=== PATIENT | male | born 1950 | race African-American/Black ===

== ENCOUNTER 2017-04-04 01:56 | Inpatient (IN) ==
--- NOTE | 2017-04-04 02:27 | Emergency Department Note ---
Idalmis Gavin Hilary, am scribing for, and in the presence of, Parker Spivey MD 02:24. Patric Gavin Robert M, MD, personally performed the services described in this documentation, ascribed by Alessandra Raygoza in my presence, and it is both accurate and complete . Arrival - Arrival Chief Complaint: GI Bleed/Rectal ED Nursing Triage Note: C/O Vomited blood x 2 episodes. Pt denies any complaints at time of triage. Mode of Arrival: Stretcher Limitations: No Limitations Source: Family (daughter), RN Notes Reviewed Time Seen by Provider: 04/04/17 02:12 - History of Present Illness HPI Narrative: Pt is a 67 y/o black male brought into the ED via EMS for c/o spitting up blood which onset earlier today. Pts daughter is in the room and states that pt has a home health nurse who noticed blood when he was coughing and spitting, pt states it feels like something is in his throat. His daughter reports that he has a PMHx of dialysis, DM and CHF and that he was diagnosed with pneumonia one week ago. She confirms that he takes a baby aspirin everyday and that Dr. Baltazar just recently changed all of his meds. No other complaints or problems stated in the ED. Onset (ago): hour(s) Consistency: intermittent Severity: mild Severity scale (1-10): 1 Allergies/Adverse Reactions: Allergies Allergy/AdvReac Type Severity Reaction Status Date / Time sulfamethoxazole Allergy Swelling Verified 03/23/17 01:02 [From Bactrim] of Lip/Tongue/Throat trimethoprim [From Bactrim] Allergy Swelling Verified 03/23/17 01:02 of Lip/Tongue/Throat Home Medications: Home Medications Medication Instructions Recorded Confirmed Type Aspirin [Ecotrin] 81 mg PO DAILY 11/12/15 04/04/17 History Cetirizine Tab [ZyrTEC Tab] 10 mg PO DAILY 11/12/15 04/04/17 History Cholecalciferol (Vitamin D3) 5,000 unit PO DAILY 11/12/15 04/04/17 History [Vitamin D3] Gemfibrozil 600 mg PO BID 11/12/15 04/04/17 History NIFEdipine [Nifedipine ER] 120 mg PO DAILY 11/12/15 04/04/17 History Pantoprazole Tab [Protonix Tab] 40 mg PO DAILY 11/12/15 04/04/17 History Pentoxifylline 400 mg PO TID W/MEALS 11/12/15 04/04/17 History Bimatoprost 0.01% Oph Soln 1 drop BOTH EYES BEDTIME 11/13/15 04/04/17 History [Lumigan] Brimonidine 0.1% Oph Soln 1 drop BOTH EYES TID 11/13/15 04/04/17 History [Alphagan P 0.1% Oph Soln] Dorzolamide/Timolol Oph Soln 1 drop BOTH EYES BID #1 ophthalmic 11/18/15 Rx [Cosopt] solution Albuterol/Ipratropium Neb [Duoneb] 3 ml RESP TX QID 12/29/15 04/04/17 History Budesonide/Formoterol Fumarate 2 puff INH BID 12/29/15 04/04/17 History [Symbicort 160-4.5 Mcg Inhaler] Montelukast Tab [Singulair Tab] 10 mg PO DAILY 12/29/15 04/04/17 History Multivitamin (Ocuvite) [Ocuvite] 1 tablet PO DAILY 12/29/15 04/04/17 History Theophylline ER Cap (24 Hr) 300 mg PO DAILY 12/29/15 04/04/17 History [Hood-24] Dorzolamide/Timolol Oph Soln 1 drop BOTH EYES BID 06/19/16 04/04/17 History [Cosopt] Insulin NPH Hum/Reg Insulin Hm See Protocol SUBCUT AC BREAKFAST 06/19/16 History [NovoLIN 70/30] Insulin NPH Hum/Reg Insulin Hm See Protocol SUBCUT AC SUPPER 06/19/16 04/04/17 History [NovoLIN 70/30] Furosemide Tab [Lasix Tab] 40 mg PO DAILY #30 tablet 03/23/17 04/04/17 Rx Atorvastatin [Lipitor] 40 mg PO BEDTIME 04/04/17 04/04/17 History Carvedilol [Coreg] 6.25 mg PO BID 04/04/17 04/04/17 History Cyproheptadine Tab [Periactin Tab] 4 mg PO TID 04/04/17 04/04/17 History Hydralazine HCl 50 mg PO TID 04/04/17 04/04/17 History cloNIDine TAB [Catapres Tab] 0.2 mg PO DAILY 04/04/17 04/04/17 History Review of System - Review of System 12 point system: reviewed and no additional remarkable complaints except as stated - Review of System Constitutional: Absent: fever Gastrointestinal: Present: other (spitting up blood) Musculoskeletal: Present: leg pain (feet swelling) Medical,Surgical,& Family Hx - Medical History Cardio: History of: CHF, Hypertension Neurology: History of: Cerebral Hemorrhage, Peripheral Neuropathy, Neurological Problems (? Bilateral lower extremity weakness due to neuropathy) No history of: Seizures HEENT: History of: Eye Problem, Glaucoma Endocrine: History of: Diabetes Mellitus (IDDM) No history of: Diabetes Mellitus (NIDDM) Rheumatology: History of;: Rheumatoid Arthritis (BED RIDDEN) Respiratory: History of: Asthma, Respiratory Problems (asbestosis) Renal: History of: Dialysis, Renal Failure Genitourinary: History of: Prostate Problems (past HX cancer) Other: History of: Miscellaneous Medical Problems (BED RIDDEN; LYMPH NODES REMOVE L GROIN) - Surgical History Neurologic Surgeries: Surgical HX of: Cerebral Hemorrhage Abdominal Surgeries: Surgical HX of: Colonoscopy, EGD Reproductive Surgeries: Surgical HX of;: Prostate Surgery Orthopedic Surgeries: Surgical HX of;: Orthopedic Surgery (AMPUTEE 1 AND 1/2 TOE R FOOT), Total Hip Replacement (LEFT) - Family History Family History: Reports;: Family Diabetes (MOM SUBLINGS), Family Hypertension ( SISTERS) - Social History Smoking Status: Never smoker Frequency of Alcohol Use: None Type of Drug Use: None Exam Vital Signs: Vital Signs Temperature 97.7 F 04/04/17 01:56 Pulse Rate 79 04/04/17 01:56 Respiratory Rate 18 04/04/17 01:56 Blood Pressure 142/73 04/04/17 01:56 O2 Sat by Pulse Oximetry 99 04/04/17 01:56 - General General appearance: alert, in no apparent distress - Head Head exam: Present: atraumatic, normocephalic - Eye Eye exam: Present: normal appearance, PERRL, EOMI - ENT ENT exam: Present: mucous membranes moist, TM's normal bilaterally. Absent: mucous membranes dry - Neck Neck exam: Present: full ROM, trachea midline. Absent: tenderness - Chest Chest inspection: Present: symmetric chest wall rise. Absent: tenderness - Respiratory Respiratory exam: Present: normal lung sounds bilaterally. Absent: respiratory distress - Cardiovascular Cardiovascular exam: Present: regular rate, normal rhythm, normal heart sounds. Absent: murmur, rubs, gallop - Abdominal Exam Abdominal exam: Present: soft, normal bowel sounds. Absent: distention, tenderness - Extremities Exam Extremities exam: Present: full ROM, pedal edema (bilateral equal edema). Absent: tenderness - Back Exam Back exam: Present: full ROM. Absent: tenderness - Neurological Exam Neurological exam: Present: alert, oriented X3, CN II-XII intact. Absent: motor sensory deficit - Psychiatric Psychiatric exam: Present: normal affect, normal mood - Skin Skin exam: Present: warm, dry, intact, normal color. Absent: rash Course - Consultations Consultation #1: Dr. Tariq will admit the patient. Time: 03:14 Consultation #2: No Amena on hospitalist. I am going to admit the patient and have the nursing staff notify him of her arrival to floor. Time: 03:29 Results - Labs CBC & BMP: 04/04/17 02:04 04/04/17 02:04 Lab Results: I have reviewed the patients labs Labs: Lab Results WBC 2.7 T/CUMM (4-12) L 04/04/17 02:04 RBC 3.34 MC/CUMM (3.8-5.5) L 04/04/17 02:04 Hgb 9.3 GM/DL (14.0-18.0) L 04/04/17 02:04 Hct 27.4 VOL% (42.0-52.0) L 04/04/17 02:04 MCV 82.0 FL (87-102) L 04/04/17 02:04 MCH 28 PG (27-34) 04/04/17 02:04 MCHC 33.9 GM/DL (32-36) 04/04/17 02:04 RDW 15.5 % (9.3-17.3) 04/04/17 02:04 Plt Count 112 T/CUMM (130-400) L 04/04/17 02:04 MPV 11.8 FL (9.6-12.0) 04/04/17 02:04 Neut % (Auto) 68.3 % (38.7-73.9) 04/04/17 02:04 Lymph % (Auto) 15.8 % (21.2-54.2) L 04/04/17 02:04 Jay % (Auto) 12.1 % (1.7-12.7) 04/04/17 02:04 Eos % (Auto) 1.9 % (0.00-10.9) 04/04/17 02:04 Baso % (Auto) 0.0 % (0.0-0.8) 04/04/17 02:04 Neut # (Auto) 1.8 10*3/uL (1.4-7.4) 04/04/17 02:04 Lymph # (Auto) 0.4 10*3/uL (1.4-4.0) L 04/04/17 02:04 Jay # (Auto) 0.3 10*3/uL (0.11-0.8) 04/04/17 02:04 Eos # (Auto) 0.1 10*3/uL (0.0-0.87) 04/04/17 02:04 Baso # (Auto) 0.0 10*3/uL (0.0-0.2) 04/04/17 02:04 Immature Gran % 1.9 % 04/04/17 02:04 Nucleated RBC % 0.0 /100WBC 04/04/17 02:04 Immature Gran # 0.05 # 04/04/17 02:04 Nucleated RBCs # 0.00 10*3/uL 04/04/17 02:04 Sodium 134 MMOL/L (136-145) L 04/04/17 02:04 Potassium 4.4 MMOL/L (3.5-5.1) 04/04/17 02:04 Chloride 103 MMOL/L (98-107) 04/04/17 02:04 Carbon Dioxide 24 MMOL/L (21-32) 04/04/17 02:04 Anion Gap 11.4 MMOL/L (5.0-15.0) 04/04/17 02:04 BUN 47 MG/DL (7-18) H 04/04/17 02:04 Creatinine 2.90 MG/DL (0.70-1.30) H 04/04/17 02:04 GFR Calculation 30 ML/MIN 04/04/17 02:04 BUN/Creatinine Ratio 16.00 RATIO (6.00-20.00) 04/04/17 02:04 Glucose 113 MG/DL (74-106) H 04/04/17 02:04 Calculated Osmolality 280.2 MOS/KG (273-304) 04/04/17 02:04 Calcium 8.5 MG/DL (8.5-10.1) 04/04/17 02:04 Magnesium 1.8 MG/DL (1.8-2.4) 04/04/17 02:04 Urine Color Yellow (Yellow) 04/04/17 02:35 Urine Appearance Clear (Clear) 04/04/17 02:35 Urine pH 5.0 (4.5-8.0) 04/04/17 02:35 Ur Specific [place] 1.012 (1.001-1.035) 04/04/17 02:35 Urine Protein 100 MG/DL 04/04/17 02:35 Urine Glucose (UA) Negative mg/dL (Negative) 04/04/17 02:35 Urine Ketones Negative mg/dL (Negative) 04/04/17 02:35 Urine Blood Negative mg/dL (Negative) 04/04/17 02:35 Urine Nitrate Negative (Negative) 04/04/17 02:35 Urine Bilirubin Negative mg/dL (Negative) 04/04/17 02:35 Urine Urobilinogen < 2.0 EU/DL (0.2-1.0) H 04/04/17 02:35 Urine Leukocytes Negative Daniella/ul (Negative) 04/04/17 02:35 Urine RBC 1 /HPF (0-4) 04/04/17 02:35 Urine WBC 2 /HPF (0-6) 04/04/17 02:35 Hyaline Casts 2 /LPF (0-3) 04/04/17 02:35 Urine Mucus Occasional /LPF (Occasional) 04/04/17 02:35 Ur Culture Indicated? Not indicated 04/04/17 02:35 - Diagnostic Findings Procedure: Chest x-ray: image reviewed by me (Worsening bibasilar effusion/ atelectasis/airspace opacities) Disposition Clinical Impression: Hemoptysis, Worsening pleural effusions, Oropharyngeal dysphagia, Congestive heart failure, Chronic renal failure Case discussed with: patient, patient's family Disposition: Still a Patient Condition: Stable Time of Disposition: 03:14
[2017-04-04 02:35] LABS: Calcium 8.5 MG/DL (8.5-10.1); Magnesium 1.8 MG/DL (1.8-2.4); Osmolality,Calculated 280.2 MOS/KG (273-304); Potassium 4.4 MMOL/L (3.5-5.1)
[2017-04-04 02:48] LABS: Eosinophils # 0.1 10*3/uL (0.0-0.87); Eosinophils % 1.9 % (0.00-10.9); Hematocrit 27.4 VOL% (42.0-52.0); Hemoglobin 9.3 GM/DL (14.0-18.0); Immature Granulocytes % 1.9 %; Immature Granulocytes Absolute 0.05 #; Lymphocytes # 0.4 10*3/uL (1.4-4.0); Lymphocytes % 15.8 % (21.2-54.2); Mean Corpuscular HGB Conc 33.9 GM/DL (32-36); Mean Corpuscular Hemoglobin 28 PG (27-34); Mean Platelet Volume 11.8 FL (9.6-12.0); Monocytes # 0.3 10*3/uL (0.11-0.8); Monocytes % 12.1 % (1.7-12.7); Neutrophils # 1.8 10*3/uL (1.4-7.4); Neutrophils % 68.3 % (38.7-73.9); Platelet Count 112 T/CUMM (130-400); Red Blood Count 3.34 MC/CUMM (3.8-5.5); Red Cell Distribution Width 15.5 % (9.3-17.3); White Blood Count 2.7 T/CUMM (4-12)
[2017-04-04 03:00] LABS: Apearance,Urine CLEAR (Clear); Bilirubin,Urine Negative (Negative); Blood, Urine Negative (Negative); Glucose,Urine (UA) Negative (Negative); Hyaline Casts,Urine 2 /LPF (0-3); Ketones,Urine Negative (Negative); Mucus,Urine Occasional /LPF (Occasional); Nitrite,Urine Negative (Negative); Protein,Urine 100 MG/DL; RBC,Urine 1 /HPF (0-4); Urine Color Yellow (Yellow); Urine Specific Gravity 1.012 (1.001-1.035); Urine Urobilinogen < 2.0 EU/DL (0.2-1.0); WBC,Urine 2 /HPF (0-6)
[2017-04-04] MEDS ORDERED: GLUCAGON 1 MG VIAL IM PRN (04:22)
--- NOTE | 2017-04-04 04:27 | Hospitalist History & Physical ---
Assessment and Plan (1) Acute on chronic systolic (congestive) heart failure Status: Acute Assessment and plan: Patient will be admitted to the telemetry floor. Obtain an echocardiogram to verify status of the left ventricle says chambers and pericardial space. Also documented left ventricular function. Patient will need to be seen by thermal engineer. He is on multiple medications at home several weeks the value of his questions. Essential medications will be continued. Check troponin and CPK -MB obtain an EKG. Current Visit: Yes (2) Stasis dermatitis Status: Acute Assessment and plan: Maintain skin hygiene on the hospital. Will use Aquaphor 12 provide moisturization of the skin desquamate him as much as possible. May have to consult Dr. Linares if he does not improve. Current Visit: Yes (3) Pleural effusion Status: Acute Assessment and plan: Check CT of the chest without. Encourage diuresis while in the hospital. Current Visit: Yes (4) Hemoptysis Status: Acute Assessment and plan: This could be bronchitis however will check a CT of the chest x-ray that there is no lesions in the lungs or could cause this. Congestive heart failure with a backup edema can also produce bloody sputum. Current Visit: Yes (5) Pneumonia Status: Acute Assessment and plan: Since he has been in the hospital recently patient will be treated as a hospital -acquired pneumonia. Put him on linezolid 600 mg IV every 12 hours and Zosyn 2.25 g IV every 12. He is on dialysis these doses are tailored to his GFR. Current Visit: No (6) Anemia Status: Chronic Assessment and plan: Patient has low MCV anemia but he does have leukopenia and thrombocytopenia associated with this. This anemia could be secondary to his renal failure but I am concerned about possibility of chronic iron loss. Hemoccult his stools to make sure there is no GI bleed. Current Visit: No Qualifiers: Anemia type: iron deficiency History of Present Illness Chief complaint: Coughing of blood History of present illness: Most of the history was obtained from the daughters at the bedside who have very poor recorrection: Mr. Em is a 67 year old male brought into the ED via EMS for c/o spitting up blood which onset earlier today. Pts daughter is in the room and states that pt has a home health nurse who noticed blood when he was coughing and spitting, pt states it feels like something is in his throat. His daughter reports that he has a PMHx of dialysis, DM and CHF and that he was diagnosed with pneumonia one week ago. She confirms that he takes a baby aspirin everyday and that a Dr. Baltazar just recently changed all of his meds. Patient is complaining of feeling of fullness in the throat and with little movement he gets very short of breath. I have not seen in the blood coughed up on his note cough during my assessment but the emergency room physician so what looked like coffee ground. Is a chest x-ray done that shows possibility of left lobar pneumonia but also presence of pleural effusions in that side. There is congestion of blood vessels into the upper lung echevarria. The heart silhouette looks rather globular Home Medications Medication Instructions Recorded Confirmed Type Aspirin [Ecotrin] 81 mg PO DAILY 11/12/15 04/04/17 History Cetirizine Tab [ZyrTEC Tab] 10 mg PO DAILY 11/12/15 04/04/17 History Cholecalciferol (Vitamin D3) 5,000 unit PO DAILY 11/12/15 04/04/17 History [Vitamin D3] Gemfibrozil 600 mg PO BID 11/12/15 04/04/17 History NIFEdipine [Nifedipine ER] 120 mg PO DAILY 11/12/15 04/04/17 History Pantoprazole Tab [Protonix Tab] 40 mg PO DAILY 11/12/15 04/04/17 History Pentoxifylline 400 mg PO TID W/MEALS 11/12/15 04/04/17 History Bimatoprost 0.01% Oph Soln 1 drop BOTH EYES BEDTIME 11/13/15 04/04/17 History [Lumigan] Brimonidine 0.1% Oph Soln 1 drop BOTH EYES TID 11/13/15 04/04/17 History [Alphagan P 0.1% Oph Soln] Dorzolamide/Timolol Oph Soln 1 drop BOTH EYES BID #1 ophthalmic 11/18/15 Rx [Cosopt] solution Albuterol/Ipratropium Neb [Duoneb] 3 ml RESP TX QID 12/29/15 04/04/17 History Budesonide/Formoterol Fumarate 2 puff INH BID 12/29/15 04/04/17 History [Symbicort 160-4.5 Mcg Inhaler] Montelukast Tab [Singulair Tab] 10 mg PO DAILY 12/29/15 04/04/17 History Multivitamin (Ocuvite) [Ocuvite] 1 tablet PO DAILY 12/29/15 04/04/17 History Theophylline ER Cap (24 Hr) 300 mg PO DAILY 12/29/15 04/04/17 History [Hood-24] Dorzolamide/Timolol Oph Soln 1 drop BOTH EYES BID 06/19/16 04/04/17 History [Cosopt] Insulin NPH Hum/Reg Insulin Hm See Protocol SUBCUT AC BREAKFAST 06/19/16 History [NovoLIN 70/30] Insulin NPH Hum/Reg Insulin Hm See Protocol SUBCUT AC SUPPER 06/19/16 04/04/17 History [NovoLIN 70/30] Furosemide Tab [Lasix Tab] 40 mg PO DAILY #30 tablet 03/23/17 04/04/17 Rx Atorvastatin [Lipitor] 40 mg PO BEDTIME 04/04/17 04/04/17 History Carvedilol [Coreg] 6.25 mg PO BID 04/04/17 04/04/17 History Cyproheptadine Tab [Periactin Tab] 4 mg PO TID 04/04/17 04/04/17 History Hydralazine HCl 50 mg PO TID 04/04/17 04/04/17 History cloNIDine TAB [Catapres Tab] 0.2 mg PO DAILY 04/04/17 04/04/17 History Allergies Allergy/AdvReac Type Severity Reaction Status Date / Time sulfamethoxazole Allergy Swelling Verified 03/23/17 01:02 [From Bactrim] of Lip/Tongue/Throat trimethoprim [From Bactrim] Allergy Swelling Verified 03/23/17 01:02 of Lip/Tongue/Throat Medical,Surgical,& Family Hx - Medical History Cardio: History of: CHF, Hypertension Neurology: History of: Cerebral Hemorrhage, Peripheral Neuropathy, Neurological Problems (? Bilateral lower extremity weakness due to neuropathy) No history of: Seizures HEENT: History of: Eye Problem, Glaucoma Endocrine: History of: Diabetes Mellitus (IDDM) No history of: Diabetes Mellitus (NIDDM) Rheumatology: History of;: Rheumatoid Arthritis (BED RIDDEN) Respiratory: History of: Asthma, Respiratory Problems (asbestosis) Renal: History of: Dialysis, Renal Failure Genitourinary: History of: Prostate Problems (past HX cancer) Other: History of: Miscellaneous Medical Problems (BED RIDDEN; LYMPH NODES REMOVE L GROIN) - Surgical History Neurologic Surgeries: Surgical HX of: Cerebral Hemorrhage Abdominal Surgeries: Surgical HX of: Colonoscopy, EGD Reproductive Surgeries: Surgical HX of;: Prostate Surgery Orthopedic Surgeries: Surgical HX of;: Orthopedic Surgery (AMPUTEE 1 AND 1/2 TOE R FOOT), Total Hip Replacement (LEFT) - Family History Family History: Reports;: Family Diabetes (MOM SUBLINGS), Family Hypertension ( SISTERS) - Social History Smoking Status: Never smoker Frequency of Alcohol Use: None Type of Drug Use: None Review of systems: 12 point system assessment was attempted with difficult. Review of systems significant for the chief complaint of coughing of blood shortness of breath profound exercise intolerance abnormal chest x-ray December was compared to March and the past medical history. This history is documented in prior notes as systolic congestive heart failure however I have not been able to locate an echocardiogram. Exam - Constitutional Vitals: Period Temp Pulse Resp BP Sys/Stewart Pulse Ox Last 24 Hr 97.7 F-97.7 F 79-79 18-18 142-142/73-73 99 General appearance: normal weight, other (Asthenia malaise dysphonia) - Head Head exam: Present: normocephalic, atraumatic - Eye Eye exam: Present: EOMI, other (Anicteric sclera no conjunctival petechiae) Pupils: Present: SLY - ENT ENT exam: Present: normal oropharynx, other (Noted posterior pharyngeal secretions) - Neck Neck exam: Present: other (Neck is supple midline trachea mild JVD no stridor) - Respiratory Respiratory exam: Present: other (Doubt to auscultation in both bases more so on the right side no wheezing) - Cardiovascular Cardiovascular exam: Present: other (Regular rhythm with ectopic beats I do not have an EKG will monitor to look at the time of my assessment) - GI/Abdominal GI/Abdominal exam: Present: normal bowel sounds, soft - Extremities Exam Extremities exam: Present: other (Generalized weakness severe edema the lower extremities with stasis dermatitis hygiene upkeep seem to be arranged) - Neurological Exam Neurological exam: Present: alert, oriented X3, CN II-XII intact, other (Very weak slow in responses but appropriate significant dysphonia) - Psychiatric Psychiatric exam: Present: other (Subdued affect) - Skin Skin exam: Present: other (Weeping leg edema with discoloration is also dependent edema in the sacral area) Results - Labs CBC & BMP: 04/04/17 02:04 04/04/17 02:04 Lab Results: I have reviewed the past 24 hour labs (Noted low MCV anemia with a associated leukopenia and thrombocytopenia RDW is on the 15.5 however. Also noted mild hyponatremia; Urine is not inflamed) - Diagnostic Findings Procedure: Chest x-ray: image reviewed by me (With sent basilar density is to be associated with pneumonia on the left side and possible pleural effusion I will order CT of the chest without contrast)
[2017-04-04 04:41] LABS: CKMB % 7.4 %; Troponin I Only 0.038 NG/ML (0.00-0.045)
[2017-04-04] MEDS: LINEZOLID INJ 600 MG in PREMIX 1 EACH IV SCH ×2 (06:00→20:53)
--- NOTE | 2017-04-04 06:40 | CT Report ---
Referring physician: Parker Spivey EXAM: CT chest without contrast DATE: 04/04/2017 COMPARISON: 06/30/2016 REASON: Progressive consolidation with larger pleural effusion and hemoptysis TECHNIQUE: Axial images of the chest were obtained without the use of IV contrast. Coronal and sagittal reformatted images were also provided. Total DLP is 552.30 mGy*cm. This exam was interpreted by [facility]. FINDINGS: The heart is enlarged with coronary artery calcifications. Enlargement of the right lobe of the thyroid gland with larger 33 mm nodule. Several nodules are felt to be present. No significant change in the size of the nodes in the chest. Prior cholecystectomy with cortical loss in the kidneys and increased fecal material in the colon. Degenerative changes are noted. Progressive pleural effusions which measure 64 mm on the right and 61 mm on the left the level of the phoebe. Progressive dense consolidation/atelectasis of the lower lobes which appear to contain calcified granulomata and/or secretions. Tracheal secretions are noted. Reduced parenchymal findings in the remainder of the lungs when compared to the previous exam. Patchy groundglass opacities persist especially in the left upper lobe/lingula. IMPRESSION: Cardiomegaly with coronary artery calcifications. Moderately large bilateral pleural effusions with associated dense atelectasis/consolidation in the lower lobes. Reduced parenchymal findings in the remainder of the lungs. Residual groundglass opacities which can be seen with infiltration or other parenchymal pathology. It is somewhat difficult to exclude underlying masses with these findings and follow-up is recommended. Larger indeterminate right thyroid nodule. Thyroid ultrasound is recommended. Prior cholecystectomy. The CT exam was performed using one or more of the following dose reduction techniques: Automated exposure control and adjustment of the mA and/or kV according to patient size. PROCEDURE INTERPRETED AT [facility] DEPARTMENT OF RADIOLOGY Final Report Signed by: Dr. Jacque Sarah
--- NOTE | 2017-04-04 06:57 | XRay Report ---
Portable chest Date: 04/04/2017 Clinical history: Chest pain, shortness of breath Comparison: 03/23/2017 Technique: Portable AP sitting chest Findings: The heart is enlarged with uncoiling of the aorta and arterial calcifications. Larger bilateral pleural effusions with progressive parenchymal findings in the lower lobes. Increased hilar density with degenerative changes. Impression: Moderately large bilateral pleural effusions with progressive atelectasis/infiltration in the lower lobes. Follow-up chest x-ray recommended. PROCEDURE INTERPRETED AT [facility] DEPARTMENT OF RADIOLOGY Final Report Signed by: Dr. Jacque Sarah
[2017-04-04] MEDS: FUROSEMIDE 40 MG TABLET PO SCH (08:33)
[2017-04-04] MEDS: THEOPHYLLINE ER (24 HR) 300 MG CAPSULE PO SCH (08:33)
[2017-04-04] MEDS: PANTOPRAZOLE 40 MG TABLET PO SCH (08:33)
[2017-04-04] MEDS: MONTELUKAST 10 MG TABLET PO SCH (08:33)
[2017-04-04] MEDS: MULTIVITAMIN (OCUVITE) TABLET PO SCH (08:33)
[2017-04-04] MEDS: CARVEDILOL 6.25 MG TABLET PO SCH ×2 (08:33→21:04)
[2017-04-04] MEDS: CHOLECALCIFEROL 1,000 UNIT TABLET PO SCH (08:33)
[2017-04-04] MEDS: ASPIRIN EC 81 MG TABLET PO SCH (08:33)
[2017-04-04] MEDS: PIPERACILLIN/TAZOBACTAM 3,375 MG in SODIUM CHLORIDE 0.9% 100 ML IV SCH ×3 (08:34→23:14)
[2017-04-04] MEDS: INSULIN NPH/REGULAR 70/30 100 UNIT/ML SUBCUT SCH ×2 (08:34→16:31)
--- NOTE | 2017-04-04 08:53 | Cardiology Consult Note ---
<Margaret De La Rosa E - Last Filed: 04/04/17 11:36> Assessment and Plan - Time spent with patient Time spent with patient: Greater than 30 minutes (1) Pancytopenia Status: Acute Assessment and plan: SEE PLAN OF CARE LISTED BELOW Current Visit: Yes (2) Community acquired pneumonia Status: Acute Assessment and plan: SEE PLAN OF CARE LISTED BELOW Current Visit: No (3) Chronic renal failure Status: Chronic Assessment and plan: SEE PLAN OF CARE LISTED BELOW Current Visit: Yes Qualifiers: Chronic kidney disease stage: stage 4 (severe) Qualified Code(s): N18.4 - Chronic kidney disease, stage 4 (severe) (4) Diabetes mellitus Status: Chronic Assessment and plan: SEE PLAN OF CARE LISTED BELOW Current Visit: No Qualifiers: Diabetes mellitus type: type 2 Diabetes mellitus complication detail: with chronic kidney disease Chronic kidney disease stage: stage 5, not on chronic dialysis (5) chronic lower extremity wounds Status: Chronic Assessment and plan: SEE PLAN OF CARE LISTED BELOW Current Visit: No (6) Hemoptysis Status: Acute Assessment and plan: SEE PLAN OF CARE LISTED BELOW Current Visit: Yes (7) Pleural effusion Status: Acute Assessment and plan: SEE PLAN OF CARE LISTED BELOW Current Visit: Yes (8) CHF (congestive heart failure), NYHA class III Status: Acute Assessment and plan: SEE PLAN OF CARE LISTED BELOW Current Visit: Yes Qualifiers: Congestive heart failure type: diastolic Congestive heart failure chronicity: acute on chronic Qualified Code(s): I50.33 - Acute on chronic diastolic (congestive) heart failure (9) Dyslipidemia Status: Chronic Assessment and plan: SEE PLAN OF CARE LISTED BELOW Current Visit: Yes (10) Edema Status: Chronic Assessment and plan: SEE PLAN OF CARE LISTED BELOW Current Visit: Yes (11) Risk for falls Status: Chronic Assessment and plan: SEE PLAN OF CARE LISTED BELOW Current Visit: Yes History of Present Illness - Data of Consult Patient: known to practice within the last 3 years Consult date: 04/04/17 Requesting Physician: London Abdi Jr. 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 AG Mr. Em, 67BM, routinely followed by Dr. Ag. He was last seen in cardiology clinic March 26, 2017. Risk factors include: Hypertension, diabetes, peripheral vascular disease, sedentary lifestyle. History of CHF, pneumonia, chronic kidney disease (reportedly got off dialysis after only 1 month), anemia , diabetic heel ulcer. Patient presented to the emergency department April 04, 2017 after experiencing hemoptysis, shortness of breath. Patient takes aspirin 81 mg daily. Complains of "something in my throat" and points specifically left lower neck. This is tender to touch and is enlarged. One week ago, he was diagnosed with pneumonia. Chest x-ray revealed the possibility of left lobular pneumonia but also presence of pleural effusions. CT chest reveals: Moderately large bilateral pleural effusions with associated dense atelectasis/consolidation in lower lobes. Difficult to exclude underlying masses with the findings noted, follow-up is recommended. Larger indeterminate right thyroid nodule. He has been edematous in his lower extremities. He has a chronic right heel poor healing wound followed by Dr. Linares. Over the past several days, patient has developed a pea-size stage II to III wound. He denies chest pain, heaviness or tightness. Over the weekend, patient felt extremely fatigued. On-call filer metal patterns, Dr. Mustafa, was called and he asked them to stop Imdur. Still no improvement in fatigue. Blood pressures are elevated this morning and will adjust medications accordingly. Patient has pancytopenia on labs this morning. Of note, WBCs, anemia has has worsened since last admission. Platelet count, previously normal , now reveals a count of 112. Creatinine has worsened to 2.9 since prior admission when noted to be 2.3. Patient's weight this morning is 58.9 kg. Upon review from prior weight from March 23, 2017 weight recorded at 81.6 kg. Prior weights revealed 90's kg. Patient's daughter acknowledges she feels as if he has lost weight but not that significant in amount. Will ask nurse to reweigh this morning. [facility]chocardiogram at [facility] March 26, 2017 reveals the following: LVEF 55% (improved from 40%), concentric left ventricular hypertrophy is mild. Grade 1 diastolic dysfunction. No significant valvular abnormality. PAP 58 mmHg (improved from 70mmHg). Small pericardial effusion. Today, ordering thyroid ultrasound to evaluate bilobular enlargement, pain. Venous ultrasound bilateral lower extremities. Daughter had asked about having ABIs performed during this admission as Dr. Ag had scheduled them outpatient. Per Dr. Ag, Dr. Linares is seeing patient and if he prefers this , we can order ABIs during this hospitalization. Due to the significant weight differences, will ask that he be reweighed this morning and every day. After reviewing his multiple cardiac medications, many of them have adverse reactions such as thrombocytopenia or leukopenia including: Atorvastatin, Coreg, Furosemide. Hydralazine associated with neutropenia but not thrombocytopenia. Nifedipine, Clonidine NOT associated with thrombocytopenia or leukopenia. I will further discuss with Dr. Ag and await additional recommendations. Also, patient did have a small pericardial effusion on echo from March 26, 2017. I will discuss with Dr. Ag reordering echocardiogram, focused study if indicated ASSESSMENT/plan: 1. RECURRENT CAP - currently being treated with antibiotics, respiratory treatments. 2. ACUTE ON CHRONIC CHF - secondary to diastolic dysfunction, NYHA CLASS III - IV. 3. PANCYTOPENIA - blood cultures 2, UA. Reviewing cardiac medications and will later make adjustments as able to see if this will improve the pancytopenia. May warrant a hematology consult but I will defer additional workup to attending. Does have an abnormal CT chest. Thyroid ultrasounds been ordered. Significant weight loss but will have patient reweighed for accuracy today and daily. 4. HYPERTENSION - adjust meds accordingly during the hospital stay for better blood pressure control 5. DYSLIPIDEMIA - taking Atorvastatin. Will review other medicines we could use rather than atorvastatin and will incorporate when able. 6. PVD WITH POOR HEALING WOUND - Dr. Linares is following 7. DEBILITATED PATIENT - continue current plan of care. Fall protocol in place 8. ABNORMAL CT CHEST - see report. Dedicated thyroid US ordered. 9. CKD, STAGE - stage IV. Avoiding PERLITA for fear of worsening renal insufficiency 10. EDEMA - venous ultrasound bilateral lower extremities 11. THYROID ABNORMALITY - thyroid ultrasound today 12. HEMOPTYSIS - continue current work-up CC: London Abdi Jr., MD - Home Medications and Allergies Home Medications: Home Medications Medication Instructions Recorded Confirmed Type Aspirin [Ecotrin] 81 mg PO DAILY 11/12/15 04/04/17 History Cetirizine Tab [ZyrTEC Tab] 10 mg PO DAILY 11/12/15 04/04/17 History Cholecalciferol (Vitamin D3) 5,000 unit PO DAILY 11/12/15 04/04/17 History [Vitamin D3] NIFEdipine [Nifedipine ER] 120 mg PO DAILY 11/12/15 04/04/17 History Pantoprazole Tab [Protonix Tab] 40 mg PO DAILY 11/12/15 04/04/17 History Pentoxifylline 400 mg PO TID W/MEALS 11/12/15 04/04/17 History Bimatoprost 0.01% Oph Soln 1 drop BOTH EYES BEDTIME 11/13/15 04/04/17 History [Lumigan] Brimonidine 0.1% Oph Soln 1 drop BOTH EYES TID 11/13/15 04/04/17 History [Alphagan P 0.1% Oph Soln] Dorzolamide/Timolol Oph Soln 1 drop BOTH EYES BID #1 ophthalmic 11/18/15 Rx [Cosopt] solution Albuterol/Ipratropium Neb [Duoneb] 3 ml RESP TX QID 12/29/15 04/04/17 History Budesonide/Formoterol Fumarate 2 puff INH BID 12/29/15 04/04/17 History [Symbicort 160-4.5 Mcg Inhaler] Montelukast Tab [Singulair Tab] 10 mg PO DAILY 12/29/15 04/04/17 History Multivitamin (Ocuvite) [Ocuvite] 1 tablet PO DAILY 12/29/15 04/04/17 History Theophylline ER Cap (24 Hr) 300 mg PO DAILY 12/29/15 04/04/17 History [Hood-24] Dorzolamide/Timolol Oph Soln 1 drop BOTH EYES BID 06/19/16 04/04/17 History [Cosopt] Insulin NPH Hum/Reg Insulin Hm See Protocol SUBCUT AC BREAKFAST 06/19/16 History [NovoLIN 70/30] Insulin NPH Hum/Reg Insulin Hm See Protocol SUBCUT AC SUPPER 06/19/16 04/04/17 History [NovoLIN 70/30] Furosemide Tab [Lasix Tab] 40 mg PO DAILY #30 tablet 03/23/17 04/04/17 Rx Atorvastatin [Lipitor] 40 mg PO BEDTIME 04/04/17 04/04/17 History Carvedilol [Coreg] 6.25 mg PO BID 04/04/17 04/04/17 History Cyproheptadine Tab [Periactin Tab] 4 mg PO TID 04/04/17 04/04/17 History Hydralazine HCl 50 mg PO TID 04/04/17 04/04/17 History cloNIDine TAB [Catapres Tab] 0.2 mg PO DAILY 04/04/17 04/04/17 History Allergies/Adverse Reactions: Allergies Allergy/AdvReac Type Severity Reaction Status Date / Time sulfamethoxazole Allergy Swelling Verified 03/23/17 01:02 [From Bactrim] of Lip/Tongue/Throat trimethoprim [From Bactrim] Allergy Swelling Verified 03/23/17 01:02 of Lip/Tongue/Throat Review of systems: REVIEW OF SYSTEMS: - Constitutional Constitutional: Present: Fatigue. Absent: syncope, anorexia, night sweats - EENT Eyes: Absent: blurry vision, loss of vision, diplopia Ears: Absent: decreased hearing, ear pain, ear discharge Neck: Complains of pain to the left lower neck, tenderness, "feels like something is pressing on the neck and into my throat". - Cardiovascular Cardiovascular: Denies chest pain with exertion. Shortness of breath. Denies palpitations. Edema has worsened and lower extremities of the past several weeks. Absent: chest pain with deep breath, - Respiratory Respiratory: Present: Shortness of breath, cough, chills. Hemoptysis and wheezing. - Gastrointestinal Gastrointestinal: Denies: constipation, abdominal pain, hematemesis, hematochezia, melena, change in bowel habits, nausea - Genitourinary Genitourinary: Absent: difficulty urinating, dysuria, urinary hesitancy, flank pain - Musculoskeletal Musculoskeletal: Present: back pain, joint pain chronic. Absent: muscle cramps - Neurological Neurological: Present: Bedridden and nonambulatory. Absent: dizziness, hemiparesis - Psychiatric Psychiatric: Absent: anxiety, depression, difficulty concentrating - Endocrine Endocrine: Absent: cold intolerance, heat intolerance, polyuria, polyphagia, polydipsia - Hematologic/Lymphatic Hematologic/Lymphatic: Present: easy bruising. Absent: easy bleeding -Integumentary Integumentary: Right heel with poor wound healing which is worsened over the past 1 week. No other unusual lesions or rashes. Medical,Surgical,& Family Hx - Medical History Cardio: History of: CHF, Hypertension Neurology: History of: Cerebral Hemorrhage, Peripheral Neuropathy, Neurological Problems (? Bilateral lower extremity weakness due to neuropathy) No history of: Seizures HEENT: History of: Eye Problem, Glaucoma Endocrine: History of: Diabetes Mellitus (IDDM) No history of: Diabetes Mellitus (NIDDM) Rheumatology: History of;: Rheumatoid Arthritis (BED RIDDEN) Respiratory: History of: Asthma, Respiratory Problems (asbestosis) Renal: History of: Dialysis, Renal Failure Genitourinary: History of: Prostate Problems (past HX cancer) Other: History of: Miscellaneous Medical Problems (BED RIDDEN; LYMPH NODES REMOVE L GROIN) - Surgical History Neurologic Surgeries: Surgical HX of: Cerebral Hemorrhage Abdominal Surgeries: Surgical HX of: Colonoscopy, EGD Reproductive Surgeries: Surgical HX of;: Prostate Surgery Orthopedic Surgeries: Surgical HX of;: Orthopedic Surgery (AMPUTEE 1 AND 1/2 TOE R FOOT), Total Hip Replacement (LEFT) - Family History Family History: Reports;: Family Diabetes (MOM SUBLINGS), Family Hypertension ( SISTERS) - Social History Smoking Status: Never smoker Have you smoked in the last 12 months: No Frequency of Alcohol Use: None Type of Drug Use: None Marital Status: Lives With:: Children Functional capacity: bed bound Physical Examination Vital Signs Temp Pulse Resp BP Pulse Ox 97.7 F 79 18 142/73 99 04/04/17 01:56 04/04/17 01:56 04/04/17 01:56 04/04/17 01:56 04/04/17 01:56 General: [Appears chronically ill, thin. [Pleasant and cooperative. ] [ HEENT: [Bilateral arcus noted, normocephalic, atraumatic. Mucous membranes moist. No jaundice noted. Conjunctiva moist and clear, sclerae anicteric] Neck: No jugular vein distention noted. Bilobar enlargement of the thyroid noted with tenderness in the left lobe. No carotid bruit appreciated Cardiac: [Regular rate and rhythm.] [No murmur, rub or gallop.] Lungs: [Decreased sounds noted posteriorly in the bases. Scant crackles noted in the right lobe which improved but persists with cough. No wheezing at present. Requiring oxygen via nasal cannula continuously at this point. Symmetrical chest wall movements noted. Abdomen: Soft, bowel sounds normoactive. Nontender and nondistended. No abdominal bruit or thrill noted. No masses noted. Musculoskeletal: No fluid collection. Decreased range of motion is noted. Extremities: No clubbing, cyanosis noted. [2+ pitting edema bilateral lower extremities ] Upper extremity pulses 2+. Lower extremity pulses difficult to palpate. Skin: Right heel reveals pea-size stage II to stage III ulcer. Patient wearing waffle boots bilaterally. Neuro: Awake, alert and oriented 3. No essential tremor is appreciated. Result/EKG - Labs CBC & BMP: 04/04/17 02:04 04/04/17 02:04 Lab Results: I have reviewed the past 24 hour labs Labs: Laboratory Results - last 24 hr 04/04/17 04/04/17 04/04/17 02:04 02:04 02:04 WBC 2.7 L RBC 3.34 L Hgb 9.3 L Hct 27.4 L MCV 82.0 L MCH 28 MCHC 33.9 RDW 15.5 Plt Count 112 L MPV 11.8 Neut % (Auto) 68.3 Lymph % (Auto) 15.8 L [place] % (Auto) 12.1 Eos % (Auto) 1.9 Baso % (Auto) 0.0 Neut # (Auto) 1.8 Lymph # (Auto) 0.4 L [place] # (Auto) 0.3 Eos # (Auto) 0.1 Baso # (Auto) 0.0 Immature Gran % 1.9 Nucleated RBC % 0.0 Immature Gran # 0.05 Nucleated RBCs # 0.00 Sodium 134 L Potassium 4.4 Chloride 103 Carbon Dioxide 24 Anion Gap 11.4 BUN 47 H Creatinine 2.90 H GFR Calculation 30 BUN/Creatinine Ratio 16.00 Glucose 113 H POC Glucose Calculated Osmolality 280.2 Calcium 8.5 Magnesium 1.8 Total Creatine Kinase CK-MB (CK-2) CK and CKMB Interp Troponin I Urine Color Urine Appearance Urine pH Ur Specific [place] Urine Protein Urine Glucose (UA) Urine Ketones Urine Blood Urine Nitrate Urine Bilirubin Urine Urobilinogen Urine Leukocytes Urine RBC Urine WBC Hyaline Casts Urine Mucus Ur Culture Indicated? Blood Type A NEGATIVE 04/04/17 04/04/17 04/04/17 02:35 07:38 Unknown WBC RBC Hgb Hct MCV MCH MCHC RDW Plt Count MPV Neut % (Auto) Lymph % (Auto) [place] % (Auto) Eos % (Auto) Baso % (Auto) Neut # (Auto) Lymph # (Auto) [place] # (Auto) Eos # (Auto) Baso # (Auto) Immature Gran % Nucleated RBC % Immature Gran # Nucleated RBCs # Sodium Potassium Chloride Carbon Dioxide Anion Gap BUN Creatinine GFR Calculation BUN/Creatinine Ratio Glucose POC Glucose 141 H Calculated Osmolality Calcium Magnesium Total Creatine Kinase 174 CK-MB (CK-2) 12.9 H CK and CKMB Interp 7.4 Troponin I 0.038 Urine Color Yellow Urine Appearance Clear Urine pH 5.0 Ur Specific [place] 1.012 Urine Protein 100 Urine Glucose (UA) Negative Urine Ketones Negative Urine Blood Negative Urine Nitrate Negative Urine Bilirubin Negative Urine Urobilinogen < 2.0 H Urine Leukocytes Negative Urine RBC 1 Urine WBC 2 Hyaline Casts 2 Urine Mucus Occasional Ur Culture Indicated? Not indicated Blood Type - Diagnostic Findings Procedure: Chest x-ray: report reviewed by me, CT - chest: report reviewed by me - EKG EKG results: interpreted by sd EKG shows: sinus rhythm <Asher Ag - Last Filed: 04/04/17 16:11> History of Present Illness - Consult Narrative History of present illness: Mr. Em is a 67 year old male CC: London Abdi Jr., MD Physical Examination Vital Signs Temp Pulse Resp BP Pulse Ox 97.7 F 79 18 142/73 99 04/04/17 01:56 04/04/17 01:56 04/04/17 01:56 04/04/17 01:56 04/04/17 01:56 Result/EKG - Labs CBC & BMP: 04/04/17 02:04 04/04/17 02:04 Labs: Laboratory Results - last 24 hr 04/04/17 04/04/17 04/04/17 02:04 02:04 02:04 WBC 2.7 L RBC 3.34 L Hgb 9.3 L Hct 27.4 L MCV 82.0 L MCH 28 MCHC 33.9 RDW 15.5 Plt Count 112 L MPV 11.8 Neut % (Auto) 68.3 Lymph % (Auto) 15.8 L [place] % (Auto) 12.1 Eos % (Auto) 1.9 Baso % (Auto) 0.0 Neut # (Auto) 1.8 Lymph # (Auto) 0.4 L [place] # (Auto) 0.3 Eos # (Auto) 0.1 Baso # (Auto) 0.0 Immature Gran % 1.9 Nucleated RBC % 0.0 Immature Gran # 0.05 Nucleated RBCs # 0.00 Sodium 134 L Potassium 4.4 Chloride 103 Carbon Dioxide 24 Anion Gap 11.4 BUN 47 H Creatinine 2.90 H GFR Calculation 30 BUN/Creatinine Ratio 16.00 Glucose 113 H POC Glucose Calculated Osmolality 280.2 Calcium 8.5 Magnesium 1.8 Total Creatine Kinase CK-MB (CK-2) CK and CKMB Interp Troponin I Urine Color Urine Appearance Urine pH Ur Specific [place] Urine Protein Urine Glucose (UA) Urine Ketones Urine Blood Urine Nitrate Urine Bilirubin Urine Urobilinogen Urine Leukocytes Urine RBC Urine WBC Hyaline Casts Urine Mucus Ur Culture Indicated? Blood Type A NEGATIVE 04/04/17 04/04/17 04/04/17 02:35 07:38 12:14 WBC RBC Hgb Hct MCV MCH MCHC RDW Plt Count MPV Neut % (Auto) Lymph % (Auto) [place] % (Auto) Eos % (Auto) Baso % (Auto) Neut # (Auto) Lymph # (Auto) [place] # (Auto) Eos # (Auto) Baso # (Auto) Immature Gran % Nucleated RBC % Immature Gran # Nucleated RBCs # Sodium Potassium Chloride Carbon Dioxide Anion Gap BUN Creatinine GFR Calculation BUN/Creatinine Ratio Glucose POC Glucose 141 H 68 L Calculated Osmolality Calcium Magnesium Total Creatine Kinase CK-MB (CK-2) CK and CKMB Interp Troponin I Urine Color Yellow Urine Appearance Clear Urine pH 5.0 Ur Specific [place] 1.012 Urine Protein 100 Urine Glucose (UA) Negative Urine Ketones Negative Urine Blood Negative Urine Nitrate Negative Urine Bilirubin Negative Urine Urobilinogen < 2.0 H Urine Leukocytes Negative Urine RBC 1 Urine WBC 2 Hyaline Casts 2 Urine Mucus Occasional Ur Culture Indicated? Not indicated Blood Type 04/04/17 04/04/17 04/04/17 13:58 15:18 Unknown WBC RBC Hgb Hct MCV MCH MCHC RDW Plt Count MPV Neut % (Auto) Lymph % (Auto) [place] % (Auto) Eos % (Auto) Baso % (Auto) Neut # (Auto) Lymph # (Auto) [place] # (Auto) Eos # (Auto) Baso # (Auto) Immature Gran % Nucleated RBC % Immature Gran # Nucleated RBCs # Sodium Potassium Chloride Carbon Dioxide Anion Gap BUN Creatinine GFR Calculation BUN/Creatinine Ratio Glucose POC Glucose 88 93 Calculated Osmolality Calcium Magnesium Total Creatine Kinase 174 CK-MB (CK-2) 12.9 H CK and CKMB Interp 7.4 Troponin I 0.038 Urine Color Urine Appearance Urine pH Ur Specific [place] Urine Protein Urine Glucose (UA) Urine Ketones Urine Blood Urine Nitrate Urine Bilirubin Urine Urobilinogen Urine Leukocytes Urine RBC Urine WBC Hyaline Casts Urine Mucus Ur Culture Indicated? Blood Type
[2017-04-04] MEDS ORDERED: ALBUTEROL/IPRATROPIUM 3 ML NEB RESP TX SCH (09:00)
[2017-04-04] MEDS ORDERED: SKIN HEALING OINT (AQUAPHOR) 50 GM TUBE TOP PRN (09:07)
[2017-04-04] MEDS: ALBUTEROL/IPRATROPIUM 3 ML NEB RESP TX SCH ×4 (09:18→20:06)
[2017-04-04] MEDS: BUDESONIDE/FORMOTEROL 160-4.5 INHALER 6 GM INH SCH ×2 (09:30→21:10)
[2017-04-04] MEDS: GEMFIBROZIL 600 MG TABLET PO SCH ×2 (09:59→21:05)
[2017-04-04] MEDS: DORZOLAMIDE/TIMOLOL OPH SOLN 10 ML BOTTLE BOTH EYES SCH ×2 (09:59→21:10)
--- NOTE | 2017-04-04 12:09 | Ultrasound Report ---
Exam: Bilateral lower extremity venous Doppler ultrasound Comparison: 07/02/2016 Clinical history: Leg edema, pain Technique: Duplex scan of the lower extremity veins using B-mode/grayscale scaled imaging and Doppler spectral analysis and color flow. Findings: Major venous structures of the lower extremities demonstrate a normal course and caliber. Normal color-flow study and spectral analysis. There is normal compression and augmentation of bilateral common femoral, superficial femoral and popliteal veins. The proximal bilateral greater saphenous veins appear to be patent. Impression: No evidence to suggest deep venous thrombosis within either lower extremity. Ultrasound images were captured and stored. PROCEDURE INTERPRETED AT [facility] DEPARTMENT OF RADIOLOGY Final Report Signed by: Dr. Jacque Sarah
--- NOTE | 2017-04-04 14:24 | Ultrasound Report ---
Exam: US thyroid Date: 04/04/2017 9:54 AM Comparison: None Indication: Thyroid enlargement Technique:[Multiple real-time scans were obtained of the thyroid gland. Color-flow scans obtained. Ultrasound images were captured and stored.] Findings: The right lobe measures 58 x 39 x 35 mm and appears replaced by a complex solid/cystic findings. Left lobe measures 45 x 21 x 12 mm with 5 mm complex cystic nodule in the upper pole. Impression: Enlargement of the thyroid gland, especially the right lobe which is replaced by an indeterminate complex abnormality. Additional indeterminate 5 mm complex nodule in the upper pole of the left lobe. Correlation with nuclear medicine MCDONALD uptake thyroid scan, ultrasound guided biopsy, or short-term follow-up thyroid ultrasound may be helpful for further evaluation. The Ultrasound images were captured and stored. PROCEDURE INTERPRETED AT [facility] DEPARTMENT OF RADIOLOGY Final Report Signed by: Dr. Jacque Sarah
--- NOTE | 2017-04-04 14:52 | ECHO Report ---
Tobias Em Exam Date: 04/04/2017 09:53 Referring Physician: Technologist: Coni Babb Age: 67 Ht (in): 72 Wt (lb): 200 Gender: M Exam Location: [facility] Echo Indications: anemia, pneumonia, CHF, pleural effusion, hemoptysis BP: 164 / 72 HR: 79 Rhythm: Sinus Technical Quality: Technically difficult study IMPRESSIONS Technically adequate study 2+ left atrial enlargement 2-3+ concentric LVH Borderline LV systolic function with ejection fraction estimated 50% without segmental wall motion abnormality Aortic sclerosis without stenosis Approximately 1+ mitral and tricuspid regurgitation with RVSP 43 mmHg plus RAP MEASUREMENTS (Male / Female) Normal Values 2D ECHO LV Diastolic Diameter PLAX 4.6 cm 4.2 - 5.9 / 3.9 - 5.3 cm LV Systolic Diameter PLAX 4.1 cm LV Fractional Shortening PLAX 10.6 % IVS Diastolic Thickness 1.5 cm 0.6 - 1.0 / 0.6 - 0.9 cm LVPW Diastolic Thickness 1.3 cm 0.6 - 1.0 / 0.6 - 0.9 cm Aortic Root Diameter 2.8 cm LA Systolic Diameter LX 4.1 cm 3.0 - 4.0 / 2.7 - 3.8 cm DOPPLER TR Peak Velocity 328.0 cm/s TR Peak Gradient 43.0 mmHg FINDINGS Left Ventricle Moderately increased septal wall thickness. Mild concentric left ventricular hypertrophy with diastolic dysfunction. Left ventricular ejection fraction is estimated Right Ventricle Normal right ventricular size and systolic function. Right Atrium The right atrium is mildly enlarged. Left Atrium Mildly increased left atrial diameter. Mitral Valve Mild mitral valve sclerosis. Mild-moderate mitral valve regurgitation. Aortic Valve Mild aortic valve sclerosis. Mild aortic valve regurgitation. Tricuspid Valve Morphologically normal tricuspid valve. Moderate tricuspid valve regurgitation. Tricuspid regurgitation velocities suggest a PAP of 53 mmHg. Pulmonic Valve Morphologically normal pulmonic valve. Trace pulmonary valve regurgitation. Pericardium pleural effusion. Aorta Normal size aortic root and proximal ascending aorta. Asher Stock (Electronically Signed) Final Date: 04 April 2017 14:51
[2017-04-04] MEDS: MENTHOL/ZINC OXIDE OINT 71 GM JAR TOP SCH ×2 (18:58→21:02)
[2017-04-04] MEDS: PENTOXIFYLLINE 400 MG TABLET PO SCH (18:59)
[2017-04-04] MEDS ORDERED: DORZOLAMIDE/TIMOLOL OPH SOLN 10 ML BOTTLE BOTH EYES SCH (21:00)
[2017-04-04] MEDS: ATORVASTATIN 40 MG TABLET PO SCH (21:04)
[2017-04-04] MEDS: CYPROHEPTADINE 4 MG TABLET PO SCH (21:08)
[2017-04-04] MEDS: BRIMONIDINE 0.1% OPH SOLN 5 ML BOTTLE BOTH EYES SCH (21:16)
[2017-04-04] MEDS: BIMATOPROST 0.01% OPH SOLN 2.5 ML BOTTLE BOTH EYES SCH (21:29)
[2017-04-05] MEDS: LINEZOLID INJ 600 MG in PREMIX 1 EACH IV SCH ×2 (04:36→17:53)
[2017-04-05 04:39] LABS: CKMB % 7.4 %; Calcium 7.8 MG/DL (8.5-10.1); Free T4 (Free Thyroxine) 1.2 NG/DL (0.76-1.46); Magnesium 1.7 MG/DL (1.8-2.4); Osmolality,Calculated 283.8 MOS/KG (273-304); Potassium 4.6 MMOL/L (3.5-5.1); Thyroid Stimulating Hormone 2.01 uIU/ml (0.358-3.74); Troponin I Only 0.033 NG/ML (0.00-0.045)
[2017-04-05] MEDS: PIPERACILLIN/TAZOBACTAM 3,375 MG in SODIUM CHLORIDE 0.9% 100 ML IV SCH ×3 (06:22→23:16)
[2017-04-05] MEDS: ALBUTEROL/IPRATROPIUM 3 ML NEB RESP TX SCH ×4 (07:34→20:54)
--- NOTE | 2017-04-05 08:14 | EKG Report ---
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
--- NOTE | 2017-04-05 09:01 | Cardiology Progress Note ---
<Margaret De La Rosa E - Last Filed: 04/05/17 08:47> Assessment and Plan - Time spent with patient Time spent with patient: Greater than 30 minutes (1) Pancytopenia Status: Acute Assessment and plan: SEE PLAN OF CARE LISTED BELOW Current Visit: Yes (2) Community acquired pneumonia Status: Acute Assessment and plan: SEE PLAN OF CARE LISTED BELOW Current Visit: No (3) Chronic renal failure Status: Chronic Assessment and plan: SEE PLAN OF CARE LISTED BELOW Current Visit: Yes Qualifiers: Chronic kidney disease stage: stage 4 (severe) Qualified Code(s): N18.4 - Chronic kidney disease, stage 4 (severe) (4) Diabetes mellitus Status: Chronic Assessment and plan: SEE PLAN OF CARE LISTED BELOW Current Visit: No Qualifiers: Diabetes mellitus type: type 2 Diabetes mellitus complication detail: with chronic kidney disease Chronic kidney disease stage: stage 5, not on chronic dialysis (5) chronic lower extremity wounds Status: Chronic Assessment and plan: SEE PLAN OF CARE LISTED BELOW Current Visit: No (6) Hemoptysis Status: Acute Assessment and plan: SEE PLAN OF CARE LISTED BELOW Current Visit: Yes (7) Pleural effusion Status: Acute Assessment and plan: SEE PLAN OF CARE LISTED BELOW Current Visit: Yes (8) CHF (congestive heart failure), NYHA class III Status: Acute Assessment and plan: SEE PLAN OF CARE LISTED BELOW Current Visit: Yes Qualifiers: Congestive heart failure type: diastolic Congestive heart failure chronicity: acute on chronic Qualified Code(s): I50.33 - Acute on chronic diastolic (congestive) heart failure (9) Dyslipidemia Status: Chronic Assessment and plan: SEE PLAN OF CARE LISTED BELOW Current Visit: Yes (10) Edema Status: Chronic Assessment and plan: SEE PLAN OF CARE LISTED BELOW Current Visit: Yes (11) Risk for falls Status: Chronic Assessment and plan: SEE PLAN OF CARE LISTED BELOW Current Visit: Yes Cardiology - PN: Subj Interval history: 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 AG SUMMARY: Mr. Em, 67BM, routinely followed by Dr. Ag. He was last seen in cardiology clinic March 26, 2017. Risk factors include: Hypertension, diabetes, peripheral vascular disease, sedentary lifestyle. History of CHF, pneumonia, chronic kidney disease (reportedly got off dialysis after only 1 month), anemia, diabetic heel ulcer. Admitted April 04, 2017 after experiencing hemoptysis, shortness of breath. Diagnosed with recurrent pneumonia, diastolic heart failure. CT Chest abnormal. Pulmonary medicine has been consulted. Thyroid ultrasound also abnormal and may need additional workup. According to family, patient has lost a significant amount of weight recently and has been taking Periactin to stimulate his appetite. Dr. Linares has been following his right lower extremity poor wound healing. He is also now pancytopenic. APRIL 05, 2017: Patient is feeling better this morning. He is now coughing a significant amount of thick, yellow sputum. Thyroid ultrasound is abnormal and we will defer additional workup to attending. Echocardiogram report was obtained from [facility]. In the past, he has had a mild cardiomyopathy (EF 40%) now improved (EF 55%). CBC not yet returned this morning. Yesterday, he had a newly discovered pancytopenia. Creatinine this morning remains a sickly unchanged at 2.8. Blood pressure elevated and I will increase his Coreg to 12.5 mg orally twice daily. From a cardiology standpoint, okay to transfer to a [facility] floor if needed. Will further discuss with Dr. Saxena and await additional recommendations. Echocardiogram at [facility] March 26, 2017 reveals the following: LVEF 55% (improved from 40%), concentric left ventricular hypertrophy is mild. Grade 1 diastolic dysfunction. No significant valvular abnormality. PAP 58 mmHg (improved from 70mmHg). Small pericardial effusion. ASSESSMENT/plan: 1. RECURRENT CAP - currently being treated with antibiotics, respiratory treatments. 2. ACUTE ON CHRONIC CHF - secondary to diastolic dysfunction, NYHA CLASS III - IV. 3. PANCYTOPENIA - blood cultures 2, UA. Reviewing cardiac medications and will later make adjustments as able to see if this will improve the pancytopenia. May warrant a hematology consult but I will defer additional workup to attending. Does have an abnormal CT chest. Thyroid ultrasound also abnormal. Significant weight loss over the past several months. 4. HYPERTENSION -suboptimally controlled. Increasing beta-blockade today. Avoiding PERLITA inhibitor for fear of worsening his renal insufficiency. 5. DYSLIPIDEMIA - taking Atorvastatin. 6. PVD WITH POOR HEALING WOUND - Dr. Linares is following 7. DEBILITATED PATIENT - continue current plan of care. Fall protocol in place 8. ABNORMAL CT CHEST - see report. Pulmonology has been consulted 9. CKD, STAGE - stage IV. Avoiding PERLITA for fear of worsening renal insufficiency 10. EDEMA -improved, no DVT per venous ultrasound 11. THYROID ABNORMALITY -may need additional workup. Will defer to attending. 12. HEMOPTYSIS - continue current work-up Exam (Progress Note) - Constitutional Vitals: Period Temp Pulse Resp BP Sys/Stewart Pulse Ox Last 24 Hr 96.4 F-98.4 F 66-89 18-32 133-184/62-103 94-99 Exam: General: [Chronically ill -[place] male. In no apparent distress. Pleasant and cooperative appears well with no apparent distress.] [Pleasant and cooperative. ] [Appears comfortable.] HEENT: [Bilateral arcus noted, normocephalic, atraumatic. Mucous membranes moist. No jaundice noted. Conjunctiva moist and clear, sclerae anicteric] Neck: No JVD/HJR, bilobular enlargement of the thyroid. Cardiac: [Regular rate and rhythm.] [No obvious murmur rub or gallop.] Lungs: [Decreased sounds throughout but no wheezing this morning. ] Oxygen in use via nasal cannula Abdomen: Soft, bowel sounds normoactive. Nontender and nondistended. No abdominal bruit or thrill noted. No masses noted. Musculoskeletal: No fluid collection. Decreased range of motion is noted. Extremities: No clubbing, cyanosis noted. [ No edema noted.] Upper extremity pulses 2+. Lower extremity pulses 2+. Capillary refill less than 3 seconds. Skin: Right heel with pea size decubitus noted. No other unusual rashes noted Neuro: Awake, alert and oriented 3. No essential tremor is appreciated. Result/EKG - Labs CBC & BMP: 04/04/17 02:04 04/05/17 03:16 Lab Results: I have reviewed the past 24 hour labs Labs: Laboratory Results - last 24 hr 04/04/17 04/04/17 04/04/17 12:14 13:58 15:18 Sodium Potassium Chloride Carbon Dioxide Anion Gap BUN Creatinine GFR Calculation BUN/Creatinine Ratio Glucose POC Glucose 68 L 88 93 Calculated Osmolality Calcium Magnesium Total Creatine Kinase CK-MB (CK-2) CK and CKMB Interp Troponin I Free T4 TSH 3rd Generation Theophylline 04/04/17 04/05/17 04/05/17 20:08 03:15 03:16 Sodium 137 Potassium 4.6 Chloride 105 Carbon Dioxide 24 Anion Gap 12.6 BUN 47 H Creatinine 2.80 H GFR Calculation 33 BUN/Creatinine Ratio 16.00 Glucose 80 POC Glucose 80 Calculated Osmolality 283.8 Calcium 7.8 L Magnesium 1.7 L Total Creatine Kinase 143 CK-MB (CK-2) 10.6 H CK and CKMB Interp 7.4 Troponin I 0.033 Free T4 1.20 TSH 3rd Generation 2.010 Theophylline 3.6 L 04/05/17 07:27 Sodium Potassium Chloride Carbon Dioxide Anion Gap BUN Creatinine GFR Calculation BUN/Creatinine Ratio Glucose POC Glucose 92 Calculated Osmolality Calcium Magnesium Total Creatine Kinase CK-MB (CK-2) CK and CKMB Interp Troponin I Free T4 TSH 3rd Generation Theophylline - Diagnostic Findings Procedure: Chest x-ray: report reviewed by me, CT - chest: report reviewed by me , Ultrasound: report reviewed by me (Thyroid) - EKG EKG results: interpreted by me EKG shows: sinus rhythm <Asher Ag - Last Filed: 04/05/17 16:32> Exam (Progress Note) - Constitutional Vitals: Period Temp Pulse Resp BP Sys/Stewart Pulse Ox Last 24 Hr 96.5 F-97.8 F 73-90 17-32 113-184/61-91 95-99 Result/EKG - Labs CBC & BMP: 04/04/17 02:04 04/05/17 03:16 Labs: Laboratory Results - last 24 hr 04/04/17 04/05/17 04/05/17 20:08 03:15 03:16 Sodium 137 Potassium 4.6 Chloride 105 Carbon Dioxide 24 Anion Gap 12.6 BUN 47 H Creatinine 2.80 H GFR Calculation 33 BUN/Creatinine Ratio 16.00 Glucose 80 POC Glucose 80 Calculated Osmolality 283.8 Calcium 7.8 L Magnesium 1.7 L Total Creatine Kinase 143 CK-MB (CK-2) 10.6 H CK and CKMB Interp 7.4 Troponin I 0.033 Free T4 1.20 TSH 3rd Generation 2.010 Fluid Total Protein Fluid Albumin Fluid LDH Pleural Glucose Theophylline 3.6 L 04/05/17 04/05/17 04/05/17 07:27 11:20 Unknown Sodium Potassium Chloride Carbon Dioxide Anion Gap BUN Creatinine GFR Calculation BUN/Creatinine Ratio Glucose POC Glucose 92 83 Calculated Osmolality Calcium Magnesium Total Creatine Kinase CK-MB (CK-2) CK and CKMB Interp Troponin I Free T4 TSH 3rd Generation Fluid Total Protein Fluid Albumin 1.4 Fluid LDH Pleural Glucose Theophylline 06/16/17 06/16/17 Unknown Unknown Sodium Potassium Chloride Carbon Dioxide Anion Gap BUN Creatinine GFR Calculation BUN/Creatinine Ratio Glucose POC Glucose Calculated Osmolality Calcium Magnesium Total Creatine Kinase CK-MB (CK-2) CK and CKMB Interp Troponin I Free T4 TSH 3rd Generation Fluid Total Protein 2.3 Fluid Albumin Fluid LDH 55 Pleural Glucose 80 Theophylline
[2017-04-05] MEDS: BRIMONIDINE 0.1% OPH SOLN 5 ML BOTTLE BOTH EYES SCH ×3 (09:57→21:17)
[2017-04-05] MEDS: BUDESONIDE/FORMOTEROL 160-4.5 INHALER 6 GM INH SCH ×2 (09:57→21:17)
[2017-04-05] MEDS: DORZOLAMIDE/TIMOLOL OPH SOLN 10 ML BOTTLE BOTH EYES SCH ×2 (09:57→21:17)
[2017-04-05] MEDS: CARVEDILOL 6.25 MG TABLET PO SCH ×2 (09:58→21:16)
[2017-04-05] MEDS: CYPROHEPTADINE 4 MG TABLET PO SCH ×3 (09:58→21:16)
[2017-04-05] MEDS: ASPIRIN EC 81 MG TABLET PO SCH (09:58)
[2017-04-05] MEDS: CHOLECALCIFEROL 1,000 UNIT TABLET PO SCH (09:58)
[2017-04-05] MEDS: MULTIVITAMIN (OCUVITE) TABLET PO SCH (09:58)
[2017-04-05] MEDS: THEOPHYLLINE ER (24 HR) 300 MG CAPSULE PO SCH (09:58)
[2017-04-05] MEDS: CETIRIZINE 10 MG TABLET PO SCH (09:58)
[2017-04-05] MEDS: PENTOXIFYLLINE 400 MG TABLET PO SCH ×3 (09:59→17:53)
[2017-04-05] MEDS: PANTOPRAZOLE 40 MG TABLET PO SCH (09:59)
[2017-04-05] MEDS: MENTHOL/ZINC OXIDE OINT 71 GM JAR TOP SCH ×2 (09:59→21:26)
[2017-04-05] MEDS: MONTELUKAST 10 MG TABLET PO SCH (09:59)
[2017-04-05] MEDS: FUROSEMIDE 40 MG TABLET PO SCH (09:59)
[2017-04-05] MEDS: INSULIN NPH/REGULAR 70/30 100 UNIT/ML SUBCUT SCH ×2 (11:16→17:18)
[2017-04-05] MEDS: GEMFIBROZIL 600 MG TABLET PO SCH ×2 (11:17→21:26)
--- NOTE | 2017-04-05 13:05 | General Surgery Consult Note ---
Assessment and Plan - Time spent with patient Time spent with patient: Less than 30 minutes (1) Diabetic ulcer of ankle Status: Acute Assessment and plan: Impression: Diabetic ulcerations of the right heel Plan: These ulcers appear to be healed but will continue moisturizing him special protective padding to prevent any further changes or breakdown. We will also continue with some compressive therapy on the legs to continue to prevent any problems. Current Visit: No (2) Decubitus ulcer Status: Acute Assessment and plan: Impression: Stage II sacral decubitus ulcer Plan: We will continue with the Aquaphor and the calmoseptine Current Visit: Yes Qualifiers: Pressure ulcer location: sacral region Pressure ulcer stage: stage 2 Qualified Code(s): L89.152 - Pressure ulcer of sacral region, stage 2 History of Present Illness Chief complaint: Sacral ulcer and heel ulcers History of present illness: Mr. Em is a 67 year old male patient is in the hospital because of some congestive heart failure we are asked to follow-up on his heel ulcers and the fact that he has a new sacral breakdown at this time. Patient has had multiple surgeries on his right foot and heel with skin grafts. There is concern about a new area on the posterior aspect of the heel. On close examination of this looks like this is just part of the old graft site does not look like an open granulating wound. I do not see any thing to do other than just protective treatment at this time to ensure that we keep it padded well. He has Sacral ulcer now that looks like a stage II and just a couple areas there. I agree with the plan of the Aquaphor and the calmoseptine at this time to keep this process under control. The mattress of the bed seems good soft and should be adequate for protection. Home Medications Medication Instructions Recorded Confirmed Type Aspirin [Ecotrin] 81 mg PO DAILY 11/12/15 04/04/17 History Cetirizine Tab [ZyrTEC Tab] 10 mg PO DAILY 11/12/15 04/04/17 History Cholecalciferol (Vitamin D3) 5,000 unit PO DAILY 11/12/15 04/04/17 History [Vitamin D3] NIFEdipine [Nifedipine ER] 120 mg PO DAILY 11/12/15 04/04/17 History Pantoprazole Tab [Protonix Tab] 40 mg PO DAILY 11/12/15 04/04/17 History Pentoxifylline 400 mg PO TID W/MEALS 11/12/15 04/04/17 History Bimatoprost 0.01% Oph Soln 1 drop BOTH EYES BEDTIME 11/13/15 04/04/17 History [Lumigan] Brimonidine 0.1% Oph Soln 1 drop BOTH EYES TID 11/13/15 04/04/17 History [Alphagan P 0.1% Oph Soln] Dorzolamide/Timolol Oph Soln 1 drop BOTH EYES BID #1 ophthalmic 11/18/15 Rx [Cosopt] solution Albuterol/Ipratropium Neb [Duoneb] 3 ml RESP TX QID 12/29/15 04/04/17 History Budesonide/Formoterol Fumarate 2 puff INH BID 12/29/15 04/04/17 History [Symbicort 160-4.5 Mcg Inhaler] Montelukast Tab [Singulair Tab] 10 mg PO DAILY 12/29/15 04/04/17 History Multivitamin (Ocuvite) [Ocuvite] 1 tablet PO DAILY 12/29/15 04/04/17 History Theophylline ER Cap (24 Hr) 300 mg PO DAILY 12/29/15 04/04/17 History [Hood-24] Dorzolamide/Timolol Oph Soln 1 drop BOTH EYES BID 06/19/16 04/04/17 History [Cosopt] Insulin NPH Hum/Reg Insulin Hm See Protocol SUBCUT AC BREAKFAST 06/19/16 History [NovoLIN 70/30] Insulin NPH Hum/Reg Insulin Hm See Protocol SUBCUT AC SUPPER 06/19/16 04/04/17 History [NovoLIN 70/30] Furosemide Tab [Lasix Tab] 40 mg PO DAILY #30 tablet 03/23/17 04/04/17 Rx Atorvastatin [Lipitor] 40 mg PO BEDTIME 04/04/17 04/04/17 History Carvedilol [Coreg] 6.25 mg PO BID 04/04/17 04/04/17 History Cyproheptadine Tab [Periactin Tab] 4 mg PO TID 04/04/17 04/04/17 History Hydralazine HCl 50 mg PO TID 04/04/17 04/04/17 History cloNIDine TAB [Catapres Tab] 0.2 mg PO DAILY 04/04/17 04/04/17 History Allergies Allergy/AdvReac Type Severity Reaction Status Date / Time sulfamethoxazole Allergy Swelling Verified 03/23/17 01:02 [From Bactrim] of Lip/Tongue/Throat trimethoprim [From Bactrim] Allergy Swelling Verified 03/23/17 01:02 of Lip/Tongue/Throat Medical,Surgical,& Family Hx - Medical History Cardio: History of: CHF, Hypertension Neurology: History of: Cerebral Hemorrhage, Peripheral Neuropathy, Neurological Problems (? Bilateral lower extremity weakness due to neuropathy) No history of: Seizures HEENT: History of: Eye Problem, Glaucoma Endocrine: History of: Diabetes Mellitus (IDDM) No history of: Diabetes Mellitus (NIDDM) Rheumatology: History of;: Rheumatoid Arthritis (BED RIDDEN) Respiratory: History of: Asthma, Respiratory Problems (asbestosis) Renal: History of: Dialysis, Renal Failure Genitourinary: History of: Prostate Problems (past HX cancer) Other: History of: Miscellaneous Medical Problems (BED RIDDEN; LYMPH NODES REMOVE L GROIN) - Surgical History Neurologic Surgeries: Surgical HX of: Cerebral Hemorrhage Abdominal Surgeries: Surgical HX of: Colonoscopy, EGD Reproductive Surgeries: Surgical HX of;: Prostate Surgery Orthopedic Surgeries: Surgical HX of;: Orthopedic Surgery (AMPUTEE 1 AND 1/2 TOE R FOOT), Total Hip Replacement (LEFT) - Family History Family History: Reports;: Family Diabetes (MOM SUBLINGS), Family Hypertension ( SISTERS) - Social History Smoking Status: Never smoker Frequency of Alcohol Use: None Type of Drug Use: None 12 point system: reviewed and no additional remarkable complaints except as stated Exam - Constitutional Vitals: Period Temp Pulse Resp BP Sys/Stewart Pulse Ox Last 24 Hr 96.4 F-97.8 F 66-90 17-32 133-184/62-91 94-99 General appearance: no acute distress - Head Head exam: Present: normal inspection - ENT ENT exam: Present: normal exam - Neck Neck exam: Present: normal inspection - Respiratory Respiratory exam: Present: rales, rhonchi - Cardiovascular Cardiovascular exam: Present: RRR - GI/Abdominal GI/Abdominal exam: Present: hypoactive bowel sounds, soft - Extremities Exam Extremities exam: Present: other (Left lower extremity has no significant edema at this time the heel areas look well-healed with no evidence of any breakdown and we have good moisturizing on the legs. Right lower extremity has deformity at the heel site over there and has multiple old skin grafts in place. They are concerned the posterior part of the heel to me looks like it has healed with skin over it without any evidence of breakdown.) - Back Exam Back exam: Present: other (Sacral area has a couple little superficial abraded areas but no deep necrotic looking tissue in this area.) - Neurological Exam Neurological exam: Present: alert, oriented X3, CN II-XII intact - Skin Skin exam: Present: normal color, warm, dry Results - Labs CBC & BMP: 04/04/17 02:04 04/05/17 03:16 Lab Results: I have reviewed the past 24 hour labs
--- NOTE | 2017-04-05 13:37 | Pulmonology Consult Note ---
Assessment and Plan (1) Chronic renal failure Status: Chronic Assessment and plan: The patient's creatinine is 2.8 at present. Current Visit: Yes Qualifiers: Chronic kidney disease stage: stage 4 (severe) Qualified Code(s): N18.4 - Chronic kidney disease, stage 4 (severe) (2) Hypertension Status: Chronic Assessment and plan: The patient will continue with blood pressure medicines and he is stable at present Current Visit: No Qualifiers: Hypertension type: essential hypertension Qualified Code(s): I10 - Essential (primary) hypertension (3) Diabetes mellitus Status: Chronic Assessment and plan: His glucoses have been under good control so far. Current Visit: No Qualifiers: Diabetes mellitus type: type 2 Diabetes mellitus complication detail: with chronic kidney disease Chronic kidney disease stage: stage 5, not on chronic dialysis (4) chronic lower extremity wounds Status: Chronic Assessment and plan: Patient is being seen by surgery for wounds. Current Visit: No (5) Anemia in chronic kidney disease Status: Chronic Assessment and plan: The patient's hematocrit is around 27. Current Visit: No (6) Hemoptysis Status: Acute Assessment and plan: Patient has had some blood-tinged sputum and he mainly looks like he is in heart failure. Current Visit: Yes (7) Pleural effusion Status: Acute Assessment and plan: Patient has bilateral pleural effusions and will try right thoracentesis today. Current Visit: Yes (8) CHF (congestive heart failure), NYHA class III Status: Acute Assessment and plan: Patient looks like he is in heart failure although he is relatively comfortable at present. Current Visit: Yes Qualifiers: Congestive heart failure type: diastolic Congestive heart failure chronicity: acute on chronic Qualified Code(s): I50.33 - Acute on chronic diastolic (congestive) heart failure (9) Decubitus ulcer Status: Acute Assessment and plan: The patient's ulcers are being evaluated by surgery. Current Visit: Yes Qualifiers: Pressure ulcer location: sacral region Pressure ulcer stage: stage 2 Qualified Code(s): L89.152 - Pressure ulcer of sacral region, stage 2 History of Present Illness Chief complaint: Shortness of breath History of present illness: Mr. Em is a 67 year old black male that has a history of having diabetes and hypertension along with peripheral vascular disease. He came in with shortness of breath and coughing some blood-tinged sputum. He reportedly has had some pneumonia recently. He apparently has chronic renal insufficiency and has been on dialysis in the past. He has peripheral vascular disease and has some foot wounds. He said he used to smoke cigarettes. He feels like he is breathing okay at present. His x-ray shows large bilateral effusions. He apparently has a fairly good ejection fraction on echo. He says he is comfortable at present Home Medications Medication Instructions Recorded Confirmed Type Aspirin [Ecotrin] 81 mg PO DAILY 11/12/15 04/04/17 History Cetirizine Tab [ZyrTEC Tab] 10 mg PO DAILY 11/12/15 04/04/17 History Cholecalciferol (Vitamin D3) 5,000 unit PO DAILY 11/12/15 04/04/17 History [Vitamin D3] NIFEdipine [Nifedipine ER] 120 mg PO DAILY 11/12/15 04/04/17 History Pantoprazole Tab [Protonix Tab] 40 mg PO DAILY 11/12/15 04/04/17 History Pentoxifylline 400 mg PO TID W/MEALS 11/12/15 04/04/17 History Bimatoprost 0.01% Oph Soln 1 drop BOTH EYES BEDTIME 11/13/15 04/04/17 History [Lumigan] Brimonidine 0.1% Oph Soln 1 drop BOTH EYES TID 11/13/15 04/04/17 History [Alphagan P 0.1% Oph Soln] Dorzolamide/Timolol Oph Soln 1 drop BOTH EYES BID #1 ophthalmic 11/18/15 Rx [Cosopt] solution Albuterol/Ipratropium Neb [Duoneb] 3 ml RESP TX QID 12/29/15 04/04/17 History Budesonide/Formoterol Fumarate 2 puff INH BID 12/29/15 04/04/17 History [Symbicort 160-4.5 Mcg Inhaler] Montelukast Tab [Singulair Tab] 10 mg PO DAILY 12/29/15 04/04/17 History Multivitamin (Ocuvite) [Ocuvite] 1 tablet PO DAILY 12/29/15 04/04/17 History Theophylline ER Cap (24 Hr) 300 mg PO DAILY 12/29/15 04/04/17 History [Hood-24] Dorzolamide/Timolol Oph Soln 1 drop BOTH EYES BID 06/19/16 04/04/17 History [Cosopt] Insulin NPH Hum/Reg Insulin Hm See Protocol SUBCUT AC BREAKFAST 06/19/16 History [NovoLIN 70/30] Insulin NPH Hum/Reg Insulin Hm See Protocol SUBCUT AC SUPPER 06/19/16 04/04/17 History [NovoLIN 70/30] Furosemide Tab [Lasix Tab] 40 mg PO DAILY #30 tablet 03/23/17 04/04/17 Rx Atorvastatin [Lipitor] 40 mg PO BEDTIME 04/04/17 04/04/17 History Carvedilol [Coreg] 6.25 mg PO BID 04/04/17 04/04/17 History Cyproheptadine Tab [Periactin Tab] 4 mg PO TID 04/04/17 04/04/17 History Hydralazine HCl 50 mg PO TID 04/04/17 04/04/17 History cloNIDine TAB [Catapres Tab] 0.2 mg PO DAILY 04/04/17 04/04/17 History Allergies Allergy/AdvReac Type Severity Reaction Status Date / Time sulfamethoxazole Allergy Swelling Verified 03/23/17 01:02 [From Bactrim] of Lip/Tongue/Throat trimethoprim [From Bactrim] Allergy Swelling Verified 03/23/17 01:02 of Lip/Tongue/Throat - Constitutional Constitutional: Present: fatigue, weakness. Absent: chills, fever(s) - EENT Eyes: Absent: loss of vision Ears: Absent: decreased hearing Nose, mouth and throat: Absent: dysphagia, headache(s), sinus pressure - Cardiovascular Cardiovascular: Present: dyspnea, edema, orthopnea. Absent: chest pain at rest - Respiratory Respiratory: Present: cough, dyspnea, hemoptysis. Absent: pain on inspiration - Gastrointestinal Gastrointestinal: Absent: abdominal pain, change in bowel habits, dysphagia, nausea, vomiting - Genitourinary Genitourinary: Absent: difficulty urinating, dysuria, hematuria - Musculoskeletal Musculoskeletal: Present: arthralgias, back pain. Absent: myalgias - Neurological Neurological: Present: other (Bedridden). Absent: abnormal speech, focal weakness - Psychiatric Psychiatric: Absent: anxiety, depression Exam (Pulmonay) H&P - Constitutional Vitals: Period Temp Pulse Resp BP Sys/Stewart Pulse Ox Last 24 Hr 96.4 F-97.8 F 66-90 17-32 133-184/62-91 94-99 General appearance: normal weight, no acute distress (He looks chronically ill but is comfortable lying in bed) - Head Head exam: Present: normal inspection, normocephalic - Eye Eye exam: Present: EOMI, other (Bilateral arcus). Absent: nystagmus Pupils: Present: SLY - ENT ENT exam: Present: normal exam - Neck Neck exam: Present: thyromegaly. Absent: lymphadenopathy - Respiratory Respiratory exam: Present: decreased breath sounds (He does have decreased breath sounds both bases.). Absent: wheezes - Cardiovascular Cardiovascular exam: Present: regular rate and rhythm, systolic murmur (He has a soft systolic murmur). Absent: gallop, JVD - GI/Abdominal GI/Abdominal exam: Present: normal bowel sounds, soft. Absent: organomegaly, tenderness - Extremities Exam Extremities exam: Present: edema (He does have some brawny edema of the leg). Absent: calf tenderness - Neurological Exam Neurological exam: Present: alert, oriented X3 - Psychiatric Psychiatric exam: Present: normal affect - Skin Skin exam: Present: other (He does have some wounds on his feet and sacrum) Medical,Surgical,& Family Hx - Medical History Cardio: History of: CHF, Hypertension Neurology: History of: Cerebral Hemorrhage, Peripheral Neuropathy, Neurological Problems (? Bilateral lower extremity weakness due to neuropathy) No history of: Seizures HEENT: History of: Eye Problem, Glaucoma Endocrine: History of: Diabetes Mellitus (IDDM) No history of: Diabetes Mellitus (NIDDM) Rheumatology: History of;: Rheumatoid Arthritis (BED RIDDEN) Respiratory: History of: Asthma, Respiratory Problems (asbestosis) Renal: History of: Dialysis, Renal Failure Genitourinary: History of: Prostate Problems (past HX cancer) Other: History of: Miscellaneous Medical Problems (BED RIDDEN; LYMPH NODES REMOVE L GROIN) - Surgical History Neurologic Surgeries: Surgical HX of: Cerebral Hemorrhage Abdominal Surgeries: Surgical HX of: Colonoscopy, EGD Reproductive Surgeries: Surgical HX of;: Prostate Surgery Orthopedic Surgeries: Surgical HX of;: Orthopedic Surgery (AMPUTEE 1 AND 1/2 TOE R FOOT), Total Hip Replacement (LEFT) - Family History Family History: Reports;: Family Diabetes (MOM SUBLINGS), Family Hypertension ( SISTERS) - Social History Smoking Status: Former smoker Frequency of Alcohol Use: None Type of Drug Use: None Results - Labs CBC & BMP: 04/04/17 02:04 04/05/17 03:16 - Diagnostic Findings Procedure: Chest x-ray: image reviewed by me, report reviewed by me (Chest x- ray looks like congestive heart failure.), CT - chest: image reviewed by me, report reviewed by me (CT shows large bilateral effusions.)
--- NOTE | 2017-04-05 14:25 | Operative Note ---
Date of procedure: 04/05/17 Pre-op diagnosis: Bilateral effusions Post-op diagnosis: other (Transudative effusion) Procedure: The patient is a 67-year-old with chronic renal insufficiency and has bilateral effusions. Thoracentesis will be done for diagnosis and therapy. The patient has shortness of breath with bilateral effusions. Thoracentesis will be done for diagnosis. Procedure: The right chest was prepped in the usual manner. 1% lidocaine was used for anesthesia. A needle was inserted into the right posterior chest and fluid was removed. Then a catheter was inserted into the right posterior chest. Then 1 L of serosanguineous fluid was removed. The fluid was sent for studies. Patient tolerated procedure well. Impression: Transudative effusion probably due to heart failure. Anesthesia: local Surgeon / Physician: Jeremy Whipple Estimated blood loss: none Specimens: other (Pleural fluid was sent for studies.) Condition: stable Disposition: floor Results - Labs CBC & BMP: 04/04/17 02:04 04/05/17 03:16 Discharge Plan - Discharge Medications No Action Cholecalciferol (Vitamin D3) [Vitamin D3] 5,000 unit PO DAILY NIFEdipine [Nifedipine ER] 120 mg PO DAILY Cetirizine Tab [ZyrTEC Tab] 10 mg PO DAILY Aspirin [Ecotrin] 81 mg PO DAILY Pantoprazole Tab [Protonix Tab] 40 mg PO DAILY Pentoxifylline 400 mg PO TID W/MEALS Bimatoprost 0.01% Oph Soln [Lumigan] 1 drop BOTH EYES BEDTIME Brimonidine 0.1% Oph Soln [Alphagan P 0.1% Oph Soln] 1 drop BOTH EYES TID Dorzolamide/Timolol Oph Soln [Cosopt] 1 drop BOTH EYES BID #1 ophthalmic solution Theophylline ER Cap (24 Hr) [Hood-24] 300 mg PO DAILY Multivitamin (Ocuvite) [Ocuvite] 1 tablet PO DAILY Montelukast Tab [Singulair Tab] 10 mg PO DAILY Albuterol/Ipratropium Neb [Duoneb] 3 ml RESP TX QID Budesonide/Formoterol Fumarate [Symbicort 160-4.5 Mcg Inhaler] 2 puff INH BID Dorzolamide/Timolol Oph Soln [Cosopt] 1 drop BOTH EYES BID Insulin NPH Hum/Reg Insulin Hm [NovoLIN 70/30] See Protocol SUBCUT AC SUPPER Insulin NPH Hum/Reg Insulin Hm [NovoLIN ] See Protocol SUBCUT AC BREAKFAST Furosemide Tab [Lasix Tab] 40 mg PO DAILY #30 tablet Carvedilol [Coreg] 6.25 mg PO BID Hydralazine HCl 50 mg PO TID Cyproheptadine Tab [Periactin Tab] 4 mg PO TID Atorvastatin [Lipitor] 40 mg PO BEDTIME cloNIDine TAB [Catapres Tab] 0.2 mg PO DAILY - Follow Up or Referral - Forms/Instructions
--- NOTE | 2017-04-05 14:41 | Hospitalist Progress Note ---
Assessment and Plan (1) Community acquired pneumonia Status: Acute Assessment and plan: Continue antibiotics. Current Visit: No (2) Chronic renal failure Status: Chronic Current Visit: Yes Qualifiers: Chronic kidney disease stage: stage 4 (severe) Qualified Code(s): N18.4 - Chronic kidney disease, stage 4 (severe) (3) Anemia Status: Chronic Current Visit: No Qualifiers: Other causes of anemia: chronic disease, kidney (4) Hypertension Status: Chronic Current Visit: No Qualifiers: Hypertension type: essential hypertension Qualified Code(s): I10 - Essential (primary) hypertension (5) Diabetes mellitus Status: Chronic Current Visit: No Qualifiers: Diabetes mellitus type: type 2 Diabetes mellitus complication detail: with chronic kidney disease Chronic kidney disease stage: stage 4 (severe) (6) CHF (congestive heart failure), NYHA class III Status: Acute Current Visit: Yes Qualifiers: Congestive heart failure type: diastolic Congestive heart failure chronicity: acute on chronic Qualified Code(s): I50.33 - Acute on chronic diastolic (congestive) heart failure Hospitalist: Subjective Interval history: The patient is resting comfortably. Chest x-ray showed evidence of pleural effusion. This was also shown on the CT scan as well. He is now undergoing a diagnostic thoracentesis. At the bedside pleural fluid looks clear. The patient also had lower extremity Dopplers that were completed on yesterday were negative for DVT. Patient's kidney function is stable with creatinine of 2.8. Exam - Constitutional Vitals: Period Temp Pulse Resp BP Sys/Stewart Pulse Ox Last 24 Hr 96.4 F-97.8 F 66-90 17-32 133-184/62-91 94-99 General appearance: normal weight - Head Head exam: Present: normal inspection - Neck Neck exam: Present: normal inspection - Respiratory Respiratory exam: Present: decreased breath sounds - Cardiovascular Cardiovascular exam: Present: regular rate and rhythm - Neurological Exam Neurological exam: Present: alert, oriented X3 - Psychiatric Psychiatric exam: Present: normal affect Results - Labs CBC & BMP: 04/04/17 02:04 04/05/17 03:16
--- NOTE | 2017-04-05 14:50 | XRay Report ---
Exam: XR chest 1V Date: 04/05/2017 2:22 PM Comparison: 04/04/2017 Indication: Pneumothorax Technique:[Portable sitting chest] Findings: The heart remains enlarged with uncoiling of the aorta. Reduced parenchymal findings in the lungs with smaller pleural effusions. No pneumothorax. Decreased hilar density with degenerative changes. Impression: Improved atelectasis/edema/infiltration with smaller pleural effusions. Findings are more improved on the right. No evidence of pneumothorax. PROCEDURE INTERPRETED AT [facility] Final Report Signed by: Dr. Jacque Sarah
[2017-04-05 16:07] LABS: Glucose,Pleural Fluid 80 MG/DL
[2017-04-05 16:13] LABS: Total Protein,Body Fluid 2.3 G/DL
[2017-04-05 17:23] LABS: RBC,Pleural Fluid 3788 T/CUMM
[2017-04-05 17:32] LABS: Eosinophils,Pleural Fluid 1 %; Lymphocytes,Pleural Fluid 34 %; Monocytes,Pleural Fluid 63 %; Neutrophils,Pleural Fluid 1 %
[2017-04-05] MEDS: ATORVASTATIN 40 MG TABLET PO SCH (21:16)
[2017-04-05] MEDS: BIMATOPROST 0.01% OPH SOLN 2.5 ML BOTTLE BOTH EYES SCH (21:17)
[2017-04-06 05:02] LABS: Basophils % 0.4 % (0.0-0.8); Eosinophils # 0.2 10*3/uL (0.0-0.87); Eosinophils % 8.9 % (0.00-10.9); Hematocrit 27.1 VOL% (42.0-52.0); Immature Granulocytes % 0.4 %; Immature Granulocytes Absolute 0.01 #; Lymphocytes # 0.3 10*3/uL (1.4-4.0); Lymphocytes % 11.5 % (21.2-54.2); Mean Corpuscular HGB Conc 33.2 GM/DL (32-36); Mean Corpuscular Hemoglobin 27 PG (27-34); Mean Corpuscular Volume 82.1 FL (87-102); Mean Platelet Volume 11.2 FL (9.6-12.0); Monocytes # 0.6 10*3/uL (0.11-0.8); Monocytes % 20.4 % (1.7-12.7); Neutrophils # 1.6 10*3/uL (1.4-7.4); Neutrophils % 58.4 % (38.7-73.9); Red Cell Distribution Width 15.4 % (9.3-17.3); White Blood Count 2.7 T/CUMM (4-12)
[2017-04-06] MEDS: LINEZOLID INJ 600 MG in PREMIX 1 EACH IV SCH ×2 (05:02→19:48)
[2017-04-06 05:07] LABS: Platelet Count 92 T/CUMM (130-400)
[2017-04-06 05:35] LABS: Calcium 7.7 MG/DL (8.5-10.1); Magnesium 1.7 MG/DL (1.8-2.4); Potassium 4.7 MMOL/L (3.5-5.1)
[2017-04-06 06:03] LABS: Eosinophils 8 % (0-10); Hypochromasia 1+; Lymphocytes 15 % (20-55); Segmented Neutrophils 61 % (50-85); Total Cells Counted 100
[2017-04-06 06:04] LABS: Microcytosis Slight; Ovalocytes Slight; Platelet Estimate Decreased
[2017-04-06] MEDS: PIPERACILLIN/TAZOBACTAM 3,375 MG in SODIUM CHLORIDE 0.9% 100 ML IV SCH ×3 (06:09→21:16)
[2017-04-06] MEDS: ALBUTEROL/IPRATROPIUM 3 ML NEB RESP TX SCH ×4 (07:23→19:34)
[2017-04-06] MEDS: INSULIN NPH/REGULAR 70/30 100 UNIT/ML SUBCUT SCH ×2 (08:44→17:04)
[2017-04-06] MEDS: PENTOXIFYLLINE 400 MG TABLET PO SCH ×3 (09:56→17:43)
[2017-04-06] MEDS: BRIMONIDINE 0.1% OPH SOLN 5 ML BOTTLE BOTH EYES SCH ×3 (09:56→21:17)
[2017-04-06] MEDS: CARVEDILOL 6.25 MG TABLET PO SCH ×2 (09:56→21:17)
[2017-04-06] MEDS: THEOPHYLLINE ER (24 HR) 300 MG CAPSULE PO SCH (09:56)
[2017-04-06] MEDS: CYPROHEPTADINE 4 MG TABLET PO SCH ×3 (09:56→21:17)
[2017-04-06] MEDS: GEMFIBROZIL 600 MG TABLET PO SCH ×2 (09:57→21:18)
[2017-04-06] MEDS: DORZOLAMIDE/TIMOLOL OPH SOLN 10 ML BOTTLE BOTH EYES SCH ×2 (09:57→21:17)
[2017-04-06] MEDS: BUDESONIDE/FORMOTEROL 160-4.5 INHALER 6 GM INH SCH ×2 (09:57→21:17)
[2017-04-06] MEDS ORDERED: LACTULOSE 20 GM/30 ML UDCUP PO PRN (11:02)
--- NOTE | 2017-04-06 12:06 | Hospitalist Progress Note ---
Assessment and Plan (1) Congestive heart failure Status: Acute Assessment and plan: Continue on lasix. EF 50%. Cardiology following. Current Visit: Yes (2) Decubitus ulcer Status: Acute Assessment and plan: Wound care. Current Visit: Yes Qualifiers: Pressure ulcer location: sacral region Pressure ulcer stage: stage 2 Qualified Code(s): L89.152 - Pressure ulcer of sacral region, stage 2 (3) Chronic renal failure Status: Chronic Assessment and plan: Pt's bun/creatinine 43/2.8. Will continue to monitor patient. Current Visit: Yes Qualifiers: Chronic kidney disease stage: stage 4 (severe) Qualified Code(s): N18.4 - Chronic kidney disease, stage 4 (severe) (4) Pneumonia Status: Acute Assessment and plan: Continue antibiotics. Current Visit: No (5) Diabetes mellitus Status: Chronic Assessment and plan: SSI initiated. Pt. also on NPH. Current Visit: No Qualifiers: Diabetes mellitus type: type 2 Diabetes mellitus complication detail: with chronic kidney disease Chronic kidney disease stage: stage 4 (severe) Hospitalist: Subjective Interval history: Pt. seen and examined with RN and family at bedside. No apparent distress noted. Pt.'s heels are in protective boots. Pt. was alert and receiving am meds. Pt is s/p thoracentesis on 04/05 (1 L of fluid was removed). Pt. denies shortness of breath and pain or any issues at this time. Will continue to monitor patient. Exam - Constitutional Vitals: Period Temp Pulse Resp BP Sys/Stewart Pulse Ox Last 24 Hr 97.7 F-99.2 F 75-91 15-22 95-161/60-83 92-100 General appearance: normal weight, no acute distress - Head Head exam: Present: normal inspection, normocephalic - Eye Eye exam: Present: EOMI. Absent: scleral icterus Pupils: Present: SLY - Respiratory Respiratory exam: Present: other (coarse) - Cardiovascular Cardiovascular exam: Present: regular rate and rhythm - GI/Abdominal GI/Abdominal exam: Present: normal bowel sounds, soft. Absent: tenderness - Extremities Exam Extremities exam: Present: normal capillary refill. Absent: full ROM, edema - Neurological Exam Neurological exam: Present: alert - Psychiatric Psychiatric exam: Present: normal affect, normal mood - Skin Skin exam: Present: normal color, warm, dry Results - Labs CBC & BMP: 04/06/17 03:52 04/06/17 03:52 Lab Results: I have reviewed the past 24 hour labs
--- NOTE | 2017-04-06 12:40 | Cardiology Progress Note ---
Assessment and Plan (1) Edema Status: Chronic Assessment and plan: Initial assessment: 1. 67-year-old BM who is bedbound and has history of hypertension, dyslipidemia , diabetes, significant CKD, recurrent foot ulcers, now with 2 weeks of cough dyspnea and now hemoptysis and increased lower extremity swelling for the last 1 -2 days, with bilateral pleural effusions and suggestion of pneumonia on CT chest 2. History of mild cardiomyopathy, ejection fraction 50-55% now without significant valvular abnormality. Coronary calcifications were noted on CT but this does not appear to be acute coronary syndrome. We will check cardiac panel. 3. Consult Dr. Linares, is reportedly his right foot ulcer has recurred (he treated in the past) and worsened over the last 1-2 weeks. I suspect he has significant PAD given his history. 4. I see pulmonary consult is planned, which may be helpful given his abnormal CT chest and pleural effusions. 5. Anemia of chronic disease, and thrombocytopenia noted. April 06 update: 1. Mr. Em is much improved with regard to dyspnea and lower extremity swelling (resolved!), After thoracentesis 2. Being treated for pneumonia 3. Decrease mental status/confusion since yesterday evening; possible owning. CT brain is not possible with contrast given poor renal function ( stable); possible owning. 4. We will review medicines and hold nonessential medicines such as [place] and theophylline for the time being. 5. Consult neurology Current Visit: Yes (2) Pneumonia Status: Acute Current Visit: No (3) Hypertension Status: Chronic Current Visit: No Qualifiers: Hypertension type: essential hypertension Qualified Code(s): I10 - Essential (primary) hypertension Cardiology - PN: Subj Interval history: Mr. Em is much better from a breathing standpoint and swelling is resolved. However he has been confused since yesterday seems to favor looking to the left. He has no complaints and a reasonable amount of his breakfast this morning per Exam (Progress Note) - Constitutional Vitals: Period Temp Pulse Resp BP Sys/Stewart Pulse Ox Last 24 Hr 97.7 F-99.2 F 75-91 15-22 95-161/60-83 92-100 General appearance: normal weight, no acute distress, other (Seems confused "it is 1917"; he initially thought he was [place], but agreed he was in [place] after I told him.) - Respiratory Respiratory exam: Absent: stridor, wheezes - Cardiovascular Cardiovascular exam: Present: regular rate and rhythm. Absent: diastolic murmur , rubs - GI/Abdominal GI/Abdominal exam: Present: soft. Absent: tenderness - Extremities Exam Extremities exam: Absent: edema Result/EKG - Labs CBC & BMP: 04/06/17 03:52 04/06/17 03:52 Labs: Laboratory Results - last 24 hr 04/05/17 04/05/17 04/05/17 17:00 21:17 Unknown WBC RBC Hgb Hct MCV MCH MCHC RDW Plt Count MPV Neut % (Auto) Lymph % (Auto) [place] % (Auto) Eos % (Auto) Baso % (Auto) Neut # (Auto) Lymph # (Auto) [place] # (Auto) Eos # (Auto) Baso # (Auto) Total Counted Immature Gran % Nucleated RBC % Immature Gran # Segmented Neutrophils Lymphocytes Monocytes Eosinophils Nucleated RBCs # Platelet Estimate Hypochromasia Microcytosis Ovalocytes Sodium Potassium Chloride Carbon Dioxide Anion Gap BUN Creatinine GFR Calculation BUN/Creatinine Ratio Glucose POC Glucose 94 136 H Calculated Osmolality Calcium Magnesium Fluid Total Protein Fluid Albumin 1.4 Fluid LDH Pleural WBC Pleural RBC Pleural Tot Cell Ct Pleural Neutrophils Pleural Band Neuts Pleural Lymphocytes Pleural Monocytes Pleural Eosinophils Pleural Glucose 04/05/17 04/05/17 04/06/17 Unknown Unknown 03:52 WBC 2.7 L RBC 3.30 L Hgb 9.0 L Hct 27.1 L MCV 82.1 L MCH 27 MCHC 33.2 RDW 15.4 Plt Count 92 L MPV 11.2 Neut % (Auto) 58.4 Lymph % (Auto) 11.5 L [place] % (Auto) 20.4 H Eos % (Auto) 8.9 Baso % (Auto) 0.4 Neut # (Auto) 1.6 Lymph # (Auto) 0.3 L [place] # (Auto) 0.6 Eos # (Auto) 0.2 Baso # (Auto) 0.0 Total Counted 100 Immature Gran % 0.4 Nucleated RBC % 0.0 Immature Gran # 0.01 Segmented Neutrophils 61 Lymphocytes 15 L Monocytes 16 H Eosinophils 8 Nucleated RBCs # 0.00 Platelet Estimate Decreased Hypochromasia 1+ Microcytosis Slight Ovalocytes Slight Sodium Potassium Chloride Carbon Dioxide Anion Gap BUN Creatinine GFR Calculation BUN/Creatinine Ratio Glucose POC Glucose Calculated Osmolality Calcium Magnesium Fluid Total Protein 2.3 Fluid Albumin Fluid LDH 55 Pleural WBC 68 Pleural RBC [address] 100 Pleural Neutrophils 1 Pleural Band Neuts 1 Pleural Lymphocytes 34 Pleural Monocytes 63 Pleural Eosinophils 1 Pleural Glucose 80 04/06/17 04/06/17 04/06/17 03:52 07:48 11:13 WBC RBC Hgb Hct MCV MCH MCHC RDW Plt Count MPV Neut % (Auto) Lymph % (Auto) [place] % (Auto) Eos % (Auto) Baso % (Auto) Neut # (Auto) Lymph # (Auto) [place] # (Auto) Eos # (Auto) Baso # (Auto) Total Counted Immature Gran % Nucleated RBC % Immature Gran # Segmented Neutrophils Lymphocytes Monocytes Eosinophils Nucleated RBCs # Platelet Estimate Hypochromasia Microcytosis Ovalocytes Sodium 136 Potassium 4.7 Chloride 103 Carbon Dioxide 25 Anion Gap 12.7 BUN 43 H Creatinine 2.80 H GFR Calculation 33 BUN/Creatinine Ratio 15.00 Glucose 74 POC Glucose 94 137 H Calculated Osmolality 281.0 Calcium 7.7 L Magnesium 1.7 L Fluid Total Protein Fluid Albumin Fluid LDH Pleural WBC Pleural RBC Pleural Tot Cell Ct Pleural Neutrophils Pleural Band Neuts Pleural Lymphocytes Pleural Monocytes Pleural Eosinophils Pleural Glucose
[2017-04-06] MEDS: DOCUSATE SODIUM 100 MG CAPSULE PO PRN (12:44)
[2017-04-06] MEDS: MULTIVITAMIN (OCUVITE) TABLET PO SCH (12:44)
[2017-04-06] MEDS: MONTELUKAST 10 MG TABLET PO SCH (12:44)
--- NOTE | 2017-04-06 14:27 | CT Report ---
CT head/brain wo con Indication: Mental status changes. CT BRAIN WITH AND WITHOUT CONTRAST DLP: 1081 mGy*cm. One or more of the following dose reduction techniques was used: Automated exposure control, adjustment of the mA and/or kV according the patient size, or use of iterative reconstruction techniques. Comparison: 07/03/2016. Date of admission: 04/04/2017. Technique: Axial CT images of the brain were obtained before and after the IV administration of Omnipaque 350, 80 cc. Findings: No acute hemorrhage, mass or mass effect. Generalized atrophy and patchy periventricular white matter hypodensity is again shown. Benign calcifications of the basal ganglia are stable. Cortical brunner-white junction and basal ganglia structures remain well-defined. Calcified atheromatous disease of the [place] noted. Chronic mild mucosal thickening of the right sphenoid air cells are present. There is significant opacification of the right mastoid air cells, new. Remainder of paranasal sinuses and left mastoid air cells are clear. Impression: 1. Effusion right mastoid air cells. Chronic right sphenoid sinus disease. 2. Generalized atrophy, chronic small vessel ischemic change, all stable since previous exam. 3. No acute intracranial pathology. PROCEDURE INTERPRETED AT [facility] DEPARTMENT OF RADIOLOGY Final Report Signed by: Emile Davis M.D.
[2017-04-06] MEDS: ASPIRIN EC 81 MG TABLET PO SCH (15:21)
[2017-04-06] MEDS: PANTOPRAZOLE 40 MG TABLET PO SCH (15:21)
[2017-04-06] MEDS: FUROSEMIDE 40 MG TABLET PO SCH (15:21)
[2017-04-06] MEDS: CETIRIZINE 10 MG TABLET PO SCH (15:21)
[2017-04-06] MEDS: MENTHOL/ZINC OXIDE OINT 71 GM JAR TOP SCH ×2 (15:21→21:18)
[2017-04-06] MEDS: CHOLECALCIFEROL 1,000 UNIT TABLET PO SCH (17:42)
--- NOTE | 2017-04-06 18:19 | Pulmonology Progress Note ---
Pulmonary - PN: Subj Interval history: 67-year-old male with a history of hypertension and diabetes admitted for shortness of breath thought to be due to volume overload in addition to possible pneumonia. Patient underwent thoracentesis yesterday with drainage of 1 L of serosanguineous fluid. Patient's breathing status is significantly improved this morning. His main complaints today revolve around his vision and left gaze deviation. He has no pulmonary complaints at this time. Exam (Progress Note) - Constitutional Vitals: Period Temp Pulse Resp BP Sys/Stewart Pulse Ox Last 24 Hr 97.7 F-99.2 F 78-96 12-22 125-161/61-83 92-100 General appearance: normal weight - Head Head exam: Present: normal inspection - Eye Eye exam: Present: other (Left gaze preference) Pupils: Present: SLY - Neck Neck exam: Present: normal inspection - Respiratory Respiratory exam: Present: clear to auscultation bilaterally. Absent: rales, rhonchi, wheezes - Cardiovascular Cardiovascular exam: Present: regular rate and rhythm - GI/Abdominal GI/Abdominal exam: Present: normal bowel sounds, soft - Extremities Exam Extremities exam: Present: normal inspection - Neurological Exam Neurological exam: Present: alert - Psychiatric Psychiatric exam: Present: depressed, flat affect - Skin Skin exam: Present: normal color Results - Labs CBC & BMP: 04/06/17 03:52 04/06/17 03:52 - Diagnostic Findings Procedure: Chest x-ray: report reviewed by me (Improved post thoracentesis. Images cannot be viewed at this time.) Assessment and Plan (1) CHF (congestive heart failure), NYHA class III Status: Acute Assessment and plan: Continue with diuresis as allowed. Patient may require repeat thoracentesis if pleural effusions reaccumulate. Will monitor with exam and to recommend obtaining chest x-ray on Saturday or earlier if worsening respiratory status. Current Visit: Yes Qualifiers: Congestive heart failure type: diastolic Congestive heart failure chronicity: acute on chronic Qualified Code(s): I50.33 - Acute on chronic diastolic (congestive) heart failure (2) Hemoptysis Status: Acute Assessment and plan: [place] sputum, likely heart failure related. Monitor Current Visit: Yes (3) Pleural effusion Status: Acute Assessment and plan: Transudative in nature based on labs yesterday; likely due to heart failure and renal failure resulting in volume overload. Will monitor for evidence of reaccumulation and need for repeat thoracentesis. Please obtain chest x-ray Saturday morning, or earlier if worsening respiratory status.. Current Visit: Yes
[2017-04-06 19:11] LABS: Apearance,Urine CLEAR (Clear); Bilirubin,Urine Negative (Negative); Blood, Urine Negative (Negative); Glucose,Urine (UA) Negative (Negative); Ketones,Urine Negative (Negative); Nitrite,Urine Negative (Negative); Protein,Urine 100 MG/DL; RBC,Urine 1 /HPF (0-4); Squamous Epithelial Cell,Urine Occasional /HPF (0-10); Urine Color Yellow (Yellow); Urine Urobilinogen < 2.0 EU/DL (0.2-1.0); WBC,Urine 1 /HPF (0-6)
[2017-04-06] MEDS: ATORVASTATIN 40 MG TABLET PO SCH (21:17)
[2017-04-06] MEDS: MAGNESIUM CHLORIDE 64 MG TABLET PO SCH (21:17)
[2017-04-06] MEDS: BIMATOPROST 0.01% OPH SOLN 2.5 ML BOTTLE BOTH EYES SCH (21:17)
[2017-04-07 05:05] LABS: Eosinophils # 0.3 10*3/uL (0.0-0.87); Eosinophils % 6.7 % (0.00-10.9); Hematocrit 24.8 VOL% (42.0-52.0); Hemoglobin 8.3 GM/DL (14.0-18.0); Immature Granulocytes % 0.5 %; Immature Granulocytes Absolute 0.02 #; Lymphocytes # 0.3 10*3/uL (1.4-4.0); Lymphocytes % 6.5 % (21.2-54.2); Mean Corpuscular HGB Conc 33.5 GM/DL (32-36); Mean Corpuscular Hemoglobin 28 PG (27-34); Mean Corpuscular Volume 82.1 FL (87-102); Mean Platelet Volume 12.1 FL (9.6-12.0); Monocytes # 0.5 10*3/uL (0.11-0.8); Monocytes % 10.4 % (1.7-12.7); Neutrophils # 3.3 10*3/uL (1.4-7.4); Neutrophils % 75.9 % (38.7-73.9); Platelet Count 88 T/CUMM (130-400); Red Blood Count 3.02 MC/CUMM (3.8-5.5); Red Cell Distribution Width 15.5 % (9.3-17.3); White Blood Count 4.3 T/CUMM (4-12)
[2017-04-07] MEDS: LINEZOLID INJ 600 MG in PREMIX 1 EACH IV SCH ×2 (05:07→18:13)
[2017-04-07 05:39] LABS: Magnesium 1.7 MG/DL (1.8-2.4); Osmolality,Calculated 288.7 MOS/KG (273-304)
[2017-04-07 05:46] LABS: Eosinophils 6 % (0-10); Hypochromasia 1+; Lymphocytes 7 % (20-55); Microcytosis Slight; Ovalocytes Slight; Segmented Neutrophils 80 % (50-85); Total Cells Counted 100
[2017-04-07 05:47] LABS: Acanthocytes Few; Platelet Estimate Decreased
[2017-04-07] MEDS: PIPERACILLIN/TAZOBACTAM 3,375 MG in SODIUM CHLORIDE 0.9% 100 ML IV SCH ×3 (06:14→22:06)
[2017-04-07] MEDS: ALBUTEROL/IPRATROPIUM 3 ML NEB RESP TX SCH ×4 (07:02→19:39)
--- NOTE | 2017-04-07 07:37 | XRay Report ---
XR chest 1V portable Indication: Pneumonia. Chest one view: Since 2 days ago, left lung is now almost completely jeremy out. No mediastinal shift. Heart size is indeterminate. Right lung volume is decreased slightly with continued interstitial coarsening diffusely. Impression: Whiteout left lung. PROCEDURE INTERPRETED AT [facility] DEPARTMENT OF RADIOLOGY Final Report Signed by: Emile Davis M.D.
--- NOTE | 2017-04-07 09:55 | Cardiology Progress Note ---
Assessment and Plan (1) Edema Status: Chronic Assessment and plan: Initial assessment: 1. 67-year-old BM who is bedbound and has history of hypertension, dyslipidemia , diabetes, significant CKD, recurrent foot ulcers, now with 2 weeks of cough dyspnea and now hemoptysis and increased lower extremity swelling for the last 1 -2 days, with bilateral pleural effusions and suggestion of pneumonia on CT chest 2. History of mild cardiomyopathy, ejection fraction 50-55% now without significant valvular abnormality. Coronary calcifications were noted on CT but this does not appear to be acute coronary syndrome. We will check cardiac panel. 3. Consult Dr. Linares, is reportedly his right foot ulcer has recurred (he treated in the past) and worsened over the last 1-2 weeks. I suspect he has significant PAD given his history. 4. I see pulmonary consult is planned, which may be helpful given his abnormal CT chest and pleural effusions. 5. Anemia of chronic disease, and thrombocytopenia noted. April 06 update: 1. Mr. Em is much improved with regard to dyspnea and lower extremity swelling (resolved!), After thoracentesis 2. Being treated for pneumonia 3. Decrease mental status/confusion since yesterday evening; possible owning. CT brain is not possible with contrast given poor renal function ( stable); possible owning. 4. We will review medicines and hold nonessential medicines such as Trental and theophylline for the time being. 5. Consult neurology April 07, 2017: 1. Mr. Em is still doing well from a dyspnea and lower cavity swelling standpoint after thoracentesis 2. Mental status changes from yesterday seem to be much better today, although his family says he still "talks out of his head sometimes". He is oriented currently. 3. CT brain showed no acute change (done without contrast due to renal function ) 4. Being treated for pneumonia 5. We will continue to follow Current Visit: Yes (2) Pneumonia Status: Acute Current Visit: No (3) Hypertension Status: Chronic Current Visit: No Qualifiers: Hypertension type: essential hypertension Qualified Code(s): I10 - Essential (primary) hypertension Cardiology - PN: Subj Interval history: Mr. Em has no new complaints. His mental status seems to be better as he knows where he is and knows basically what day it is and who his family is. He seems more alert. His CT brain was negative per Exam (Progress Note) - Constitutional Vitals: Period Temp Pulse Resp BP Sys/Stewart Pulse Ox Last 24 Hr 97.3 F-99.3 F 72-96 12-18 127-145/55-81 93-99 General appearance: normal weight, no acute distress - Head Head exam: Present: normal inspection, normocephalic, atraumatic - Respiratory Respiratory exam: Absent: rhonchi, stridor, wheezes - Cardiovascular Cardiovascular exam: Present: regular rate and rhythm. Absent: diastolic murmur , rubs - GI/Abdominal GI/Abdominal exam: Present: rebound, soft. Absent: tenderness - Extremities Exam Extremities exam: Present: edema Result/EKG - Labs CBC & BMP: 04/07/17 04:28 04/07/17 04:28 Labs: Laboratory Results - last 24 hr 04/06/17 04/06/17 04/06/17 11:13 15:57 18:58 WBC RBC Hgb Hct MCV MCH MCHC RDW Plt Count MPV Neut % (Auto) Lymph % (Auto) [place] % (Auto) Eos % (Auto) Baso % (Auto) Neut # (Auto) Lymph # (Auto) [place] # (Auto) Eos # (Auto) Baso # (Auto) Total Counted Immature Gran % Nucleated RBC % Immature Gran # Segmented Neutrophils Lymphocytes Monocytes Eosinophils Nucleated RBCs # Platelet Estimate Hypochromasia Microcytosis Ovalocytes Acanthocytes (Spur) Sodium Potassium Chloride Carbon Dioxide Anion Gap BUN Creatinine GFR Calculation BUN/Creatinine Ratio Glucose POC Glucose 137 H 114 H Calculated Osmolality Calcium Magnesium Urine Color Yellow Urine Appearance Clear Urine pH 5.0 Ur Specific Parachute 1.010 Urine Protein 100 Urine Glucose (UA) Negative Urine Ketones Negative Urine Blood Negative Urine Nitrate Negative Urine Bilirubin Negative Urine Urobilinogen < 2.0 H Urine Leukocytes Negative Urine RBC 1 Urine WBC 1 Ur Squamous Epith Cells Occasional Ur Culture Indicated? Not indicated 04/06/17 04/07/17 04/07/17 20:29 04:28 04:28 WBC 4.3 D RBC 3.02 L Hgb 8.3 L Hct 24.8 L MCV 82.1 L MCH 28 MCHC 33.5 RDW 15.5 Plt Count 88 L MPV 12.1 H Neut % (Auto) 75.9 H Lymph % (Auto) 6.5 L [place] % (Auto) 10.4 Eos % (Auto) 6.7 Baso % (Auto) 0.0 Neut # (Auto) 3.3 Lymph # (Auto) 0.3 L [place] # (Auto) 0.5 Eos # (Auto) 0.3 Baso # (Auto) 0.0 Total Counted 100 Immature Gran % 0.5 Nucleated RBC % 0.0 Immature Gran # 0.02 Segmented Neutrophils 80 Lymphocytes 7 L Monocytes 7 Eosinophils 6 Nucleated RBCs # 0.00 Platelet Estimate Decreased Hypochromasia 1+ Microcytosis Slight Ovalocytes Slight Acanthocytes (Spur) Few Sodium 138 Potassium 4.0 Chloride 105 Carbon Dioxide 24 Anion Gap 13.0 BUN 46 H Creatinine 2.80 H GFR Calculation 33 BUN/Creatinine Ratio 16.00 Glucose 134 H POC Glucose 163 H Calculated Osmolality 288.7 Calcium 8.0 L Magnesium 1.7 L Urine Color Urine Appearance Urine pH Ur Specific [place] Urine Protein Urine Glucose (UA) Urine Ketones Urine Blood Urine Nitrate Urine Bilirubin Urine Urobilinogen Urine Leukocytes Urine RBC Urine WBC Ur Squamous Epith Cells Ur Culture Indicated? 04/07/17 08:04 WBC RBC Hgb Hct MCV MCH MCHC RDW Plt Count MPV Neut % (Auto) Lymph % (Auto) [place] % (Auto) Eos % (Auto) Baso % (Auto) Neut # (Auto) Lymph # (Auto) [place] # (Auto) Eos # (Auto) Baso # (Auto) Total Counted Immature Gran % Nucleated RBC % Immature Gran # Segmented Neutrophils Lymphocytes Monocytes Eosinophils Nucleated RBCs # Platelet Estimate Hypochromasia Microcytosis Ovalocytes Acanthocytes (Spur) Sodium Potassium Chloride Carbon Dioxide Anion Gap BUN Creatinine GFR Calculation BUN/Creatinine Ratio Glucose POC Glucose 201 H Calculated Osmolality Calcium Magnesium Urine Color Urine Appearance Urine pH Ur Specific [place] Urine Protein Urine Glucose (UA) Urine Ketones Urine Blood Urine Nitrate Urine Bilirubin Urine Urobilinogen Urine Leukocytes Urine RBC Urine WBC Ur Squamous Epith Cells Ur Culture Indicated?
--- NOTE | 2017-04-07 10:03 | Pulmonology Progress Note ---
Pulmonary - PN: Subj Interval history: 67-year-old male with a history of hypertension and diabetes admitted for shortness of breath thought to be due to volume overload in addition to possible pneumonia. Patient underwent right-sided thoracentesis 04/05 with drainage of 1 L of serosanguineous fluid consistent with transudative process. Patient's breathing status improved with this intervention and remained stable today. Chest x-ray performed this morning shows complete opacification of left hemithorax. He denies new pulmonary complaints or worsening in his breathing despite this interval imaging change. No other new complaints. Exam (Progress Note) - Constitutional Vitals: Period Temp Pulse Resp BP Sys/Stewart Pulse Ox Last 24 Hr 97.3 F-99.3 F 72-96 12-18 127-145/55-81 93-99 General appearance: normal weight - Eye Eye exam: Present: EOMI - Neck Neck exam: Present: normal inspection - Respiratory Respiratory exam: Present: decreased breath sounds (Left base), rales (Bibasilar ). Absent: accessory muscle use, rhonchi, wheezes - Cardiovascular Cardiovascular exam: Present: regular rate and rhythm - GI/Abdominal GI/Abdominal exam: Present: normal bowel sounds, soft - Extremities Exam Extremities exam: Present: normal inspection - Neurological Exam Neurological exam: Present: alert, oriented X3 - Other Additional findings: Bedside ultrasound performed by myself: Small to moderate sized, simple appearing left pleural effusion. Atelectasis of left lower lobe. Results - Labs CBC & BMP: 04/07/17 04:28 04/07/17 04:28 - Diagnostic Findings Procedure: Chest x-ray: image reviewed by me, report reviewed by me ( Opacification of left hemithorax. Right-sided pulmonary edema) Assessment and Plan (1) Pleural effusion Status: Acute Assessment and plan: Chest x-ray this morning shows left hemithorax opacification concerning for significant worsening in pleural effusion. Bedside ultrasound performed by myself today revealed small to moderate sized left-sided pleural effusion as well as atelectasis. Interval development of opacification is likely mostly due to mucous plugging given his complaint of sputum production. At this time his pulmonary status is stable without increased oxygen requirement, so I do not feel that thoracentesis would provide significant clinical benefit at this time. Will increase airway clearance therapies and repeat chest x-ray in the morning. If patient's respiratory status worsens, will consider left-sided thoracentesis at the time. Continue diuresis as allowed. Current Visit: Yes (2) Atelectasis Status: Acute Assessment and plan: As above most of patient's interval opacification of left hemithorax is likely due to atelectasis. Will increase airway clearance therapies by continuing duo nebs and adding chest physiotherapy 4 times daily. Will repeat chest x-ray in the morning to assess for interval change. If there continues to be opacification or if patient's respiratory status declines, patient may require further intervention with bronchoscopy versus thoracentesis. Current Visit: Yes (3) CHF (congestive heart failure), NYHA class III Status: Acute Assessment and plan: Continue with diuresis as allowed. Patient may require repeat thoracentesis if pleural effusions reaccumulate. Will monitor with exam and to recommend obtaining chest x-ray on Saturday or earlier if worsening respiratory status. Current Visit: Yes Qualifiers: Congestive heart failure type: diastolic Congestive heart failure chronicity: acute on chronic Qualified Code(s): I50.33 - Acute on chronic diastolic (congestive) heart failure (4) Hemoptysis Status: Acute Assessment and plan: Patient and state his sputum is now white without any further evidence of hemoptysis. Original hemoptysis was likely due to pulmonary edema; monitor for recurrence. Current Visit: Yes (5) Anemia in chronic kidney disease Status: Chronic Assessment and plan: Creatinine stable at 2.8 this morning. Current Visit: No
[2017-04-07] MEDS: INSULIN NPH/REGULAR 70/30 100 UNIT/ML SUBCUT SCH ×2 (10:57→18:12)
[2017-04-07] MEDS: PENTOXIFYLLINE 400 MG TABLET PO SCH ×3 (10:58→18:11)
[2017-04-07] MEDS: BRIMONIDINE 0.1% OPH SOLN 5 ML BOTTLE BOTH EYES SCH ×3 (10:59→22:04)
[2017-04-07] MEDS: ASPIRIN EC 81 MG TABLET PO SCH (10:59)
[2017-04-07] MEDS: GEMFIBROZIL 600 MG TABLET PO SCH ×2 (11:03→22:04)
[2017-04-07] MEDS: FUROSEMIDE 40 MG TABLET PO SCH (11:03)
[2017-04-07] MEDS: CARVEDILOL 6.25 MG TABLET PO SCH ×2 (11:03→22:06)
[2017-04-07] MEDS: CYPROHEPTADINE 4 MG TABLET PO SCH ×3 (11:05→22:05)
[2017-04-07] MEDS: MULTIVITAMIN (OCUVITE) TABLET PO SCH (11:05)
[2017-04-07] MEDS: THEOPHYLLINE ER (24 HR) 300 MG CAPSULE PO SCH (11:08)
[2017-04-07] MEDS: PANTOPRAZOLE 40 MG TABLET PO SCH (11:08)
[2017-04-07] MEDS: MAGNESIUM CHLORIDE 64 MG TABLET PO SCH ×2 (11:08→22:05)
[2017-04-07] MEDS: MONTELUKAST 10 MG TABLET PO SCH (11:08)
[2017-04-07] MEDS: CHOLECALCIFEROL 1,000 UNIT TABLET PO SCH (11:09)
[2017-04-07] MEDS: CETIRIZINE 10 MG TABLET PO SCH (11:10)
[2017-04-07] MEDS: BUDESONIDE/FORMOTEROL 160-4.5 INHALER 6 GM INH SCH ×2 (11:11→22:06)
[2017-04-07] MEDS: DORZOLAMIDE/TIMOLOL OPH SOLN 10 ML BOTTLE BOTH EYES SCH ×2 (11:13→22:04)
--- NOTE | 2017-04-07 15:14 | Hospitalist Progress Note ---
Assessment and Plan (1) Congestive heart failure Status: Acute Assessment and plan: Continue on lasix. EF 50%. Cardiology following. Current Visit: Yes (2) Decubitus ulcer Status: Acute Assessment and plan: Wound care. Current Visit: Yes Qualifiers: Pressure ulcer location: sacral region Pressure ulcer stage: stage 2 Qualified Code(s): L89.152 - Pressure ulcer of sacral region, stage 2 (3) Chronic renal failure Status: Chronic Assessment and plan: Pt's bun/creatinine 43/2.8. Will continue to monitor patient. 04/07 bun/creatinine 46/2.80 Current Visit: Yes Qualifiers: Chronic kidney disease stage: stage 4 (severe) Qualified Code(s): N18.4 - Chronic kidney disease, stage 4 (severe) (4) Pneumonia Status: Acute Assessment and plan: Continue antibiotics. Current Visit: No (5) Diabetes mellitus Status: Chronic Assessment and plan: SSI initiated. Pt. also on NPH. Current Visit: No Qualifiers: Diabetes mellitus type: type 2 Diabetes mellitus complication detail: with chronic kidney disease Chronic kidney disease stage: stage 4 (severe) (6) Atelectasis Status: Acute Assessment and plan: CXR this morning revealed complete opacification of the left lung. Pt. was seen by pulmonary and evaluated. Pt. will have repeat CXR in am. Pt. started on chest percussion therapy. Pt. may require a bronch. Will continue to monitor. Current Visit: Yes Hospitalist: Subjective Interval history: Pt. seen and examined this morning. Chart reviewed. present at bedside. Pt. denied any issues. No issues with breathing or pain noted. Pulmonary following for left lung opacification. Exam - Constitutional Vitals: Period Temp Pulse Resp BP Sys/Stewart Pulse Ox Last 24 Hr 97.3 F-99.3 F 72-96 16-20 127-145/55-80 93-99 General appearance: normal weight, no acute distress - Head Head exam: Present: normal inspection, normocephalic - Eye Eye exam: Present: EOMI. Absent: scleral icterus Pupils: Present: SLY. Absent: fixed - Neck Neck exam: Present: normal inspection. Absent: thyromegaly - Respiratory Respiratory exam: Present: other (coarse) - Cardiovascular Cardiovascular exam: Present: regular rate and rhythm - GI/Abdominal GI/Abdominal exam: Present: normal bowel sounds, soft. Absent: tenderness - Extremities Exam Extremities exam: Present: normal capillary refill. Absent: full ROM - Neurological Exam Neurological exam: Present: alert, oriented X3 - Psychiatric Psychiatric exam: Present: normal affect, normal mood - Skin Skin exam: Present: normal color, warm, dry Results - Labs CBC & BMP: 04/07/17 04:28 04/07/17 04:28 Lab Results: I have reviewed the past 24 hour labs
[2017-04-07] MEDS: MENTHOL/ZINC OXIDE OINT 71 GM JAR TOP SCH ×2 (15:24→22:06)
[2017-04-07] MEDS: BIMATOPROST 0.01% OPH SOLN 2.5 ML BOTTLE BOTH EYES SCH (22:05)
[2017-04-07] MEDS: ATORVASTATIN 40 MG TABLET PO SCH (22:06)
[2017-04-08 04:44] LABS: Eosinophils # 0.4 10*3/uL (0.0-0.87); Eosinophils % 8.7 % (0.00-10.9); Hematocrit 25.5 VOL% (42.0-52.0); Hemoglobin 8.4 GM/DL (14.0-18.0); Immature Granulocytes % 0.2 %; Immature Granulocytes Absolute 0.01 #; Lymphocytes # 0.3 10*3/uL (1.4-4.0); Lymphocytes % 6.5 % (21.2-54.2); Mean Corpuscular HGB Conc 32.9 GM/DL (32-36); Mean Corpuscular Hemoglobin 27 PG (27-34); Mean Corpuscular Volume 82.3 FL (87-102); Mean Platelet Volume 10.9 FL (9.6-12.0); Monocytes # 0.6 10*3/uL (0.11-0.8); Monocytes % 13.7 % (1.7-12.7); Neutrophils # 3.3 10*3/uL (1.4-7.4); Neutrophils % 70.9 % (38.7-73.9); Red Cell Distribution Width 15.5 % (9.3-17.3); White Blood Count 4.6 T/CUMM (4-12)
[2017-04-08 04:50] LABS: Platelet Count 81 T/CUMM (130-400)
[2017-04-08 05:10] LABS: Eosinophils 7 % (0-10); Lymphocytes 10 % (20-55); Segmented Neutrophils 79 % (50-85)
[2017-04-08 05:12] LABS: Elliptocytes 1+; Helmet Cells Few; Ovalocytes 1+; Platelet Estimate Decreased
[2017-04-08 05:13] LABS: Burr Cells Few
[2017-04-08 05:14] LABS: Hypochromasia Slight; Microcytosis 1+
[2017-04-08 05:15] LABS: Acanthocytes Few; Anisocytosis 1+; Total Cells Counted 100
[2017-04-08] MEDS: LINEZOLID INJ 600 MG in PREMIX 1 EACH IV SCH ×2 (05:21→17:02)
[2017-04-08 05:31] LABS: Magnesium 1.9 MG/DL (1.8-2.4); Osmolality,Calculated 283.8 MOS/KG (273-304); Potassium 4.2 MMOL/L (3.5-5.1)
[2017-04-08] MEDS: PIPERACILLIN/TAZOBACTAM 3,375 MG in SODIUM CHLORIDE 0.9% 100 ML IV SCH ×2 (06:39→14:36)
[2017-04-08] MEDS: ALBUTEROL/IPRATROPIUM 3 ML NEB RESP TX SCH ×4 (07:29→18:57)
--- NOTE | 2017-04-08 07:39 | XRay Report ---
Portable chest Date: 04/08/2017 Clinical history: Pneumonia Comparison: 04/07/2017 Technique: Portable AP sitting chest Findings: Persistent cardiomegaly with calcification in the aortic knob. Reduced pleural-parenchymal findings in the left hemithorax. Progressive diffuse parenchymal findings the right mid to lower lung zone with larger right pleural effusion. Stable mediastinum and osseous structures. Impression: Improved pneumonia in the left lung with persistent moderate pleural effusion. Progressive pneumonia in the right lung with larger small to moderate pleural effusion. PROCEDURE INTERPRETED AT [facility] DEPARTMENT OF RADIOLOGY Final Report Signed by: Dr. Jacque Sarah
--- NOTE | 2017-04-08 08:16 | Pulmonology Progress Note ---
Pulmonary - PN: Subj Interval history: Patient is 67-year-old black man that has diabetes hypertension and chronic renal failure. He is basically bedridden. He came in with shortness of breath and bilateral effusions. Saturday we did a right thoracentesis and the fluid is a transudate. He had some atelectasis of his left lung over the weekend but this is better now. He is coughing up some sputum and says he feels a little better now. He feels like his breathing is more comfortable and he is having less shortness of breath. He has fairly good urine output and his creatinine is 2.9. He says he is comfortable at present. Exam (Progress Note) - Constitutional Vitals: Period Temp Pulse Resp BP Sys/Stewart Pulse Ox Last 24 Hr 96.8 F-98.6 F 69-108 16-20 120-150/53-76 94-100 Exam: General appearance: normal weight, no acute distress (He looks chronically ill but is comfortable lying in bed. He looks like he is breathing comfortably at present.) - Head Head exam: Present: normal inspection, normocephalic - Eye Eye exam: Present: EOMI, other (Bilateral arcus). Absent: nystagmus Pupils: Present: SLY - ENT ENT exam: Present: normal exam - Neck Neck exam: Present: thyromegaly. Absent: lymphadenopathy - Respiratory Respiratory exam: Present: He has better breath sounds bilaterally and is moving air fairly well. He does have some mild rhonchi present. - Cardiovascular Cardiovascular exam: Present: regular rate and rhythm, systolic murmur (He has a soft systolic murmur). Absent: gallop, JVD - GI/Abdominal GI/Abdominal exam: Present: normal bowel sounds, soft. Absent: organomegaly, tenderness - Extremities Exam Extremities exam: Present: edema (He does have some brawny edema of the legs. His edema is a little better.). Absent: calf tenderness - Neurological Exam Neurological exam: Present: alert, oriented X3 - Psychiatric Psychiatric exam: Present: normal affect - Skin Skin exam: Present: other (He does have some wounds on his feet and sacrum) Results - Labs CBC & BMP: 04/08/17 04:35 04/08/17 04:35 - Diagnostic Findings Procedure: Chest x-ray: image reviewed by me, report reviewed by me (Chest x- ray looks better. The right lung is much better in the left lung is open now. There is some left effusion.) Assessment and Plan (1) Chronic renal failure Status: Chronic Assessment and plan: The patient's creatinine is 2.9 at present. Current Visit: Yes Qualifiers: Chronic kidney disease stage: stage 4 (severe) Qualified Code(s): N18.4 - Chronic kidney disease, stage 4 (severe) (2) Hypertension Status: Chronic Assessment and plan: The patient will continue with blood pressure medicines and he is stable at present. He looks more hemodynamically stable now. Current Visit: No Qualifiers: Hypertension type: essential hypertension Qualified Code(s): I10 - Essential (primary) hypertension (3) Diabetes mellitus Status: Chronic Assessment and plan: His glucoses have been under good control so far. Current Visit: No Qualifiers: Diabetes mellitus type: type 2 Diabetes mellitus complication detail: with chronic kidney disease Chronic kidney disease stage: stage 4 (severe) (4) chronic lower extremity wounds Status: Chronic Assessment and plan: Patient is being seen by surgery for wounds. He will continue with wound care. Current Visit: No (5) Anemia in chronic kidney disease Status: Chronic Assessment and plan: The patient's hematocrit is down to 25.5. Current Visit: No (6) Hemoptysis Status: Acute Assessment and plan: Patient has had some blood-tinged sputum and he mainly looks like he is in heart failure. He is not having any further hemoptysis. Current Visit: Yes (7) Pleural effusion Status: Acute Assessment and plan: Patient has bilateral pleural effusions and he had a right thoracentesis Saturday. The pleural fluid is a transudate. Current Visit: Yes (8) CHF (congestive heart failure), NYHA class III Status: Acute Assessment and plan: Patient looks like he is in heart failure but he does seem to be doing better now. Current Visit: Yes Qualifiers: Congestive heart failure type: diastolic Congestive heart failure chronicity: acute on chronic Qualified Code(s): I50.33 - Acute on chronic diastolic (congestive) heart failure (9) Decubitus ulcer Status: Acute Assessment and plan: The patient's ulcers are being evaluated by surgery. Current Visit: Yes Qualifiers: Pressure ulcer location: sacral region Pressure ulcer stage: stage 2 Qualified Code(s): L89.152 - Pressure ulcer of sacral region, stage 2
[2017-04-08] MEDS: ASPIRIN EC 81 MG TABLET PO SCH (08:27)
[2017-04-08] MEDS: FUROSEMIDE 40 MG TABLET PO SCH (08:27)
[2017-04-08] MEDS: PENTOXIFYLLINE 400 MG TABLET PO SCH ×3 (08:27→17:02)
[2017-04-08] MEDS: CHOLECALCIFEROL 1,000 UNIT TABLET PO SCH (08:27)
[2017-04-08] MEDS: CETIRIZINE 10 MG TABLET PO SCH (08:27)
[2017-04-08] MEDS: CARVEDILOL 6.25 MG TABLET PO SCH ×2 (08:27→20:59)
[2017-04-08] MEDS: MONTELUKAST 10 MG TABLET PO SCH (08:27)
[2017-04-08] MEDS: MAGNESIUM CHLORIDE 64 MG TABLET PO SCH ×2 (08:27→20:59)
[2017-04-08] MEDS: GEMFIBROZIL 600 MG TABLET PO SCH ×2 (08:27→21:03)
[2017-04-08] MEDS: PANTOPRAZOLE 40 MG TABLET PO SCH (08:27)
[2017-04-08] MEDS: MULTIVITAMIN (OCUVITE) TABLET PO SCH (08:27)
[2017-04-08] MEDS: CYPROHEPTADINE 4 MG TABLET PO SCH ×3 (08:27→20:59)
[2017-04-08] MEDS: DORZOLAMIDE/TIMOLOL OPH SOLN 10 ML BOTTLE BOTH EYES SCH ×2 (08:28→20:58)
[2017-04-08] MEDS: BRIMONIDINE 0.1% OPH SOLN 5 ML BOTTLE BOTH EYES SCH ×3 (08:28→20:58)
[2017-04-08] MEDS: BUDESONIDE/FORMOTEROL 160-4.5 INHALER 6 GM INH SCH ×2 (08:28→20:58)
[2017-04-08] MEDS: INSULIN NPH/REGULAR 70/30 100 UNIT/ML SUBCUT SCH ×2 (08:28→17:02)
[2017-04-08] MEDS: THEOPHYLLINE ER (24 HR) 300 MG CAPSULE PO SCH (08:30)
--- NOTE | 2017-04-08 09:06 | General Surgery Progress Note ---
Assessment and Plan - Time spent with patient Time spent with patient: Less than 30 minutes (1) Diabetic ulcer of ankle Status: Acute Assessment and plan: Impression: Diabetic ulcerations of the right heel Plan: These ulcers appear to be healed but will continue moisturizing him special protective padding to prevent any further changes or breakdown. We will also continue with some compressive therapy on the legs to continue to prevent any problems. 04/08/2017. The areas on the heel continue to look pretty much healed with no obvious ulceration or breakdown. Certainly has old skin graft in place that still look good and healthy at this point. Swellings under control in the left lower extremity has no breakdown. Current Visit: No (2) Decubitus ulcer Status: Acute Assessment and plan: Impression: Stage II sacral decubitus ulcer Plan: We will continue with the Aquaphor and the calmoseptine 04/08/2017. The area of the sacrum remains pretty much stable and unchanged. Small abrasion area of the superficial on the right of midline that may just be an abrasion or than a true ulcer. Is clean with no necrotic tissue present. This was still make this a stage II ulcer and we need to turn him frequently and keep a good bad back there. Current Visit: Yes Qualifiers: Pressure ulcer location: sacral region Pressure ulcer stage: stage 2 Qualified Code(s): L89.152 - Pressure ulcer of sacral region, stage 2 Subjective Patient reports: Present: no new complaints, afebrile Exam - Constitutional Vitals: Period Temp Pulse Resp BP Sys/Stewart Pulse Ox Last 24 Hr 96.8 F-98.6 F 69-108 16-20 120-150/53-76 94-100 General appearance: no acute distress - Head Head exam: Present: normal inspection - ENT ENT exam: Present: normal exam - Neck Neck exam: Present: normal inspection - Respiratory Respiratory exam: Present: rales, rhonchi - Cardiovascular Cardiovascular exam: Present: RRR - GI/Abdominal GI/Abdominal exam: Present: hypoactive bowel sounds, soft. Absent: tenderness - Extremities Exam Extremities exam: Present: other (No unusual swelling of the lower extremities. The left foot and heel look good with no sign of any breakdown. Changes at the right heel basically her old skin graft changes and still looks like it has healed without a clear ulcer but will just treat it to protect it) - Back Exam Back exam: Present: other (Sacral area continues to look okay the one little abrasion area would make this a stage II ulcer but otherwise no worse than what it has been.) - Neurological Exam Neurological exam: Present: alert, oriented X3, CN II-XII intact - Skin Skin exam: Present: normal color, warm, dry Results - Labs CBC & BMP: 04/08/17 04:35 04/08/17 04:35 Lab Results: I have reviewed the past 24 hour labs
--- NOTE | 2017-04-08 11:10 | Cardiology Progress Note ---
Assessment and Plan (1) Pancytopenia Status: Acute Assessment and plan: SEE PLAN OF CARE LISTED BELOW Current Visit: Yes (2) Community acquired pneumonia Status: Acute Assessment and plan: SEE PLAN OF CARE LISTED BELOW Current Visit: No (3) Chronic renal failure Status: Chronic Assessment and plan: SEE PLAN OF CARE LISTED BELOW Current Visit: Yes Qualifiers: Chronic kidney disease stage: stage 4 (severe) Qualified Code(s): N18.4 - Chronic kidney disease, stage 4 (severe) (4) Diabetes mellitus Status: Chronic Assessment and plan: SEE PLAN OF CARE LISTED BELOW Current Visit: No Qualifiers: Diabetes mellitus type: type 2 Diabetes mellitus complication detail: with chronic kidney disease Chronic kidney disease stage: stage 4 (severe) (5) chronic lower extremity wounds Status: Chronic Assessment and plan: SEE PLAN OF CARE LISTED BELOW Current Visit: No (6) Hemoptysis Status: Acute Assessment and plan: SEE PLAN OF CARE LISTED BELOW Current Visit: Yes (7) Pleural effusion Status: Acute Assessment and plan: SEE PLAN OF CARE LISTED BELOW Current Visit: Yes (8) CHF (congestive heart failure), NYHA class III Status: Acute Assessment and plan: SEE PLAN OF CARE LISTED BELOW Current Visit: Yes Qualifiers: Congestive heart failure type: diastolic Congestive heart failure chronicity: acute on chronic Qualified Code(s): I50.33 - Acute on chronic diastolic (congestive) heart failure (9) Dyslipidemia Status: Chronic Assessment and plan: SEE PLAN OF CARE LISTED BELOW Current Visit: Yes (10) Edema Status: Chronic Assessment and plan: SEE PLAN OF CARE LISTED BELOW Current Visit: Yes (11) Risk for falls Status: Chronic Assessment and plan: SEE PLAN OF CARE LISTED BELOW Current Visit: Yes Exam (Progress Note) - Constitutional Vitals: Period Temp Pulse Resp BP Sys/Stewart Pulse Ox Last 24 Hr 96.8 F-98.6 F 69-108 16-20 120-150/53-76 94-100 Result/EKG - Labs CBC & BMP: 04/08/17 04:35 04/08/17 04:35 Labs: Laboratory Results - last 24 hr 04/07/17 04/07/17 04/07/17 12:48 16:28 22:02 WBC RBC Hgb Hct MCV MCH MCHC RDW Plt Count MPV Neut % (Auto) Lymph % (Auto) [place] % (Auto) Eos % (Auto) Baso % (Auto) Neut # (Auto) Lymph # (Auto) [place] # (Auto) Eos # (Auto) Baso # (Auto) Total Counted Immature Gran % Nucleated RBC % Immature Gran # Segmented Neutrophils Lymphocytes Monocytes Eosinophils Nucleated RBCs # Platelet Estimate Hypochromasia Anisocytosis Microcytosis Ovalocytes Helmet Cells [place] Cells Elliptocytes Acanthocytes (Spur) Sodium Potassium Chloride Carbon Dioxide Anion Gap BUN Creatinine GFR Calculation BUN/Creatinine Ratio Glucose POC Glucose 185 H 149 H 123 H Calculated Osmolality Calcium Magnesium Theophylline 04/08/17 04/08/17 04/08/17 04:35 04:35 04:35 WBC 4.6 RBC 3.10 L Hgb 8.4 L Hct 25.5 L MCV 82.3 L MCH 27 MCHC 32.9 RDW 15.5 Plt Count 81 L MPV 10.9 Neut % (Auto) 70.9 Lymph % (Auto) 6.5 L [place] % (Auto) 13.7 H Eos % (Auto) 8.7 Baso % (Auto) 0.0 Neut # (Auto) 3.3 Lymph # (Auto) 0.3 L [place] # (Auto) 0.6 Eos # (Auto) 0.4 Baso # (Auto) 0.0 Total Counted 100 Immature Gran % 0.2 Nucleated RBC % 0.0 Immature Gran # 0.01 Segmented Neutrophils 79 Lymphocytes 10 L Monocytes 4 Eosinophils 7 Nucleated RBCs # 0.00 Platelet Estimate Decreased Hypochromasia Slight Anisocytosis 1+ Microcytosis 1+ Ovalocytes 1+ Helmet Cells Few Michael Cells Few Elliptocytes 1+ Acanthocytes (Spur) Few Sodium 137 Potassium 4.2 Chloride 104 Carbon Dioxide 25 Anion Gap 12.2 BUN 50 H Creatinine 2.90 H GFR Calculation 32 BUN/Creatinine Ratio 17.00 Glucose 58 L POC Glucose Calculated Osmolality 283.8 Calcium 8.0 L Magnesium 1.9 Theophylline 7.2 L 04/08/17 07:37 WBC RBC Hgb Hct MCV MCH MCHC RDW Plt Count MPV Neut % (Auto) Lymph % (Auto) [place] % (Auto) Eos % (Auto) Baso % (Auto) Neut # (Auto) Lymph # (Auto) [place] # (Auto) Eos # (Auto) Baso # (Auto) Total Counted Immature Gran % Nucleated RBC % Immature Gran # Segmented Neutrophils Lymphocytes Monocytes Eosinophils Nucleated RBCs # Platelet Estimate Hypochromasia Anisocytosis Microcytosis Ovalocytes Helmet Cells [place] Cells Elliptocytes Acanthocytes (Spur) Sodium Potassium Chloride Carbon Dioxide Anion Gap BUN Creatinine GFR Calculation BUN/Creatinine Ratio Glucose POC Glucose 67 L Calculated Osmolality Calcium Magnesium Theophylline
--- NOTE | 2017-04-08 11:14 | Cardiology Progress Note ---
Assessment and Plan - Time spent with patient Time spent with patient: Greater than 30 minutes (exam, interview, chart review and) (1) Pulmonary hypertension Status: Chronic Current Visit: Yes (2) Cardiomyopathy Status: Chronic Assessment and plan: chronic systolic and diastolic, compensated Current Visit: Yes Qualifiers: Cardiomyopathy type: unspecified Qualified Code(s): I42.9 - Cardiomyopathy , unspecified (3) Pancytopenia Status: Chronic Current Visit: Yes (4) Diabetic ulcer of ankle Status: Chronic Current Visit: No Cardiology - PN: Subj Interval history: Mr. Em is a chronically ill 67-year-old gentleman that appears much older. He is obviously cachectic and has lost a significant amount of weight. Cardiovascular services have been asked to see the patient because of decompensated heart failure. He has chronic renal insufficiency. His ejection fraction by transthoracic echo was 50% with right ventricular systolic pressure estimated be 45 mmHg. This is a dramatic improvement in comparison to his echo that was done in June which showed an ejection fraction of 40% with a right ventricular systolic pressure exceeding 70 mmHg. The patient has advanced diabetes and probable peripheral vessel disease as etiology of his recurrent ulcers he also is pancytopenic. He denies chest pain. Exam (Progress Note) - Constitutional Vitals: Period Temp Pulse Resp BP Sys/Stewart Pulse Ox Last 24 Hr 96.8 F-98.6 F 69-108 16-20 120-150/53-76 94-100 General appearance: under weight - Head Head exam: Present: other (Temporal atrophy) - Eye Eye exam: Present: EOMI (He has arcus) Pupils: Present: SLY - Neck Neck exam: Present: normal inspection - Respiratory Respiratory exam: Present: other (decreased breath sounds on the left.) - Cardiovascular Cardiovascular exam: Present: regular rate and rhythm (PMI is within normal limits he appears to have an S4) - GI/Abdominal GI/Abdominal exam: Present: normal bowel sounds - Extremities Exam Extremities exam: Present: edema (scrotal edema) - Back Exam Back exam: Present: normal inspection - Neurological Exam Neurological exam: Present: alert - Psychiatric Psychiatric exam: Present: depressed - Skin Skin exam: Present: other Result/EKG - Labs CBC & BMP: 04/08/17 04:35 04/08/17 04:35 Labs: Laboratory Results - last 24 hr 04/07/17 04/07/17 04/07/17 12:48 16:28 22:02 WBC RBC Hgb Hct MCV MCH MCHC RDW Plt Count MPV Neut % (Auto) Lymph % (Auto) [place] % (Auto) Eos % (Auto) Baso % (Auto) Neut # (Auto) Lymph # (Auto) [place] # (Auto) Eos # (Auto) Baso # (Auto) Total Counted Immature Gran % Nucleated RBC % Immature Gran # Segmented Neutrophils Lymphocytes Monocytes Eosinophils Nucleated RBCs # Platelet Estimate Hypochromasia Anisocytosis Microcytosis Ovalocytes Helmet Cells [place] Cells Elliptocytes Acanthocytes (Spur) Sodium Potassium Chloride Carbon Dioxide Anion Gap BUN Creatinine GFR Calculation BUN/Creatinine Ratio Glucose POC Glucose 185 H 149 H 123 H Calculated Osmolality Calcium Magnesium Theophylline 04/08/17 04/08/17 04/08/17 04:35 04:35 04:35 WBC 4.6 RBC 3.10 L Hgb 8.4 L Hct 25.5 L MCV 82.3 L MCH 27 MCHC 32.9 RDW 15.5 Plt Count 81 L MPV 10.9 Neut % (Auto) 70.9 Lymph % (Auto) 6.5 L [place] % (Auto) 13.7 H Eos % (Auto) 8.7 Baso % (Auto) 0.0 Neut # (Auto) 3.3 Lymph # (Auto) 0.3 L [place] # (Auto) 0.6 Eos # (Auto) 0.4 Baso # (Auto) 0.0 Total Counted 100 Immature Gran % 0.2 Nucleated RBC % 0.0 Immature Gran # 0.01 Segmented Neutrophils 79 Lymphocytes 10 L Monocytes 4 Eosinophils 7 Nucleated RBCs # 0.00 Platelet Estimate Decreased Hypochromasia Slight Anisocytosis 1+ Microcytosis 1+ Ovalocytes 1+ Helmet Cells Few Michael Cells Few Elliptocytes 1+ Acanthocytes (Spur) Few Sodium 137 Potassium 4.2 Chloride 104 Carbon Dioxide 25 Anion Gap 12.2 BUN 50 H Creatinine 2.90 H GFR Calculation 32 BUN/Creatinine Ratio 17.00 Glucose 58 L POC Glucose Calculated Osmolality 283.8 Calcium 8.0 L Magnesium 1.9 Theophylline 7.2 L 04/08/17 07:37 WBC RBC Hgb Hct MCV MCH MCHC RDW Plt Count MPV Neut % (Auto) Lymph % (Auto) [place] % (Auto) Eos % (Auto) Baso % (Auto) Neut # (Auto) Lymph # (Auto) [place] # (Auto) Eos # (Auto) Baso # (Auto) Total Counted Immature Gran % Nucleated RBC % Immature Gran # Segmented Neutrophils Lymphocytes Monocytes Eosinophils Nucleated RBCs # Platelet Estimate Hypochromasia Anisocytosis Microcytosis Ovalocytes Helmet Cells [place] Cells Elliptocytes Acanthocytes (Spur) Sodium Potassium Chloride Carbon Dioxide Anion Gap BUN Creatinine GFR Calculation BUN/Creatinine Ratio Glucose POC Glucose 67 L Calculated Osmolality Calcium Magnesium Theophylline - EKG EKG results: interpreted by me
[2017-04-08] MEDS: MENTHOL/ZINC OXIDE OINT 71 GM JAR TOP SCH ×2 (13:30→21:03)
--- NOTE | 2017-04-08 13:50 | Magnetic Resonance Report ---
Exam: MR head/brain wo con Date: 04/08/2017 4:00 AM Comparison: 01/05/2016, CT brain 04/06/2017 Indication: Alteration of consciousness, left gaze preference Technique:[Multiple acquisitions were obtained including sagittal T1, coronal T2, and axial ADC, diffusion, FLAIR, T2, GRE, and T1 scans without contrast only. Scans were obtained on a 1.5 Aleshia magnet.] Findings: Motion artifact. The ventricles are normal in size with no midline displacement. The pituitary has a normal appearance and the cerebellar tonsils are normal in their location. No acute infarction is identified on the diffusion scans. No evidence of hemorrhage, mass, or extracerebral collection. Chronic left thalamic lacunar infarction. Progressive atrophy and FLAIR/T2 hyperintensities. No acute findings in the orbits or [place]. Fluid noted throughout the right mastoid air cells. Fluid and mucosal thickening in the right sphenoid sinus. Impression: Motion artifact limits exam. No acute intracranial pathology is identified. Atrophy, microvascular disease, and chronic left thalamic infarction. Fluid in right mastoid air cells which could be related to mastoiditis. Right sphenoid sinusitis. PROCEDURE INTERPRETED AT [facility] DEPARTMENT OF RADIOLOGY Final Report Signed by: Dr. Jacque Sarah
--- NOTE | 2017-04-08 16:36 | Neurology Consult Note ---
History of Present Illness History of present illness: 67-year-old right-handed -[place] gentleman who is bed bound and has history of hypertension, dyslipidemia, diabetes, significant CKD, recurrent foot ulcers, admitted with 2 weeks of cough dyspnea and hemoptysis and increased lower extremity swelling , with bilateral pleural effusions and suggestion of pneumonia on CT chest. Patient has history of mild cardiomyopathy , ejection fraction 50-55% without significant valvular abnormality. Patient also has right foot ulcer which is being treated by Dr. Linares. reported episodes of confusion from time to time which does not last for too long. There is a question whether patient developing some left gaze preference which I do not see at this point. Patient is talkative and making sense. He is alert and awake. Follow commands. No evidence for homonymous hemianopsia either on confrontation exam. Patient underwent MRI of the brain which revealed no acute pathology. Home Medications Medication Instructions Recorded Confirmed Type Aspirin [Ecotrin] 81 mg PO DAILY 11/12/15 04/04/17 History Cetirizine Tab [ZyrTEC Tab] 10 mg PO DAILY 11/12/15 04/04/17 History Cholecalciferol (Vitamin D3) 5,000 unit PO DAILY 11/12/15 04/04/17 History [Vitamin D3] NIFEdipine [Nifedipine ER] 120 mg PO DAILY 11/12/15 04/04/17 History Pantoprazole Tab [Protonix Tab] 40 mg PO DAILY 11/12/15 04/04/17 History Pentoxifylline 400 mg PO TID W/MEALS 11/12/15 04/04/17 History Bimatoprost 0.01% Oph Soln 1 drop BOTH EYES BEDTIME 11/13/15 04/04/17 History [Lumigan] Brimonidine 0.1% Oph Soln 1 drop BOTH EYES TID 11/13/15 04/04/17 History [Alphagan P 0.1% Oph Soln] Dorzolamide/Timolol Oph Soln 1 drop BOTH EYES BID #1 ophthalmic 11/18/15 Rx [Cosopt] solution Albuterol/Ipratropium Neb [Duoneb] 3 ml RESP TX QID 12/29/15 04/04/17 History Budesonide/Formoterol Fumarate 2 puff INH BID 12/29/15 04/04/17 History [Symbicort 160-4.5 Mcg Inhaler] Montelukast Tab [Singulair Tab] 10 mg PO DAILY 12/29/15 04/04/17 History Multivitamin (Ocuvite) [Ocuvite] 1 tablet PO DAILY 12/29/15 04/04/17 History Theophylline ER Cap (24 Hr) 300 mg PO DAILY 12/29/15 04/04/17 History [Hood-24] Dorzolamide/Timolol Oph Soln 1 drop BOTH EYES BID 06/19/16 04/04/17 History [Cosopt] Insulin NPH Hum/Reg Insulin Hm See Protocol SUBCUT AC BREAKFAST 06/19/16 History [NovoLIN 70/30] Insulin NPH Hum/Reg Insulin Hm See Protocol SUBCUT AC SUPPER 06/19/16 04/04/17 History [NovoLIN 70/30] Furosemide Tab [Lasix Tab] 40 mg PO DAILY #30 tablet 03/23/17 04/04/17 Rx Atorvastatin [Lipitor] 40 mg PO BEDTIME 04/04/17 04/04/17 History Carvedilol [Coreg] 6.25 mg PO BID 04/04/17 04/04/17 History Cyproheptadine Tab [Periactin Tab] 4 mg PO TID 04/04/17 04/04/17 History Hydralazine HCl 50 mg PO TID 04/04/17 04/04/17 History cloNIDine TAB [Catapres Tab] 0.2 mg PO DAILY 04/04/17 04/04/17 History Allergies Allergy/AdvReac Type Severity Reaction Status Date / Time sulfamethoxazole Allergy Swelling Verified 03/23/17 01:02 [From Bactrim] of Lip/Tongue/Throat trimethoprim [From Bactrim] Allergy Swelling Verified 03/23/17 01:02 of Lip/Tongue/Throat 12 point system: reviewed and no additional remarkable complaints except as stated Medical,Surgical,& Family Hx - Medical History Cardio: History of: CHF, Hypertension Neurology: History of: Cerebral Hemorrhage, Peripheral Neuropathy, Neurological Problems (? Bilateral lower extremity weakness due to neuropathy) No history of: Seizures HEENT: History of: Eye Problem, Glaucoma Endocrine: History of: Diabetes Mellitus (IDDM) No history of: Diabetes Mellitus (NIDDM) Rheumatology: History of;: Rheumatoid Arthritis (BED RIDDEN) Respiratory: History of: Asthma, Respiratory Problems (asbestosis) Renal: History of: Dialysis, Renal Failure Genitourinary: History of: Prostate Problems (past HX cancer) Other: History of: Miscellaneous Medical Problems (BED RIDDEN; LYMPH NODES REMOVE L GROIN) - Surgical History Neurologic Surgeries: Surgical HX of: Cerebral Hemorrhage Abdominal Surgeries: Surgical HX of: Colonoscopy, EGD Reproductive Surgeries: Surgical HX of;: Prostate Surgery Orthopedic Surgeries: Surgical HX of;: Orthopedic Surgery (AMPUTEE 1 AND 1/2 TOE R FOOT), Total Hip Replacement (LEFT) - Family History Family History: Reports;: Family Diabetes (MOM SUBLINGS), Family Hypertension ( SISTERS) - Social History Smoking Status: Former smoker Frequency of Alcohol Use: None Type of Drug Use: None Exam - Constitutional Vitals: Period Temp Pulse Resp BP Sys/Stewart Pulse Ox Last 24 Hr 96.8 F-98.6 F 69-108 16-20 120-150/53-76 94-100 Exam: GENERAL: Patient is in no acute distress. NECK: Neck is supple. There is no JVD. No carotid bruits present. No thyroid masses. CVS: First and second heart sounds are normal. There is no S3 present. Regular rate and rhythm. RESPIRATORY: Lungs are clear to auscultation without any rales or rhonchi. ABDOMEN: Soft and non-tender. Bowel sounds are present. There is no hepatosplenomegaly. EXT: There is no palpable edema. Peripheral pulses are present. Skin: No rashes Central Nervous system: General: Alert, awake and Oriented Speech: Fluent Comprehension: Intact and normal Facial expressions: Normal Cranial Nerves: CN1/Olfactory: Normal CN II/ Optic: Normal, Visual Matias unreliable CN III, and : SLY & EOMI CN V: Normal & intact CN VII: face is symmetric CNVIII: Normal CN XI/X/XI/XII: Intact and Normal Motor: Bilateral distal hand and foot muscle atrophy Strength in the right 3-4/5 Strength in the left 3-4/5 Sensory: Decreased for all the modalities of pinprick, light touch and temperature sense in the glove and stockings distribution Reflexes: 1+ and symmetrical Cerebellar function: Slow finger to nose testing. Toes: Equivocal Gait: Cannot be tested Results - Labs CBC & BMP: 04/08/17 04:35 04/08/17 04:35 Assessment and Plan (1) Change in mental status Status: Acute Assessment and plan: Change in mental status and episodic confusion could very well be due to metabolic encephalopathy versus underlying vascular dementia. No evidence of acute stroke, TIAs, epilepsy or seizures however patient has a very high risk of strokes. Given the multiple comorbidities and high risk factors, will go ahead and stop aspirin and put on Plavix. Continue rest of the treatment same Thank you for the consult Current Visit: No
--- NOTE | 2017-04-08 17:41 | Hospitalist Progress Note ---
Assessment and Plan (1) Community acquired pneumonia Status: Acute Assessment and plan: De-escalate antibiotic therapy by stopping Zyvox and Zosyn. Start Levaquin renally dosed. Cultures remain negative. Current Visit: No (2) Chronic renal failure Status: Chronic Current Visit: Yes Qualifiers: Chronic kidney disease stage: stage 4 (severe) Qualified Code(s): N18.4 - Chronic kidney disease, stage 4 (severe) (3) Anemia Status: Chronic Current Visit: No Qualifiers: Other causes of anemia: chronic disease, kidney (4) Hypertension Status: Chronic Current Visit: No Qualifiers: Hypertension type: essential hypertension Qualified Code(s): I10 - Essential (primary) hypertension (5) Diabetes mellitus Status: Chronic Current Visit: No Qualifiers: Diabetes mellitus type: type 2 Diabetes mellitus complication detail: with chronic kidney disease Chronic kidney disease stage: stage 4 (severe) (6) Decubitus ulcer Status: Acute Current Visit: Yes Qualifiers: Pressure ulcer location: sacral region Pressure ulcer stage: stage 2 Qualified Code(s): L89.152 - Pressure ulcer of sacral region, stage 2 (7) Atelectasis Status: Acute Current Visit: Yes (8) Pulmonary hypertension Status: Chronic Current Visit: Yes (9) Cardiomyopathy Status: Chronic Current Visit: Yes Qualifiers: Cardiomyopathy type: unspecified Qualified Code(s): I42.9 - Cardiomyopathy , unspecified (10) Encephalopathy acute Status: Acute Assessment and plan: Etiology is unclear. Cultures are negative. Urine does not appear infected. The patient is being treated for pneumonia and metabolic encephalopathy related to infectious causes is most likely. There is no evidence of acute neurologic event according to MRI. Aspirin has been discontinued and Plavix has been started. Neurology consult reviewed and appreciated. Current Visit: Yes Hospitalist: Subjective Interval history: Patient seen and examined. No acute events overnight. Case discussed with nursing staff. Labs reviewed. MRI report reviewed. Neurology consult reviewed and discussed with neurologist. MRI without evidence of new stroke. Platelets are dropping and I am going to stop the Zyvox and Zosyn. Fluid cultures have been negative. We will start Levaquin renally dosed. Hold his Lasix to avoid over diuresis. Exam - Constitutional Vitals: Period Temp Pulse Resp BP Sys/Stewart Pulse Ox Last 24 Hr 96.8 F-98.6 F 69-108 16-20 120-142/53-76 94-100 Exam: Constitutional System: No distress. No tremulousness. Head: Normocephalic, atraumatic. Ears, Nose and Throat System: No pain or tenderness. No epistaxis or discharge Eyes System: Pupils equal, round, and reactive. Extraocular muscles intact. Neck: Supple, without adenopathy, No jugular venous distention. Respiratory System: Chest clear to auscultation. Decreased at the bases Cardiovascular System: Heart with regular rate and rhythm. No murmur. GI System: Abdomen soft, nontender. Normo active bowel sounds present. Musculoskeletal System: limbs with no pedal edema. Full distal pulses. Neurological System: No discernable sensory deficit. No aphasia Psychiatric System: Conversation is rational Results - Labs CBC & BMP: 04/08/17 04:35 04/08/17 04:35 Lab Results: I have reviewed the past 24 hour labs
[2017-04-08] MEDS: LEVOFLOXACIN 500 MG TABLET PO SCH (17:59)
[2017-04-08] MEDS: BIMATOPROST 0.01% OPH SOLN 2.5 ML BOTTLE BOTH EYES SCH (20:58)
[2017-04-08] MEDS: ATORVASTATIN 40 MG TABLET PO SCH (20:59)
[2017-04-08] MEDS ORDERED: diphenhydrAMINE 25 MG/10 ML UDCUP PO ONE (22:39)
[2017-04-09] MEDS: ALBUTEROL/IPRATROPIUM 3 ML NEB RESP TX SCH ×4 (07:14→18:47)
--- NOTE | 2017-04-09 08:57 | Pulmonology Progress Note ---
Pulmonary - PN: Subj Interval history: Patient is 67-year-old black man that has diabetes hypertension and chronic renal failure. He is basically bedridden. He came in with shortness of breath and bilateral effusions. Saturday we did a right thoracentesis and the fluid is a transudate. He had some atelectasis of his left lung over the weekend but this is better now. He is coughing up some sputum and says he feels a little better now. He had a fairly good night and says his breathing is better. He is eating well and says he is not short of breath now. Exam (Progress Note) - Constitutional Vitals: Period Temp Pulse Resp BP Sys/Stewart Pulse Ox Last 24 Hr 98.1 F-98.9 F 65-91 16-20 125-151/62-77 93-100 Exam: General appearance: normal weight, no acute distress (He looks chronically ill but is comfortable lying in bed. He does not appear to be in any distress.) - Head Head exam: Present: normal inspection, normocephalic - Eye Eye exam: Present: EOMI, other (Bilateral arcus). Absent: nystagmus Pupils: Present: SLY - ENT ENT exam: Present: normal exam - Neck Neck exam: Present: thyromegaly. Absent: lymphadenopathy - Respiratory Respiratory exam: Present: He has better breath sounds bilaterally and is moving air fairly well. He does have some mild rhonchi present. His cough is better. - Cardiovascular Cardiovascular exam: Present: regular rate and rhythm, systolic murmur (He has a soft systolic murmur). Absent: gallop, JVD - GI/Abdominal GI/Abdominal exam: Present: normal bowel sounds, soft. Absent: organomegaly, tenderness - Extremities Exam Extremities exam: Present: edema (He does have some brawny edema of the legs. His edema is a little better.). Absent: calf tenderness - Neurological Exam Neurological exam: Present: alert, oriented X3 - Psychiatric Psychiatric exam: Present: normal affect - Skin Skin exam: Present: other (He does have some wounds on his feet and sacrum) Results - Labs CBC & BMP: 04/08/17 04:35 04/08/17 04:35 Assessment and Plan (1) Chronic renal failure Status: Chronic Assessment and plan: The patient's creatinine is 2.9 at present. Current Visit: Yes Qualifiers: Chronic kidney disease stage: stage 4 (severe) Qualified Code(s): N18.4 - Chronic kidney disease, stage 4 (severe) (2) Hypertension Status: Chronic Assessment and plan: The patient will continue with blood pressure medicines and he is stable at present. He looks more hemodynamically stable now. He looks like he stable medically. Current Visit: No Qualifiers: Hypertension type: essential hypertension Qualified Code(s): I10 - Essential (primary) hypertension (3) Diabetes mellitus Status: Chronic Assessment and plan: His glucoses have been under good control so far. His glucose is 110 this morning. Current Visit: No Qualifiers: Diabetes mellitus type: type 2 Diabetes mellitus complication detail: with chronic kidney disease Chronic kidney disease stage: stage 4 (severe) (4) chronic lower extremity wounds Status: Chronic Assessment and plan: Patient is being seen by surgery for wounds. He will continue with wound care. Current Visit: No (5) Anemia in chronic kidney disease Status: Chronic Assessment and plan: The patient's hematocrit is down to 25.5. Current Visit: No (6) Hemoptysis Status: Resolved Assessment and plan: Patient has had some blood-tinged sputum and he mainly looks like he is in heart failure. He is not having any further hemoptysis. His breathing is much better. Current Visit: No (7) Pleural effusion Status: Acute Assessment and plan: Patient has bilateral pleural effusions and he had a right thoracentesis Saturday. The pleural fluid is a transudate. He feels like he is breathing better now. Current Visit: Yes (8) CHF (congestive heart failure), NYHA class III Status: Acute Assessment and plan: Patient looks like he is in heart failure but he does seem to be doing better now. He is resting comfortably. Current Visit: Yes Qualifiers: Congestive heart failure type: diastolic Congestive heart failure chronicity: acute on chronic Qualified Code(s): I50.33 - Acute on chronic diastolic (congestive) heart failure (9) Decubitus ulcer Status: Acute Assessment and plan: The patient's ulcers are being evaluated by surgery. Current Visit: Yes Qualifiers: Pressure ulcer location: sacral region Pressure ulcer stage: stage 2 Qualified Code(s): L89.152 - Pressure ulcer of sacral region, stage 2
[2017-04-09] MEDS ORDERED: LEVOFLOXACIN 750 MG TABLET PO SCH (09:00)
--- NOTE | 2017-04-09 09:41 | Cardiology Progress Note ---
<Margaret De La Rosa E - Last Filed: 04/09/17 09:23> Assessment and Plan - Time spent with patient Time spent with patient: Greater than 30 minutes (1) Pancytopenia Status: Chronic Assessment and plan: SEE PLAN OF CARE LISTED BELOW Current Visit: Yes (2) Community acquired pneumonia Status: Acute Assessment and plan: SEE PLAN OF CARE LISTED BELOW Current Visit: No (3) Chronic renal failure Status: Chronic Assessment and plan: SEE PLAN OF CARE LISTED BELOW Current Visit: Yes Qualifiers: Chronic kidney disease stage: stage 4 (severe) Qualified Code(s): N18.4 - Chronic kidney disease, stage 4 (severe) (4) Diabetes mellitus Status: Chronic Assessment and plan: SEE PLAN OF CARE LISTED BELOW Current Visit: No Qualifiers: Diabetes mellitus type: type 2 Diabetes mellitus complication detail: with chronic kidney disease Chronic kidney disease stage: stage 4 (severe) (5) chronic lower extremity wounds Status: Chronic Assessment and plan: SEE PLAN OF CARE LISTED BELOW Current Visit: No (6) Hemoptysis Status: Resolved Assessment and plan: SEE PLAN OF CARE LISTED BELOW Current Visit: No (7) Pleural effusion Status: Acute Assessment and plan: SEE PLAN OF CARE LISTED BELOW Current Visit: Yes (8) CHF (congestive heart failure), NYHA class III Status: Acute Assessment and plan: SEE PLAN OF CARE LISTED BELOW Current Visit: Yes Qualifiers: Congestive heart failure type: diastolic Congestive heart failure chronicity: acute on chronic Qualified Code(s): I50.33 - Acute on chronic diastolic (congestive) heart failure (9) Dyslipidemia Status: Chronic Assessment and plan: SEE PLAN OF CARE LISTED BELOW Current Visit: Yes (10) Edema Status: Chronic Assessment and plan: SEE PLAN OF CARE LISTED BELOW Current Visit: Yes (11) Risk for falls Status: Chronic Assessment and plan: SEE PLAN OF CARE LISTED BELOW Current Visit: Yes (12) PVC (premature ventricular contraction) Status: Acute Assessment and plan: SEE PLAN OF CARE LISTED BELOW Current Visit: Yes (13) Anemia Status: Acute Assessment and plan: SEE PLAN OF CARE LISTED BELOW Current Visit: Yes Cardiology - PN: Subj Interval history: INSURANCE APPLICATION INVESTIGATOR: DR. AG SUMMARY: Mr. Em, 67BM, routinely followed by Dr. Ag. He was last seen in cardiology clinic March 26, 2017. Risk factors include: Hypertension, diabetes, peripheral vascular disease, sedentary lifestyle. History of CHF, pneumonia, chronic kidney disease (reportedly got off dialysis after only 6 weeks ago), anemia, diabetic heel ulcer. Admitted April 04, 2017 after experiencing hemoptysis, shortness of breath. Diagnosed with recurrent pneumonia, diastolic heart failure. CT Chest abnormal. Pulmonary medicine has been consulted. Dr. Linares has been following his right lower extremity poor wound healing. He is pancytopenic. Echocardiogram at [facility] March 26, 2017 reveals the following: LVEF 55% (improved from 40%), concentric left ventricular hypertrophy is mild. Grade 1 diastolic dysfunction. No significant valvular abnormality. PAP 58 mmHg (improved from 70mmHg). Small pericardial effusion. Dr. Pride was consulted for neurological changes. Underwent MRI Brain which revealed no acute pathology. He is awake and alert this morning. Labs pending this morning. Several episodes of PVCs during the night. Systolic blood pressure averaging 130-150s, will increase betablocker this evening and monitor closely. Overall, appears comfortable this morning. ASSESSMENT/plan: 1. RECURRENT CAP - currently being treated with antibiotics, respiratory treatments. 2. ACUTE ON CHRONIC CHF - secondary to diastolic dysfunction, NYHA CLASS III. 3. PANCYTOPENIA - labs pending this morning. Blood cultures negative x 2. 4. HYPERTENSION - suboptimally controlled. Increasing beta-blockade today. Avoiding PERLITA inhibitor for fear of worsening his renal insufficiency. 5. DYSLIPIDEMIA - continue Atorvastatin. 6. PVD WITH POOR HEALING WOUND - Dr. Linares is following 7. DEBILITATED PATIENT - continue current plan of care. Fall protocol in place 8. ABNORMAL CT CHEST - see report. Pulmonology has been consulted 9. CKD, STAGE - stage IV. Avoiding PERLITA for fear of worsening renal insufficiency 10. EDEMA - improved, no DVT per venous ultrasound 11. THYROID ABNORMALITY - may need additional workup. Will defer to Attending. 12. HEMOPTYSIS - none for several days. 13. PVCs - increasing betablocker, awaiting labs this morning. 14. ANEMIA - stool + for occult blood. Holding ASA, Lovenox. Exam (Progress Note) - Constitutional Vitals: Period Temp Pulse Resp BP Sys/Stewart Pulse Ox Last 24 Hr 98.1 F-98.9 F 65-91 16-20 125-151/62-77 93-100 Exam: General: [Chronically ill -[place] male. In no apparent distress. Pleasant and cooperative appears well with no apparent distress.] [Pleasant and cooperative. ] [Appears comfortable.] HEENT: [Bilateral arcus noted, normocephalic, atraumatic. Mucous membranes moist. No jaundice noted. Conjunctiva moist and clear, sclerae anicteric] Neck: No JVD/HJR, bilobular enlargement of the thyroid. Cardiac: [Regular rate and rhythm.] [No obvious murmur rub or gallop.] Lungs: [Decreased sounds throughout but no wheezing this morning. ] Oxygen in use via nasal cannula Abdomen: Soft, bowel sounds normoactive. Nontender and nondistended. No abdominal bruit or thrill noted. No masses noted. Musculoskeletal: No fluid collection. Decreased range of motion is noted. Extremities: No clubbing, cyanosis noted. [ No edema noted.] Upper extremity pulses 2+. Lower extremity pulses 2+. Capillary refill less than 3 seconds. Skin: Right heel with pea size decubitus noted. No other unusual rashes noted Neuro: Awake, alert and oriented 3. No essential tremor is appreciated. Result/EKG - Labs CBC & BMP: 04/08/17 04:35 04/08/17 04:35 Lab Results: I have reviewed the past 24 hour labs Labs: Laboratory Results - last 24 hr 04/08/17 04/08/17 04/08/17 11:21 15:12 19:49 POC Glucose 126 H 93 125 H 04/09/17 07:57 POC Glucose 110 H - EKG EKG results: interpreted by me EKG shows: sinus rhythm (PVCs) <Margie Stokes - Last Filed: 04/09/17 16:31> Assessment and Plan (1) Pulmonary hypertension Status: Chronic Current Visit: Yes (2) Cardiomyopathy Status: Chronic Current Visit: Yes Qualifiers: Cardiomyopathy type: unspecified Qualified Code(s): I42.9 - Cardiomyopathy , unspecified (3) Pancytopenia Status: Chronic Current Visit: Yes (4) Diabetic ulcer of ankle Status: Chronic Current Visit: No Cardiology - PN: Subj Interval history: Mr. Em is much more alert today. He is breathing better his family asked about his kidneys. His ejection fraction has improved his pulmonary pressures have improved he seems to be stable from a cardiovascular standpoint. I recommend continuing his current medical regimen and follow-up with Dr. Saxena in 1 month as an outpatient. I have nothing further to add at this time we will sign off. Please call if needed Exam (Progress Note) - Constitutional Vitals: Period Temp Pulse Resp BP Sys/Stewart Pulse Ox Last 24 Hr 98.4 F-98.9 F 63-91 16-20 136-151/65-77 93-100 Exam: Exam as above the patient is much more alert and awake today. He is not very conversant but will respond. He is interested in eating his peanut butter and crackers. He is not very interested in I think than talking to me at this time. Result/EKG - Labs CBC & BMP: 04/08/17 04:35 04/09/17 09:41 Labs: Laboratory Results - last 24 hr 04/08/17 04/08/17 04/09/17 15:12 19:49 07:57 Sodium Potassium Chloride Carbon Dioxide Anion Gap BUN Creatinine GFR Calculation BUN/Creatinine Ratio Glucose POC Glucose 93 125 H 110 H Calculated Osmolality Calcium Magnesium 04/09/17 04/09/17 04/09/17 09:41 11:19 15:45 Sodium 135 L Potassium 4.4 Chloride 102 Carbon Dioxide 24 Anion Gap 13.4 BUN 55 H Creatinine 3.20 H GFR Calculation 28 BUN/Creatinine Ratio 17.00 Glucose 98 POC Glucose 109 H 67 L Calculated Osmolality 284.1 Calcium 8.1 L Magnesium 1.9
[2017-04-09] MEDS: INSULIN NPH/REGULAR 70/30 100 UNIT/ML SUBCUT SCH ×2 (09:51→18:31)
[2017-04-09] MEDS: PENTOXIFYLLINE 400 MG TABLET PO SCH ×3 (09:51→18:30)
[2017-04-09] MEDS: CARVEDILOL 6.25 MG TABLET PO SCH (09:52)
[2017-04-09] MEDS: MENTHOL/ZINC OXIDE OINT 71 GM JAR TOP SCH ×2 (09:52→22:02)
[2017-04-09] MEDS: BRIMONIDINE 0.1% OPH SOLN 5 ML BOTTLE BOTH EYES SCH ×3 (09:52→21:46)
[2017-04-09] MEDS: DORZOLAMIDE/TIMOLOL OPH SOLN 10 ML BOTTLE BOTH EYES SCH ×2 (09:53→21:46)
[2017-04-09] MEDS: MULTIVITAMIN (OCUVITE) TABLET PO SCH (09:54)
[2017-04-09] MEDS: CYPROHEPTADINE 4 MG TABLET PO SCH ×3 (09:54→21:42)
[2017-04-09] MEDS: PANTOPRAZOLE 40 MG TABLET PO SCH (09:54)
[2017-04-09] MEDS: CLOPIDOGREL 75 MG TABLET PO SCH (09:54)
[2017-04-09] MEDS: GEMFIBROZIL 600 MG TABLET PO SCH ×2 (09:54→22:02)
[2017-04-09] MEDS: MONTELUKAST 10 MG TABLET PO SCH (09:55)
[2017-04-09] MEDS: MAGNESIUM CHLORIDE 64 MG TABLET PO SCH ×2 (09:55→21:42)
[2017-04-09] MEDS: BUDESONIDE/FORMOTEROL 160-4.5 INHALER 6 GM INH SCH ×2 (09:55→21:46)
[2017-04-09] MEDS: THEOPHYLLINE ER (24 HR) 300 MG CAPSULE PO SCH (09:55)
[2017-04-09] MEDS: CETIRIZINE 10 MG TABLET PO SCH (09:55)
[2017-04-09] MEDS: CHOLECALCIFEROL 1,000 UNIT TABLET PO SCH (09:55)
[2017-04-09 10:28] LABS: Calcium 8.1 MG/DL (8.5-10.1); Magnesium 1.9 MG/DL (1.8-2.4); Osmolality,Calculated 284.1 MOS/KG (273-304); Potassium 4.4 MMOL/L (3.5-5.1)
--- NOTE | 2017-04-09 11:15 | Pathology Report from [facility] ---
[facility] [place] : [id number] PATIENT NAME : Tobias Em ORDERING DR : SRIKANTH MCKEE MD CLINICAL HX: Renal insufficiency and has bilateral effusions, shortness of breath. POST-OP DX: Same SPECIMEN INFO: Fluid,Pleural,BETHEL- 800 mls red orange, cloudy CLASS: II CLASS COMMENTS: Reactive mesothelials, some lymphocytesCELL BLOCK: Same CLASS LEGEND: CLASS 0 Material inadequate for diagnosis because of (see comment) CLASS I Absence of atypical or abnormal cells CLASS II Atypical Cytology but no evidence of malignancy CLASS III Cytology suggestive of but not conclusive for malignancy CLASS IV Cytology strongly suggestive of malignancy CLASS V Cytology conclusive for malignancy COLLECTED DATE: 04/08/2017 [facility] [place] DATE: 04/09/2017 ELECTRONICALLY SIGNED BY: Yarely Arteaga M.D. 04/09/2017 - 8:40:18 [email or web address]
--- NOTE | 2017-04-09 15:49 | Neurology Progress Note ---
Neurology - PN : Subjective Interval history: Patient seems to be doing better. No new problems reported. Tolerating medicines well. Exam (Progress Note) - Constitutional Vitals: Period Temp Pulse Resp BP Sys/Stewart Pulse Ox Last 24 Hr 98.4 F-98.9 F 63-91 16-20 136-151/65-77 93-100 Exam: GENERAL: Patient is in no acute distress. NECK: Neck is supple. There is no JVD. No carotid bruits present. No thyroid masses. CVS: First and second heart sounds are normal. There is no S3 present. Regular rate and rhythm. RESPIRATORY: Lungs are clear to auscultation without any rales or rhonchi. ABDOMEN: Soft and non-tender. Bowel sounds are present. There is no hepatosplenomegaly. EXT: There is no palpable edema. Peripheral pulses are present. Skin: No rashes Central Nervous system: General: Alert, awake and Oriented Speech: Fluent Comprehension: Intact and normal Facial expressions: Normal Cranial Nerves: CN1/Olfactory: Normal CN II/ Optic: Normal, Visual Matias unreliable CN III, and : SLY & EOMI CN V: Normal & intact CN VII: face is symmetric CNVIII: Normal CN XI/X/XI/XII: Intact and Normal Motor: Bilateral distal hand and foot muscle atrophy Strength in the right 3-4/5 Strength in the left 3-4/5 Sensory: Decreased for all the modalities of pinprick, light touch and temperature sense in the glove and stockings distribution Reflexes: 1+ and symmetrical Cerebellar function: Slow finger to nose testing. Toes: Equivocal Gait: Cannot be tested Results - Labs CBC & BMP: 04/08/17 04:35 04/09/17 09:41 Assessment and Plan (1) Change in mental status Status: Acute Assessment and plan: Change in mental status and episodic confusion could very well be due to metabolic encephalopathy versus underlying vascular dementia. Continue Plavix Add low-dose of Aricept Current Visit: No
--- NOTE | 2017-04-09 16:44 | Hospitalist Progress Note ---
Assessment and Plan (1) Community acquired pneumonia Status: Acute Assessment and plan: Continue Levaquin renally dosed. Cultures remain negative. Current Visit: No (2) Chronic renal failure Status: Chronic Assessment and plan: Slightly worsening. Continue to monitor. Consider nephrology consult. Current Visit: Yes Qualifiers: Chronic kidney disease stage: stage 4 (severe) Qualified Code(s): N18.4 - Chronic kidney disease, stage 4 (severe) (3) Anemia Status: Chronic Current Visit: No Qualifiers: Other causes of anemia: chronic disease, kidney (4) Hypertension Status: Chronic Current Visit: No Qualifiers: Hypertension type: essential hypertension Qualified Code(s): I10 - Essential (primary) hypertension (5) Diabetes mellitus Status: Chronic Current Visit: No Qualifiers: Diabetes mellitus type: type 2 Diabetes mellitus complication detail: with chronic kidney disease Chronic kidney disease stage: stage 4 (severe) (6) Decubitus ulcer Status: Acute Current Visit: Yes Qualifiers: Pressure ulcer location: sacral region Pressure ulcer stage: stage 2 Qualified Code(s): L89.152 - Pressure ulcer of sacral region, stage 2 (7) Atelectasis Status: Acute Current Visit: Yes (8) Pulmonary hypertension Status: Chronic Current Visit: Yes (9) Cardiomyopathy Status: Chronic Current Visit: Yes Qualifiers: Cardiomyopathy type: unspecified Qualified Code(s): I42.9 - Cardiomyopathy , unspecified (10) Encephalopathy acute Status: Acute Assessment and plan: Etiology is unclear. Cultures are negative. Urine does not appear infected. The patient is being treated for pneumonia and metabolic encephalopathy related to infectious causes is most likely. There is no evidence of acute neurologic event according to MRI. Aspirin has been discontinued and Plavix has been started. Neurology consult reviewed and appreciated. Current Visit: Yes Hospitalist: Subjective Interval history: Patient seen and examined with at the bedside. He has significant lower extremity edema in the thighs and in the scrotum. His Lasix was held due to relative dehydration and worsening renal function. I will add albumin and resume IV Lasix to prompt diuresis. He has systolic and diastolic congestive heart failure and is being treated for pneumonia. His periods of altered mental status appear to be improving. Exam - Constitutional Vitals: Period Temp Pulse Resp BP Sys/Stewart Pulse Ox Last 24 Hr 98.4 F-98.9 F 63-91 16-20 136-151/65-77 93-100 Exam: Constitutional System: No distress. No tremulousness. Head: Normocephalic, atraumatic. Ears, Nose and Throat System: No pain or tenderness. No epistaxis or discharge Eyes System: Pupils equal, round, and reactive. Extraocular muscles intact. Neck: Supple, without adenopathy, No jugular venous distention. Respiratory System: Chest clear to auscultation. Decreased at the bases Cardiovascular System: Heart with regular rate and rhythm. No murmur. GI System: Abdomen soft, nontender. Normo active bowel sounds present. Musculoskeletal System: limbs with thigh and scrotal edema. Full distal pulses. Neurological System: No discernable sensory deficit. No aphasia Psychiatric System: Conversation is rational Results - Labs CBC & BMP: 04/08/17 04:35 04/09/17 09:41 Lab Results: I have reviewed the past 24 hour labs
[2017-04-09] MEDS: FUROSEMIDE 40 MG/4 ML VIAL IV SCH (18:31)
[2017-04-09] MEDS: ALBUMIN 25% 25 GM in PREMIX 1 EACH IV SCH (18:36)
[2017-04-09] MEDS: DONEPEZIL 5 MG TABLET PO SCH (21:42)
[2017-04-09] MEDS: CARVEDILOL 12.5 MG TABLET PO SCH (21:42)
[2017-04-09] MEDS: ATORVASTATIN 40 MG TABLET PO SCH (21:42)
[2017-04-09] MEDS: BIMATOPROST 0.01% OPH SOLN 2.5 ML BOTTLE BOTH EYES SCH (21:46)
[2017-04-10] MEDS: ALBUMIN 25% 25 GM in PREMIX 1 EACH IV SCH ×3 (01:50→18:06)
[2017-04-10] MEDS: FUROSEMIDE 40 MG/4 ML VIAL IV SCH ×3 (01:51→21:08)
[2017-04-10 04:14] LABS: Eosinophils # 0.3 10*3/uL (0.0-0.87); Eosinophils % 8.2 % (0.00-10.9); Hematocrit 22.7 VOL% (42.0-52.0); Hemoglobin 7.4 GM/DL (14.0-18.0); Immature Granulocytes % 0.3 %; Immature Granulocytes Absolute 0.01 #; Lymphocytes # 0.7 10*3/uL (1.4-4.0); Lymphocytes % 20.2 % (21.2-54.2); Mean Corpuscular HGB Conc 32.6 GM/DL (32-36); Mean Corpuscular Hemoglobin 27 PG (27-34); Mean Corpuscular Volume 82.2 FL (87-102); Mean Platelet Volume 10.1 FL (9.6-12.0); Monocytes # 0.5 10*3/uL (0.11-0.8); Monocytes % 12.6 % (1.7-12.7); Neutrophils # 2.2 10*3/uL (1.4-7.4); Neutrophils % 58.7 % (38.7-73.9); Red Blood Count 2.76 MC/CUMM (3.8-5.5); Red Cell Distribution Width 15.8 % (9.3-17.3); White Blood Count 3.7 T/CUMM (4-12)
[2017-04-10 04:18] LABS: Platelet Count 66 T/CUMM (130-400)
[2017-04-10 04:39] LABS: Eosinophils 11 % (0-10); Lymphocytes 19 % (20-55); Segmented Neutrophils 62 % (50-85)
[2017-04-10 04:40] LABS: Burr Cells 1+; Platelet Estimate Decreased
[2017-04-10 04:41] LABS: Elliptocytes 1+; Helmet Cells Few; Schistocytes Few
[2017-04-10 04:42] LABS: Ovalocytes 1+
[2017-04-10 04:43] LABS: Anisocytosis 1+; Hypochromasia 1+; Microcytosis 1+; Total Cells Counted 100
[2017-04-10 04:45] LABS: Calcium 8.3 MG/DL (8.5-10.1); Osmolality,Calculated 286.1 MOS/KG (273-304); Potassium 4.5 MMOL/L (3.5-5.1)
[2017-04-10] MEDS: ALBUTEROL/IPRATROPIUM 3 ML NEB RESP TX SCH ×4 (07:19→19:40)
[2017-04-10] MEDS: CETIRIZINE 10 MG TABLET PO SCH (08:44)
[2017-04-10] MEDS: BRIMONIDINE 0.1% OPH SOLN 5 ML BOTTLE BOTH EYES SCH ×3 (08:45→21:11)
[2017-04-10] MEDS: DORZOLAMIDE/TIMOLOL OPH SOLN 10 ML BOTTLE BOTH EYES SCH ×2 (08:46→21:11)
[2017-04-10] MEDS: CHOLECALCIFEROL 1,000 UNIT TABLET PO SCH (08:46)
[2017-04-10] MEDS: CYPROHEPTADINE 4 MG TABLET PO SCH ×3 (08:46→21:07)
[2017-04-10] MEDS: PANTOPRAZOLE 40 MG TABLET PO SCH (08:51)
[2017-04-10] MEDS: MONTELUKAST 10 MG TABLET PO SCH (08:51)
[2017-04-10] MEDS: CARVEDILOL 12.5 MG TABLET PO SCH ×2 (08:51→21:19)
[2017-04-10] MEDS: CLOPIDOGREL 75 MG TABLET PO SCH (08:53)
[2017-04-10] MEDS: THEOPHYLLINE ER (24 HR) 300 MG CAPSULE PO SCH (08:56)
[2017-04-10] MEDS: MULTIVITAMIN (OCUVITE) TABLET PO SCH (08:57)
[2017-04-10] MEDS: MAGNESIUM CHLORIDE 64 MG TABLET PO SCH ×2 (08:58→21:07)
[2017-04-10] MEDS: MENTHOL/ZINC OXIDE OINT 71 GM JAR TOP SCH ×2 (08:59→21:18)
[2017-04-10] MEDS: GEMFIBROZIL 600 MG TABLET PO SCH ×2 (08:59→21:07)
[2017-04-10] MEDS: INSULIN NPH/REGULAR 70/30 100 UNIT/ML SUBCUT SCH ×2 (09:00→17:24)
[2017-04-10] MEDS: BUDESONIDE/FORMOTEROL 160-4.5 INHALER 6 GM INH SCH ×2 (09:01→21:12)
[2017-04-10] MEDS: PENTOXIFYLLINE 400 MG TABLET PO SCH ×3 (09:01→17:24)
--- NOTE | 2017-04-10 10:06 | Pulmonology Progress Note ---
Pulmonary - PN: Subj Interval history: Patient is 67-year-old black man that has diabetes hypertension and chronic renal failure. He is basically bedridden. He has had a history of CVA and has some mental retardation. He cannot communicate but is very slow. He cannot walk or do any activity. He said he had a good night and is breathing better. He is eating fairly well and says he feels better. He does have chronic renal insufficiency. Exam (Progress Note) - Constitutional Vitals: Period Temp Pulse Resp BP Sys/Stewart Pulse Ox Last 24 Hr 97.9 F-98.7 F 63-96 15-20 112-147/57-70 90-99 Exam: General appearance: normal weight, no acute distress (He looks chronically ill but is comfortable lying in bed. He does not appear to be in any distress. He is comfortable in bed.) - Head Head exam: Present: normal inspection, normocephalic - Eye Eye exam: Present: EOMI, other (Bilateral arcus). Absent: nystagmus Pupils: Present: SLY - ENT ENT exam: Present: normal exam - Neck Neck exam: Present: thyromegaly. Absent: lymphadenopathy - Respiratory Respiratory exam: Present: He has better breath sounds bilaterally and is moving air fairly well. He does have some mild rhonchi present. His cough is better. Overall his lungs sound clearer. - Cardiovascular Cardiovascular exam: Present: regular rate and rhythm, systolic murmur (He has a soft systolic murmur). Absent: gallop, JVD - GI/Abdominal GI/Abdominal exam: Present: normal bowel sounds, soft. Absent: organomegaly, tenderness. His scrotal edema is better. - Extremities Exam Extremities exam: Present: edema (He does have some brawny edema of the legs. His edema is a little better.). Absent: calf tenderness - Neurological Exam Neurological exam: Present: alert, oriented X3, he does appear to be mentally slow. - Psychiatric Psychiatric exam: Present: normal affect - Skin Skin exam: Present: other (He does have some wounds on his feet and sacrum) Results - Labs CBC & BMP: 04/10/17 04:00 04/10/17 04:00 Assessment and Plan (1) Chronic renal failure Status: Chronic Assessment and plan: The patient's creatinine is up to 3.3. Current Visit: Yes Qualifiers: Chronic kidney disease stage: stage 4 (severe) Qualified Code(s): N18.4 - Chronic kidney disease, stage 4 (severe) (2) Hypertension Status: Chronic Assessment and plan: The patient will continue with blood pressure medicines and he is stable at present. He looks more hemodynamically stable now. He looks like he stable medically. Current Visit: No Qualifiers: Hypertension type: essential hypertension Qualified Code(s): I10 - Essential (primary) hypertension (3) Diabetes mellitus Status: Chronic Assessment and plan: His glucoses have been under good control so far. His glucose is 129 this morning. Current Visit: No Qualifiers: Diabetes mellitus type: type 2 Diabetes mellitus complication detail: with chronic kidney disease Chronic kidney disease stage: stage 4 (severe) (4) chronic lower extremity wounds Status: Chronic Assessment and plan: Patient is being seen by surgery for wounds. He will continue with wound care. Current Visit: No (5) Anemia in chronic kidney disease Status: Chronic Assessment and plan: The patient's hematocrit is down to 22.7. He may need transfusions at some point. Current Visit: No (6) Pleural effusion Status: Acute Assessment and plan: Patient has bilateral pleural effusions and he had a right thoracentesis Saturday. The pleural fluid is a transudate. He feels like he is breathing better now. Current Visit: Yes (7) CHF (congestive heart failure), NYHA class III Status: Acute Assessment and plan: Patient looks like he is in heart failure but he does seem to be doing better now. He is resting comfortably. He is not having any respiratory symptoms at present. Current Visit: Yes Qualifiers: Congestive heart failure type: diastolic Congestive heart failure chronicity: acute on chronic Qualified Code(s): I50.33 - Acute on chronic diastolic (congestive) heart failure (8) Decubitus ulcer Status: Acute Assessment and plan: The patient's ulcers are being evaluated by surgery. Current Visit: Yes Qualifiers: Pressure ulcer location: sacral region Pressure ulcer stage: stage 2 Qualified Code(s): L89.152 - Pressure ulcer of sacral region, stage 2
--- NOTE | 2017-04-10 14:23 | Neurology Progress Note ---
Neurology - PN : Subjective Interval history: Patient seems to be doing much better. He is feeding himself sitting up in the bed. No more problems reported. Exam (Progress Note) - Constitutional Vitals: Period Temp Pulse Resp BP Sys/Stewart Pulse Ox Last 24 Hr 97.8 F-98.5 F 79-96 15-20 112-147/57-71 90-99 Exam: GENERAL: Patient is in no acute distress. NECK: Neck is supple. There is no JVD. No carotid bruits present. No thyroid masses. CVS: First and second heart sounds are normal. There is no S3 present. Regular rate and rhythm. RESPIRATORY: Lungs are clear to auscultation without any rales or rhonchi. ABDOMEN: Soft and non-tender. Bowel sounds are present. There is no hepatosplenomegaly. EXT: There is no palpable edema. Peripheral pulses are present. Skin: No rashes Central Nervous system: General: Alert, awake and Oriented Speech: Fluent Comprehension: Intact and normal Facial expressions: Normal Cranial Nerves: CN1/Olfactory: Normal CN II/ Optic: Normal, Visual Matias unreliable CN III, and : SLY & EOMI CN V: Normal & intact CN VII: face is symmetric CNVIII: Normal CN XI/X/XI/XII: Intact and Normal Motor: Bilateral distal hand and foot muscle atrophy Strength in the right 3-4/5 Strength in the left 3-4/5 Sensory: Decreased for all the modalities of pinprick, light touch and temperature sense in the glove and stockings distribution Reflexes: 1+ and symmetrical Cerebellar function: Slow finger to nose testing. Toes: Equivocal Gait: Cannot be tested Results - Labs CBC & BMP: 04/10/17 04:00 04/10/17 04:00 Assessment and Plan (1) Change in mental status Status: Acute Assessment and plan: Change in mental status and episodic confusion could very well be due to metabolic encephalopathy versus underlying vascular dementia. Continue Plavix Continue Aricept Patient is a stable from neuro standpoint Sign off please call as needed Current Visit: No
--- NOTE | 2017-04-10 17:15 | Hospitalist Progress Note ---
Assessment and Plan (1) Congestive heart failure Status: Acute Assessment and plan: Pt's lasix has been restarted. Stable from cardiac's standpoint. They have signed off. Current Visit: Yes (2) Decubitus ulcer Status: Acute Assessment and plan: Wound care. Current Visit: Yes Qualifiers: Pressure ulcer location: sacral region Pressure ulcer stage: stage 2 Qualified Code(s): L89.152 - Pressure ulcer of sacral region, stage 2 (3) Chronic renal failure Status: Chronic Assessment and plan: Pt's renal function worsening. May consider nephrology consult in am after evaluation of labs. Current Visit: Yes Qualifiers: Chronic kidney disease stage: stage 4 (severe) Qualified Code(s): N18.4 - Chronic kidney disease, stage 4 (severe) (4) Pneumonia Status: Acute Assessment and plan: Continue antibiotic (Levaquin). Pulmonary following. Current Visit: No (5) Diabetes mellitus Status: Chronic Assessment and plan: Accuchecks remain in place. SSI initiated. Pt. also on NPH. Continue to monitor. Current Visit: No Qualifiers: Diabetes mellitus type: type 2 Diabetes mellitus complication detail: with chronic kidney disease Chronic kidney disease stage: stage 4 (severe) (6) Atelectasis Status: Acute Assessment and plan: 04/10 Pulmonary following patient. Current Visit: Yes (7) Encephalopathy acute Status: Acute Assessment and plan: Neuro evaluated patient and have signed off today. Continue plavix. No acute pathology noted. Pt. is alert today with no issues. we will continue to monitor. Current Visit: Yes Hospitalist: Subjective Interval history: Pt. seen and examined with family at the bedside. Pt is alert and oriented. Family reports no issues of disorientation overnight. Pt still has swelling to scrotum which family points out. Lasix has been restarted; we will continue to monitor. Pt. denies any needs at this time. No apparent distress noted. Exam - Constitutional Vitals: Period Temp Pulse Resp BP Sys/Stewart Pulse Ox Last 24 Hr 97.6 F-98.5 F 80-96 15-20 112-149/57-75 90-99 General appearance: normal weight, no acute distress - Head Head exam: Present: normal inspection, normocephalic - Eye Eye exam: Present: EOMI. Absent: scleral icterus Pupils: Present: SLY. Absent: fixed - Neck Neck exam: Present: normal inspection. Absent: thyromegaly - Respiratory Respiratory exam: Present: wheezes (FERCHO) - Cardiovascular Cardiovascular exam: Present: regular rate and rhythm - GI/Abdominal GI/Abdominal exam: Present: normal bowel sounds, soft. Absent: tenderness - Extremities Exam Extremities exam: Present: normal capillary refill, full ROM. Absent: edema - Neurological Exam Neurological exam: Present: alert, oriented X3 - Psychiatric Psychiatric exam: Present: normal affect, normal mood - Skin Skin exam: Present: normal color, warm, dry Results - Labs CBC & BMP: 04/10/17 04:00 04/10/17 04:00 Lab Results: I have reviewed the past 24 hour labs
[2017-04-10] MEDS: LEVOFLOXACIN 500 MG TABLET PO SCH (17:24)
[2017-04-10] MEDS: BACITRACIN OINT 0.9 GM PACK TOP SCH (17:25)
[2017-04-10] MEDS: ATORVASTATIN 40 MG TABLET PO SCH (21:07)
[2017-04-10] MEDS: DONEPEZIL 5 MG TABLET PO SCH (21:07)
[2017-04-10] MEDS: BIMATOPROST 0.01% OPH SOLN 2.5 ML BOTTLE BOTH EYES SCH (21:11)
[2017-04-11] MEDS: FUROSEMIDE 40 MG/4 ML VIAL IV SCH ×3 (03:40→20:04)
[2017-04-11] MEDS: ALBUMIN 25% 25 GM in PREMIX 1 EACH IV SCH ×4 (03:40→19:02)
[2017-04-11 06:26] LABS: Eosinophils # 0.2 10*3/uL (0.0-0.87); Eosinophils % 4.6 % (0.00-10.9); Hemoglobin 6.9 GM/DL (14.0-18.0); Immature Granulocytes % 0.3 %; Immature Granulocytes Absolute 0.01 #; Lymphocytes # 0.6 10*3/uL (1.4-4.0); Lymphocytes % 15.5 % (21.2-54.2); Mean Corpuscular HGB Conc 32.9 GM/DL (32-36); Mean Corpuscular Hemoglobin 27 PG (27-34); Monocytes # 0.5 10*3/uL (0.11-0.8); Monocytes % 13.9 % (1.7-12.7); Neutrophils # 2.4 10*3/uL (1.4-7.4); Neutrophils % 65.7 % (38.7-73.9); Red Blood Count 2.56 MC/CUMM (3.8-5.5); Red Cell Distribution Width 15.6 % (9.3-17.3); White Blood Count 3.7 T/CUMM (4-12)
[2017-04-11 06:35] LABS: Platelet Count 65 T/CUMM (130-400)
[2017-04-11 06:48] LABS: Band Neutrophils 1 % (0-10); Eosinophils 7 % (0-10); Lymphocytes 12 % (20-55); Platelet Estimate Decreased; Segmented Neutrophils 74 % (50-85); Total Cells Counted 100
[2017-04-11 06:49] LABS: Hypochromasia 1+; Ovalocytes Slight
[2017-04-11 06:50] LABS: Microcytosis 1+
[2017-04-11 07:03] LABS: Magnesium 2.2 MG/DL (1.8-2.4); Osmolality,Calculated 285.2 MOS/KG (273-304); Potassium 4.6 MMOL/L (3.5-5.1)
[2017-04-11] MEDS ORDERED: SODIUM CHLORIDE 0.9% 250 ML IV PRN (07:45)
[2017-04-11] MEDS: ALBUTEROL/IPRATROPIUM 3 ML NEB RESP TX SCH ×4 (07:53→18:50)
--- NOTE | 2017-04-11 09:08 | Pulmonology Progress Note ---
Pulmonary - PN: Subj Interval history: Patient is 67-year-old black man that has diabetes hypertension and chronic renal failure. He is basically bedridden. He has had a history of CVA and has some mental retardation. He can communicate but is very slow. He cannot walk or do any activity. During the night he apparently had a little bit more chest congestion and wheezing. He is still coughing some. His hematocrit is down to 21 and he is getting transfused today. His creatinine is up to 3.6. He still looks reasonably comfortable and is eating well. Exam (Progress Note) - Constitutional Vitals: Period Temp Pulse Resp BP Sys/Stewart Pulse Ox Last 24 Hr 97.5 F-98.2 F 70-92 16-22 130-149/68-94 92-99 Exam: General appearance: normal weight, no acute distress (He looks chronically ill but is comfortable lying in bed. He is sitting up and does not look in any distress.) - Head Head exam: Present: normal inspection, normocephalic - Eye Eye exam: Present: EOMI, other (Bilateral arcus). Absent: nystagmus Pupils: Present: SLY - ENT ENT exam: Present: normal exam - Neck Neck exam: Present: thyromegaly. Absent: lymphadenopathy - Respiratory Respiratory exam: Present: He has fair breath sounds bilaterally but he does have some rhonchi present. - Cardiovascular Cardiovascular exam: Present: regular rate and rhythm, systolic murmur (He has a soft systolic murmur). Absent: gallop, JVD - GI/Abdominal GI/Abdominal exam: Present: normal bowel sounds, soft. Absent: organomegaly, tenderness. His scrotal edema is better. - Extremities Exam Extremities exam: Present: edema (He does have some brawny edema of the legs. His edema is a little better.). Absent: calf tenderness - Neurological Exam Neurological exam: Present: alert, oriented X3, he does appear to be mentally slow. - Psychiatric Psychiatric exam: Present: normal affect - Skin Skin exam: Present: other (He does have some wounds on his feet and sacrum) Results - Labs CBC & BMP: 04/11/17 05:01 04/11/17 05:01 Assessment and Plan (1) Chronic renal failure Status: Chronic Assessment and plan: The patient's creatinine is up to 3.6. Current Visit: Yes Qualifiers: Chronic kidney disease stage: stage 4 (severe) Qualified Code(s): N18.4 - Chronic kidney disease, stage 4 (severe) (2) Hypertension Status: Chronic Assessment and plan: The patient will continue with blood pressure medicines and he is stable at present. Current Visit: No Qualifiers: Hypertension type: essential hypertension Qualified Code(s): I10 - Essential (primary) hypertension (3) Diabetes mellitus Status: Chronic Assessment and plan: His glucoses have been under good control so far. His glucose is 108 this morning. Current Visit: No Qualifiers: Diabetes mellitus type: type 2 Diabetes mellitus complication detail: with chronic kidney disease Chronic kidney disease stage: stage 4 (severe) (4) chronic lower extremity wounds Status: Chronic Assessment and plan: Patient is being seen by surgery for wounds. He will continue with wound care. Current Visit: No (5) Anemia in chronic kidney disease Status: Chronic Assessment and plan: The patient's hematocrit is down to 21. He is scheduled to get 2 units of blood today. Current Visit: No (6) Pleural effusion Status: Acute Assessment and plan: Patient has bilateral pleural effusions and he had a right thoracentesis Saturday. The pleural fluid is a transudate. He feels more congested today and will check a chest x-ray. Current Visit: Yes (7) CHF (congestive heart failure), NYHA class III Status: Acute Assessment and plan: Patient looks like he is in heart failure but he does seem to be doing better now. He has been getting some diuretics and his output is fair. Will recheck his chest x-ray. Current Visit: Yes Qualifiers: Congestive heart failure type: diastolic Congestive heart failure chronicity: acute on chronic Qualified Code(s): I50.33 - Acute on chronic diastolic (congestive) heart failure (8) Decubitus ulcer Status: Acute Assessment and plan: The patient's ulcers are being evaluated by surgery. Current Visit: Yes Qualifiers: Pressure ulcer location: sacral region Pressure ulcer stage: stage 2 Qualified Code(s): L89.152 - Pressure ulcer of sacral region, stage 2
[2017-04-11] MEDS: INSULIN NPH/REGULAR 70/30 100 UNIT/ML SUBCUT SCH ×2 (09:31→17:22)
[2017-04-11] MEDS: CHOLECALCIFEROL 1,000 UNIT TABLET PO SCH (09:32)
[2017-04-11] MEDS: PENTOXIFYLLINE 400 MG TABLET PO SCH ×2 (09:32→11:52)
[2017-04-11] MEDS: GEMFIBROZIL 600 MG TABLET PO SCH ×2 (09:32→21:22)
[2017-04-11] MEDS: PANTOPRAZOLE 40 MG TABLET PO SCH ×2 (09:32→21:22)
[2017-04-11] MEDS: MULTIVITAMIN (OCUVITE) TABLET PO SCH (09:32)
[2017-04-11] MEDS: THEOPHYLLINE ER (24 HR) 300 MG CAPSULE PO SCH (09:32)
[2017-04-11] MEDS: CYPROHEPTADINE 4 MG TABLET PO SCH ×3 (09:32→21:22)
[2017-04-11] MEDS: BRIMONIDINE 0.1% OPH SOLN 5 ML BOTTLE BOTH EYES SCH ×3 (09:32→21:29)
[2017-04-11] MEDS: MONTELUKAST 10 MG TABLET PO SCH (09:32)
[2017-04-11] MEDS: MAGNESIUM CHLORIDE 64 MG TABLET PO SCH ×2 (09:32→21:22)
[2017-04-11] MEDS: CETIRIZINE 10 MG TABLET PO SCH (09:32)
[2017-04-11] MEDS: CARVEDILOL 12.5 MG TABLET PO SCH ×2 (09:32→21:22)
[2017-04-11] MEDS: DORZOLAMIDE/TIMOLOL OPH SOLN 10 ML BOTTLE BOTH EYES SCH ×2 (09:33→21:30)
[2017-04-11] MEDS: BUDESONIDE/FORMOTEROL 160-4.5 INHALER 6 GM INH SCH ×2 (09:33→21:23)
--- NOTE | 2017-04-11 12:51 | Gastrointestinal Consult Note ---
Assessment and Plan (1) Hematemesis Status: Acute Assessment and plan: This patient was more likely coughing up blood than producing hematemesis. He was previously noted to have this difficulty back in December 2015. We are checking him again at this point and will likely proceed with an upper endoscopy given the overall picture of dysphagia. Certainly esophageal cancer needs to be ruled out as well as peptic ulcer disease and other sources of GI bleeding. I do not see any evidence of blood in the stool, patient certainly has dropped her hematocrit from 27-->21%. One would have thought this would produce some melena, but I have yet to see any evidence of this. We will arrange for upper endoscopy tomorrow. Risks of the above procedure include but are not limited to: Bleeding, infection, perforation, headache and pulmonary compromise. Current Visit: Yes (2) Anemia Status: Acute Assessment and plan: The patient does have some significant anemia with hematocrit drop from 27-21% this hospitalization. This would speak to approximately 1.5 pint blood loss. Blood loss and should have produced visible melena. I personally do not even see blood in the patient's stool on my examination. I think because this issues become recurred, will certainly answer the question by performing upper endoscopy tomorrow to look for a GI bleeding source. We may or may not do routine dilation given this patient's history of dysphagia. Currently he is not having difficulty swallowing and is consuming all of his meals by himself. Current Visit: Yes (3) Guaiac positive stools Status: Acute Assessment and plan: Again I cannot verify this on my exam but stool was earlier was said to be guaiac positive. 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 He is able to swallow physically. He might benefit from a dilation but if this is a neuromuscular problem as might be suspected with the previous stroke dilation will have limited efficacy. We will discuss this more with the patient immediately prior to the surgery to see if he wants me to do a dilation as part of my evaluation. Current Visit: Yes History of Present Illness Chief complaint: Hematocrit of 21%, history of guaiac positive stools,Plavix/ aspirin/Trental History of present illness: Mr. Em is a 67 year old male who tends to run a hematocrit between 26% and 32 % going back to 2013. Most recently at the beginning of his hospital stay the patient had been noted to have a hematocrit of 27.4% and slowly over the hospital stay this is drifted down to its present level of 21.0% this morning. Interestingly I had seen this patient back on 01/04/16 for issues of hematemesis at time. It was felt when all of a sudden done the patient actually had a bleed either from his lungs or from his sinuses that were being coughed up instead of vomited up. According to his who is at the bedside the patient is still continuing to have the same symptoms possibly related to his underlying oral pharyngeal dysphasia. He has had a stroke in the past. He does cough a little bit with his meals otherwise manages to get through these without too much difficulty. We ended up not scoping this patient as most of the bleeding appeared to be coming from the nasopharynx/lungs. As per my note on 01/05/16 the patient did have some oral pharyngeal thrush that was treated with fluconazole. His stools are being checked today and these were actually guaiac negative to my exam. He is not complaining of any abdominal pain he does swallow adequately he did not cough up any blood from me. He does not state that there is any family history of colon cancer polyps. Previously he had been complaining of constipation of this is occurring now either. He does not complain of any atypical chest pain or much in the way of reflux symptoms. The patient remains on Trental but also have been taking aspirin prior to 2016 and is now on Plavix instead. I do not see that he has had recent formal upper or lower endoscopy. We will certainly perform the former tomorrow. Home Medications Medication Instructions Recorded Confirmed Type Aspirin [Ecotrin] 81 mg PO DAILY 11/12/15 04/04/17 History Cetirizine Tab [ZyrTEC Tab] 10 mg PO DAILY 11/12/15 04/04/17 History Cholecalciferol (Vitamin D3) 5,000 unit PO DAILY 11/12/15 04/04/17 History [Vitamin D3] NIFEdipine [Nifedipine ER] 120 mg PO DAILY 11/12/15 04/04/17 History Pantoprazole Tab [Protonix Tab] 40 mg PO DAILY 11/12/15 04/04/17 History Pentoxifylline 400 mg PO TID W/MEALS 11/12/15 04/04/17 History Bimatoprost 0.01% Oph Soln 1 drop BOTH EYES BEDTIME 11/13/15 04/04/17 History [Lumigan] Brimonidine 0.1% Oph Soln 1 drop BOTH EYES TID 11/13/15 04/04/17 History [Alphagan P 0.1% Oph Soln] Dorzolamide/Timolol Oph Soln 1 drop BOTH EYES BID #1 ophthalmic 11/18/15 Rx [Cosopt] solution Albuterol/Ipratropium Neb [Duoneb] 3 ml RESP TX QID 12/29/15 04/04/17 History Budesonide/Formoterol Fumarate 2 puff INH BID 12/29/15 04/04/17 History [Symbicort 160-4.5 Mcg Inhaler] Montelukast Tab [Singulair Tab] 10 mg PO DAILY 12/29/15 04/04/17 History Multivitamin (Ocuvite) [Ocuvite] 1 tablet PO DAILY 12/29/15 04/04/17 History Theophylline ER Cap (24 Hr) 300 mg PO DAILY 12/29/15 04/04/17 History [Hood-24] Dorzolamide/Timolol Oph Soln 1 drop BOTH EYES BID 06/19/16 04/04/17 History [Cosopt] Insulin NPH Hum/Reg Insulin Hm See Protocol SUBCUT AC BREAKFAST 06/19/16 History [NovoLIN 70/30] Insulin NPH Hum/Reg Insulin Hm See Protocol SUBCUT AC SUPPER 06/19/16 04/04/17 History [NovoLIN 70/30] Furosemide Tab [Lasix Tab] 40 mg PO DAILY #30 tablet 03/23/17 04/04/17 Rx Atorvastatin [Lipitor] 40 mg PO BEDTIME 04/04/17 04/04/17 History Carvedilol [Coreg] 6.25 mg PO BID 04/04/17 04/04/17 History Cyproheptadine Tab [Periactin Tab] 4 mg PO TID 04/04/17 04/04/17 History Hydralazine HCl 50 mg PO TID 04/04/17 04/04/17 History cloNIDine TAB [Catapres Tab] 0.2 mg PO DAILY 04/04/17 04/04/17 History Allergies Allergy/AdvReac Type Severity Reaction Status Date / Time sulfamethoxazole Allergy Swelling Verified 03/23/17 01:02 [From Bactrim] of Lip/Tongue/Throat trimethoprim [From Bactrim] Allergy Swelling Verified 03/23/17 01:02 of Lip/Tongue/Throat Medical,Surgical,& Family Hx - Medical History Cardio: History of: CHF, Hypertension Neurology: History of: Cerebral Hemorrhage, Peripheral Neuropathy, Neurological Problems (? Bilateral lower extremity weakness due to neuropathy) No history of: Seizures HEENT: History of: Eye Problem, Glaucoma Endocrine: History of: Diabetes Mellitus (IDDM) No history of: Diabetes Mellitus (NIDDM) Rheumatology: History of;: Rheumatoid Arthritis (BED RIDDEN) Respiratory: History of: Asthma, Respiratory Problems (asbestosis) Renal: History of: Dialysis, Renal Failure Genitourinary: History of: Prostate Problems (past HX cancer) Other: History of: Miscellaneous Medical Problems (BED RIDDEN; LYMPH NODES REMOVE L GROIN) - Surgical History Neurologic Surgeries: Surgical HX of: Cerebral Hemorrhage Abdominal Surgeries: Surgical HX of: Colonoscopy, EGD Reproductive Surgeries: Surgical HX of;: Prostate Surgery Orthopedic Surgeries: Surgical HX of;: Orthopedic Surgery (AMPUTEE 1 AND 1/2 TOE R FOOT), Total Hip Replacement (LEFT) - Family History Family History: Reports;: Family Diabetes (MOM SUBLINGS), Family Hypertension ( SISTERS) - Social History Smoking Status: Former smoker Frequency of Alcohol Use: None Type of Drug Use: None Review of systems: Constitutional: Denies fever, chills, but positive for nausea, and intermittent vomiting Eyes: Denies dry eyes, and scleral icterus HENT: Denies headaches Cardiovascular: Denies acute chest pain and claudication Respiratory: Patient does have shortness of breath, wheezing, and difficulty breathing, admits to frequent episodes of coughing Gastrointestinal: As noted in the HPI Genitourinary: Denies dysuria and hematuria Neurologic: Denies vision loss, and loss of sensation Musculoskeletal: Admits to joint swelling, joint stiffness, and muscular weakness Psychiatric: Denies depression and mariana symptoms Heme-Lymph: Denies easy bruising, lymph node enlargement or tenderness, night sweats, excessive bleeding Allergies-immunologic: Denies pruritus and rhinorrhea Exam - Constitutional Vitals: Period Temp Pulse Resp BP Sys/Stewart Pulse Ox Last 24 Hr 97.1 F-98.2 F 64-92 16-22 130-172/62-99 89-98 General appearance: normal weight - Head Head exam: Present: normocephalic, atraumatic - Eye Eye exam: Present: EOMI - Respiratory Respiratory exam: Present: decreased breath sounds (In the bases bilaterally), rhonchi, wheezes. Absent: rales - GI/Abdominal GI/Abdominal exam: Present: normal bowel sounds, soft, other (Stool check from this patient was noted to be brown pasty and guaiac negative.). Absent: distended, guarding, tenderness, rebound - Extremities Exam Extremities exam: Present: edema (Particularly in the bilateral lower extremities.) - Neurological Exam Neurological exam: Present: motor sensory deficit (Patient appears to be bedbound. He has had a stroke which is left his face partially paralyzed but has fair functional use of his arms.) - Psychiatric Psychiatric exam: Present: normal affect, normal mood - Skin Skin exam: Present: warm Results - Labs CBC & BMP: 04/11/17 05:01 04/11/17 05:01
--- NOTE | 2017-04-11 13:29 | Nephrology Consult Note ---
History of Present Illness Chief complaint: Acute on chronic renal failure History of present illness: Mr. Em is a 67 year old male who is bedbound with a long history of diabetes mellitus, diabetic retinopathy, old stroke and has a baseline creatinine of approximately 2-1/2-3. His creatinine now is 3.6 he has considerable edema both peripheral and on chest x-ray principally pleural effusions. He is able to answer questions and does have significant edema of both legs. He is not short of breath while sitting in bed with a 30 head elevation. He has been chronically anemic and that is worse lately with a hematocrit of 21% . Impression acute superimposed on chronic renal impairment #2 volume overload #3 long history of diabetes mellitus with diabetic retinopathy making the possibility of diabetic nephropathy likely. Next bedbound state Plan he needs more diuresis and will increase his Lasix to 80 mg twice a day IV along with metolazone 5 mg daily. We will review serum albumin from previous admissions. Will check urine for protein Home Medications Medication Instructions Recorded Confirmed Type Aspirin [Ecotrin] 81 mg PO DAILY 11/12/15 04/04/17 History Cetirizine Tab [ZyrTEC Tab] 10 mg PO DAILY 11/12/15 04/04/17 History Cholecalciferol (Vitamin D3) 5,000 unit PO DAILY 11/12/15 04/04/17 History [Vitamin D3] NIFEdipine [Nifedipine ER] 120 mg PO DAILY 11/12/15 04/04/17 History Pantoprazole Tab [Protonix Tab] 40 mg PO DAILY 11/12/15 04/04/17 History Pentoxifylline 400 mg PO TID W/MEALS 11/12/15 04/04/17 History Bimatoprost 0.01% Oph Soln 1 drop BOTH EYES BEDTIME 11/13/15 04/04/17 History [Lumigan] Brimonidine 0.1% Oph Soln 1 drop BOTH EYES TID 11/13/15 04/04/17 History [Alphagan P 0.1% Oph Soln] Dorzolamide/Timolol Oph Soln 1 drop BOTH EYES BID #1 ophthalmic 11/18/15 Rx [Cosopt] solution Albuterol/Ipratropium Neb [Duoneb] 3 ml RESP TX QID 12/29/15 04/04/17 History Budesonide/Formoterol Fumarate 2 puff INH BID 12/29/15 04/04/17 History [Symbicort 160-4.5 Mcg Inhaler] Montelukast Tab [Singulair Tab] 10 mg PO DAILY 12/29/15 04/04/17 History Multivitamin (Ocuvite) [Ocuvite] 1 tablet PO DAILY 12/29/15 04/04/17 History Theophylline ER Cap (24 Hr) 300 mg PO DAILY 12/29/15 04/04/17 History [Hood-24] Dorzolamide/Timolol Oph Soln 1 drop BOTH EYES BID 06/19/16 04/04/17 History [Cosopt] Insulin NPH Hum/Reg Insulin Hm See Protocol SUBCUT AC BREAKFAST 06/19/16 History [NovoLIN 70/30] Insulin NPH Hum/Reg Insulin Hm See Protocol SUBCUT AC SUPPER 06/19/16 04/04/17 History [NovoLIN 70/30] Furosemide Tab [Lasix Tab] 40 mg PO DAILY #30 tablet 03/23/17 04/04/17 Rx Atorvastatin [Lipitor] 40 mg PO BEDTIME 04/04/17 04/04/17 History Carvedilol [Coreg] 6.25 mg PO BID 04/04/17 04/04/17 History Cyproheptadine Tab [Periactin Tab] 4 mg PO TID 04/04/17 04/04/17 History Hydralazine HCl 50 mg PO TID 04/04/17 04/04/17 History cloNIDine TAB [Catapres Tab] 0.2 mg PO DAILY 04/04/17 04/04/17 History Allergies Allergy/AdvReac Type Severity Reaction Status Date / Time sulfamethoxazole Allergy Swelling Verified 03/23/17 01:02 [From Bactrim] of Lip/Tongue/Throat trimethoprim [From Bactrim] Allergy Swelling Verified 03/23/17 01:02 of Lip/Tongue/Throat Medical,Surgical,& Family Hx - Medical History Cardio: History of: CHF, Hypertension Neurology: History of: Cerebral Hemorrhage, Peripheral Neuropathy, Neurological Problems (? Bilateral lower extremity weakness due to neuropathy) No history of: Seizures HEENT: History of: Eye Problem, Glaucoma Endocrine: History of: Diabetes Mellitus (IDDM) No history of: Diabetes Mellitus (NIDDM) Rheumatology: History of;: Rheumatoid Arthritis (BED RIDDEN) Respiratory: History of: Asthma, Respiratory Problems (asbestosis) Renal: History of: Dialysis, Renal Failure Genitourinary: History of: Prostate Problems (past HX cancer) Other: History of: Miscellaneous Medical Problems (BED RIDDEN; LYMPH NODES REMOVE L GROIN) - Surgical History Neurologic Surgeries: Surgical HX of: Cerebral Hemorrhage Abdominal Surgeries: Surgical HX of: Colonoscopy, EGD Reproductive Surgeries: Surgical HX of;: Prostate Surgery Orthopedic Surgeries: Surgical HX of;: Orthopedic Surgery (AMPUTEE 1 AND 1/2 TOE R FOOT), Total Hip Replacement (LEFT) - Family History Family History: Reports;: Family Diabetes (MOM SUBLINGS), Family Hypertension ( SISTERS) - Social History Smoking Status: Former smoker Frequency of Alcohol Use: None Type of Drug Use: None Review of Systems 12 point system: reviewed and no additional remarkable complaints except as stated Exam - Vital Signs Vital signs: Period Temp Pulse Resp BP Sys/Stewart Pulse Ox Last 24 Hr 97.1 F-98.2 F 64-92 16-22 130-172/62-99 89-98 - General Appearance General appearance: well-developed, well-nourished, appears started age EENT: ATNC Neck: no JVD, no thyromegaly, no carotid bruit, supple Respiratory: no kyphosis, no scoliosis Cardiology: no murmurs, no rub, no gallops, no edema, regular rate, regular rhythm, normal S1, normal S2 Gastrointestinal: normoactive bowel sounds Integumentary: no rash, warm and dry Neurologic: no focal deficit, no asterixis, alert and oriented x3, reflexes 2+ and symmetric, gait normal, strength 5/5 Musculoskeletal: no deformities, no erythema, no cyanosis, no clubbing Psychiatric: mood/affect appropriate, cooperative Results - Labs CBC & BMP: 04/11/17 05:01 04/11/17 05:01 Assessment and Plan - Time spent with patient Time spent with patient: Greater than 30 minutes (1) [id number] renal failure Status: Acute Current Visit: Yes (2) Edema Status: Chronic Current Visit: Yes Specialty Discharge - Follow Up or Referrals - Speciality Discharge Instructions Nephrology Instructions: See above and orders
[2017-04-11] MEDS: metOLazone 5 MG TABLET PO SCH (14:00)
[2017-04-11] MEDS: BACITRACIN OINT 0.9 GM PACK TOP SCH (14:03)
[2017-04-11] MEDS: MENTHOL/ZINC OXIDE OINT 71 GM JAR TOP SCH ×2 (14:03→21:23)
--- NOTE | 2017-04-11 15:08 | XRay Report ---
Portable chest Date: 04/11/2017 Clinical history: Shortness of breath Comparison: 04/08/2017 Technique: Portable AP sitting chest Findings: Persistent cardiomegaly with reduced parenchymal findings and minimally smaller pleural effusions. Stable mediastinum and osseous structures. Impression: Improved pneumonia/CHF with smaller pleural effusions. Continued follow-up chest x-ray is recommended document clearing and exclude additional underlying pathology. PROCEDURE INTERPRETED AT [facility] DEPARTMENT OF RADIOLOGY Final Report Signed by: Dr. Jacque Sarah
--- NOTE | 2017-04-11 16:01 | Hospitalist Progress Note ---
Assessment and Plan (1) Community acquired pneumonia Status: Acute Assessment and plan: Continue Levaquin renally dosed. Cultures remain negative. Current Visit: No (2) Chronic renal failure Status: Chronic Assessment and plan: Slightly worsening. Continue to monitor. Consult Dr. Cadena. Consult noted & Lasix increased appropriately. Current Visit: Yes Qualifiers: Chronic kidney disease stage: stage 4 (severe) Qualified Code(s): N18.4 - Chronic kidney disease, stage 4 (severe) (3) Anemia Status: Chronic Assessment and plan: Transfuse 2 units of packed red blood cells. Follow-up GI consult. Plan for possible EGD. Current Visit: No Qualifiers: Other causes of anemia: chronic disease, kidney (4) Hypertension Status: Chronic Current Visit: No Qualifiers: Hypertension type: essential hypertension Qualified Code(s): I10 - Essential (primary) hypertension (5) Diabetes mellitus Status: Chronic Current Visit: No Qualifiers: Diabetes mellitus type: type 2 Diabetes mellitus complication detail: with chronic kidney disease Chronic kidney disease stage: stage 4 (severe) (6) Decubitus ulcer Status: Acute Current Visit: Yes Qualifiers: Pressure ulcer location: sacral region Pressure ulcer stage: stage 2 Qualified Code(s): L89.152 - Pressure ulcer of sacral region, stage 2 (7) Atelectasis Status: Acute Current Visit: Yes (8) Pulmonary hypertension Status: Chronic Current Visit: Yes (9) Cardiomyopathy Status: Chronic Current Visit: Yes Qualifiers: Cardiomyopathy type: unspecified Qualified Code(s): I42.9 - Cardiomyopathy , unspecified (10) Encephalopathy acute Status: Acute Assessment and plan: Etiology is unclear. Cultures are negative. Urine does not appear infected. The patient is being treated for pneumonia and metabolic encephalopathy related to infectious causes is most likely. There is no evidence of acute neurologic event according to MRI. Aspirin has been discontinued and Plavix has been started. Neurology consult reviewed and appreciated. Current Visit: Yes Hospitalist: Subjective Interval history: Patient seen and examined. No acute events overnight. Case discussed with nursing staff. Labs reviewed. I had a lengthy discussion with the patient's and daughter by phone. I plan to consult GI for his blood loss anemia and heme positive stools as well as nephrology for his chronic kidney disease with continued swelling. From a pulmonary standpoint he appears to be improving. Exam - Constitutional Vitals: Period Temp Pulse Resp BP Sys/Stewart Pulse Ox Last 24 Hr 97.1 F-98.2 F 64-92 16-22 104-172/44-99 85-98 Exam: Constitutional System: No distress. No tremulousness. Head: Normocephalic, atraumatic. Ears, Nose and Throat System: No pain or tenderness. No epistaxis or discharge Eyes System: Pupils equal, round, and reactive. Extraocular muscles intact. Neck: Supple, without adenopathy, No jugular venous distention. Respiratory System: Chest clear to auscultation. Decreased at the bases Cardiovascular System: Heart with regular rate and rhythm. No murmur. GI System: Abdomen soft, nontender. Normo active bowel sounds present. Musculoskeletal System: limbs with thigh and scrotal edema. Full distal pulses. Neurological System: No discernable sensory deficit. No aphasia Psychiatric System: Conversation is rational Results - Labs CBC & BMP: 04/11/17 05:01 04/11/17 05:01 Lab Results: I have reviewed the past 24 hour labs
[2017-04-11] MEDS: ATORVASTATIN 40 MG TABLET PO SCH (21:22)
[2017-04-11] MEDS: BIMATOPROST 0.01% OPH SOLN 2.5 ML BOTTLE BOTH EYES SCH (21:29)
[2017-04-11] MEDS: DONEPEZIL 5 MG TABLET PO SCH (21:32)
[2017-04-12] MEDS: ALBUMIN 25% 25 GM in PREMIX 1 EACH IV SCH (04:09)
[2017-04-12 06:05] LABS: Eosinophils # 0.2 10*3/uL (0.0-0.87); Eosinophils % 4.5 % (0.00-10.9); Hematocrit 26.8 VOL% (42.0-52.0); Hemoglobin 8.9 GM/DL (14.0-18.0); Immature Granulocytes % 0.6 %; Immature Granulocytes Absolute 0.03 #; Lymphocytes # 0.7 10*3/uL (1.4-4.0); Lymphocytes % 13.4 % (21.2-54.2); Mean Corpuscular HGB Conc 33.2 GM/DL (32-36); Mean Corpuscular Hemoglobin 27 PG (27-34); Mean Corpuscular Volume 81.2 FL (87-102); Mean Platelet Volume 10.7 FL (9.6-12.0); Monocytes # 0.7 10*3/uL (0.11-0.8); Monocytes % 12.4 % (1.7-12.7); Neutrophils # 3.7 10*3/uL (1.4-7.4); Neutrophils % 69.1 % (38.7-73.9); Platelet Count 67 T/CUMM (130-400); Red Cell Distribution Width 15.9 % (9.3-17.3); White Blood Count 5.4 T/CUMM (4-12)
[2017-04-12 06:23] LABS: Calcium 8.6 MG/DL (8.5-10.1); Magnesium 2.3 MG/DL (1.8-2.4); Osmolality,Calculated 284.5 MOS/KG (273-304); Potassium 4.6 MMOL/L (3.5-5.1)
[2017-04-12] MEDS: DEXTROSE 50% 25 GM/50 ML VIAL IV PRN (06:43)
[2017-04-12 06:48] LABS: Band Neutrophils 1 % (0-10); Eosinophils 2 % (0-10); Lymphocytes 12 % (20-55); Segmented Neutrophils 78 % (50-85); Total Cells Counted 100
[2017-04-12 06:49] LABS: Hypochromasia 1+; Microcytosis 1+; Ovalocytes Few; Platelet Estimate Decreased
--- NOTE | 2017-04-12 07:09 | Hospitalist Progress Note ---
Assessment and Plan (1) Community acquired pneumonia Status: Acute Assessment and plan: Recurrent pulmonary infiltrate associated with volume excess and effusions. Current Visit: No (2) Chronic renal failure Status: Chronic Assessment and plan: Diuretic sensitivity with augmented creatinine levels with diuresis. Transient period of dialysis in June 2016 Current Visit: Yes Qualifiers: Chronic kidney disease stage: stage 4 (severe) Qualified Code(s): N18.4 - Chronic kidney disease, stage 4 (severe) (3) Pancytopenia Status: Acute Assessment and plan: Probable underlying chronic simple anemia associated with renal insufficiency. Acute fall with guaiac positive stools. New leukopenia and thrombocytopenia developing since 23 March 2017. Current Visit: Yes (4) Neurologic abnormality Status: Chronic Assessment and plan: The patient demonstrates imaging evidence of cortical atrophy a thalamic injury. In additionally has severe weakness associated with atrophy in the upper extremity and an elevated CK-MB with diagnosis of peripheral neuropathy. He has intermittent encephalopathic features and is largely bedbound with associated pressure injuries. Current Visit: Yes Hospitalist: Subjective Interval history: 67-year-old male with history of hypertension, diabetes with remote cerebral hemorrhage ( imaging studies show thalamic lesion with substantial atrophy in the fall) and peripheral neuropathy who is largely bedbound with associated pressure injuries requiring surgical follow-up. He had presented with cough with a blood streaking bilateral pleural effusions. The patient has developed a progressive anemia while in hospital with guaiac positive stools. He has a chronic anemia likely related to long-standing renal disease however since 23 March he is developed thrombocytopenia with variable leukopenia as well. He has had since admission and thoracentesis on the right side cardiology and neurology evaluations with echocardiogram showing ejection fraction of 50% with concentric hypertrophy and no significant valve dysfunction. He received transfusion overnight with hemoglobin rising appropriately. His vital signs are stable overnight with some nocturnal oxygen desaturation present. He is anticipated for endoscopy today. The patient has had recurrent episodes of shortness of breath over the fall with several hospitalizations. With diuresis he develops deteriorating renal function and in fact required a short course of hemodialysis in June. During this hospital stay the patient has had a thyroid ultrasound performed which shows a complicated mass effect. His thyroid panel on 05 April was normal. He does also show a elevated CK-MB but no increase in troponin or total CPK suggesting a diffuse regenerative myopathy. Exam - Constitutional Vitals: Period Temp Pulse Resp BP Sys/Stewart Pulse Ox Last 24 Hr 97.1 F-98.0 F 19-90 16-22 104-172/44-99 85-97 General appearance: under weight - Respiratory Respiratory exam: Present: rhonchi. Absent: rales, wheezes - Cardiovascular Cardiovascular exam: Present: regular rate and rhythm - GI/Abdominal GI/Abdominal exam: Present: normal bowel sounds. Absent: ascites, distended, tenderness - Extremities Exam Extremities exam: Present: edema (Diffuse interstitial edema) - Neurological Exam Neurological exam: Present: alert, other (Marked bilaterally symmetric interosseal atrophy) Results - Labs CBC & BMP: 04/12/17 05:37 04/12/17 05:37 Labs: Magnesium 2.3 - Impressions Monitor strips show sinus rhythm with isolated uniform ventricular premature depolarizations. - Diagnostic Findings Procedure: Chest x-ray: image reviewed by me (Bilateral pleural effusions with probable right middle lobe infiltrate.)
[2017-04-12] MEDS: ALBUTEROL/IPRATROPIUM 3 ML NEB RESP TX SCH ×4 (07:18→19:34)
[2017-04-12] MEDS: INSULIN NPH/REGULAR 70/30 100 UNIT/ML SUBCUT SCH ×2 (07:49→16:10)
--- NOTE | 2017-04-12 08:27 | Operative Note ---
Date of procedure: 04/12/17 Pre-op diagnosis: Hematemesis versus hemoptysis, anemia Post-op diagnosis: other (This patient appears to have denny blood in the oropharynx from coughing and swallowing some scant amount of this from the lungs. This is likely the source of his bleeding not hematemesis. No gross evidence of bleeding source seen in the stomach although there was some mild redness noted which was biopsied for Helicobacter pylori.) Procedure: PROCEDURE: Esophagogastroduodenoscopy (EGD) with cold biopsy for pathology and dilation to 57 Micronesian by single pass Savary dilator REFERRING PHYSICIAN: Dr. Paddy Kennedy MD INDICATIONS: This is a patient who has dysphagia status post stroke with some issues of hemoptysis versus hematemesis, mild anemia, guaiac positive stools. The prior H&P was reviewed and interrim changes are as noted: No change from GI consultation yesterday ENDOSCOPIST: Vinh Rashid MD ENDOSCOPE: Olympus Video 100 System upper endoscope ASA CLASS: 4 EXAM: CV: regular rate and rhythm respiratory: Clear without wheezes abdominal: active bowel sounds MEDICATION: Per nursing anesthesia protocol, see their notes PROCEDURE: After discussion of the potential risks and benefits of upper endoscopy, the informed consent was obtained. The patient was then placed in the left lateral decubitus position where sedation was achieved as noted above. Esophageal intubation was performed without difficulty, and the endoscope was advanced through the esophagus, stomach and duodenum. A slow withdrawal was then performed with retroflexion in the stomach for careful inspection of the incisura angularis, fundus and cardia. The scope was then returned to a neutral position and withdrawn through the esophagus. The patient tolerated the procedure well and without complication. BIOPSIES: Gastric antrum/body PHOTOGRAPHS: Obtained FINDINGS: Hypopharynx and Larynx: This patient has blood that was notable in the oropharynx particularly around the epiglottis and opening of the vocal cords that seem to be coming refluxing up from the trachea mixed with sputum. Photographs were obtained. It is believed that this is the source of the bleeding for this patient. Esohagoscopy Upper and middle thirds: Normal Lower third normal Esophogastric junctions: Normal, no gross evidence of stricturing, no gross evidence of heme--it appears that the patient is coughing out the majority of his blood without swallowing this. Gastroscopy: Cardia/Fundus: Scant amount of recently swallowed blood in the fundal pool, retained pills here as well, no gross gastritis/hiatal hernia Body: Mild patchy gastritis, biopsied Antrum and pylorus mild patchy gastritis, biopsied Duodenoscopy: Bulb normal, no evidence of heme Second and third portions: Mild duodenitis, no evidence of heme IMPRESSION: This patient appears to have denny blood in the oropharynx from coughing and swallowing some scant amount of this from the lungs. This is likely the source of his bleeding not hematemesis. No gross evidence of bleeding source seen in the stomach although there was some mild redness noted which was biopsied for Helicobacter pylori. RECOMMENDATIONS: Follow up for biopsy results in 1-2 weeks by phone [phone] Continue anti-gastroesophageal reflux measures (avoid carbonated and acidic beverages, avoid eating within 2 hours of bedtime, avoid tight fitting clothing , and elevate the front bed posts 6 inches prior to sleeping. Would use pantoprazole 40 mg prior to suppertime each night but nothing more aggressive than this. Continue to feed as you see fit. Vinh Rashid MD COPY TO: Dr. Paddy Kennedy MD Anesthesia: MAC Surgeon / Physician: Vinh Rashid Estimated blood loss: minimal Specimens: other (Gastric antrum/body) Condition: stable Disposition: post procedure unit ([facility]I. Suite) Results - Labs CBC & BMP: 04/12/17 05:37 04/12/17 05:37 Discharge Plan - Discharge Medications No Action Cholecalciferol (Vitamin D3) [Vitamin D3] 5,000 unit PO DAILY NIFEdipine [Nifedipine ER] 120 mg PO DAILY Cetirizine Tab [ZyrTEC Tab] 10 mg PO DAILY Aspirin [Ecotrin] 81 mg PO DAILY Pantoprazole Tab [Protonix Tab] 40 mg PO DAILY Pentoxifylline 400 mg PO TID W/MEALS Bimatoprost 0.01% Oph Soln [Lumigan] 1 drop BOTH EYES BEDTIME Brimonidine 0.1% Oph Soln [Alphagan P 0.1% Oph Soln] 1 drop BOTH EYES TID Dorzolamide/Timolol Oph Soln [Cosopt] 1 drop BOTH EYES BID #1 ophthalmic solution Theophylline ER Cap (24 Hr) [Hood-24] 300 mg PO DAILY Multivitamin (Ocuvite) [Ocuvite] 1 tablet PO DAILY Montelukast Tab [Singulair Tab] 10 mg PO DAILY Albuterol/Ipratropium Neb [Duoneb] 3 ml RESP TX QID Budesonide/Formoterol Fumarate [Symbicort 160-4.5 Mcg Inhaler] 2 puff INH BID Dorzolamide/Timolol Oph Soln [Cosopt] 1 drop BOTH EYES BID Insulin NPH Hum/Reg Insulin Hm [NovoLIN 70/30] See Protocol SUBCUT AC SUPPER Insulin NPH Hum/Reg Insulin Hm [NovoLIN 30] See Protocol SUBCUT AC BREAKFAST Furosemide Tab [Lasix Tab] 40 mg PO DAILY #30 tablet Carvedilol [Coreg] 6.25 mg PO BID Hydralazine HCl 50 mg PO TID Cyproheptadine Tab [Periactin Tab] 4 mg PO TID Atorvastatin [Lipitor] 40 mg PO BEDTIME cloNIDine TAB [Catapres Tab] 0.2 mg PO DAILY - Follow Up or Referral - Forms/Instructions
--- NOTE | 2017-04-12 08:29 | Gastrointestinal Progress Note ---
Assessment and Plan (1) Hematemesis Status: Acute Assessment and plan: This patient was more likely coughing up blood than producing hematemesis. He was previously noted to have this difficulty back in December 2015. We are checking him again at this point and will likely proceed with an upper endoscopy given the overall picture of dysphagia. Certainly esophageal cancer needs to be ruled out as well as peptic ulcer disease and other sources of GI bleeding. I do not see any evidence of blood in the stool, patient certainly has dropped her hematocrit from 27-->21%. One would have thought this would produce some melena, but I have yet to see any evidence of this. We will arrange for upper endoscopy tomorrow. Risks of the above procedure include but are not limited to: Bleeding, infection, perforation, headache and pulmonary compromise. 04/12/17--findings upper endoscopy are as follows: This patient appears to have denny blood in the oropharynx from coughing and swallowing some scant amount of this from the lungs. This is likely the source of his bleeding not hematemesis. No gross evidence of bleeding source seen in the esophagus/stomach /duodenum although there was some mild redness in the stomach/patchy gastritis noted which was biopsied for Helicobacter pylori. Current Visit: Yes (2) Anemia Status: Acute Assessment and plan: The patient does have some significant anemia with hematocrit drop from 27-21% this hospitalization. This would speak to approximately 1.5 pint blood loss. Blood loss and should have produced visible melena. I personally do not even see blood in the patient's stool on my examination. I think because this issues become recurred, will certainly answer the question by performing upper endoscopy tomorrow to look for a GI bleeding source. We may or may not do routine dilation given this patient's history of dysphagia. Currently he is not having difficulty swallowing and is consuming all of his meals by himself. 04/12/17--Given the anemia seen, this patient may require bronchoscopy at some point. GI workup is essentially complete at this point. A dilation was performed to allow the patient swallow more easily although this may not be helpful with neurologic damage as he is suffered. Current Visit: Yes (3) Guaiac positive stools Status: Acute Assessment and plan: Again I cannot verify this on my exam but stool was earlier was said to be guaiac positive. 04/12/17--This is definitely due to swallowed blood from hemoptysis. 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 He is able to swallow physically. He might benefit from a dilation but if this is a neuromuscular problem as might be suspected with the previous stroke dilation will have limited efficacy. We will discuss this more with the patient immediately prior to the surgery to see if he wants me to do a dilation as part of my evaluation. 04/12/17--Because of the patient's history of dysphasia we did go ahead and add a Savary dilation of the end of the case, this had essentially no heme and no resistance and so it is dubious as to how much it will help but we will watch and see if this helps at all. Dilation can be repeated in 6-18 months if this was felt to be helpful in retrospect. Current Visit: Yes Gastroenterology - PN: Subj Interval history: Patient is still coughing this morning he has no other new complaints. Posttransfusion his hematocrit is improved from 21.0-->26.8%. He is minimally conversant this morning. Exam (Progress Note) - Constitutional Vitals: Period Temp Pulse Resp BP Sys/Stewart Pulse Ox Last 24 Hr 97.1 F-98.0 F 19-90 16-22 104-172/44-99 85-97 General appearance: mild distress - Eye Eye exam: Present: EOMI - Respiratory Respiratory exam: Present: decreased breath sounds (In the bases), rhonchi - Cardiovascular Cardiovascular exam: Present: regular rate and rhythm - GI/Abdominal GI/Abdominal exam: Present: normal bowel sounds, tenderness, soft. Absent: distended, guarding, rebound Results - Labs CBC & BMP: 04/12/17 05:37 04/12/17 05:37
--- NOTE | 2017-04-12 08:50 | Anesthesia Post-Op ---
Anesthesia Post OP - Post Ansesthetic Evaluation Patient seen in post op: Yes Resp: within normal limits CV: within normal limits Mental: within normal limits Temp: within normal limits [id number]: within normal limits Nausea and Vomiting: within normal limits Pain: within normal limits
[2017-04-12] MEDS: CARVEDILOL 12.5 MG TABLET PO SCH ×2 (09:48→20:34)
[2017-04-12] MEDS: BRIMONIDINE 0.1% OPH SOLN 5 ML BOTTLE BOTH EYES SCH ×3 (09:48→20:46)
[2017-04-12] MEDS: BACITRACIN OINT 0.9 GM PACK TOP SCH (09:48)
[2017-04-12] MEDS: MENTHOL/ZINC OXIDE OINT 71 GM JAR TOP SCH ×2 (09:48→20:48)
[2017-04-12] MEDS: DORZOLAMIDE/TIMOLOL OPH SOLN 10 ML BOTTLE BOTH EYES SCH ×2 (09:48→20:46)
[2017-04-12] MEDS: GEMFIBROZIL 600 MG TABLET PO SCH ×2 (09:48→20:34)
[2017-04-12] MEDS: CHOLECALCIFEROL 1,000 UNIT TABLET PO SCH (09:49)
[2017-04-12] MEDS: MAGNESIUM CHLORIDE 64 MG TABLET PO SCH ×2 (09:49→20:33)
[2017-04-12] MEDS: FUROSEMIDE 40 MG/4 ML VIAL IV SCH ×2 (09:49→20:46)
[2017-04-12] MEDS: PANTOPRAZOLE 40 MG TABLET PO SCH ×2 (09:49→20:34)
[2017-04-12] MEDS: MULTIVITAMIN (OCUVITE) TABLET PO SCH (09:49)
[2017-04-12] MEDS: THEOPHYLLINE ER (24 HR) 300 MG CAPSULE PO SCH (09:49)
[2017-04-12] MEDS: CETIRIZINE 10 MG TABLET PO SCH (09:49)
[2017-04-12] MEDS: MONTELUKAST 10 MG TABLET PO SCH (09:49)
[2017-04-12] MEDS: BUDESONIDE/FORMOTEROL 160-4.5 INHALER 6 GM INH SCH ×2 (09:49→20:46)
[2017-04-12] MEDS: metOLazone 5 MG TABLET PO SCH ×2 (09:49→20:33)
--- NOTE | 2017-04-12 09:49 | Nephrology Progress Note ---
Nephrology - PN: Subj Interval history: Mr. Em is seen in follow-up of his renal impairment. Creatinine is up to 3.7. He has considerable edema both pulmonary and peripheral. A Rivera catheter is to be placed and we will increase his diuretics to 160 mg Lasix twice daily IV and metolazone 5 mg twice daily. Nurses are concerned that he is aspirating as he does seem to have difficulty swallowing. He will need a Rivera catheter and that will be placed today. We have stopped cyproheptadine since it can certainly impair bladder emptying and he did have almost 500 cc of urine in his bladder with a postvoid residual checked last night. We will continue to try to diurese him and follow his renal function. Exam (PN)-Nephrology - Vital Signs Vital signs: Period Temp Pulse Resp BP Sys/Stewart Pulse Ox Last 24 Hr 97.1 F-98.0 F 19-96 16-32 104-172/44-99 85-97 - Lab 04/12/17 05:37 04/12/17 05:37 Most recent lab results Calcium 8.6 MG/DL (8.5-10.1) 04/12/17 05:37 Magnesium 2.3 MG/DL (1.8-2.4) 04/12/17 05:37 Assessment and Plan (1) Rpwmn-ui-eborhel renal failure Status: Acute Current Visit: Yes (2) Edema Status: Chronic Current Visit: Yes
--- NOTE | 2017-04-12 15:16 | Pulmonology Progress Note ---
Pulmonary - PN: Subj Interval history: Patient is 67-year-old black man that has diabetes hypertension and chronic renal failure. He is basically bedridden. He has had a history of CVA and has some mental retardation. He can communicate but is very slow. He cannot walk or do any activity. Yesterday he did get transfused okay and he has had some congestion and hemoptysis. Today he had an EGD that was okay. His chest x-ray does look a little wet still. He had a catheter placed and is getting some diuretics. He has fairly good urine output at present. He says he is feeling better with less shortness of breath. He is not having any further bleeding at all. He apparently did okay on his swallowing evaluation. Exam (Progress Note) - Constitutional Vitals: Period Temp Pulse Resp BP Sys/Stewart Pulse Ox Last 24 Hr 96.7 F-98.0 F 19-96 16-32 115-140/52-88 87-98 Exam: General appearance: normal weight, no acute distress (He looks chronically ill but is comfortable lying in bed. He does not seem to be having any distress now.) - Head Head exam: Present: normal inspection, normocephalic - Eye Eye exam: Present: EOMI, other (Bilateral arcus). Absent: nystagmus Pupils: Present: SLY - ENT ENT exam: Present: normal exam - Neck Neck exam: Present: thyromegaly. Absent: lymphadenopathy - Respiratory Respiratory exam: Present: He has fair breath sounds bilaterally but he does have some rhonchi present. He is moving air okay at present. - Cardiovascular Cardiovascular exam: Present: regular rate and rhythm, systolic murmur (He has a soft systolic murmur). Absent: gallop, JVD - GI/Abdominal GI/Abdominal exam: Present: normal bowel sounds, soft. Absent: organomegaly, tenderness. His scrotal edema is better. - Extremities Exam Extremities exam: Present: edema (He does have some brawny edema of the legs. His legs are still quite tight.) - Neurological Exam Neurological exam: Present: alert, oriented X3, he does appear to be mentally slow. - Psychiatric Psychiatric exam: Present: normal affect - Skin Skin exam: Present: other (He does have some wounds on his feet and sacrum) Results - Labs CBC & BMP: 04/12/17 05:37 04/12/17 05:37 - Diagnostic Findings Procedure: Chest x-ray: image reviewed by me, report reviewed by me (Chest x- ray does have bilateral infiltrates and some mild overload) Assessment and Plan (1) Chronic renal failure Status: Chronic Assessment and plan: The patient's creatinine is up to 3.7. He is making better urine now. Current Visit: Yes Qualifiers: Chronic kidney disease stage: stage 4 (severe) Qualified Code(s): N18.4 - Chronic kidney disease, stage 4 (severe) (2) Hypertension Status: Chronic Assessment and plan: The patient will continue with blood pressure medicines and he is stable at present. Current Visit: No Qualifiers: Hypertension type: essential hypertension Qualified Code(s): I10 - Essential (primary) hypertension (3) Diabetes mellitus Status: Chronic Assessment and plan: His glucoses have been under good control so far. His glucose is 88 this morning. Current Visit: No Qualifiers: Diabetes mellitus type: type 2 Diabetes mellitus complication detail: with chronic kidney disease Chronic kidney disease stage: stage 4 (severe) (4) chronic lower extremity wounds Status: Chronic Assessment and plan: Patient is being seen by surgery for wounds. He will continue with wound care. Current Visit: No (5) Anemia in chronic kidney disease Status: Chronic Assessment and plan: The patient's hematocrit is up to 26 after transfusion. Current Visit: No (6) Pleural effusion Status: Acute Assessment and plan: Patient has bilateral pleural effusions and he had a right thoracentesis Saturday. The pleural fluid is a transudate. His chest x-ray did suggest congestive heart failure but he is diuresing a little better now. Current Visit: Yes (7) CHF (congestive heart failure), NYHA class III Status: Acute Assessment and plan: Patient looks like he is in heart failure but he does seem to be doing better now. He has been getting some diuretics and his output is fair. He looks like he is breathing better at present. Current Visit: Yes Qualifiers: Congestive heart failure type: diastolic Congestive heart failure chronicity: acute on chronic Qualified Code(s): I50.33 - Acute on chronic diastolic (congestive) heart failure (8) Decubitus ulcer Status: Acute Assessment and plan: The patient's ulcers are being evaluated by surgery. Current Visit: Yes Qualifiers: Pressure ulcer location: sacral region Pressure ulcer stage: stage 2 Qualified Code(s): L89.152 - Pressure ulcer of sacral region, stage 2
[2017-04-12] MEDS: LEVOFLOXACIN 500 MG TABLET PO SCH (17:03)
[2017-04-12] MEDS: ATORVASTATIN 40 MG TABLET PO SCH (20:34)
[2017-04-12] MEDS: DONEPEZIL 5 MG TABLET PO SCH (20:34)
[2017-04-12] MEDS: BIMATOPROST 0.01% OPH SOLN 2.5 ML BOTTLE BOTH EYES SCH (20:46)
[2017-04-13 02:53] LABS: Calcium 8.1 MG/DL (8.5-10.1); Osmolality,Calculated 292.4 MOS/KG (273-304); Potassium 4.5 MMOL/L (3.5-5.1)
[2017-04-13] MEDS: ALBUTEROL/IPRATROPIUM 3 ML NEB RESP TX SCH ×4 (07:28→19:05)
[2017-04-13] MEDS: INSULIN NPH/REGULAR 70/30 100 UNIT/ML SUBCUT SCH ×2 (09:10→16:50)
[2017-04-13] MEDS: MAGNESIUM CHLORIDE 64 MG TABLET PO SCH ×2 (09:11→21:03)
[2017-04-13] MEDS: metOLazone 5 MG TABLET PO SCH ×2 (09:11→21:03)
[2017-04-13] MEDS: THEOPHYLLINE ER (24 HR) 300 MG CAPSULE PO SCH (09:11)
[2017-04-13] MEDS: MULTIVITAMIN (OCUVITE) TABLET PO SCH (09:11)
[2017-04-13] MEDS: PANTOPRAZOLE 40 MG TABLET PO SCH ×2 (09:11→21:04)
[2017-04-13] MEDS: MONTELUKAST 10 MG TABLET PO SCH (09:11)
[2017-04-13] MEDS: BACITRACIN OINT 0.9 GM PACK TOP SCH (09:11)
[2017-04-13] MEDS: CETIRIZINE 10 MG TABLET PO SCH (09:11)
[2017-04-13] MEDS: CARVEDILOL 12.5 MG TABLET PO SCH ×2 (09:11→21:04)
[2017-04-13] MEDS: GEMFIBROZIL 600 MG TABLET PO SCH ×2 (09:12→21:03)
[2017-04-13] MEDS: CHOLECALCIFEROL 1,000 UNIT TABLET PO SCH (09:12)
[2017-04-13] MEDS: BUDESONIDE/FORMOTEROL 160-4.5 INHALER 6 GM INH SCH ×2 (09:13→21:11)
[2017-04-13] MEDS: BRIMONIDINE 0.1% OPH SOLN 5 ML BOTTLE BOTH EYES SCH ×3 (09:13→21:11)
[2017-04-13] MEDS: DORZOLAMIDE/TIMOLOL OPH SOLN 10 ML BOTTLE BOTH EYES SCH ×2 (09:13→21:12)
[2017-04-13] MEDS: FUROSEMIDE 40 MG/4 ML VIAL IV SCH ×2 (09:33→21:04)
--- NOTE | 2017-04-13 09:58 | Hospitalist Progress Note ---
Assessment and Plan - Time spent with patient Time spent with patient: Less than 30 minutes (1) Chronic renal failure Status: Chronic Assessment and plan: Patient has acute on chronic renal failure. His creatinine is 3.9. Nephrology continues to follow. He has Rivera catheter and urine output is improving. His diuretics have been increased. Current Visit: Yes Qualifiers: Chronic kidney disease stage: stage 4 (severe) Qualified Code(s): N18.4 - Chronic kidney disease, stage 4 (severe) (2) Anemia Status: Chronic Assessment and plan: Patient had upper endoscopy which revealed no evidence of acute GI bleeding. There was suspicion of bleeding from his airways. Pulmonary is following as well. He has been transfused and H&H currently stable. Current Visit: No Qualifiers: Other causes of anemia: chronic disease, kidney (3) Hypertension Status: Chronic Assessment and plan: Blood pressure currently stable. Continue current regimen. Current Visit: No Qualifiers: Hypertension type: essential hypertension Qualified Code(s): I10 - Essential (primary) hypertension (4) Diabetes mellitus Status: Chronic Assessment and plan: Blood sugars well controlled. Continuing to follow. Current Visit: No Qualifiers: Diabetes mellitus type: type 2 Diabetes mellitus complication detail: with chronic kidney disease Chronic kidney disease stage: stage 4 (severe) (5) Neurologic abnormality Status: Chronic Assessment and plan: Patient has severe weakness associated with atrophy in the upper extremity and elevated CK-MB with a diagnosis of peripheral neuropathy. He has had intermittent encephalopathic features. He is currently scheduled for a thyroid scan has had abnormality on ultrasound and CT. Neurology is also been consulted to assist. Current Visit: Yes Hospitalist: Subjective Interval history: Patient seen and chart reviewed. Mr. Em has no complaints at this time. He does have occasional cough which seems to be worse postprandially. He denies any chest pain, shortness of breath, nausea, vomiting. Exam - Constitutional Vitals: Period Temp Pulse Resp BP Sys/Stewart Pulse Ox Last 24 Hr 96.2 F-97.2 F 61-76 18-20 126-145/64-78 88-98 General appearance: no acute distress - Head Head exam: Present: normocephalic, atraumatic - Eye Eye exam: Present: EOMI Pupils: Present: SLY - ENT ENT exam: Present: normal oropharynx - Neck Neck exam: Present: normal inspection - Respiratory Respiratory exam: Present: clear to auscultation bilaterally. Absent: rales, rhonchi, wheezes - Cardiovascular Cardiovascular exam: Present: regular rate and rhythm - GI/Abdominal GI/Abdominal exam: Present: normal bowel sounds, soft. Absent: mass, tenderness , rebound - Extremities Exam Extremities exam: Present: edema - Neurological Exam Neurological exam: Present: alert - Skin Skin exam: Present: warm, dry Results - Labs CBC & BMP: 04/13/17 01:49 04/13/17 01:49 Lab Results: I have reviewed the past 24 hour labs
--- NOTE | 2017-04-13 11:14 | Pulmonology Progress Note ---
Pulmonary - PN: Subj Interval history: Patient is 67-year-old black man that has diabetes hypertension and chronic renal failure. He is basically bedridden. He has had a history of CVA and has some mental retardation. He can communicate but is very slow. He cannot walk or do any activity. Yesterday he did get transfused okay and he has had some congestion and hemoptysis. Today he had an EGD that was okay. His chest x-ray does look a little wet still. He had a catheter placed and is getting some diuretics. He has fairly good urine output at present. He says he is feeling a little better today and had a fairly good night. His hemoptysis and coughing are better. He has had fair urine output. He says his shortness of breath may be a little better. Exam (Progress Note) - Constitutional Vitals: Period Temp Pulse Resp BP Sys/Stewart Pulse Ox Last 24 Hr 96.2 F-97.2 F 61-76 18-20 126-146/64-78 88-98 Exam: General appearance: normal weight, no acute distress (He looks chronically ill but is comfortable lying in bed. He does not seem to be having any distress now.) - Head Head exam: Present: normal inspection, normocephalic - Eye Eye exam: Present: EOMI, other (Bilateral arcus). Absent: nystagmus Pupils: Present: SLY - ENT ENT exam: Present: normal exam - Neck Neck exam: Present: thyromegaly. Absent: lymphadenopathy - Respiratory Respiratory exam: Present: He has fair breath sounds bilaterally but he does have some rhonchi present. He continues to have some coughing. - Cardiovascular Cardiovascular exam: Present: regular rate and rhythm, systolic murmur (He has a soft systolic murmur). Absent: gallop, JVD - GI/Abdominal GI/Abdominal exam: Present: normal bowel sounds, soft. Absent: organomegaly, tenderness. His scrotal edema is better. - Extremities Exam Extremities exam: Present: edema (He does have some brawny edema of the legs. His legs are still quite tight.) - Neurological Exam Neurological exam: Present: alert, oriented X3, he does appear to be mentally slow. - Psychiatric Psychiatric exam: Present: normal affect - Skin Skin exam: Present: other (He does have some wounds on his feet and sacrum) Results - Labs CBC & BMP: 04/13/17 01:49 04/13/17 01:49 Assessment and Plan (1) Chronic renal failure Status: Chronic Assessment and plan: The patient's creatinine is up to 3.9. He does have fair urine output and is getting some diuretics. Current Visit: Yes Qualifiers: Chronic kidney disease stage: stage 4 (severe) Qualified Code(s): N18.4 - Chronic kidney disease, stage 4 (severe) (2) Hypertension Status: Chronic Assessment and plan: The patient will continue with blood pressure medicines and he is stable at present. Current Visit: No Qualifiers: Hypertension type: essential hypertension Qualified Code(s): I10 - Essential (primary) hypertension (3) Diabetes mellitus Status: Chronic Assessment and plan: His glucoses have been under good control so far. His glucose is 136 this morning. Current Visit: No Qualifiers: Diabetes mellitus type: type 2 Diabetes mellitus complication detail: with chronic kidney disease Chronic kidney disease stage: stage 4 (severe) (4) chronic lower extremity wounds Status: Chronic Assessment and plan: Patient is being seen by surgery for wounds. He will continue with wound care. Current Visit: No (5) Anemia in chronic kidney disease Status: Chronic Assessment and plan: The patient's hematocrit is up to 26 after transfusion. Current Visit: No (6) Pleural effusion Status: Acute Assessment and plan: Patient has bilateral pleural effusions and he had a right thoracentesis Saturday. The pleural fluid is a transudate. He is getting rid of some fluid with diuretics. Current Visit: Yes (7) CHF (congestive heart failure), NYHA class III Status: Acute Assessment and plan: Patient looks like he is in heart failure but he does seem to be doing better now. He has been getting some diuretics and his output is fair. He still has some cough and congestion but is breathing comfortably. He has had some hemoptysis but is better. He still has considerable bilateral infiltrates. Will plan a bronchoscope Saturday and clear his airways. Current Visit: Yes Qualifiers: Congestive heart failure type: diastolic Congestive heart failure chronicity: acute on chronic Qualified Code(s): I50.33 - Acute on chronic diastolic (congestive) heart failure (8) Decubitus ulcer Status: Acute Assessment and plan: The patient's ulcers are being evaluated by surgery. Current Visit: Yes Qualifiers: Pressure ulcer location: sacral region Pressure ulcer stage: stage 2 Qualified Code(s): L89.152 - Pressure ulcer of sacral region, stage 2
[2017-04-13] MEDS: MENTHOL/ZINC OXIDE OINT 71 GM JAR TOP SCH ×2 (11:40→21:13)
--- NOTE | 2017-04-13 12:16 | Nephrology Progress Note ---
Nephrology - PN: Subj Interval history: He denies shortness of breath. No GI symptoms Exam (PN)-Nephrology - Vital Signs Vital signs: Period Temp Pulse Resp BP Sys/Stewart Pulse Ox Last 24 Hr 96.2 F-97.2 F 61-76 18-20 126-146/64-78 88-98 Exam: ENT: Normal Cardiovascular: Regular rate and rhythm. No murmur rub or gallop Lungs: Clear Extremities: 1+ edema - Lab 04/13/17 01:49 04/13/17 01:49 Most recent lab results Calcium 8.1 MG/DL (8.5-10.1) L 04/13/17 01:49 Magnesium 2.3 MG/DL (1.8-2.4) 04/12/17 05:37 Assessment and Plan (1) Nalji-xq-sfjiqyc renal failure Status: Acute Assessment and plan: 67-year-old man with: * CRF stage IV. Creatinine slightly higher with diuresis * CHF * Diabetes mellitus * Hypertension Current Visit: Yes (2) Congestive heart failure Status: Acute Current Visit: Yes
[2017-04-13] MEDS ORDERED: FUROSEMIDE 20 MG/2 ML VIAL ONE (20:19)
[2017-04-13] MEDS ORDERED: FUROSEMIDE 100 MG/10 ML VIAL ONE (20:19)
[2017-04-13] MEDS: DONEPEZIL 5 MG TABLET PO SCH (21:04)
[2017-04-13] MEDS: ATORVASTATIN 40 MG TABLET PO SCH (21:04)
[2017-04-13] MEDS: BIMATOPROST 0.01% OPH SOLN 2.5 ML BOTTLE BOTH EYES SCH (21:12)
--- NOTE | 2017-04-14 07:22 | Hospitalist Progress Note ---
Assessment and Plan - Time spent with patient Time spent with patient: Less than 30 minutes (1) Chronic renal failure Status: Chronic Assessment and plan: 04/13/17: Patient has acute on chronic renal failure. His creatinine is 3.9. Nephrology continues to follow. He has Rivera catheter and urine output is improving. His diuretics have been increased. 04/14/17: Laboratory studies are pending for today. He has a Rivera catheter in place. There is a small amount of dark concentrated urine in the bag at this point. Nephrology continues to follow. Current Visit: Yes Qualifiers: Chronic kidney disease stage: stage 4 (severe) Qualified Code(s): N18.4 - Chronic kidney disease, stage 4 (severe) (2) Anemia Status: Chronic Assessment and plan: 04/13/17: Patient had upper endoscopy which revealed no evidence of acute GI bleeding. There was suspicion of bleeding from his airways. Pulmonary is following as well. He has been transfused and H&H currently stable. 04/14/17: Patient is hemodynamically stable. There is been no further evidence of bleeding. We will follow-up H&H in the a.m. Current Visit: No Qualifiers: Other causes of anemia: chronic disease, kidney (3) Hypertension Status: Chronic Assessment and plan: Blood pressure currently stable. Continue current regimen. Current Visit: No Qualifiers: Hypertension type: essential hypertension Qualified Code(s): I10 - Essential (primary) hypertension (4) Diabetes mellitus Status: Chronic Assessment and plan: Blood sugars well controlled. Continuing to follow. Current Visit: No Qualifiers: Diabetes mellitus type: type 2 Diabetes mellitus complication detail: with chronic kidney disease Chronic kidney disease stage: stage 4 (severe) (5) Neurologic abnormality Status: Chronic Assessment and plan: Patient has severe weakness associated with atrophy in the upper extremity and elevated CK-MB with a diagnosis of peripheral neuropathy. He has had intermittent encephalopathic features. He is currently scheduled for a thyroid scan has had abnormality on ultrasound and CT. Neurology is also been consulted to assist. Current Visit: Yes Hospitalist: Subjective Interval history: Patient is doing well this morning and has no complaints he still has a mild cough but no hemoptysis. Family states that he is eating well. He has no complaints of nausea, vomiting, diarrhea, constipation. Shortness of breath is improved. Exam - Constitutional Vitals: Period Temp Pulse Resp BP Sys/Stewart Pulse Ox Last 24 Hr 96.7 F-97.6 F 61-77 18-20 120-146/50-69 90-97 General appearance: no acute distress - Head Head exam: Present: normocephalic, atraumatic - Eye Eye exam: Present: EOMI Pupils: Present: SLY - ENT ENT exam: Present: normal exam - Neck Neck exam: Present: normal inspection - Respiratory Respiratory exam: Present: clear to auscultation bilaterally - Cardiovascular Cardiovascular exam: Present: regular rate and rhythm - GI/Abdominal GI/Abdominal exam: Present: normal bowel sounds, soft. Absent: mass, tenderness - Extremities Exam Extremities exam: Present: edema. Absent: calf tenderness - Back Exam Back exam: Present: normal inspection - Neurological Exam Neurological exam: Present: alert, oriented X3 - Psychiatric Psychiatric exam: Present: normal affect. Absent: agitated, anxious - Skin Skin exam: Present: warm, dry. Absent: rash Results - Labs CBC & BMP: 04/13/17 01:49 04/13/17 01:49 Lab Results: I have reviewed the past 24 hour labs
[2017-04-14] MEDS: ALBUTEROL/IPRATROPIUM 3 ML NEB RESP TX SCH ×4 (07:51→19:51)
[2017-04-14 08:30] LABS: Osmolality,Calculated 283.9 MOS/KG (273-304); Potassium 4.6 MMOL/L (3.5-5.1)
[2017-04-14] MEDS: FUROSEMIDE 40 MG/4 ML VIAL IV SCH ×2 (09:58→21:37)
[2017-04-14] MEDS: INSULIN NPH/REGULAR 70/30 100 UNIT/ML SUBCUT SCH ×2 (09:58→17:59)
[2017-04-14] MEDS: CHOLECALCIFEROL 1,000 UNIT TABLET PO SCH (09:59)
[2017-04-14] MEDS: BACITRACIN OINT 0.9 GM PACK TOP SCH (09:59)
[2017-04-14] MEDS: MENTHOL/ZINC OXIDE OINT 71 GM JAR TOP SCH ×2 (09:59→21:59)
[2017-04-14] MEDS: MAGNESIUM CHLORIDE 64 MG TABLET PO SCH ×2 (09:59→21:38)
[2017-04-14] MEDS: MONTELUKAST 10 MG TABLET PO SCH (09:59)
[2017-04-14] MEDS: metOLazone 5 MG TABLET PO SCH ×2 (10:00→21:38)
[2017-04-14] MEDS: DOCUSATE SODIUM 100 MG CAPSULE PO PRN (10:00)
[2017-04-14] MEDS: MULTIVITAMIN (OCUVITE) TABLET PO SCH (10:00)
[2017-04-14] MEDS: THEOPHYLLINE ER (24 HR) 300 MG CAPSULE PO SCH (10:00)
[2017-04-14] MEDS: PANTOPRAZOLE 40 MG TABLET PO SCH ×2 (10:00→21:38)
[2017-04-14] MEDS: CARVEDILOL 12.5 MG TABLET PO SCH ×2 (10:01→21:38)
[2017-04-14] MEDS: CETIRIZINE 10 MG TABLET PO SCH (10:01)
--- NOTE | 2017-04-14 10:01 | Pulmonology Progress Note ---
Pulmonary - PN: Subj Interval history: Patient is 67-year-old black man that has diabetes hypertension and chronic renal failure. He is basically bedridden. He has had a history of CVA and has some mental retardation. He can communicate but is very slow. He cannot walk or do any activity. He says he had a fairly good night and rested okay. He still has some coughing but not much shortness of breath. He continues to eat fairly well. He is not having any bleeding so far. Exam (Progress Note) - Constitutional Vitals: Period Temp Pulse Resp BP Sys/Stewart Pulse Ox Last 24 Hr 96.7 F-97.6 F 62-88 18-20 104-144/44-69 90-96 Exam: General appearance: normal weight, no acute distress (He looks chronically ill but is comfortable lying in bed. He does not seem to be having any distress now.) - Head Head exam: Present: normal inspection, normocephalic - Eye Eye exam: Present: EOMI, other (Bilateral arcus). Absent: nystagmus Pupils: Present: SLY - ENT ENT exam: Present: normal exam - Neck Neck exam: Present: thyromegaly. Absent: lymphadenopathy - Respiratory Respiratory exam: Present: He has fair breath sounds bilaterally but he does have some rhonchi present. He still has a harsh cough and some congestion. - Cardiovascular Cardiovascular exam: Present: regular rate and rhythm, systolic murmur (He has a soft systolic murmur). Absent: gallop, JVD - GI/Abdominal GI/Abdominal exam: Present: normal bowel sounds, soft. Absent: organomegaly, tenderness. His scrotal edema is better. - Extremities Exam Extremities exam: Present: edema (He does have some brawny edema of the legs. His legs are still quite tight.) - Neurological Exam Neurological exam: Present: alert, oriented X3, he does appear to be mentally slow. - Psychiatric Psychiatric exam: Present: normal affect - Skin Skin exam: Present: other (He does have some wounds on his feet and sacrum) Results - Labs CBC & BMP: 04/13/17 01:49 04/14/17 07:37 Assessment and Plan (1) Chronic renal failure Status: Chronic Assessment and plan: The patient's creatinine is up to 4.0. He does have fair urine output and is getting some diuretics. Current Visit: Yes Qualifiers: Chronic kidney disease stage: stage 4 (severe) Qualified Code(s): N18.4 - Chronic kidney disease, stage 4 (severe) (2) Hypertension Status: Chronic Assessment and plan: The patient will continue with blood pressure medicines and he is stable at present. His heart rate and blood pressure have been stable. Current Visit: No Qualifiers: Hypertension type: essential hypertension Qualified Code(s): I10 - Essential (primary) hypertension (3) Diabetes mellitus Status: Chronic Assessment and plan: His glucoses have been under good control so far. His glucose is 93 this morning. Current Visit: No Qualifiers: Diabetes mellitus type: type 2 Diabetes mellitus complication detail: with chronic kidney disease Chronic kidney disease stage: stage 4 (severe) (4) chronic lower extremity wounds Status: Chronic Assessment and plan: Patient is being seen by surgery for wounds. He will continue with wound care. Current Visit: No (5) Anemia in chronic kidney disease Status: Chronic Assessment and plan: The patient's hematocrit is up to 26 after transfusion. Current Visit: No (6) Pleural effusion Status: Acute Assessment and plan: Patient has bilateral pleural effusions and he had a right thoracentesis Saturday. The pleural fluid is a transudate. He is getting rid of some fluid with diuretics. He still has some congestion in his chest. Current Visit: Yes (7) CHF (congestive heart failure), NYHA class III Status: Acute Assessment and plan: Patient looks like he is in heart failure but he does seem to be doing better now. He has been getting some diuretics and his output is fair. He still has some cough and congestion but is breathing comfortably. He has had some hemoptysis but is better. He still has considerable bilateral infiltrates. Will plan a bronchoscope Saturday and clear his airways. We will also repeat a chest x-ray Current Visit: Yes Qualifiers: Congestive heart failure type: diastolic Congestive heart failure chronicity: acute on chronic Qualified Code(s): I50.33 - Acute on chronic diastolic (congestive) heart failure (8) Decubitus ulcer Status: Acute Assessment and plan: The patient's ulcers are being evaluated by surgery. Current Visit: Yes Qualifiers: Pressure ulcer location: sacral region Pressure ulcer stage: stage 2 Qualified Code(s): L89.152 - Pressure ulcer of sacral region, stage 2
[2017-04-14] MEDS: BUDESONIDE/FORMOTEROL 160-4.5 INHALER 6 GM INH SCH ×2 (10:02→21:57)
[2017-04-14] MEDS: BRIMONIDINE 0.1% OPH SOLN 5 ML BOTTLE BOTH EYES SCH ×3 (10:02→21:42)
[2017-04-14] MEDS: DORZOLAMIDE/TIMOLOL OPH SOLN 10 ML BOTTLE BOTH EYES SCH ×2 (10:03→21:43)
[2017-04-14] MEDS: GEMFIBROZIL 600 MG TABLET PO SCH ×2 (10:03→21:38)
--- NOTE | 2017-04-14 13:37 | Nephrology Progress Note ---
Nephrology - PN: Subj Interval history: No S OB. No new symptoms Exam (PN)-Nephrology - Vital Signs Vital signs: Period Temp Pulse Resp BP Sys/Stewart Pulse Ox Last 24 Hr 96.7 F-97.6 F 63-88 18-20 104-135/44-67 89-95 Exam: ENT: Normal Cardiovascular: Regular rate and rhythm. No murmur rub or gallop Lungs: Clear Extremities: 1+ edema - Lab 04/13/17 01:49 04/14/17 07:37 Most recent lab results Calcium 8.0 MG/DL (8.5-10.1) L 04/14/17 07:37 Magnesium 2.3 MG/DL (1.8-2.4) 04/12/17 05:37 Assessment and Plan (1) Zyadp-lb-iiodmal renal failure Status: Acute Assessment and plan: 67-year-old man with: * CRF stage IV. Creatinine slightly higher with diuresis * CHF * Diabetes mellitus * Hypertension Current Visit: Yes (2) Congestive heart failure Status: Acute Current Visit: Yes
[2017-04-14 17:14] LABS: ABG Base Excess -4.6 MMOL/L (-2.5-2.5); ABG HCO3 20.4 MMOL/L (20-26); ABG Oxygen Saturation 85.2 % (95-100); ABG PCO2 58.9 MM HG (35-48); ABG PH 7.213 (7.35-7.45); ABG PO2 56.8 MM HG (80-95); ABG TCO2 22.5 MMOL/L (23-27); Allen Test Positive
--- NOTE | 2017-04-14 17:22 | XRay Report ---
Portable chest Date: 04/14/2017 Clinical history: Shortness of breath Comparison: 04/11/2017 Technique: Portable AP sitting chest Findings: Persistent cardiomegaly with prominent vasculature. Progressive parenchymal findings in the right lung with larger moderate right pleural effusion. Decreased parenchymal findings in the left lung with smaller left pleural effusion. Stable mediastinum and osseous structures. Impression: Progressive pneumonia/CHF in the right hemithorax with larger moderate right pleural effusion. Similar decreased findings at the left lung base with smaller left pleural effusion. Limited expiratory chest. Follow-up chest x-ray recommended. PROCEDURE INTERPRETED AT [facility] DEPARTMENT OF RADIOLOGY Final Report Signed by: Dr. Jacque Sarah
--- NOTE | 2017-04-14 17:26 | Event Note ---
Rapid response called per fifth floor staff. [employer] responded. Patient noted lying in bed diaphoretic, unarousable, with decreased oxygen saturations which were noted at 82%. The patient was placed on supplemental oxygen. After oxygen placement, the patient became responsive to deep sternal stimuli only; with facial grimacing and moaning noted. ABGs were collected; chest x-ray was obtained; labs were drawn. The patient was subsequently transferred to the critical care unit for continuation of care and close observation. At the time of ICU presentation, the patient was noted to appear rigid and stiff in appearance. Momentarily after transfer to the ICU bed unit, the patient became much more responsive. He was able to answer simple questions and was indeed appropriate. We will order CT head to rule out any acute intracranial processes. Vital signs are stable. We will await lab results and continue to monitor.
[2017-04-14 18:02] LABS: Calcium 7.6 MG/DL (8.5-10.1); Osmolality,Calculated 291.1 MOS/KG (273-304); Potassium 4.8 MMOL/L (3.5-5.1)
--- NOTE | 2017-04-14 18:04 | CT Report ---
Referring physician: Fercho CARRILLO Exam: CT brain without contrast Date: 04/14/2017 Comparison: 04/06/2017 Reason: Right-sided weakness Technique: Axial images of the head were obtained without the use of contrast. Total DLP was 1081.10 mGy*cm. Findings: No hydrocephalus or midline shift is present. There is no evidence of an acute infarction, recent intracranial hemorrhage or abnormal mass effect. Persistent atrophy and cerebral hypodensities. Benign basal ganglia calcifications. Arterial calcifications. The osseous structures appear intact. Stable polypoidal mucosal findings in the right sphenoid sinus and diffuse fluid in the right mastoid air cells. Impression: No acute intracranial abnormality is identified. Persistent atrophy and microvascular disease. Stable sinusitis. Residual nonspecific fluid in the right mastoid air cells, mastoiditis cannot be excluded. The CT exam was performed using one or more of the following dose reduction techniques: Automated exposure control and adjustment of the mA and/or kV according to patient size. PROCEDURE INTERPRETED AT [facility] DEPARTMENT OF RADIOLOGY Final Report Signed by: Dr. Jacque Sarah
[2017-04-14] MEDS: LEVOFLOXACIN 500 MG TABLET PO SCH (18:06)
[2017-04-14 18:15] LABS: Alanine Aminotransferase 43 U/L (16-61); Albumin 3.4 G/DL (3.4-5.0); Alkaline Phosphatase 91 U/L (45-117); Aspartate Amino Transferase 49 U/L (0-37); Bilirubin,Total < 0.39 MG/DL (0.2-1.0); Blood Urea Nitrogen 97 MG/DL (7-18); Calcium 7.7 MG/DL (8.5-10.1); Glucose 165 MG/DL (74-106); Osmolality,Calculated 291.9 MOS/KG (273-304); Potassium 4.8 MMOL/L (3.5-5.1); Sodium 129 MMOL/L (136-145); Total Protein 6.4 G/DL (6.4-8.3)
[2017-04-14] MEDS: ATORVASTATIN 40 MG TABLET PO SCH (21:38)
[2017-04-14] MEDS: DONEPEZIL 5 MG TABLET PO SCH (21:38)
[2017-04-14] MEDS: BIMATOPROST 0.01% OPH SOLN 2.5 ML BOTTLE BOTH EYES SCH (21:42)
[2017-04-15 05:23] LABS: Eosinophils # 0.1 10*3/uL (0.0-0.87); Eosinophils % 2.7 % (0.00-10.9); Hematocrit 24.3 VOL% (42.0-52.0); Hemoglobin 8.2 GM/DL (14.0-18.0); Immature Granulocytes % 0.2 %; Immature Granulocytes Absolute 0.01 #; Lymphocytes # 0.6 10*3/uL (1.4-4.0); Lymphocytes % 13.6 % (21.2-54.2); Mean Corpuscular HGB Conc 33.7 GM/DL (32-36); Mean Corpuscular Hemoglobin 27 PG (27-34); Mean Corpuscular Volume 79.9 FL (87-102); Mean Platelet Volume 12.4 FL (9.6-12.0); Monocytes # 0.6 10*3/uL (0.11-0.8); Monocytes % 14.1 % (1.7-12.7); Neutrophils # 2.9 10*3/uL (1.4-7.4); Neutrophils % 69.4 % (38.7-73.9); Red Blood Count 3.04 MC/CUMM (3.8-5.5); Red Cell Distribution Width 15.5 % (9.3-17.3); White Blood Count 4.1 T/CUMM (4-12)
[2017-04-15 05:30] LABS: Platelet Count 71 T/CUMM (130-400)
[2017-04-15 05:48] LABS: Calcium 7.7 MG/DL (8.5-10.1); Osmolality,Calculated 288.9 MOS/KG (273-304)
[2017-04-15 05:59] LABS: Band Neutrophils 1 % (0-10); Eosinophils 3 % (0-10); Hypochromasia 1+; Lymphocytes 13 % (20-55); Segmented Neutrophils 72 % (50-85); Total Cells Counted 100
[2017-04-15 06:00] LABS: Microcytosis 1+; Ovalocytes Slight; Platelet Estimate Decreased
[2017-04-15] MEDS ORDERED: PROMETHAZINE 25 MG/1 ML VIAL IM ONE (07:00)
[2017-04-15] MEDS ORDERED: MEPERIDINE 50 MG/1 ML VIAL IM ONE (07:00)
[2017-04-15] MEDS ORDERED: LIDOCAINE 2% VISCOUS 100 ML BOTTLE SWISH/SPIT ONE (07:30)
[2017-04-15] MEDS ORDERED: LIDOCAINE 1% 20 ML VIAL MISC INJ ONE (07:30)
[2017-04-15] MEDS ORDERED: LIDOCAINE 4% TOP SOLN 50 ML BOTTLE RESP TX ONE (07:30)
[2017-04-15] MEDS ORDERED: MIDAZOLAM 2 MG/2 ML VIAL IV ONE (07:30)
--- NOTE | 2017-04-15 07:45 | Pulmonology Progress Note ---
Pulmonary - PN: Subj Interval history: Patient is 67-year-old black man that has diabetes hypertension and chronic renal failure. He is basically bedridden. He has had a history of CVA and has some mental retardation. He can communicate but is very slow. He cannot walk or do any activity. Yesterday afternoon he apparently had a rapid response because of lethargy. He was hypoxemic and is on nonrebreather now. He responds now but still gets short of breath easily. He does have a fairly harsh cough still. His chest x-ray still shows bilateral infiltrates. Exam (Progress Note) - Constitutional Vitals: Period Temp Pulse Resp BP Sys/Stewart Pulse Ox Last 24 Hr 97.1 F-97.7 F 61-88 14-29 96-143/44-76 85-100 Exam: General appearance: normal weight, no acute distress (He looks chronically ill and is a little more lethargic.) - Head Head exam: Present: normal inspection, normocephalic - Eye Eye exam: Present: EOMI, other (Bilateral arcus). Absent: nystagmus Pupils: Present: SLY - ENT ENT exam: Present: normal exam - Neck Neck exam: Present: thyromegaly. Absent: lymphadenopathy - Respiratory Respiratory exam: Present: He has coarse breath sounds bilaterally with bilateral rhonchi. - Cardiovascular Cardiovascular exam: Present: regular rate and rhythm, systolic murmur (He has a soft systolic murmur). Absent: gallop, JVD - GI/Abdominal GI/Abdominal exam: Present: normal bowel sounds, soft. Absent: organomegaly, tenderness. His scrotal edema is better. - Extremities Exam Extremities exam: Present: edema (He does have some brawny edema of the legs. His legs are still quite tight.) - Neurological Exam Neurological exam: Present: He responds okay but is not as alert. - Psychiatric Psychiatric exam: Present: normal affect - Skin Skin exam: Present: other (He does have some wounds on his feet and sacrum) Results - Labs CBC & BMP: 04/15/17 04:45 04/15/17 04:45 Labs: His PO2 is 56 with a PCO2 of 58 and a pH of 7.2 - Diagnostic Findings Procedure: Chest x-ray: image reviewed by me, report reviewed by me (Chest x- ray shows diffuse bilateral infiltrates.) Assessment and Plan (1) Chronic renal failure Status: Chronic Assessment and plan: The patient's creatinine is up to 4.5. His urine output is getting worse. Current Visit: Yes Qualifiers: Chronic kidney disease stage: stage 4 (severe) Qualified Code(s): N18.4 - Chronic kidney disease, stage 4 (severe) (2) Hypertension Status: Chronic Assessment and plan: The patient will continue with blood pressure medicines and he is stable at present. His heart rate and blood pressure have been stable. Current Visit: No Qualifiers: Hypertension type: essential hypertension Qualified Code(s): I10 - Essential (primary) hypertension (3) Diabetes mellitus Status: Chronic Assessment and plan: His glucoses have been under good control so far. His glucose is 80 this morning. Current Visit: No Qualifiers: Diabetes mellitus type: type 2 Diabetes mellitus complication detail: with chronic kidney disease Chronic kidney disease stage: stage 4 (severe) (4) chronic lower extremity wounds Status: Chronic Assessment and plan: Patient is being seen by surgery for wounds. He will continue with wound care. Current Visit: No (5) Anemia in chronic kidney disease Status: Chronic Assessment and plan: The patient's hematocrit is 24.3 this morning. Current Visit: No (6) Pleural effusion Status: Acute Assessment and plan: Patient has bilateral pleural effusions and he had a right thoracentesis Saturday. The pleural fluid is a transudate. His chest x-ray still shows infiltrates but less effusions. Current Visit: Yes (7) CHF (congestive heart failure), NYHA class III Status: Acute Assessment and plan: Patient looks like he is in heart failure but he does seem to be doing better now. He has been getting some diuretics and his output is fair. His x-ray still looks like heart failure and his urine output is worsening. His creatinine is up to 4.5. He is now in the CCU on a nonrebreather. He continues to have respiratory difficulties. We will try therapeutic bronchoscopy but he may ultimately may need dialysis. Current Visit: Yes Qualifiers: Congestive heart failure type: diastolic Congestive heart failure chronicity: acute on chronic Qualified Code(s): I50.33 - Acute on chronic diastolic (congestive) heart failure (8) Decubitus ulcer Status: Acute Assessment and plan: The patient's ulcers are being evaluated by surgery. Current Visit: Yes Qualifiers: Pressure ulcer location: sacral region Pressure ulcer stage: stage 2 Qualified Code(s): L89.152 - Pressure ulcer of sacral region, stage 2
--- NOTE | 2017-04-15 07:52 | Operative Note ---
Date of procedure: 04/15/17 Pre-op diagnosis: Respiratory distress Post-op diagnosis: other (Bronchitis with some retained secretions.) Procedure: The patient is a 67-year-old that has respiratory distress and is coughing up some thick sputum. He has also had some hemoptysis. I bronchoscopy will be done to assess airways and clear airways. Procedure: He was given topical lidocaine for anesthesia. The fiberoptic bronchoscope was passed transnasally through the vocal cords into the lungs. The bronchopulmonary cells were identified and specimens obtained. Findings: There is thick secretions in the hypopharynx and this was cleared. The vocal cords close normally. The trachea and main bronchi are open. There is some bronchitis present. There is some thick secretions that were washed and cleared and sent for culture. There is some mild bleeding from the airways. There are no endobronchial lesions seen however. The right upper lobe , right middle lobe, right lower lobe are all open. The left upper lobe, lingula, left lower lobe are all open. Once the airways were clear the procedure was stopped. He tolerated the procedure fairly well. Impression: Bronchitis with some retained secretions. Bilateral infiltrates with volume overload. Plan: We will continue respiratory therapy and attempts at diuresis. Anesthesia: local Surgeon / Physician: Jeremy Whipple Estimated blood loss: minimal Specimens: other (Washings were sent for culture) Condition: critical Disposition: ICU Results - Labs CBC & BMP: 04/15/17 04:45 04/15/17 04:45 Discharge Plan - Discharge Medications No Action Cholecalciferol (Vitamin D3) [Vitamin D3] 5,000 unit PO DAILY NIFEdipine [Nifedipine ER] 120 mg PO DAILY Cetirizine Tab [ZyrTEC Tab] 10 mg PO DAILY Aspirin [Ecotrin] 81 mg PO DAILY Pantoprazole Tab [Protonix Tab] 40 mg PO DAILY Pentoxifylline 400 mg PO TID W/MEALS Bimatoprost 0.01% Oph Soln [Lumigan] 1 drop BOTH EYES BEDTIME Brimonidine 0.1% Oph Soln [Alphagan P 0.1% Oph Soln] 1 drop BOTH EYES TID Dorzolamide/Timolol Oph Soln [Cosopt] 1 drop BOTH EYES BID #1 ophthalmic solution Theophylline ER Cap (24 Hr) [Hood-24] 300 mg PO DAILY Multivitamin (Ocuvite) [Ocuvite] 1 tablet PO DAILY Montelukast Tab [Singulair Tab] 10 mg PO DAILY Albuterol/Ipratropium Neb [Duoneb] 3 ml RESP TX QID Budesonide/Formoterol Fumarate [Symbicort 160-4.5 Mcg Inhaler] 2 puff INH BID Dorzolamide/Timolol Oph Soln [Cosopt] 1 drop BOTH EYES BID Insulin NPH Hum/Reg Insulin Hm [NovoLIN 70/30] See Protocol SUBCUT AC SUPPER Insulin NPH Hum/Reg Insulin Hm [NovoLIN 30] See Protocol SUBCUT AC BREAKFAST Furosemide Tab [Lasix Tab] 40 mg PO DAILY #30 tablet Carvedilol [Coreg] 6.25 mg PO BID Hydralazine HCl 50 mg PO TID Cyproheptadine Tab [Periactin Tab] 4 mg PO TID Atorvastatin [Lipitor] 40 mg PO BEDTIME cloNIDine TAB [Catapres Tab] 0.2 mg PO DAILY - Follow Up or Referral - Forms/Instructions
[2017-04-15] MEDS: ALBUTEROL/IPRATROPIUM 3 ML NEB RESP TX SCH ×4 (07:54→19:40)
[2017-04-15] MEDS: INSULIN NPH/REGULAR 70/30 100 UNIT/ML SUBCUT SCH ×2 (08:00→17:45)
--- NOTE | 2017-04-15 08:41 | Nephrology Progress Note ---
Nephrology - PN: Subj Interval history: Mr. Em is seen in follow-up of his renal impairment and volume overload. He required transfer to the intensive care unit for respiratory distress yesterday on nonrebreather his oxygen saturation is good and he is in no distress now. He is not diuresed well and his creatinine is up slightly to 4.5 with a BUN of 101. We are going to begin a Lasix infusion and continue with his metolazone hope that he will not require more aggressive measures than that. Our goal with diuresis would be to get his lungs is clear as could be tolerated with out significantly worsening renal dysfunction. Case discussed with Dr. Felipe. Exam (PN)-Nephrology - Vital Signs Vital signs: Period Temp Pulse Resp BP Sys/Stewart Pulse Ox Last 24 Hr 97.1 F-97.7 F 61-87 14-29 96-143/49-76 85-100 - Lab 04/15/17 04:45 04/15/17 04:45 Most recent lab results ABG pH 7.213 (7.35-7.45) L 04/14/17 16:57 ABG pCO2 58.9 MM HG (35-48) H 04/14/17 16:57 ABG pO2 56.8 MM HG (80-95) L 04/14/17 16:57 ABG HCO3 20.4 MMOL/L (20-26) 04/14/17 16:57 ABG O2 Saturation 85.2 % (95-100) L 04/14/17 16:57 Calcium 7.7 MG/DL (8.5-10.1) L 04/15/17 04:45 Magnesium 2.3 MG/DL (1.8-2.4) 04/12/17 05:37 Assessment and Plan (1) [id number] renal failure Status: Acute Current Visit: Yes (2) Edema Status: Chronic Current Visit: Yes
[2017-04-15] MEDS: FUROSEMIDE 40 MG/4 ML VIAL IV SCH (08:43)
--- NOTE | 2017-04-15 08:48 | Gastrointestinal Progress Note ---
Assessment and Plan (1) Hematemesis Status: Acute Assessment and plan: This patient was more likely coughing up blood than producing hematemesis. He was previously noted to have this difficulty back in December 2015. We are checking him again at this point and will likely proceed with an upper endoscopy given the overall picture of dysphagia. Certainly esophageal cancer needs to be ruled out as well as peptic ulcer disease and other sources of GI bleeding. I do not see any evidence of blood in the stool, patient certainly has dropped her hematocrit from 27-->21%. One would have thought this would produce some melena, but I have yet to see any evidence of this. We will arrange for upper endoscopy tomorrow. Risks of the above procedure include but are not limited to: Bleeding, infection, perforation, headache and pulmonary compromise. 04/12/17--findings upper endoscopy are as follows: This patient appears to have denny blood in the oropharynx from coughing and swallowing some scant amount of this from the lungs. This is likely the source of his bleeding not hematemesis. No gross evidence of bleeding source seen in the esophagus/stomach /duodenum although there was some mild redness in the stomach/patchy gastritis noted which was biopsied for Helicobacter pylori. 04/15/17--no further complaints of hematemesis. The patient did have some mild hemoptysis over the weekend, he has just completed bronchoscopy. No GI complaints at this time. Current Visit: Yes (2) Anemia Status: Acute Assessment and plan: The patient does have some significant anemia with hematocrit drop from 27-21% this hospitalization. This would speak to approximately 1.5 pint blood loss. Blood loss and should have produced visible melena. I personally do not even see blood in the patient's stool on my examination. I think because this issues become recurred, will certainly answer the question by performing upper endoscopy tomorrow to look for a GI bleeding source. We may or may not do routine dilation given this patient's history of dysphagia. Currently he is not having difficulty swallowing and is consuming all of his meals by himself. 04/12/17--Given the anemia seen, this patient may require bronchoscopy at some point. GI workup is essentially complete at this point. A dilation was performed to allow the patient swallow more easily although this may not be helpful with neurologic damage as he is suffered. 04/15/17--The patient is stable from a GI standpoint. Seems to be swallowing well post dilation. The hematocrit continues to drift between 21 and 26%, currently 24%. May need additional transfusion as pulmonology sees fit. Current Visit: Yes (3) Guaiac positive stools Status: Acute Assessment and plan: Again I cannot verify this on my exam but stool was earlier was said to be guaiac positive. 04/12/17--This is definitely due to swallowed blood from hemoptysis. 04/15/17--from continued swelling of blood. Will sign off at this time as the patient appears to be clinically stable from a GI standpoint and is eating well. Please reconsult me with further questions if any. 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 He is able to swallow physically. He might benefit from a dilation but if this is a neuromuscular problem as might be suspected with the previous stroke dilation will have limited efficacy. We will discuss this more with the patient immediately prior to the surgery to see if he wants me to do a dilation as part of my evaluation. 04/12/17--Because of the patient's history of dysphasia we did go ahead and add a Savary dilation of the end of the case, this had essentially no heme and no resistance and so it is dubious as to how much it will help but we will watch and see if this helps at all. Dilation can be repeated in 6-18 months if this was felt to be helpful in retrospect. 04/15/17-- Improved with dilation. Current Visit: Yes Gastroenterology - PN: Subj Interval history: Patient was able to swallow well over the weekend and has been eating adequately , according to nursing staff at the bedside. No new complaints. Coughing up scant amounts of hemoptysis no hematemesis. See EGD results from earlier in the admission. Exam (Progress Note) - Constitutional Vitals: Period Temp Pulse Resp BP Sys/Stewart Pulse Ox Last 24 Hr 97.1 F-97.7 F 61-87 14-29 96-143/49-76 85-100 General appearance: no acute distress - Head Head exam: Present: normocephalic - Eye Eye exam: Present: EOMI - Respiratory Respiratory exam: Present: rhonchi - Cardiovascular Cardiovascular exam: Present: regular rate and rhythm - GI/Abdominal GI/Abdominal exam: Present: normal bowel sounds, distended, firm, tenderness. Absent: rebound - Extremities Exam Extremities exam: Absent: edema - Neurological Exam Neurological exam: Present: alert, oriented X3 - Psychiatric Psychiatric exam: Present: normal affect, normal mood Results - Labs CBC & BMP: 04/15/17 04:45 04/15/17 04:45
--- NOTE | 2017-04-15 09:39 | XRay Report ---
Exam: XR chest 1V portable Date: 04/15/2017 4:00 AM Indication: Bilateral infiltrates Comparison: 04/14/2017 Technical: AP portable Findings: Cardiomegaly is present with alveolar infiltrates present bilaterally low-volume effusions. External cardiac leads are present. Mediastinum is unremarkable. Lateral marginal osteophytes are present. Impression: 1. Cardiomegaly 2. Persistent diffuse bilateral pulmonary infiltrates and effusions. PROCEDURE INTERPRETED AT [facility] DEPARTMENT OF RADIOLOGY Final Report Signed by: Dr. Tiburcio Benitez
[2017-04-15] MEDS: MONTELUKAST 10 MG TABLET PO SCH (10:11)
[2017-04-15] MEDS: CETIRIZINE 10 MG TABLET PO SCH (10:11)
[2017-04-15] MEDS: PENTOXIFYLLINE 400 MG TABLET PO SCH ×3 (10:11→17:49)
[2017-04-15] MEDS: THEOPHYLLINE ER (24 HR) 300 MG CAPSULE PO SCH (10:11)
[2017-04-15] MEDS: CARVEDILOL 12.5 MG TABLET PO SCH ×2 (10:12→20:37)
[2017-04-15] MEDS: metOLazone 5 MG TABLET PO SCH ×2 (10:12→20:37)
[2017-04-15] MEDS: CHOLECALCIFEROL 1,000 UNIT TABLET PO SCH (10:12)
[2017-04-15] MEDS: MAGNESIUM CHLORIDE 64 MG TABLET PO SCH ×2 (10:12→20:37)
[2017-04-15] MEDS: MULTIVITAMIN (OCUVITE) TABLET PO SCH (10:12)
[2017-04-15] MEDS: CLOPIDOGREL 75 MG TABLET PO SCH (10:13)
[2017-04-15] MEDS: PANTOPRAZOLE 40 MG TABLET PO SCH ×2 (10:13→20:37)
[2017-04-15] MEDS: GEMFIBROZIL 600 MG TABLET PO SCH ×2 (10:13→20:39)
[2017-04-15] MEDS: FUROSEMIDE INJ 200 MG in SODIUM CHLORIDE 0.9% 80 ML IV SCH ×4 (10:15→22:47)
[2017-04-15] MEDS: BUDESONIDE/FORMOTEROL 160-4.5 INHALER 6 GM INH SCH ×2 (10:29→20:53)
[2017-04-15] MEDS: DORZOLAMIDE/TIMOLOL OPH SOLN 10 ML BOTTLE BOTH EYES SCH ×2 (10:30→20:36)
[2017-04-15] MEDS: BRIMONIDINE 0.1% OPH SOLN 5 ML BOTTLE BOTH EYES SCH ×3 (10:30→20:36)
[2017-04-15] MEDS: DEXTROSE 50% 25 GM/50 ML VIAL IV PRN (11:26)
--- NOTE | 2017-04-15 12:23 | Pathology Report from [facility] ---
[facility] ACCESSION # : [id number] PATIENT NAME : Tobias Em ORDERING DR : Vinh Rashid MD CLINICAL HX: GI bleed POST-OP DX: Same SPECIMEN INFO: KORY GROSS DESCRIPTION: Received in formalin labeled TOBIAS EM is a 0.6 x 0.4 cm aggregate of prater tissue submitted in one cassette. DIAGNOSIS FOR TOBIAS EM: KORY BIOPSIES: Chronic superficial gastritis. H. pylori not seen on special stain. COLLECTED DATE: 04/12/2017 [facility] REPORT DATE: 04/15/2017 ELECTRONICALLY SIGNED BY: Yarely Arteaga M.D. 04/15/2017 - 10:47:07 MTDD
[2017-04-15] MEDS: BACITRACIN OINT 0.9 GM PACK TOP SCH (15:01)
[2017-04-15] MEDS: MENTHOL/ZINC OXIDE OINT 71 GM JAR TOP SCH ×2 (15:05→22:44)
--- NOTE | 2017-04-15 15:17 | Event Note ---
Pt now in the unit for respiratory failure. Wounds ofthe sacrum and heels continue to do well.
--- NOTE | 2017-04-15 15:30 | Physician Query Form ---
CLICK EDIT DOCUMENT TO SELECT QUERY ANSWER --> OK --> SIGN Suki Amaya RN Clinical History Professor W) [phone] (f) [phone] [email or web address]: Make your selection(s) from the choices in EACH section by typing an "x" and enter comments in the comment section. Please use your independent medical judgment in providing your response. This request does not imply that any particular answer is desired or expected. CLINICAL INDICATORS: (Providers should not edit this section) Based on documentation of "decreased oxygen saturations which were noted at 82% . He was hypoxemic and is on non-rebreather now. He required transfer to the intensive care unit for respiratory distress". O2 sats up 100% on non- rebreather mask. If possible, please further clarify the type and acuity of respiratory diagnosis : ACUITY: ( ) Acute ( ) Chronic (x ) Acute on Chronic TYPE: (x ) Respiratory failure with hypoxia ( ) Respiratory failure with hypercapnia ( ) Postprocedural/postoperative respiratory failure ( ) Respiratory Insufficiency ( ) ARDS (Adult/Acute Respiratory Distress Syndrome) ( ) Other, please specify: ( ) Clinically unable to determine Recognized criteria for respiratory failure PH <7.35 or >7.45 PO2 <60 PCO2 >50 RR >24 O2 Sat <90% on RA or <95% on O2 Use of accessory muscles Unable to speak in full sentences Intubation is not required COMMENTS: PLEASE ALSO DOCUMENT RESPONSE IN PROGRESS NOTES AND/OR DISCHARGE SUMMARY Use of terms such as suspected, likely, or probable (associated with a specific diagnosis that is being evaluated, monitored, or treated as if it exists) are acceptable and can be restated in the discharge summary if not ruled out. MTDD
--- NOTE | 2017-04-15 16:03 | Hospitalist Progress Note ---
Assessment and Plan (1) Acute systolic (congestive) heart failure Status: Acute Assessment and plan: 1)pulmonary edema, effusion, infiltrate due to renal failure- on lasix IV now with 20cc in first hour then 30cc urine out in second. Continue to monitor. 2)ANH on CKD- Dr Cadena following. He needed HD temporarily a couple of years ago. 3)anemia- holding aspirin, anticoagulation. 4)decubitus ulcer and chronic lower extremity wounds- local care per Dr Linares 5)HTN- controlled. 6)DM- SSI 7)thyroid scan pending 8)encephalopathy-uremia is likely part the cause. neurology consulted. 9)dispo- referral to LTAC made. Patient full code. Current Visit: No (2) Respiratory distress Status: Acute Current Visit: No (3) Pleural effusion Status: Acute Current Visit: Yes (4) Dyslipidemia Status: Chronic Current Visit: Yes (5) Decubitus ulcer Status: Acute Current Visit: Yes Qualifiers: Pressure ulcer location: sacral region Pressure ulcer stage: stage 2 Qualified Code(s): L89.152 - Pressure ulcer of sacral region, stage 2 (6) Cardiomyopathy Status: Chronic Current Visit: Yes Qualifiers: Cardiomyopathy type: unspecified Qualified Code(s): I42.9 - Cardiomyopathy , unspecified (7) Encephalopathy acute Status: Acute Current Visit: Yes (8) Anemia Status: Acute Current Visit: Yes (9) Guaiac positive stools Status: Acute Current Visit: Yes (10) [id number] renal failure Status: Acute Current Visit: Yes Hospitalist: Subjective Interval history: Mr Em is breathing better than he was last night. I was able to talk at length with his daughter today. I suggested LTAC which made her very concerned about his prognosis because her grandmother was in his same CCU room a couple of years ago, was moved to LTAC and then a couple of weeks later from her illness and the suggestion that he go to LTAC reminded her of that event. He has also been in both [facility] and [facility] in the past and had good experiences. She is agreeable with the referral. I explained that he is indeed critically ill and may need more aggressive measures if the lasix drip does not work. She wants him to be full code and to have dialysis if Dr Cadena thinks it is required to remove his extra volume. This afternoon he is more confused and is scratching his arms because he has started to itch. Exam - Constitutional Vitals: Period Temp Pulse Resp BP Sys/Stewart Pulse Ox Last 24 Hr 96.1 F-97.6 F 61-77 14-31 96-134/49-76 88-100 General appearance: normal weight, mild distress (scratching, wearing partial NRB, calm) - Eye Eye exam: Present: EOMI. Absent: scleral icterus - Respiratory Respiratory exam: Present: rhonchi - Cardiovascular Cardiovascular exam: Present: regular rate and rhythm - GI/Abdominal GI/Abdominal exam: Present: normal bowel sounds, soft. Absent: tenderness - Extremities Exam Extremities exam: Present: edema (large pitting edema/anasarca in lower extremities and abdomen and scrotum.) - Neurological Exam Neurological exam: Present: alert. Absent: oriented X3 - Skin Skin exam: Present: warm, dry Results - Labs CBC & BMP: 04/15/17 04:45 04/15/17 04:45 Lab Results: I have reviewed the past 24 hour labs
[2017-04-15] MEDS: BIMATOPROST 0.01% OPH SOLN 2.5 ML BOTTLE BOTH EYES SCH (20:36)
[2017-04-15] MEDS: DONEPEZIL 5 MG TABLET PO SCH (20:37)
[2017-04-15] MEDS: ATORVASTATIN 40 MG TABLET PO SCH (20:37)
[2017-04-15] MEDS ORDERED: diphenhydrAMINE CAP 25 MG CAPSULE PO PRN (21:06)
[2017-04-16] MEDS: FUROSEMIDE INJ 200 MG in SODIUM CHLORIDE 0.9% 80 ML IV SCH ×5 (02:50→19:10)
[2017-04-16 05:16] LABS: Basophils % 0.3 % (0.0-0.8); Eosinophils # 0.2 10*3/uL (0.0-0.87); Eosinophils % 4.2 % (0.00-10.9); Hematocrit 23.4 VOL% (42.0-52.0); Hemoglobin 7.8 GM/DL (14.0-18.0); Immature Granulocytes % 0.5 %; Immature Granulocytes Absolute 0.02 #; Lymphocytes # 0.4 10*3/uL (1.4-4.0); Lymphocytes % 11.6 % (21.2-54.2); Mean Corpuscular HGB Conc 33.3 GM/DL (32-36); Mean Corpuscular Hemoglobin 27 PG (27-34); Mean Corpuscular Volume 80.7 FL (87-102); Mean Platelet Volume 12.6 FL (9.6-12.0); Monocytes # 0.6 10*3/uL (0.11-0.8); Monocytes % 14.5 % (1.7-12.7); Neutrophils # 2.6 10*3/uL (1.4-7.4); Neutrophils % 68.9 % (38.7-73.9); Platelet Count 87 T/CUMM (130-400); Red Cell Distribution Width 15.2 % (9.3-17.3); White Blood Count 3.8 T/CUMM (4-12)
[2017-04-16 05:48] LABS: Calcium 7.9 MG/DL (8.5-10.1); Magnesium 2.7 MG/DL (1.8-2.4); Osmolality,Calculated 291.9 MOS/KG (273-304); Potassium 4.8 MMOL/L (3.5-5.1)
[2017-04-16 05:51] LABS: Band Neutrophils 3 % (0-10); Burr Cells Slight; Elliptocytes Few; Eosinophils 2 % (0-10); Hypochromasia 1+; Lymphocytes 9 % (20-55); Platelet Estimate Decreased; Segmented Neutrophils 67 % (50-85); Total Cells Counted 100
[2017-04-16 05:52] LABS: Microcytosis 1+
[2017-04-16] MEDS: ALBUTEROL/IPRATROPIUM 3 ML NEB RESP TX SCH ×4 (07:20→19:13)
[2017-04-16] MEDS: INSULIN NPH/REGULAR 70/30 100 UNIT/ML SUBCUT SCH ×2 (07:28→17:19)
--- NOTE | 2017-04-16 07:55 | Pulmonology Progress Note ---
Pulmonary - PN: Subj Interval history: Patient is 67-year-old black man that has diabetes hypertension and chronic renal failure. He is basically bedridden. He has had a history of CVA and has some mental retardation. He can communicate but is very slow. He cannot walk or do any activity. He had to be moved to the CCU for respiratory distress. He was started on Lasix infusion. We did do a therapeutic bronchoscopy and clear his airways. He actually looks a little better today. He is more alert and coughing well. He says he is breathing a little better. He is still requiring oxygen but looks comfortable. Exam (Progress Note) - Constitutional Vitals: Period Temp Pulse Resp BP Sys/Stewart Pulse Ox Last 24 Hr 96.7 F-98.2 F 62-76 17-31 111-148/52-81 88-100 Exam: General appearance: normal weight, no acute distress (He looks more alert today and more comfortable. ) - Head Head exam: Present: normal inspection, normocephalic - Eye Eye exam: Present: EOMI, other (Bilateral arcus). Absent: nystagmus Pupils: Present: SLY - ENT ENT exam: Present: normal exam - Neck Neck exam: Present: thyromegaly. Absent: lymphadenopathy - Respiratory Respiratory exam: Present: He has coarse breath sounds bilaterally with bilateral rhonchi. His lungs sound a little better today. - Cardiovascular Cardiovascular exam: Present: regular rate and rhythm, systolic murmur (He has a soft systolic murmur). Absent: gallop, JVD - GI/Abdominal GI/Abdominal exam: Present: normal bowel sounds, soft. Absent: organomegaly, tenderness. His scrotal edema is better. - Extremities Exam Extremities exam: Present: edema (He does have some brawny edema of the legs. His legs are still quite tight.) - Neurological Exam Neurological exam: Present: He responds okay but is not as alert. - Psychiatric Psychiatric exam: Present: normal affect - Skin Skin exam: Present: other (He does have some wounds on his feet and sacrum) Results - Labs CBC & BMP: 04/16/17 04:52 04/16/17 04:52 Assessment and Plan (1) Chronic renal failure Status: Chronic Assessment and plan: The patient's creatinine is stable at 4.5. His urine output was better yesterday. Current Visit: Yes Qualifiers: Chronic kidney disease stage: stage 4 (severe) Qualified Code(s): N18.4 - Chronic kidney disease, stage 4 (severe) (2) Hypertension Status: Chronic Assessment and plan: The patient will continue with blood pressure medicines and he is stable at present. His heart rate and blood pressure have been stable. He appears to be tolerating his medicines fairly well. Current Visit: No Qualifiers: Hypertension type: essential hypertension Qualified Code(s): I10 - Essential (primary) hypertension (3) Diabetes mellitus Status: Chronic Assessment and plan: His glucoses have been under good control so far. His glucose is 125 this morning. Current Visit: No Qualifiers: Diabetes mellitus type: type 2 Diabetes mellitus complication detail: with chronic kidney disease Chronic kidney disease stage: stage 4 (severe) (4) chronic lower extremity wounds Status: Chronic Assessment and plan: Patient is being seen by surgery for wounds. He will continue with wound care. His wounds are apparently stable Current Visit: No (5) Anemia in chronic kidney disease Status: Chronic Assessment and plan: The patient's hematocrit is 23.4 this morning. Current Visit: No (6) Pleural effusion Status: Acute Assessment and plan: Patient has bilateral pleural effusions and he had a right thoracentesis Saturday. The pleural fluid is a transudate. His chest x-ray still shows infiltrates but less effusions. Current Visit: Yes (7) CHF (congestive heart failure), NYHA class III Status: Acute Assessment and plan: Patient looks like he is in heart failure but he does seem to be doing better now. He looks more comfortable today and less shortness of breath. His urine output has improved a little. He is more alert and comfortable today. Current Visit: Yes Qualifiers: Congestive heart failure type: diastolic Congestive heart failure chronicity: acute on chronic Qualified Code(s): I50.33 - Acute on chronic diastolic (congestive) heart failure (8) Decubitus ulcer Status: Acute Assessment and plan: The patient's ulcers are being evaluated by surgery. Current Visit: Yes Qualifiers: Pressure ulcer location: sacral region Pressure ulcer stage: stage 2 Qualified Code(s): L89.152 - Pressure ulcer of sacral region, stage 2
[2017-04-16] MEDS: THEOPHYLLINE ER (24 HR) 300 MG CAPSULE PO SCH (07:59)
[2017-04-16] MEDS: CHOLECALCIFEROL 1,000 UNIT TABLET PO SCH (07:59)
[2017-04-16] MEDS: GEMFIBROZIL 600 MG TABLET PO SCH ×2 (07:59→22:00)
[2017-04-16] MEDS: MULTIVITAMIN (OCUVITE) TABLET PO SCH (07:59)
[2017-04-16] MEDS: PENTOXIFYLLINE 400 MG TABLET PO SCH ×3 (08:00→16:26)
[2017-04-16] MEDS: CLOPIDOGREL 75 MG TABLET PO SCH (08:00)
[2017-04-16] MEDS: MAGNESIUM CHLORIDE 64 MG TABLET PO SCH ×2 (08:01→21:51)
[2017-04-16] MEDS: BACITRACIN OINT 0.9 GM PACK TOP SCH (08:01)
[2017-04-16] MEDS: DORZOLAMIDE/TIMOLOL OPH SOLN 10 ML BOTTLE BOTH EYES SCH ×2 (08:01→21:47)
[2017-04-16] MEDS: PANTOPRAZOLE 40 MG TABLET PO SCH ×2 (08:01→21:51)
[2017-04-16] MEDS: BUDESONIDE/FORMOTEROL 160-4.5 INHALER 6 GM INH SCH ×2 (08:01→21:58)
[2017-04-16] MEDS: MONTELUKAST 10 MG TABLET PO SCH (08:01)
[2017-04-16] MEDS: BRIMONIDINE 0.1% OPH SOLN 5 ML BOTTLE BOTH EYES SCH ×3 (08:01→21:57)
[2017-04-16] MEDS: CARVEDILOL 12.5 MG TABLET PO SCH ×2 (08:01→21:49)
[2017-04-16] MEDS: metOLazone 5 MG TABLET PO SCH ×2 (08:01→21:50)
[2017-04-16] MEDS: CETIRIZINE 10 MG TABLET PO SCH (08:01)
[2017-04-16] MEDS: MENTHOL/ZINC OXIDE OINT 71 GM JAR TOP SCH ×2 (08:02→22:05)
--- NOTE | 2017-04-16 09:03 | Nuclear Medicine Report ---
Exam: NM thyroid uptake multiple Date: 04/15/2017 12:29 PM Indication: Mass on CT imaging Comparison: CT chest 04/04/2017 Findings: Patient was given 266 uCi of I-123 with uptake and scan performed. The 6 hour uptake is 0.5%. 24-hour uptake is 1.4%. On today's examination there is little to no activity within the region of the thyroid gland bilaterally. Impression: Abnormal low thyroid uptake with essentially nonvisualization of the gland on nuclear imaging. Correlation with the laboratory values may be beneficial. Findings suggest hypothyroidism. Cold Nodule cannot be excluded with nodular density on CT imaging the right present measuring up to 3.3 cm which appears to involve the majority of the right lobe on CT image PROCEDURE INTERPRETED AT [facility] DEPARTMENT OF RADIOLOGY Final Report Signed by: Dr. Tiburcio Benitez
--- NOTE | 2017-04-16 11:01 | Hospitalist Progress Note ---
Assessment and Plan (1) Acute systolic (congestive) heart failure Status: Acute Assessment and plan: 1)pulmonary edema, effusion, infiltrate due to renal failure- This morning he had had 300 out on the lasix infusion and his creatinine was unchanged from yesterday. continue. 2)ANH on CKD- Dr Cadena following. He is responding to the lasix infusion. 3)anemia- holding aspiring and anticoagulation 4)decubitus ulcer and chronic lower extremity wounds- per Dr Linares 5)HTN- controlled 6)DM- SSI 7)thyroid disease- uptake scan consistent with hypothyroidism and possibly a cold nodule. consult Dr eBasley. 8)encephalopathy- mentally clearer this mornign compared with yesterday afternoon. Due to general medical illness and uremia. 9)dispo- good candidate for LTAC. daughter has prayed about it and does not want him to go today. Full code. transfer to floor. Current Visit: No (2) Respiratory distress Status: Acute Current Visit: No (3) Pleural effusion Status: Acute Current Visit: Yes (4) Dyslipidemia Status: Chronic Current Visit: Yes (5) Decubitus ulcer Status: Acute Current Visit: Yes Qualifiers: Pressure ulcer location: sacral region Pressure ulcer stage: stage 2 Qualified Code(s): L89.152 - Pressure ulcer of sacral region, stage 2 (6) Cardiomyopathy Status: Chronic Current Visit: Yes Qualifiers: Cardiomyopathy type: unspecified Qualified Code(s): I42.9 - Cardiomyopathy , unspecified (7) Encephalopathy acute Status: Acute Current Visit: Yes (8) Anemia Status: Acute Current Visit: Yes (9) Guaiac positive stools Status: Acute Current Visit: Yes (10) Enhly-gw-mxjrgcj renal failure Status: Acute Current Visit: Yes Hospitalist: Subjective Interval history: Mr Em is feeling better this morning. He denies shortness of breath. He is satting pretty well on venti mask and kept his sats in high 80s on 4L NC while he ate 50% of his tray this morning. Exam - Constitutional Vitals: Period Temp Pulse Resp BP Sys/Stewart Pulse Ox Last 24 Hr 96.2 F-98.2 F 62-76 17-31 111-156/52-81 88-99 General appearance: normal weight, no acute distress - Head Head exam: Present: normocephalic, atraumatic - Eye Eye exam: Present: EOMI. Absent: scleral icterus - Respiratory Respiratory exam: Present: clear to auscultation bilaterally - Cardiovascular Cardiovascular exam: Present: regular rate and rhythm - GI/Abdominal GI/Abdominal exam: Present: normal bowel sounds, soft. Absent: tenderness - Extremities Exam Extremities exam: Present: edema (dependent edema about the same. UOP increasing this morning. ) Results - Labs CBC & BMP: 04/16/17 04:52 04/16/17 04:52 Lab Results: I have reviewed the past 24 hour labs
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
--- NOTE | 2017-04-16 13:55 | Nephrology Progress Note ---
Nephrology - PN: Subj Interval history: Mr. Em is seen in follow-up of his chronic renal impairment. He is improved and is making fair amounts of urine with his Lasix at 50 mg/h we will plan to increase his metolazone to further increase diuresis. He seems very comfortable breathing with mask oxygen and does have edema yet to be diuresed. We discussed chronic renal impairment and its implications with his family members. Hopefully he can avoid dialysis for quite some time because it will be a tremendous undertaking to provide with his immobility. Exam (PN)-Nephrology - Vital Signs Vital signs: Period Temp Pulse Resp BP Sys/Stewart Pulse Ox Last 24 Hr 96 F-98.2 F 61-76 17-29 111-156/55-81 88-98 - Lab 04/16/17 04:52 04/16/17 04:52 Most recent lab results ABG pH 7.213 (7.35-7.45) L 04/14/17 16:57 ABG pCO2 58.9 MM HG (35-48) H 04/14/17 16:57 ABG pO2 56.8 MM HG (80-95) L 04/14/17 16:57 ABG HCO3 20.4 MMOL/L (20-26) 04/14/17 16:57 ABG O2 Saturation 85.2 % (95-100) L 04/14/17 16:57 Calcium 7.9 MG/DL (8.5-10.1) L 04/16/17 04:52 Magnesium 2.7 MG/DL (1.8-2.4) H 04/16/17 04:52 Assessment and Plan (1) [id number] renal failure Status: Acute Current Visit: Yes (2) Edema Status: Chronic Current Visit: Yes
[2017-04-16] MEDS: LEVOFLOXACIN 500 MG TABLET PO SCH ×2 (16:27→18:19)
[2017-04-16] MEDS: DONEPEZIL 5 MG TABLET PO SCH (21:49)
[2017-04-16] MEDS: ATORVASTATIN 40 MG TABLET PO SCH (21:50)
[2017-04-16] MEDS: BIMATOPROST 0.01% OPH SOLN 2.5 ML BOTTLE BOTH EYES SCH (22:05)
[2017-04-17] MEDS: FUROSEMIDE INJ 200 MG in SODIUM CHLORIDE 0.9% 80 ML IV SCH ×5 (00:02→21:05)
[2017-04-17] MEDS ORDERED: ALBUTEROL/IPRATROPIUM 3 ML NEB RESP TX PRN (00:50)
[2017-04-17 05:46] LABS: Eosinophils # 0.2 10*3/uL (0.0-0.87); Eosinophils % 3.4 % (0.00-10.9); Hematocrit 23.9 VOL% (42.0-52.0); Immature Granulocytes % 0.9 %; Immature Granulocytes Absolute 0.04 #; Lymphocytes # 0.4 10*3/uL (1.4-4.0); Lymphocytes % 9.6 % (21.2-54.2); Mean Corpuscular HGB Conc 33.5 GM/DL (32-36); Mean Corpuscular Hemoglobin 27 PG (27-34); Mean Corpuscular Volume 79.4 FL (87-102); Mean Platelet Volume 12.3 FL (9.6-12.0); Monocytes # 0.5 10*3/uL (0.11-0.8); Monocytes % 10.5 % (1.7-12.7); NRBC # 0.02 10*3/uL; Neutrophils # 3.3 10*3/uL (1.4-7.4); Neutrophils % 75.6 % (38.7-73.9); Platelet Count 104 T/CUMM (130-400); Red Blood Count 3.01 MC/CUMM (3.8-5.5); Red Cell Distribution Width 15.4 % (9.3-17.3); White Blood Count 4.4 T/CUMM (4-12)
[2017-04-17 06:24] LABS: Calcium 8.3 MG/DL (8.5-10.1); Magnesium 2.7 MG/DL (1.8-2.4); Osmolality,Calculated 292.9 MOS/KG (273-304)
[2017-04-17] MEDS: ALBUTEROL/IPRATROPIUM 3 ML NEB RESP TX SCH ×4 (06:42→19:27)
[2017-04-17] MEDS: MENTHOL/ZINC OXIDE OINT 71 GM JAR TOP SCH ×2 (07:00→21:13)
--- NOTE | 2017-04-17 07:05 | XRay Report ---
Exam: XR chest 1V portable Date: 04/17/2017 4:00 AM Indication: CHF Comparison: 04/15/2017 Technical: AP portable Findings: Cardiomegaly present with shunt vascularity and low volume effusions. External cardiac leads are present. No pneumothorax. Mediastinum is intact. ASVD is present. Impression: 1. Cardiomegaly and persistent CHF unchanged from prior exam with diffuse interstitial alveolar edema and effusions PROCEDURE INTERPRETED AT [facility] DEPARTMENT OF RADIOLOGY Final Report Signed by: Dr. Tiburcio Benitez
--- NOTE | 2017-04-17 08:06 | Hospitalist Progress Note ---
Assessment and Plan (1) Congestive heart failure Status: Acute Assessment and plan: Impression: 1. Acute on chronic diastolic congestive heart failure 2. Chronic kidney disease with acute worsening 3. Anemia, likely due to chronic kidney disease Plan: His chest x-ray is better compared to the past few days, but he still looks like he has pulmonary vascular congestion to me. We may be reaching maximum benefit with regard to diuretics, as his kidney function appears to be deteriorating. Continue current care, and I will try to determine discharge disposition. This note was completed using [employer] voice recognition software. There may be sales engineer account manager errors as a result. Current Visit: Yes Qualifiers: Congestive heart failure type: diastolic Congestive heart failure chronicity: acute on chronic Qualified Code(s): I50.33 - Acute on chronic diastolic (congestive) heart failure Hospitalist: Subjective Interval history: Follow-up acute on chronic diastolic congestive heart failure, bilateral pleural effusions, chronic kidney disease. The patient was transferred out of the ICU yesterday. He is still requiring supplemental oxygen, and continues to have some episodes of coughing with vomiting. It appears that the plan is to transfer the patient to an LTAC, but the family in the room is not aware of this. The patient denies any chest discomfort. Exam - Constitutional Vitals: Period Temp Pulse Resp BP Sys/Stewart Pulse Ox Last 24 Hr 96 F-97.0 F 60-117 16-24 122-149/59-84 89-100 Vital signs are noted above. Heart is irregular with a soft systolic murmur. I do not hear a gallop. He has rales in all lung echevarria. He is awake and conversant. Results - Labs CBC & BMP: 04/17/17 04:34 04/17/17 04:34 Lab Results: I have reviewed the past 24 hour labs (Creatinine is trending up, likely due to ongoing diuresis)
--- NOTE | 2017-04-17 08:55 | Pulmonology Progress Note ---
Pulmonary - PN: Subj Interval history: Patient is 67-year-old black man that has diabetes hypertension and chronic renal failure. He is basically bedridden. He has had a history of CVA and has some mental retardation. He can communicate but is very slow. He cannot walk or do any activity. He has worsening renal insufficiency and congestive heart failure. He is on a Lasix infusion and has some output. Last night he complained of nasal congestion. He is still coughing some and get short of breath easily. His chest x-ray still shows diffuse changes. Exam (Progress Note) - Constitutional Vitals: Period Temp Pulse Resp BP Sys/Stewart Pulse Ox Last 24 Hr 96 F-97.3 F 60-117 16-24 122-149/59-84 89-100 Exam: General appearance: normal weight, the patient looks chronically ill and is extremely weak. He has some mild increase in shortness of breath. ) - Head Head exam: Present: normal inspection, normocephalic - Eye Eye exam: Present: EOMI, other (Bilateral arcus). Absent: nystagmus Pupils: Present: SLY - ENT ENT exam: Present: normal exam - Neck Neck exam: Present: thyromegaly. Absent: lymphadenopathy - Respiratory Respiratory exam: Present: He has coarse breath sounds bilaterally with bilateral rales and rhonchi. - Cardiovascular Cardiovascular exam: Present: regular rate and rhythm, systolic murmur (He has a soft systolic murmur). Absent: gallop, JVD - GI/Abdominal GI/Abdominal exam: Present: normal bowel sounds, soft. Absent: organomegaly, tenderness. His scrotal edema is better. - Extremities Exam Extremities exam: Present: edema (He does have some brawny edema of the legs. His legs are still quite tight.) - Neurological Exam Neurological exam: Present: He responds okay but is not as alert. - Psychiatric Psychiatric exam: Present: normal affect - Skin Skin exam: Present: other (He does have some wounds on his feet and sacrum) Results - Labs CBC & BMP: 04/17/17 04:34 04/17/17 04:34 - Diagnostic Findings Procedure: Chest x-ray: image reviewed by me, report reviewed by me (Chest x- ray still looks like chronic heart failure.) Assessment and Plan (1) Chronic renal failure Status: Chronic Assessment and plan: The patient's creatinine is stable at 4.6. His urine output was better yesterday. Current Visit: Yes Qualifiers: Chronic kidney disease stage: stage 4 (severe) Qualified Code(s): N18.4 - Chronic kidney disease, stage 4 (severe) (2) Hypertension Status: Chronic Assessment and plan: The patient will continue with blood pressure medicines and he is stable at present. His heart rate and blood pressure have been stable. He is still very debilitated however. Current Visit: No Qualifiers: Hypertension type: essential hypertension Qualified Code(s): I10 - Essential (primary) hypertension (3) Diabetes mellitus Status: Chronic Assessment and plan: His glucoses have been under good control so far. His glucose is 149 this morning. Current Visit: No Qualifiers: Diabetes mellitus type: type 2 Diabetes mellitus complication detail: with chronic kidney disease Chronic kidney disease stage: stage 4 (severe) (4) chronic lower extremity wounds Status: Chronic Assessment and plan: Patient is being seen by surgery for wounds. He will continue with wound care. His wounds are apparently stable Current Visit: No (5) Anemia in chronic kidney disease Status: Chronic Assessment and plan: The patient's hematocrit is 23.9 this morning. Current Visit: No (6) Pleural effusion Status: Acute Assessment and plan: Patient has bilateral pleural effusions and he had a right thoracentesis Saturday. The pleural fluid is a transudate. His chest x-ray still shows infiltrates but less effusions. His chest x-ray still looks like heart failure. Current Visit: Yes (7) CHF (congestive heart failure), NYHA class III Status: Acute Assessment and plan: Patient looks like he is in heart failure and is very hard to get rid of fluid in him. He still gets short of breath quite easily. He is on a Lasix infusion now. Current Visit: Yes Qualifiers: Congestive heart failure type: diastolic Congestive heart failure chronicity: acute on chronic Qualified Code(s): I50.33 - Acute on chronic diastolic (congestive) heart failure (8) Decubitus ulcer Status: Acute Assessment and plan: The patient's ulcers are being evaluated by surgery. Current Visit: Yes Qualifiers: Pressure ulcer location: sacral region Pressure ulcer stage: stage 2 Qualified Code(s): L89.152 - Pressure ulcer of sacral region, stage 2
[2017-04-17] MEDS ORDERED: SODIUM CHLORIDE 0.65% NASAL SPRAY 45 ML BOTTLE BOTH NARES PRN (08:58)
[2017-04-17] MEDS: BUDESONIDE/FORMOTEROL 160-4.5 INHALER 6 GM INH SCH ×2 (09:41→21:15)
[2017-04-17] MEDS: THEOPHYLLINE ER (24 HR) 300 MG CAPSULE PO SCH (09:42)
[2017-04-17] MEDS: CHOLECALCIFEROL 1,000 UNIT TABLET PO SCH (09:42)
[2017-04-17] MEDS: MAGNESIUM CHLORIDE 64 MG TABLET PO SCH ×2 (09:42→20:55)
[2017-04-17] MEDS: GEMFIBROZIL 600 MG TABLET PO SCH ×2 (09:42→20:55)
[2017-04-17] MEDS: PENTOXIFYLLINE 400 MG TABLET PO SCH ×3 (09:43→17:08)
[2017-04-17] MEDS: MONTELUKAST 10 MG TABLET PO SCH (09:43)
[2017-04-17] MEDS: CETIRIZINE 10 MG TABLET PO SCH (09:44)
[2017-04-17] MEDS: PANTOPRAZOLE 40 MG TABLET PO SCH ×2 (09:44→20:55)
[2017-04-17] MEDS: metOLazone 5 MG TABLET PO SCH ×2 (09:44→20:54)
[2017-04-17] MEDS: CARVEDILOL 12.5 MG TABLET PO SCH ×2 (09:44→20:54)
--- NOTE | 2017-04-17 10:02 | General Surgery Progress Note ---
Exam - Constitutional Vitals: Period Temp Pulse Resp BP Sys/Stewart Pulse Ox Last 24 Hr 96 F-97.3 F 60-117 16-24 122-144/59-84 89-100 Results - Labs CBC & BMP: 04/17/17 04:34 04/17/17 04:34 Specialty Discharge - Follow Up or Referrals Follow up with: Pineda Collins MD [Physician] - 1 Month (follow-up one month after discharge with next available thyroid ultrasound with FNA)
[2017-04-17] MEDS: CLOPIDOGREL 75 MG TABLET PO SCH (11:11)
[2017-04-17] MEDS: BRIMONIDINE 0.1% OPH SOLN 5 ML BOTTLE BOTH EYES SCH ×3 (11:11→20:55)
[2017-04-17] MEDS: DORZOLAMIDE/TIMOLOL OPH SOLN 10 ML BOTTLE BOTH EYES SCH ×2 (11:11→20:56)
[2017-04-17] MEDS: MULTIVITAMIN (OCUVITE) TABLET PO SCH (11:11)
[2017-04-17] MEDS: INSULIN NPH/REGULAR 70/30 100 UNIT/ML SUBCUT SCH ×2 (11:12→17:09)
[2017-04-17] MEDS: BACITRACIN OINT 0.9 GM PACK TOP SCH (11:13)
--- NOTE | 2017-04-17 15:19 | Nephrology Progress Note ---
Nephrology - PN: Subj Interval history: Mr. Em is seen in follow-up of his renal impairment. He still has tremendous problems with fluid overload peripheral and pulmonary. His chest is fairly clear today but his chest x-ray still is quite wet. He needs to continue with his diuresis and is receiving 50 mg of Lasix per hour by infusion and metolazone 10 mg twice daily by mouth. We will continue with his diuretic dose for now. His creatinine stable at 4.6 his BUN is rising with the diuresis as expected and is currently at 109. Electrolytes are essentially unremarkable but his serum sodium is 129. He is arousable multiple family members are in the room and questions are answered. Exam (PN)-Nephrology - Vital Signs Vital signs: Period Temp Pulse Resp BP Sys/Stewart Pulse Ox Last 24 Hr 96.3 F-97.4 F 63-117 16-24 121-142/47-84 86-100 - Lab 04/17/17 04:34 04/17/17 04:34 Most recent lab results ABG pH 7.213 (7.35-7.45) L 04/14/17 16:57 ABG pCO2 58.9 MM HG (35-48) H 04/14/17 16:57 ABG pO2 56.8 MM HG (80-95) L 04/14/17 16:57 ABG HCO3 20.4 MMOL/L (20-26) 04/14/17 16:57 ABG O2 Saturation 85.2 % (95-100) L 04/14/17 16:57 Calcium 8.3 MG/DL (8.5-10.1) L 04/17/17 04:34 Magnesium 2.7 MG/DL (1.8-2.4) H 04/17/17 04:34 Assessment and Plan (1) [id number] renal failure Status: Acute Current Visit: Yes (2) Edema Status: Chronic Current Visit: Yes Specialty Discharge - Follow Up or Referrals Follow up with: Pineda Collins MD [Physician] - 1 Month (follow-up one month after discharge with next available thyroid ultrasound with FNA)
--- NOTE | 2017-04-17 16:26 | General Surgery Progress Note ---
Assessment and Plan - Time spent with patient Time spent with patient: Less than 30 minutes (1) Diabetic ulcer of ankle Status: Chronic Assessment and plan: Impression: Diabetic ulcerations of the right heel Plan: These ulcers appear to be healed but will continue moisturizing him special protective padding to prevent any further changes or breakdown. We will also continue with some compressive therapy on the legs to continue to prevent any problems. 04/08/2017. The areas on the heel continue to look pretty much healed with no obvious ulceration or breakdown. Certainly has old skin graft in place that still look good and healthy at this point. Swellings under control in the left lower extremity has no breakdown. 04/17/2017 No ulcers present. Some edema of the thighs and scrotum but controlled on the legs. Current Visit: No (2) Decubitus ulcer Status: Acute Assessment and plan: Impression: Stage II sacral decubitus ulcer Plan: We will continue with the Aquaphor and the calmoseptine 04/08/2017. The area of the sacrum remains pretty much stable and unchanged. Small abrasion area of the superficial on the right of midline that may just be an abrasion or than a true ulcer. Is clean with no necrotic tissue present. This was still make this a stage II ulcer and we need to turn him frequently and keep a good bad back there. 04/17/2017 Ulcer remains stage 2 with some superfical skin lost but no deep necrotic tissue. Current Visit: Yes Qualifiers: Pressure ulcer location: sacral region Pressure ulcer stage: stage 2 Qualified Code(s): L89.152 - Pressure ulcer of sacral region, stage 2 Subjective Patient reports: Present: no new complaints, tolerating a regular diet, afebrile , other (Out of the unit) Exam - Constitutional Vitals: Period Temp Pulse Resp BP Sys/Stewart Pulse Ox Last 24 Hr 96.3 F-97.4 F 63-117 16-24 121-142/47-84 86-100 General appearance: mild distress - Head Head exam: Present: normal inspection - ENT ENT exam: Present: normal exam - Neck Neck exam: Present: normal inspection - Respiratory Respiratory exam: Present: clear to auscultation bilaterally, rales - Cardiovascular Cardiovascular exam: Present: RRR - GI/Abdominal GI/Abdominal exam: Present: hypoactive bowel sounds, soft - Extremities Exam Extremities exam: Present: other (No swelling except about the thighs. No ulcers present on the feet.) - Back Exam Back exam: Present: other (Sacral ulcer unchanged with some superfical skin lost.) - Neurological Exam Neurological exam: Present: alert, oriented X3, CN II-XII intact - Skin Skin exam: Present: normal color, warm, dry Results - Labs CBC & BMP: 04/17/17 04:34 04/17/17 04:34 Lab Results: I have reviewed the past 24 hour labs Specialty Discharge - Follow Up or Referrals Follow up with: Pineda Collins MD [Physician] - 1 Month (follow-up one month after discharge with next available thyroid ultrasound with FNA)
[2017-04-17] MEDS: DONEPEZIL 5 MG TABLET PO SCH (20:55)
[2017-04-17] MEDS: ATORVASTATIN 40 MG TABLET PO SCH (20:55)
[2017-04-17] MEDS: BIMATOPROST 0.01% OPH SOLN 2.5 ML BOTTLE BOTH EYES SCH (21:15)
[2017-04-18] MEDS: FUROSEMIDE INJ 200 MG in SODIUM CHLORIDE 0.9% 80 ML IV SCH ×4 (01:13→14:34)
[2017-04-18 06:51] LABS: Eosinophils # 0.1 10*3/uL (0.0-0.87); Eosinophils % 3.3 % (0.00-10.9); Hematocrit 23.6 VOL% (42.0-52.0); Hemoglobin 8.3 GM/DL (14.0-18.0); Immature Granulocytes % 0.5 %; Immature Granulocytes Absolute 0.02 #; Lymphocytes # 0.6 10*3/uL (1.4-4.0); Lymphocytes % 14.7 % (21.2-54.2); Mean Corpuscular HGB Conc 35.2 GM/DL (32-36); Mean Corpuscular Hemoglobin 28 PG (27-34); Mean Corpuscular Volume 78.9 FL (87-102); Mean Platelet Volume 11.8 FL (9.6-12.0); Monocytes # 0.5 10*3/uL (0.11-0.8); Monocytes % 11.2 % (1.7-12.7); Neutrophils % 70.3 % (38.7-73.9); Platelet Count 133 T/CUMM (130-400); Red Blood Count 2.99 MC/CUMM (3.8-5.5); Red Cell Distribution Width 15.2 % (9.3-17.3); White Blood Count 4.3 T/CUMM (4-12)
[2017-04-18] MEDS: ALBUTEROL/IPRATROPIUM 3 ML NEB RESP TX SCH ×4 (07:14→19:12)
[2017-04-18 07:27] LABS: Calcium 8.5 MG/DL (8.5-10.1); Magnesium 2.7 MG/DL (1.8-2.4); Osmolality,Calculated 293.9 MOS/KG (273-304); Potassium 4.6 MMOL/L (3.5-5.1)
--- NOTE | 2017-04-18 08:05 | Hospitalist Progress Note ---
Assessment and Plan (1) Congestive heart failure Status: Acute Assessment and plan: Impression: 1. Acute on chronic diastolic congestive heart failure 2. Chronic kidney disease with continued acute worsening 3. Anemia, likely due to chronic kidney disease Plan: Repeat chest x-ray in the morning. Continue diuretics. Recheck chemistries in the morning. This note was completed using [employer] voice recognition software. There may be crop picker errors as a result. Current Visit: Yes Qualifiers: Congestive heart failure type: diastolic Congestive heart failure chronicity: acute on chronic Qualified Code(s): I50.33 - Acute on chronic diastolic (congestive) heart failure Hospitalist: Subjective Interval history: Follow-up acute on chronic diastolic heart failure, pleural effusions, and chronic kidney disease. The patient appears more alert today. He is assisting with his meals today. Family thinks he is more alert. They are concerned about his pneumonia. The patient denies any worsening cough or dyspnea. Exam - Constitutional Vitals: Period Temp Pulse Resp BP Sys/Stewart Pulse Ox Last 24 Hr 96.3 F-97.6 F 57-73 16-20 102-156/47-78 86-99 Vital signs are noted above. Heart is regular with distant tones. He has decreased breath sounds in both bases. He was not able to lean forward while on the for full examination of the posterior lung echevarria. There is a millimeter or so peripheral edema. He is awake and conversant Results - Labs CBC & BMP: 04/18/17 06:31 04/18/17 06:31 Lab Results: I have reviewed the past 24 hour labs (Creatinine continues to trend up) Specialty Discharge - Follow Up or Referrals Follow up with: Pineda Collins MD [Physician] - 1 Month (follow-up one month after discharge with next available thyroid ultrasound with FNA)
--- NOTE | 2017-04-18 09:07 | Nephrology Progress Note ---
Nephrology - PN: Subj Interval history: Mr. Em is seen in follow-up of his renal impairment. He is diuresing fairly well with big dose diuretics. He is currently receiving 50 mg/h of furosemide and 10 mg of metolazone twice daily. He still has considerable peripheral edema and pulmonary edema by chest x-ray. He is not short of breath. We discussed the situation with his and with the patient. We could probably remove this fluid quicker with dialysis but I hate to begin dialysis with Mr. Em. He is bedridden and getting him to and from dialysis will be a tremendous problem and he still has enough kidney function that he does not need dialysis to clear waste products but only fluid. I would be inclined to continue with the current diuretic dosage and expect the fluid overload clear as it seems to be doing. He is certainly not as edematous as he was. Exam (PN)-Nephrology - Vital Signs Vital signs: Period Temp Pulse Resp BP Sys/Stewart Pulse Ox Last 24 Hr 96.3 F-97.6 F 57-73 16-20 102-156/47-78 86-99 - Lab 04/18/17 06:31 04/18/17 06:31 Most recent lab results ABG pH 7.213 (7.35-7.45) L 04/14/17 16:57 ABG pCO2 58.9 MM HG (35-48) H 04/14/17 16:57 ABG pO2 56.8 MM HG (80-95) L 04/14/17 16:57 ABG HCO3 20.4 MMOL/L (20-26) 04/14/17 16:57 ABG O2 Saturation 85.2 % (95-100) L 04/14/17 16:57 Calcium 8.5 MG/DL (8.5-10.1) 04/18/17 06:31 Magnesium 2.7 MG/DL (1.8-2.4) H 04/18/17 06:31 Assessment and Plan (1) [id number] renal failure Status: Acute Current Visit: Yes (2) Edema Status: Chronic Current Visit: Yes Specialty Discharge - Follow Up or Referrals Follow up with: Pineda Collins MD [Physician] - 1 Month (follow-up one month after discharge with next available thyroid ultrasound with FNA)
--- NOTE | 2017-04-18 09:29 | Pulmonology Progress Note ---
Pulmonary - PN: Subj Interval history: Patient is 67-year-old black man that has diabetes hypertension and chronic renal failure. He is basically bedridden. He has had a history of CVA and has some mental retardation. He can communicate but is very slow. He cannot walk or do any activity. He has worsening renal insufficiency and congestive heart failure. He is on a Lasix infusion and has some output. He apparently had a better night last night. He says he is breathing better and is sitting up eating breakfast. He does look like he feels better today. His cough and congestion are better. He looks like he has good urine output this morning. His creatinine is up to 4.9. Exam (Progress Note) - Constitutional Vitals: Period Temp Pulse Resp BP Sys/Stewart Pulse Ox Last 24 Hr 96.3 F-97.6 F 57-73 16-20 102-156/47-78 86-99 Exam: General appearance: normal weight, the patient looks chronically ill but he looks more alert and comfortable today.) - Head Head exam: Present: normal inspection, normocephalic - Eye Eye exam: Present: EOMI, other (Bilateral arcus). Absent: nystagmus Pupils: Present: SLY - ENT ENT exam: Present: normal exam - Neck Neck exam: Present: thyromegaly. Absent: lymphadenopathy - Respiratory Respiratory exam: Present: He has coarse breath sounds bilaterally but is moving air reasonably well with mild crackles bilaterally. - Cardiovascular Cardiovascular exam: Present: regular rate and rhythm, systolic murmur (He has a soft systolic murmur). Absent: gallop, JVD - GI/Abdominal GI/Abdominal exam: Present: normal bowel sounds, soft. Absent: organomegaly, tenderness. His scrotal edema is better. - Extremities Exam Extremities exam: Present: edema (He does have some brawny edema of the legs. His legs are doing a little better.) - Neurological Exam Neurological exam: Present: He responds okay but is not as alert. - Psychiatric Psychiatric exam: Present: normal affect - Skin Skin exam: Present: other (He does have some wounds on his feet and sacrum) Results - Labs CBC & BMP: 04/18/17 06:31 04/18/17 06:31 Assessment and Plan (1) Chronic renal failure Status: Chronic Assessment and plan: The patient's creatinine is stable at 4.9. His urine output does look better and he looks like he is breathing better. Current Visit: Yes Qualifiers: Chronic kidney disease stage: stage 4 (severe) Qualified Code(s): N18.4 - Chronic kidney disease, stage 4 (severe) (2) Hypertension Status: Chronic Assessment and plan: The patient will continue with blood pressure medicines and he is stable at present. His heart rate and blood pressure have been stable. He is still very debilitated however. Current Visit: No Qualifiers: Hypertension type: essential hypertension Qualified Code(s): I10 - Essential (primary) hypertension (3) Diabetes mellitus Status: Chronic Assessment and plan: His glucoses have been under good control so far. His glucose is 101 this morning. Current Visit: No Qualifiers: Diabetes mellitus type: type 2 Diabetes mellitus complication detail: with chronic kidney disease Chronic kidney disease stage: stage 4 (severe) (4) chronic lower extremity wounds Status: Chronic Assessment and plan: Patient is being seen by surgery for wounds. He will continue with wound care. His wounds are apparently stable Current Visit: No (5) Anemia in chronic kidney disease Status: Chronic Assessment and plan: The patient's hematocrit is 23.6 this morning. Current Visit: No (6) Pleural effusion Status: Acute Assessment and plan: Patient has bilateral pleural effusions and he had a right thoracentesis Saturday. The pleural fluid is a transudate. His chest x-ray still shows infiltrates but less effusions. His chest x-ray still looks like heart failure. He does look like he is breathing better today. Current Visit: Yes (7) CHF (congestive heart failure), NYHA class III Status: Acute Assessment and plan: Patient looks like he is in heart failure and is very hard to get rid of fluid in him. He is getting high-dose diuretics and seems to be responding a little today. He looks more comfortable and is having less shortness of breath. Current Visit: Yes Qualifiers: Congestive heart failure type: diastolic Congestive heart failure chronicity: acute on chronic Qualified Code(s): I50.33 - Acute on chronic diastolic (congestive) heart failure (8) Decubitus ulcer Status: Acute Assessment and plan: The patient's ulcers are being evaluated by surgery. Current Visit: Yes Qualifiers: Pressure ulcer location: sacral region Pressure ulcer stage: stage 2 Qualified Code(s): L89.152 - Pressure ulcer of sacral region, stage 2 Specialty Discharge - Follow Up or Referrals Follow up with: Pineda Collins MD [Physician] - 1 Month (follow-up one month after discharge with next available thyroid ultrasound with FNA)
[2017-04-18] MEDS: INSULIN NPH/REGULAR 70/30 100 UNIT/ML SUBCUT SCH ×2 (10:09→17:02)
[2017-04-18] MEDS: MULTIVITAMIN (OCUVITE) TABLET PO SCH (10:09)
[2017-04-18] MEDS: GEMFIBROZIL 600 MG TABLET PO SCH ×2 (10:09→22:15)
[2017-04-18] MEDS: CLOPIDOGREL 75 MG TABLET PO SCH (10:10)
[2017-04-18] MEDS: CARVEDILOL 12.5 MG TABLET PO SCH ×2 (10:10→21:26)
[2017-04-18] MEDS: CHOLECALCIFEROL 1,000 UNIT TABLET PO SCH (10:10)
[2017-04-18] MEDS: CETIRIZINE 10 MG TABLET PO SCH (10:10)
[2017-04-18] MEDS: MONTELUKAST 10 MG TABLET PO SCH (10:11)
[2017-04-18] MEDS: metOLazone 5 MG TABLET PO SCH ×2 (10:11→21:26)
[2017-04-18] MEDS: BACITRACIN OINT 0.9 GM PACK TOP SCH (10:11)
[2017-04-18] MEDS: BUDESONIDE/FORMOTEROL 160-4.5 INHALER 6 GM INH SCH ×2 (10:12→21:25)
[2017-04-18] MEDS: BRIMONIDINE 0.1% OPH SOLN 5 ML BOTTLE BOTH EYES SCH ×3 (10:12→21:25)
[2017-04-18] MEDS: DORZOLAMIDE/TIMOLOL OPH SOLN 10 ML BOTTLE BOTH EYES SCH ×2 (10:12→21:25)
[2017-04-18] MEDS: MAGNESIUM CHLORIDE 64 MG TABLET PO SCH ×2 (10:14→21:26)
[2017-04-18] MEDS: THEOPHYLLINE ER (24 HR) 300 MG CAPSULE PO SCH (10:15)
[2017-04-18] MEDS: PANTOPRAZOLE 40 MG TABLET PO SCH ×2 (10:16→21:26)
[2017-04-18] MEDS: PENTOXIFYLLINE 400 MG TABLET PO SCH (10:17)
[2017-04-18] MEDS: MENTHOL/ZINC OXIDE OINT 71 GM JAR TOP SCH ×2 (10:47→21:27)
[2017-04-18] MEDS ORDERED: FUROSEMIDE IV SCH (15:00)
[2017-04-18] MEDS: SODIUM CHLORIDE 0.9% IV SCH (15:40)
[2017-04-18] MEDS: FUROSEMIDE IV SCH (15:40)
[2017-04-18] MEDS: BIMATOPROST 0.01% OPH SOLN 2.5 ML BOTTLE BOTH EYES SCH (21:25)
[2017-04-18] MEDS: ATORVASTATIN 40 MG TABLET PO SCH (21:26)
[2017-04-18] MEDS: DONEPEZIL 5 MG TABLET PO SCH (21:26)
[2017-04-18] MEDS: LEVOFLOXACIN 500 MG TABLET PO SCH (21:27)
[2017-04-19] MEDS: FUROSEMIDE IV SCH (03:43)
[2017-04-19] MEDS: SODIUM CHLORIDE 0.9% IV SCH (03:43)
[2017-04-19 03:46] LABS: Basophils % 0.2 % (0.0-0.8); Eosinophils # 0.2 10*3/uL (0.0-0.87); Eosinophils % 4.6 % (0.00-10.9); Hematocrit 23.7 VOL% (42.0-52.0); Hemoglobin 8.1 GM/DL (14.0-18.0); Immature Granulocytes % 0.2 %; Immature Granulocytes Absolute 0.01 #; Lymphocytes # 0.7 10*3/uL (1.4-4.0); Lymphocytes % 14.3 % (21.2-54.2); Mean Corpuscular HGB Conc 34.2 GM/DL (32-36); Mean Corpuscular Hemoglobin 27 PG (27-34); Mean Corpuscular Volume 78.7 FL (87-102); Mean Platelet Volume 10.4 FL (9.6-12.0); Monocytes # 0.6 10*3/uL (0.11-0.8); Monocytes % 11.5 % (1.7-12.7); Neutrophils # 3.5 10*3/uL (1.4-7.4); Neutrophils % 69.2 % (38.7-73.9); Platelet Count 152 T/CUMM (130-400); Red Blood Count 3.01 MC/CUMM (3.8-5.5)
[2017-04-19 04:20] LABS: Calcium 8.3 MG/DL (8.5-10.1); Magnesium 2.7 MG/DL (1.8-2.4); Osmolality,Calculated 290.9 MOS/KG (273-304); Potassium 4.6 MMOL/L (3.5-5.1)
[2017-04-19] MEDS: DEXTROSE 50% 25 GM/50 ML VIAL IV PRN (04:35)
--- NOTE | 2017-04-19 06:56 | XRay Report ---
Exam: XR chest 1V portable Date: 04/19/2017 4:00 AM Indication: Pleural effusion Comparison: 04/17/2017 Technical: AP portable Findings: Cardiomegaly is present with shunt vascularity and alveolar edema and low volume effusions bilaterally. No pneumothorax. External cardiac leads oxygen present. Impression: 1. Persistent findings of CHF and effusions similar to previous study PROCEDURE INTERPRETED AT [facility] DEPARTMENT OF RADIOLOGY Final Report Signed by: Dr. Tiburcio Benitez
[2017-04-19] MEDS: ALBUTEROL/IPRATROPIUM 3 ML NEB RESP TX SCH ×4 (07:27→19:12)
--- NOTE | 2017-04-19 08:07 | Hospitalist Progress Note ---
Assessment and Plan (1) Congestive heart failure Status: Acute Assessment and plan: Impression: 1. Acute on chronic diastolic congestive heart failure 2. Chronic kidney disease with continued acute worsening; rate of decline appears to be slowing 3. Anemia, likely due to chronic kidney disease Plan: Switch to oral diuretics with continued monitoring of fluid status and kidney function This note was completed using [employer] voice recognition software. There may be fur mixer operator errors as a result. Current Visit: Yes Qualifiers: Congestive heart failure type: diastolic Congestive heart failure chronicity: acute on chronic Qualified Code(s): I50.33 - Acute on chronic diastolic (congestive) heart failure Hospitalist: Subjective Interval history: Follow-up acute on chronic diastolic congestive heart failure, acute on chronic renal failure, and anemia of chronic disease. The patient became hypoglycemic last night. He is on more insulin now that he usually takes at home. He continues on the furosemide infusion. Peripheral edema continues to improve. Exam - Constitutional Vitals: Period Temp Pulse Resp BP Sys/Stewart Pulse Ox Last 24 Hr 96.8 F-97.6 F 62-86 16-36 117-152/63-77 93-99 He is awake and conversant. Heart is regular with distant tones. He has a few scattered rales in the chest. Peripheral edema has just about resolved. Results - Labs CBC & BMP: 04/19/17 03:37 04/19/17 03:37 Lab Results: I have reviewed the past 24 hour labs (Creatinine continues a slow upward trend) Specialty Discharge - Follow Up or Referrals Follow up with: Pineda Collins MD [Physician] - 1 Month (follow-up one month after discharge with next available thyroid ultrasound with FNA)
--- NOTE | 2017-04-19 08:12 | Nephrology Progress Note ---
Nephrology - PN: Subj Interval history: Mr. Em is seen in follow-up of his renal failure and volume overload. He is comfortable breathing without increased effort. His chest is clear grossly to exam. He still has a lot of peripheral edema. We are going to continue his metolazone and switch to p.o. Lasix. We need to see if he can decrease his fluid weight now on oral agents. Will check lab tomorrow. Exam (PN)-Nephrology - Vital Signs Vital signs: Period Temp Pulse Resp BP Sys/Stewart Pulse Ox Last 24 Hr 96.8 F-97.6 F 62-86 16-36 117-152/63-77 93-99 - Lab 04/19/17 03:37 04/19/17 03:37 Most recent lab results ABG pH 7.213 (7.35-7.45) L 04/14/17 16:57 ABG pCO2 58.9 MM HG (35-48) H 04/14/17 16:57 ABG pO2 56.8 MM HG (80-95) L 04/14/17 16:57 ABG HCO3 20.4 MMOL/L (20-26) 04/14/17 16:57 ABG O2 Saturation 85.2 % (95-100) L 04/14/17 16:57 Calcium 8.3 MG/DL (8.5-10.1) L 04/19/17 03:37 Magnesium 2.7 MG/DL (1.8-2.4) H 04/19/17 03:37 Assessment and Plan (1) Edhbj-be-eobhuvq renal failure Status: Acute Current Visit: Yes (2) Edema Status: Chronic Current Visit: Yes Specialty Discharge - Follow Up or Referrals Follow up with: Pineda Collins MD [Physician] - 1 Month (follow-up one month after discharge with next available thyroid ultrasound with FNA)
--- NOTE | 2017-04-19 08:52 | General Surgery Progress Note ---
Assessment and Plan - Time spent with patient Time spent with patient: Less than 30 minutes (1) Decubitus ulcer Status: Acute Assessment and plan: 04/19/2017. Stage II sacral decubitus ulcer is healing well. I see no new signs of breakdown, and the periwound skin appears to be in good shape. Nutritionally he is eating well, and medical issues seem to be improving slowly. Agree with current plan of phones and offloading as much as possible. This was discussed again with the patient and his . He is of course at increased risk of breakdown in this as well as his lower extremity areas and other pressure points, but at this point his skin issues look better than we have seen them in some time. We will continue to follow as long as he is hospitalized. Current Visit: Yes Qualifiers: Pressure ulcer location: sacral region Pressure ulcer stage: stage 2 Qualified Code(s): L89.152 - Pressure ulcer of sacral region, stage 2 Subjective Patient reports: Present: other (Patient sitting up in bed, eating breakfast without complaints.) Exam - Constitutional Vitals: Period Temp Pulse Resp BP Sys/Stewart Pulse Ox Last 24 Hr 96.8 F-97.6 F 62-86 16-36 117-152/63-77 93-99 General appearance: other (He has a chronically ill-appearing black male who is awake and alert, but appears in no distress.) - Respiratory Respiratory exam: Absent: rales, wheezes - Cardiovascular Cardiovascular exam: Present: RRR - GI/Abdominal GI/Abdominal exam: Present: hypoactive bowel sounds, soft - Extremities Exam Extremities exam: Present: other (Bilateral lower extremities without edema. He has diabetic socks in place with heel protection boots applied.) - Back Exam Back exam: Present: other (Sacral decubitus is clean, with pink healing tissue. There is no new breakdown and only superficial skin loss is present.) Results - Labs CBC & BMP: 04/19/17 03:37 04/19/17 03:37 Lab Results: I have reviewed the past 24 hour labs Specialty Discharge - Follow Up or Referrals Follow up with: Pineda Collins MD [Physician] - 1 Month (follow-up one month after discharge with next available thyroid ultrasound with FNA)
[2017-04-19] MEDS: INSULIN NPH/REGULAR 70/30 100 UNIT/ML SUBCUT SCH ×3 (08:59→16:40)
[2017-04-19] MEDS: BUDESONIDE/FORMOTEROL 160-4.5 INHALER 6 GM INH SCH ×2 (09:51→21:58)
[2017-04-19] MEDS: DORZOLAMIDE/TIMOLOL OPH SOLN 10 ML BOTTLE BOTH EYES SCH ×2 (09:51→21:58)
[2017-04-19] MEDS: BRIMONIDINE 0.1% OPH SOLN 5 ML BOTTLE BOTH EYES SCH ×3 (09:51→21:57)
[2017-04-19] MEDS: PENTOXIFYLLINE 400 MG TABLET PO SCH (09:54)
[2017-04-19] MEDS: THEOPHYLLINE ER (24 HR) 300 MG CAPSULE PO SCH (09:54)
[2017-04-19] MEDS: CETIRIZINE 10 MG TABLET PO SCH (09:58)
[2017-04-19] MEDS: MONTELUKAST 10 MG TABLET PO SCH (09:58)
[2017-04-19] MEDS: GEMFIBROZIL 600 MG TABLET PO SCH ×2 (10:10→21:59)
[2017-04-19] MEDS: CARVEDILOL 12.5 MG TABLET PO SCH ×2 (10:10→22:00)
[2017-04-19] MEDS: CLOPIDOGREL 75 MG TABLET PO SCH (10:13)
[2017-04-19] MEDS: MULTIVITAMIN (OCUVITE) TABLET PO SCH (10:14)
[2017-04-19] MEDS: metOLazone 5 MG TABLET PO SCH ×2 (10:14→22:01)
[2017-04-19] MEDS: PANTOPRAZOLE 40 MG TABLET PO SCH ×2 (10:14→22:00)
[2017-04-19] MEDS: MAGNESIUM CHLORIDE 64 MG TABLET PO SCH ×2 (10:14→21:59)
[2017-04-19] MEDS: CHOLECALCIFEROL 1,000 UNIT TABLET PO SCH (10:17)
--- NOTE | 2017-04-19 13:39 | Pulmonology Progress Note ---
Pulmonary - PN: Subj Interval history: Patient is 67-year-old black man that has diabetes hypertension and chronic renal failure. He is basically bedridden. He has had a history of CVA and has some mental retardation. He can communicate but is very slow. He cannot walk or do any activity. He has worsening renal insufficiency and congestive heart failure. He is on a Lasix infusion and has some output. He does seem to be diuresing a little better. He still has some cough and congestion and did not sleep very well last night. He says he is breathing okay at present. His chest x-ray still shows extensive bilateral changes. His creatinine is still 5. At present he is comfortable. Exam (Progress Note) - Constitutional Vitals: Period Temp Pulse Resp BP Sys/Stewart Pulse Ox Last 24 Hr 96.8 F-97.6 F 62-86 16-36 117-152/63-84 91-99 Exam: General appearance: normal weight, the patient is very ill but is comfortable lying in bed. He gets short of breath easily. - Head Head exam: Present: normal inspection, normocephalic - Eye Eye exam: Present: EOMI, other (Bilateral arcus). Absent: nystagmus Pupils: Present: SLY - ENT ENT exam: Present: normal exam - Neck Neck exam: Present: thyromegaly. Absent: lymphadenopathy - Respiratory Respiratory exam: Present: He has coarse breath sounds bilaterally and still has bilateral rales and rhonchi. - Cardiovascular Cardiovascular exam: Present: regular rate and rhythm, systolic murmur (He has a soft systolic murmur). Absent: gallop, JVD - GI/Abdominal GI/Abdominal exam: Present: normal bowel sounds, soft. Absent: organomegaly, tenderness. His scrotal edema is better. - Extremities Exam Extremities exam: Present: edema (He does have some brawny edema of the legs. His legs are doing a little better.) - Neurological Exam Neurological exam: Present: He responds okay but is not as alert. - Psychiatric Psychiatric exam: Present: normal affect - Skin Skin exam: Present: other (He does have some wounds on his feet and sacrum) Results - Labs CBC & BMP: 04/19/17 03:37 04/19/17 03:37 - Diagnostic Findings Procedure: Chest x-ray: image reviewed by me, report reviewed by me (Chest x- ray still has extensive bilateral infiltrates and suggests chronic heart failure.) Assessment and Plan (1) Chronic renal failure Status: Chronic Assessment and plan: The patient's creatinine is stable at 5.0. His urine output does look better and he is still breathing comfortably. Current Visit: Yes Qualifiers: Chronic kidney disease stage: stage 4 (severe) Qualified Code(s): N18.4 - Chronic kidney disease, stage 4 (severe) (2) Hypertension Status: Chronic Assessment and plan: The patient will continue with blood pressure medicines and he is stable at present. His heart rate and blood pressure have been stable. He is still very debilitated however. Current Visit: No Qualifiers: Hypertension type: essential hypertension Qualified Code(s): I10 - Essential (primary) hypertension (3) Diabetes mellitus Status: Chronic Assessment and plan: His glucoses have been under good control so far. His glucose is 125 this morning. Current Visit: No Qualifiers: Diabetes mellitus type: type 2 Diabetes mellitus complication detail: with chronic kidney disease Chronic kidney disease stage: stage 4 (severe) (4) chronic lower extremity wounds Status: Chronic Assessment and plan: Patient is being seen by surgery for wounds. He will continue with wound care. His wounds are apparently stable Current Visit: No (5) Anemia in chronic kidney disease Status: Chronic Assessment and plan: The patient's hematocrit is 23.7 this morning and basically unchanged. Current Visit: No (6) Pleural effusion Status: Acute Assessment and plan: Patient has bilateral pleural effusions and he had a right thoracentesis Saturday. The pleural fluid is a transudate. He still has diffuse infiltrates and the chest x-ray is consistent with heart failure. Current Visit: Yes (7) CHF (congestive heart failure), NYHA class III Status: Acute Assessment and plan: Patient looks like he is in heart failure and is very hard to get rid of fluid in him. He is getting high-dose diuretics and seems to be responding a little today. He still looks like he is breathing comfortably although his chest x- ray looks terrible. His overall outlook is poor. Current Visit: Yes Qualifiers: Congestive heart failure type: diastolic Congestive heart failure chronicity: acute on chronic Qualified Code(s): I50.33 - Acute on chronic diastolic (congestive) heart failure (8) Decubitus ulcer Status: Acute Assessment and plan: The patient's ulcers are being evaluated by surgery. Current Visit: Yes Qualifiers: Pressure ulcer location: sacral region Pressure ulcer stage: stage 2 Qualified Code(s): L89.152 - Pressure ulcer of sacral region, stage 2 Specialty Discharge - Follow Up or Referrals Follow up with: Pineda Collins MD [Physician] - 1 Month (follow-up one month after discharge with next available thyroid ultrasound with FNA)
[2017-04-19] MEDS: FUROSEMIDE 80 MG TABLET PO SCH (16:21)
[2017-04-19] MEDS: MENTHOL/ZINC OXIDE OINT 71 GM JAR TOP SCH ×2 (17:30→22:01)
[2017-04-19] MEDS: BACITRACIN OINT 0.9 GM PACK TOP SCH (17:30)
[2017-04-19] MEDS: BIMATOPROST 0.01% OPH SOLN 2.5 ML BOTTLE BOTH EYES SCH (21:57)
[2017-04-19] MEDS: ATORVASTATIN 40 MG TABLET PO SCH (22:00)
[2017-04-19] MEDS: DONEPEZIL 5 MG TABLET PO SCH (22:01)
[2017-04-20 03:15] LABS: Calcium 7.8 MG/DL (8.5-10.1); Osmolality,Calculated 297.9 MOS/KG (273-304); Potassium 4.6 MMOL/L (3.5-5.1)
[2017-04-20] MEDS: DORZOLAMIDE/TIMOLOL OPH SOLN 10 ML BOTTLE BOTH EYES SCH ×2 (08:00→22:50)
--- NOTE | 2017-04-20 08:09 | Hospitalist Progress Note ---
Assessment and Plan (1) Congestive heart failure Status: Acute Assessment and plan: Impression: 1. Acute on chronic diastolic congestive heart failure 2. Chronic kidney disease with continued acute worsening; rate of decline appears to be slowing 3. Anemia, likely due to chronic kidney disease 4. Type II DM Plan: Continue oral diuretics and close monitoring of fluid status and kidney function. Remove Rivera catheter. Continue insulin at current dosing schedule. This note was completed using [employer] voice recognition software. There may be foot roentgenologist errors as a result. Current Visit: Yes Qualifiers: Congestive heart failure type: diastolic Congestive heart failure chronicity: acute on chronic Qualified Code(s): I50.33 - Acute on chronic diastolic (congestive) heart failure Hospitalist: Subjective Interval history: Follow-up acute on chronic diastolic congestive heart failure, acute on chronic kidney disease, and hypoglycemia. The patient's glucoses appear to have improved following the reduction of insulin. Family thinks that he slept fairly well last night. His dyspnea appears to be at baseline. Unfortunately, his creatinine continues to rise slowly. He has a Rivera catheter, and he uses a urinal at home Exam - Constitutional Vitals: Period Temp Pulse Resp BP Sys/Stewart Pulse Ox Last 24 Hr 97.0 F-97.5 F 59-80 14-20 137-154/65-84 91-98 Vital signs are noted above. Heart is regular with distant tones and no murmur. He has a few rales in the chest. He is awake and conversant. Results - Labs CBC & BMP: 04/19/17 03:37 04/20/17 02:39 Lab Results: I have reviewed the past 24 hour labs (Creatinine continues to trend upward.) Specialty Discharge - Follow Up or Referrals Follow up with: Pineda Collins MD [Physician] - 1 Month (follow-up one month after discharge with next available thyroid ultrasound with FNA)
[2017-04-20] MEDS: INSULIN NPH/REGULAR 70/30 100 UNIT/ML SUBCUT SCH ×2 (08:21→16:30)
[2017-04-20] MEDS: BRIMONIDINE 0.1% OPH SOLN 5 ML BOTTLE BOTH EYES SCH ×3 (08:23→22:49)
--- NOTE | 2017-04-20 08:39 | Cardiology Progress Note ---
Cardiology - PN: Subj Interval history: Cardiology note 64-year-old man with decompensated COPD. No fever. Less cough. Telemetry shows sinus rhythm with occasional PACs and PVCs. No episodes of atrial fib. Blood pressure 160/80 in the left arm by me. Decreased breath sounds with basilar rhonchi Regular rhythm no murmur or gallop Abdomen benign No leg edema Lab data today White count 9.6 hemoglobin 12.3 hematocrit 37.2 Sodium 137 potassium 4.2 chloride 99 CO2 31 BUN 24 creatinine 1.0 Theophylline 14.4 Impression Decompensated COPD Status post pneumonia 1 week ago History pulmonary embolus 2013 Chronic hypertension Former tobacco abuse quit 2014 Echo last week EF 60% with aortic valve sclerosis and mild TR Plan Steroids IV antibiotics and nebs Coreg 25 mg twice daily Norvasc 10 mg daily Hydralazine 100 mg 3 times daily Exam (Progress Note) - Constitutional Vitals: Period Temp Pulse Resp BP Sys/Stewart Pulse Ox Last 24 Hr 97.0 F-97.5 F 59-80 14-20 137-154/65-84 91-98 Result/EKG - Labs CBC & BMP: 04/19/17 03:37 04/20/17 02:39 Labs: Laboratory Results - last 24 hr 04/19/17 04/20/17 04/20/17 15:31 00:51 02:39 Sodium 129 L Potassium 4.6 Chloride 90 L Carbon Dioxide 26 Anion Gap 17.6 H BUN 122 H Creatinine 5.10 H GFR Calculation 16 BUN/Creatinine Ratio 23.00 H Glucose 114 H POC Glucose 137 H 136 H Calculated Osmolality 297.9 Calcium 7.8 L Specialty Discharge - Follow Up or Referrals Follow up with: Pineda Collins MD [Physician] - 1 Month (follow-up one month after discharge with next available thyroid ultrasound with FNA)
[2017-04-20] MEDS: FUROSEMIDE 80 MG TABLET PO SCH ×2 (08:59→16:00)
[2017-04-20] MEDS: ALBUTEROL/IPRATROPIUM 3 ML NEB RESP TX SCH ×4 (09:00→19:30)
[2017-04-20] MEDS: CHOLECALCIFEROL 1,000 UNIT TABLET PO SCH (09:13)
[2017-04-20] MEDS: CLOPIDOGREL 75 MG TABLET PO SCH (09:15)
[2017-04-20] MEDS: PENTOXIFYLLINE 400 MG TABLET PO SCH (09:15)
[2017-04-20] MEDS: CETIRIZINE 10 MG TABLET PO SCH (09:15)
[2017-04-20] MEDS: metOLazone 5 MG TABLET PO SCH ×2 (09:15→22:42)
[2017-04-20] MEDS: THEOPHYLLINE ER (24 HR) 300 MG CAPSULE PO SCH (09:15)
[2017-04-20] MEDS: CARVEDILOL 12.5 MG TABLET PO SCH ×2 (09:15→22:43)
[2017-04-20] MEDS: MULTIVITAMIN (OCUVITE) TABLET PO SCH (09:15)
[2017-04-20] MEDS: GEMFIBROZIL 600 MG TABLET PO SCH ×2 (09:15→22:44)
[2017-04-20] MEDS: MAGNESIUM CHLORIDE 64 MG TABLET PO SCH ×2 (09:16→22:43)
[2017-04-20] MEDS: MONTELUKAST 10 MG TABLET PO SCH (09:16)
[2017-04-20] MEDS: PANTOPRAZOLE 40 MG TABLET PO SCH ×2 (09:16→22:44)
[2017-04-20] MEDS: CYPROHEPTADINE 4 MG TABLET PO SCH ×3 (09:16→22:43)
[2017-04-20] MEDS: BACITRACIN OINT 0.9 GM PACK TOP SCH (09:16)
[2017-04-20] MEDS: MENTHOL/ZINC OXIDE OINT 71 GM JAR TOP SCH ×2 (09:17→22:44)
[2017-04-20] MEDS: BUDESONIDE/FORMOTEROL 160-4.5 INHALER 6 GM INH SCH ×2 (09:19→22:49)
--- NOTE | 2017-04-20 09:38 | Pulmonology Progress Note ---
Pulmonary - PN: Subj Interval history: This is a 67-year-old black male whom I am seeing for Dr. Feng Whipple. The patient is very debilitated and has some bed ridden. His mentation is somewhat slow. He has chronic renal failure. He has had bilateral pulmonary infiltrates and at times he is very short of breath and at other times he looks okay. Dr. Whipple thinks that this is fluid and he has been trying to diurese the patient but he has had problems with elevation of his creatinine. He thinks this patient will probably end up on dialysis. This morning the patient was seen along with the female family member. He does not communicate well but he had an uneventful night according to the family member. Lab. Sodium is 129, potassium 4.6, chloride is 90, BUN is 122, creatinine is 5.10. Physical exam. Vital signs see below Neurologic. This patient is hard of hearing. He has some movement in all 4 extremities. Face is symmetrical. No swelling of his lips or tongue. Neck. Slightly kyphotic. No meningismus. Heart. Lateral PMI Chest. Mild to moderate large airway congestion partially clears with cough. Abdomen. Nondistended. A few bowel sounds were heard. General. Patient does not appear to be in any distress. He does have a tendency towards shortness of breath with movement. The remainder the physical exam is negative Plan 1. See above 2. Continue present red Exam (Progress Note) - Constitutional Vitals: Period Temp Pulse Resp BP Sys/Stewart Pulse Ox Last 24 Hr 97.0 F-97.5 F 59-80 14-20 137-154/65-84 91-98 Results - Labs CBC & BMP: 04/19/17 03:37 04/20/17 02:39 Specialty Discharge - Follow Up or Referrals Follow up with: Pineda Collins MD [Physician] - 1 Month (follow-up one month after discharge with next available thyroid ultrasound with FNA)
--- NOTE | 2017-04-20 12:12 | Nephrology Progress Note ---
Nephrology - PN: Subj Interval history: Mr. Em is seen in follow-up of his renal impairment. He is not making a lot of progress with diuresis. He still has tremendous peripheral edema and is not short of breath but does not move at all. Previous chest x-rays have shown excessive lung water. He has developed hematuria due to his Rivera catheter. We discussed the situation with multiple family members and with his rising serum creatinine, inability to get an effective diuresis, and overall decline they wish to begin hemodialysis. He did undergo a spell of hemodialysis in the past so they are familiar with it and its problems. A used to have him transported to dialysis by ambulance and will do that again. Our plan for now will be to ask for placement of a tunneled dialysis catheter on Saturday and will begin dialysis then. With his first dialysis will remove fluid and we can easily transfused during dialysis if necessary. Exam (PN)-Nephrology - Vital Signs Vital signs: Period Temp Pulse Resp BP Sys/Stewart Pulse Ox Last 24 Hr 97.0 F-97.5 F 59-80 14-20 137-154/65-75 93-98 - Lab 04/19/17 03:37 04/20/17 02:39 Most recent lab results ABG pH 7.213 (7.35-7.45) L 04/14/17 16:57 ABG pCO2 58.9 MM HG (35-48) H 04/14/17 16:57 ABG pO2 56.8 MM HG (80-95) L 04/14/17 16:57 ABG HCO3 20.4 MMOL/L (20-26) 04/14/17 16:57 ABG O2 Saturation 85.2 % (95-100) L 04/14/17 16:57 Calcium 7.8 MG/DL (8.5-10.1) L 04/20/17 02:39 Magnesium 2.7 MG/DL (1.8-2.4) H 04/19/17 03:37 Assessment and Plan (1) Wlvvr-[id number]-gnlwbyj renal failure Status: Acute Current Visit: Yes (2) Edema Status: Chronic Current Visit: Yes Specialty Discharge - Follow Up or Referrals Follow up with: Pineda Collins MD [Physician] - 1 Month (follow-up one month after discharge with next available thyroid ultrasound with FNA)
--- NOTE | 2017-04-20 15:51 | Event Note ---
After sterile prep and informed consent and sterile barrier with ultrasound localization a right internal jugular triple lumen dialysis catheter was placed. Good blood flow was aspirated from all 3 lumens. Chest x-ray confirmed good position. Patient will be dialyzed today.
--- NOTE | 2017-04-20 15:52 | Dialysis Note ---
Dialysis Note - Dialysis Note Mr. Em is seen in the dialysis unit. Will be ultrafiltering for 1 hour to remove 1-1/2-2 L of fluid and then dialyzing for approximately 2 hours to remove other fluid and lower the BUN. Next dialysis is anticipated on Saturday.
--- NOTE | 2017-04-20 15:56 | XRay Report ---
History: Dialysis catheter placement Date: 04/20/2017 Study: Chest x-ray AP portable Comparison exam: 04/19/2017 A right IJ central venous catheter is positioned with its tip over the atriocaval junction level. There is no pneumothorax. There is cardiomegaly. The pulmonary vasculature is prominent and ill-defined. There is patchy and hazy alveolar pulmonary edema throughout both lungs, more so in the lung bases. This is grossly similar to the previous study. There is mild bilateral pleural effusion, the same or slightly improved. Osseous structures are unchanged. Impression: Satisfactory positioning of the central venous catheter. No pneumothorax. Continued congestive heart failure with pulmonary edema as before PROCEDURE INTERPRETED AT [facility] DEPARTMENT OF RADIOLOGY Final Report Signed by: Dr. Carlyn Thorpe
[2017-04-20 16:36] LABS: Hepatitis A Ab IgM Quant 0.18 Index; Hepatitis A Ab IgM Result Negative (Negative); Hepatitis B Core IgM Quant 0.15 Index; Hepatitis B Core IgM Result Negative (Negative); Hepatitis B Surface Ag Quant < 0.10 Index; Hepatitis B Surface Ag Result Negative (Negative); Hepatitis C Virus Ab Quant 0.04 Index; Hepatitis C Virus Ab Result Negative (Negative)
[2017-04-20] MEDS: DONEPEZIL 5 MG TABLET PO SCH (22:42)
[2017-04-20] MEDS: LEVOFLOXACIN 500 MG TABLET PO SCH (22:42)
[2017-04-20] MEDS: ATORVASTATIN 40 MG TABLET PO SCH (22:43)
[2017-04-20] MEDS: BIMATOPROST 0.01% OPH SOLN 2.5 ML BOTTLE BOTH EYES SCH (22:50)
[2017-04-21 06:15] LABS: Calcium 8.3 MG/DL (8.5-10.1); Osmolality,Calculated 290.9 MOS/KG (273-304); Potassium 4.2 MMOL/L (3.5-5.1)
[2017-04-21] MEDS: ALBUTEROL/IPRATROPIUM 3 ML NEB RESP TX SCH ×4 (07:07→20:26)
[2017-04-21] MEDS: INSULIN NPH/REGULAR 70/30 100 UNIT/ML SUBCUT SCH ×2 (07:35→17:03)
--- NOTE | 2017-04-21 07:48 | Hospitalist Progress Note ---
Assessment and Plan (1) Congestive heart failure Status: Acute Assessment and plan: Impression: 1. Acute on chronic diastolic congestive heart failure 2. Chronic kidney disease with acute worsening; lab looks better following dialysis 3. Anemia, likely due to chronic kidney disease 4. Type II DM Plan: Continue dialysis per nephrology. I think we could consider discontinuing diuretics now that he is on dialysis. This note was completed using [employer] voice recognition software. There may be senior producer errors as a result. Current Visit: Yes Qualifiers: Congestive heart failure type: diastolic Congestive heart failure chronicity: acute on chronic Qualified Code(s): I50.33 - Acute on chronic diastolic (congestive) heart failure Hospitalist: Subjective Interval history: Follow-up acute on chronic diastolic congestive heart failure, acute on chronic renal failure, type II DM, and anemia of chronic disease. The patient started dialysis yesterday, and tolerated it without difficulty. Family reports that he had a pretty good night. The patient denies any complaints to me. Exam - Constitutional Vitals: Period Temp Pulse Resp BP Sys/Stewart Pulse Ox Last 24 Hr 96.3 F-97.9 F 55-94 14-28 133-159/63-83 76-100 Vital signs are noted above. Heart is regular with some skips. There is no murmur or gallop. He has a few rhonchi in the chest. Abdomen is soft with good bowel sounds. Edema appears unchanged. He still has some edema of the thighs and abdominal wall. He is awake and conversant Results - Labs CBC & BMP: 04/19/17 03:37 04/21/17 05:33 Lab Results: I have reviewed the past 24 hour labs Specialty Discharge - Follow Up or Referrals Follow up with: Pineda Collins MD [Physician] - 1 Month (follow-up one month after discharge with next available thyroid ultrasound with FNA)
[2017-04-21] MEDS: FUROSEMIDE 80 MG TABLET PO SCH ×2 (08:57→16:19)
[2017-04-21] MEDS: BUDESONIDE/FORMOTEROL 160-4.5 INHALER 6 GM INH SCH ×2 (09:01→21:47)
[2017-04-21] MEDS: BRIMONIDINE 0.1% OPH SOLN 5 ML BOTTLE BOTH EYES SCH ×3 (09:01→21:48)
[2017-04-21] MEDS: CHOLECALCIFEROL 1,000 UNIT TABLET PO SCH (09:04)
[2017-04-21] MEDS: CETIRIZINE 10 MG TABLET PO SCH (09:05)
[2017-04-21] MEDS: PENTOXIFYLLINE 400 MG TABLET PO SCH (09:05)
[2017-04-21] MEDS: BACITRACIN OINT 0.9 GM PACK TOP SCH (09:05)
[2017-04-21] MEDS: CARVEDILOL 12.5 MG TABLET PO SCH ×2 (09:05→22:02)
[2017-04-21] MEDS: CYPROHEPTADINE 4 MG TABLET PO SCH ×3 (09:07→21:36)
[2017-04-21] MEDS: MAGNESIUM CHLORIDE 64 MG TABLET PO SCH ×2 (09:07→21:37)
[2017-04-21] MEDS: metOLazone 5 MG TABLET PO SCH ×2 (09:07→21:36)
[2017-04-21] MEDS: MULTIVITAMIN (OCUVITE) TABLET PO SCH (09:07)
[2017-04-21] MEDS: PANTOPRAZOLE 40 MG TABLET PO SCH ×2 (09:07→21:37)
[2017-04-21] MEDS: THEOPHYLLINE ER (24 HR) 300 MG CAPSULE PO SCH (09:08)
[2017-04-21] MEDS: MONTELUKAST 10 MG TABLET PO SCH (09:08)
[2017-04-21] MEDS: CLOPIDOGREL 75 MG TABLET PO SCH (09:08)
[2017-04-21] MEDS: GEMFIBROZIL 600 MG TABLET PO SCH ×2 (09:09→21:38)
[2017-04-21] MEDS: DORZOLAMIDE/TIMOLOL OPH SOLN 10 ML BOTTLE BOTH EYES SCH ×2 (09:10→21:49)
[2017-04-21] MEDS: MENTHOL/ZINC OXIDE OINT 71 GM JAR TOP SCH ×2 (09:10→21:58)
--- NOTE | 2017-04-21 10:18 | Nephrology Progress Note ---
Nephrology - PN: Subj Interval history: Mr. Em is better today. We did a first dialysis yesterday and removed about 3-1/2-4 kg of volume. He still has a good urine output on current diuretics. He is much more alert and is not short of breath at the present. He has considerable edema and will need to lose 10-15 kg with dialysis and diuresis. We will plan to dialyze again tomorrow with emphasis on fluid removal and I agree with Dr. Flynn that we can come off diuretics down the road since he is on dialysis. For now I am inclined to leave him on them so that he can get rid of this fluid overload faster. Once he is at or close to her dry weight will stop them. Again he is much better and much more alert today his is in the room with him and recognizes that. Exam (PN)-Nephrology - Vital Signs Vital signs: Period Temp Pulse Resp BP Sys/Stewart Pulse Ox Last 24 Hr 96.2 F-97.9 F 55-95 14-28 133-159/63-83 76-100 - Lab 04/19/17 03:37 04/21/17 05:33 Most recent lab results ABG pH 7.213 (7.35-7.45) L 04/14/17 16:57 ABG pCO2 58.9 MM HG (35-48) H 04/14/17 16:57 ABG pO2 56.8 MM HG (80-95) L 04/14/17 16:57 ABG HCO3 20.4 MMOL/L (20-26) 04/14/17 16:57 ABG O2 Saturation 85.2 % (95-100) L 04/14/17 16:57 Calcium 8.3 MG/DL (8.5-10.1) L 04/21/17 05:33 Magnesium 2.7 MG/DL (1.8-2.4) H 04/19/17 03:37 Assessment and Plan (1) Plcoy-tw-ldmixet renal failure Status: Acute Current Visit: Yes (2) Edema Status: Chronic Current Visit: Yes Specialty Discharge - Follow Up or Referrals Follow up with: Pineda Collins MD [Physician] - 1 Month (follow-up one month after discharge with next available thyroid ultrasound with FNA)
--- NOTE | 2017-04-21 12:52 | Pulmonology Progress Note ---
Pulmonary - PN: Subj Interval history: This is a 67-year-old black male whom I am seeing for Dr. Feng Whipple. The patient is very debilitated and has some bed ridden. His mentation is somewhat slow. He has chronic renal failure. He has had bilateral pulmonary infiltrates and at times he is very short of breath and at other times he looks okay. Dr. Whipple thinks that this is fluid and he has been trying to diurese the patient but he has had problems with elevation of his creatinine. He thinks this patient will probably end up on dialysis. This morning the patient was seen along with the female family member. He does not communicate well but he had an uneventful night according to the family member. Lab. Sodium is 129, potassium 4.6, chloride is 90, BUN is 122, creatinine is 5.10. 04/21/2017. On 04/20/2017 this patient was dialyzed. His volume was decreased and he is breathing much better. He was seen along with her his . They both are pleased. Sodium is 129. Potassium 4.2. Creatinine is 4.8. BUN is 103. Physical exam. Vital signs see below Neurologic. This patient is hard of hearing. He has some movement in all 4 extremities. Face is symmetrical. No swelling of his lips or tongue. Neck. Slightly kyphotic. No meningismus. Heart. Lateral PMI Chest. Mild to moderate large airway congestion partially clears with cough that was noted on 04/20/2017 has resolved. Patient still has some prolongation of expiration but congestion is just about cleared and he has much better expiratory excursion. No chest wall tenderness.. Abdomen. Nondistended. A few bowel sounds were heard. General. Patient does not appear to be in any distress. He does have a tendency towards shortness of breath with movement. The remainder the physical exam is negative Plan 04/20/2017 1. See above 2. Continue present red 04/21/2017. 1. See today's note above 2. The patient has improved significantly following fluid removal with dialysis Exam (Progress Note) - Constitutional Vitals: Period Temp Pulse Resp BP Sys/Stewart Pulse Ox Last 24 Hr 96.2 F-97.9 F 55-95 14-28 108-159/55-83 89-100 Results - Labs CBC & BMP: 04/19/17 03:37 04/21/17 05:33 Specialty Discharge - Follow Up or Referrals Follow up with: Pineda Collins MD [Physician] - 1 Month (follow-up one month after discharge with next available thyroid ultrasound with FNA)
[2017-04-21] MEDS: DONEPEZIL 5 MG TABLET PO SCH (21:35)
[2017-04-21] MEDS: ATORVASTATIN 40 MG TABLET PO SCH (21:38)
[2017-04-21] MEDS: BIMATOPROST 0.01% OPH SOLN 2.5 ML BOTTLE BOTH EYES SCH (21:48)
[2017-04-22 06:30] LABS: Calcium 7.8 MG/DL (8.5-10.1); Osmolality,Calculated 292.8 MOS/KG (273-304); Potassium 4.5 MMOL/L (3.5-5.1)
[2017-04-22] MEDS: ALBUTEROL/IPRATROPIUM 3 ML NEB RESP TX SCH ×4 (07:54→19:39)
--- NOTE | 2017-04-22 08:27 | Pulmonology Progress Note ---
Pulmonary - PN: Subj Interval history: This 67-year-old man had congestive heart failure. It is clearly improved after dialysis. Plans are for repeat dialysis today. I will recheck his x-ray tomorrow. Exam (Progress Note) - Constitutional Vitals: Period Temp Pulse Resp BP Sys/Stewart Pulse Ox Last 24 Hr 97.0 F-98.6 F 47-108 18-28 108-164/53-72 89-100 Exam: Patient is alert oriented vital signs normal. Pupils react to light. Throat is clear. Neck supple no bruits. Chest reveals a few basilar crackles. Heart normal rate and rhythm no murmurs. Abdomen soft nontender no masses. Extremities no clubbing cyanosis. Trace of edema. Calves nontender. Results - Labs CBC & BMP: 04/19/17 03:37 04/22/17 05:46 Lab Results: I have reviewed the past 24 hour labs Assessment and Plan (1) Diabetes mellitus Status: Chronic Assessment and plan: Glucoses fairly well controlled with current regimen. Current Visit: No Qualifiers: Diabetes mellitus type: type 2 Diabetes mellitus complication detail: with chronic kidney disease Chronic kidney disease stage: stage 4 (severe) (2) CHF (congestive heart failure), NYHA class III Status: Acute Assessment and plan: His dyspnea is much better after dialysis. Last chest x-ray showed improvement as well. Will recheck x-ray tomorrow after he was dialyzed today. Current Visit: Yes Qualifiers: Congestive heart failure type: diastolic Congestive heart failure chronicity: acute on chronic Qualified Code(s): I50.33 - Acute on chronic diastolic (congestive) heart failure (3) Siclq-sa-rqmrmvd renal failure Status: Acute Assessment and plan: Defer to nephrology as far as the long-term plans for dialysis. Current Visit: Yes Specialty Discharge - Follow Up or Referrals Follow up with: Pineda Collins MD [Physician] - 1 Month (follow-up one month after discharge with next available thyroid ultrasound with FNA)
[2017-04-22] MEDS: INSULIN NPH/REGULAR 70/30 100 UNIT/ML SUBCUT SCH ×2 (08:31→23:20)
--- NOTE | 2017-04-22 08:34 | Case Mgmt Physician Query Form ---
LONG STAY PHYSICIAN RECERTIFICATION *This form is to be completed for all Medicare patients before they reach day 20 of their hospitalization. Please complete each section as appropriate.* I certify that hospitalization, and continued hospitalization, for this patient is medically necessary as follows: 1) Reasons of either continued hospitalization of the patient for medical treatment or medically required diagnostic study or special or unusual services for cost outlier cases are as follows: Continued anemia; needed for dialysis; and ailing health 2) Estimated time patient will need to remain in hospital: 1 week 3) Plan for Post Hospital Care: ( ) Home with Primary Care Follow up (X ) Home with Home Health Follow up (X ) LTACH/ Acute Care Rehab/ SNF/Usp ( ) Other: If you have any questions, please contact me. Thank you, Divya Olivia R.N. Case Management P: [phone] F: [phone] E: [email or web address] If you have any questions, please contact me. Thank you, Aiyana MIREELS Email:[email or web address]
[2017-04-22] MEDS: PANTOPRAZOLE 40 MG TABLET PO SCH ×3 (08:50→21:01)
[2017-04-22] MEDS: GEMFIBROZIL 600 MG TABLET PO SCH ×3 (08:50→21:01)
[2017-04-22] MEDS: CHOLECALCIFEROL 1,000 UNIT TABLET PO SCH (08:50)
[2017-04-22] MEDS: CYPROHEPTADINE 4 MG TABLET PO SCH ×4 (08:51→21:01)
[2017-04-22] MEDS: MAGNESIUM CHLORIDE 64 MG TABLET PO SCH ×3 (08:51→21:01)
[2017-04-22] MEDS: THEOPHYLLINE ER (24 HR) 300 MG CAPSULE PO SCH (08:52)
[2017-04-22] MEDS: MULTIVITAMIN (OCUVITE) TABLET PO SCH (08:53)
[2017-04-22] MEDS: DOCUSATE SODIUM 100 MG CAPSULE PO PRN (08:54)
[2017-04-22] MEDS: metOLazone 5 MG TABLET PO SCH ×2 (08:54→20:59)
[2017-04-22] MEDS: CETIRIZINE 10 MG TABLET PO SCH (08:54)
[2017-04-22] MEDS: MONTELUKAST 10 MG TABLET PO SCH (08:55)
[2017-04-22] MEDS: FUROSEMIDE 80 MG TABLET PO SCH ×2 (08:55→15:38)
[2017-04-22] MEDS: CARVEDILOL 12.5 MG TABLET PO SCH ×3 (08:56→21:01)
[2017-04-22] MEDS: BRIMONIDINE 0.1% OPH SOLN 5 ML BOTTLE BOTH EYES SCH ×3 (09:00→21:01)
--- NOTE | 2017-04-22 09:43 | Dialysis Note ---
Dialysis Note - Dialysis Note Patient seen on dialysis he tolerated procedure blood pressures 131/72 Perivascular regular rate. Lungs are clear to auscultation.
--- NOTE | 2017-04-22 10:14 | Dialysis Note ---
Dialysis Note - Dialysis Note Mr. Em is seen during his hemodialysis. We are removing 4 kg of fluid today with a 4 hour dialysis. Will ask surgeons to place a tunneled dialysis catheter and swap it out for this temporary catheter that he has in place. He still is quite edematous but much less short of breath and he is improved. We still get a good bit more swelling to get rid of. We are using diuretics in addition to the dialysis for now and will stop those once his fluid volume is better controlled.
[2017-04-22] MEDS: MENTHOL/ZINC OXIDE OINT 71 GM JAR TOP SCH ×2 (15:36→21:02)
[2017-04-22] MEDS: BACITRACIN OINT 0.9 GM PACK TOP SCH (15:36)
[2017-04-22] MEDS: CLOPIDOGREL 75 MG TABLET PO SCH (15:37)
[2017-04-22] MEDS: PENTOXIFYLLINE 400 MG TABLET PO SCH (15:38)
[2017-04-22] MEDS: BUDESONIDE/FORMOTEROL 160-4.5 INHALER 6 GM INH SCH ×2 (15:39→21:00)
[2017-04-22] MEDS: DORZOLAMIDE/TIMOLOL OPH SOLN 10 ML BOTTLE BOTH EYES SCH ×2 (15:40→21:01)
--- NOTE | 2017-04-22 16:19 | Hospitalist Progress Note ---
Assessment and Plan (1) [id number] renal failure Status: Acute Assessment and plan: - Renal following - started dialysis - will monitor Current Visit: Yes (2) Congestive heart failure Status: Acute Assessment and plan: - oxygen - telemetry - IV Diuresis - Monitoring I's and O's - will monitor - Family refusing LTAC currently Current Visit: Yes Qualifiers: Congestive heart failure type: diastolic Congestive heart failure chronicity: acute on chronic Qualified Code(s): I50.33 - Acute on chronic diastolic (congestive) heart failure Hospitalist: Subjective Interval history: Mr. Manriquez was admitted for acute on chronic CHF exacerbation and acute on chronic renal failure that is now receiving dialysis. Patient reports feeling better today. No complaints. Exam - Constitutional Vitals: Period Temp Pulse Resp BP Sys/Stewart Pulse Ox Last 24 Hr 97.0 F-98.6 F 80-108 18-28 131-164/63-72 93-100 General appearance: normal weight - Head Head exam: Present: normal inspection - Eye Eye exam: Present: EOMI - Respiratory Respiratory exam: Present: decreased breath sounds (throughout), rales ( throughout) - Cardiovascular Cardiovascular exam: Present: regular rate and rhythm - GI/Abdominal GI/Abdominal exam: Present: normal bowel sounds, soft. Absent: tenderness - Extremities Exam Extremities exam: Present: edema (pitting edema; stage 1 ulcer on right heel; ulcer on 5th right toe) - Psychiatric Psychiatric exam: Present: normal affect, normal mood Results - Labs CBC & BMP: 04/19/17 03:37 04/22/17 05:46 Specialty Discharge - Follow Up or Referrals Follow up with: Pineda Collins MD [Physician] - 1 Month (follow-up one month after discharge with next available thyroid ultrasound with FNA)
[2017-04-22] MEDS: ATORVASTATIN 40 MG TABLET PO SCH (20:58)
[2017-04-22] MEDS: DONEPEZIL 5 MG TABLET PO SCH (20:59)
[2017-04-22] MEDS: LEVOFLOXACIN 500 MG TABLET PO SCH (20:59)
[2017-04-22] MEDS: BIMATOPROST 0.01% OPH SOLN 2.5 ML BOTTLE BOTH EYES SCH (21:00)
[2017-04-23 06:19] LABS: Basophils % 0.5 % (0.0-0.8); Eosinophils # 0.5 10*3/uL (0.0-0.87); Eosinophils % 12.4 % (0.00-10.9); Hematocrit 22.2 VOL% (42.0-52.0); Hemoglobin 7.3 GM/DL (14.0-18.0); Immature Granulocytes % 0.2 %; Immature Granulocytes Absolute 0.01 #; Lymphocytes # 0.7 10*3/uL (1.4-4.0); Lymphocytes % 17.4 % (21.2-54.2); Mean Corpuscular HGB Conc 32.9 GM/DL (32-36); Mean Corpuscular Hemoglobin 26 PG (27-34); Mean Corpuscular Volume 80.4 FL (87-102); Mean Platelet Volume 11.4 FL (9.6-12.0); Monocytes # 0.7 10*3/uL (0.11-0.8); Monocytes % 17.9 % (1.7-12.7); Neutrophils # 2.1 10*3/uL (1.4-7.4); Neutrophils % 51.6 % (38.7-73.9); Platelet Count 176 T/CUMM (130-400); Red Blood Count 2.76 MC/CUMM (3.8-5.5); Red Cell Distribution Width 15.3 % (9.3-17.3)
[2017-04-23 06:46] LABS: Eosinophils 7 % (0-10); Hypochromasia 1+; Lymphocytes 17 % (20-55); Ovalocytes Slight; Platelet Estimate Normal; Segmented Neutrophils 61 % (50-85); Total Cells Counted 100
[2017-04-23 06:49] LABS: Osmolality,Calculated 281.2 MOS/KG (273-304); Potassium 3.8 MMOL/L (3.5-5.1)
[2017-04-23 06:54] LABS: Albumin 2.8 G/DL (3.4-5.0); Bilirubin,Total 0.8 MG/DL (0.2-1.0); Calcium 8.1 MG/DL (8.5-10.1); Osmolality,Calculated 280.2 MOS/KG (273-304); Potassium 3.9 MMOL/L (3.5-5.1); Total Protein 6.7 G/DL (6.4-8.3)
[2017-04-23] MEDS: ALBUTEROL/IPRATROPIUM 3 ML NEB RESP TX SCH ×4 (07:30→19:39)
--- NOTE | 2017-04-23 08:45 | Hospitalist Progress Note ---
Assessment and Plan (1) Bxeyt-ms-[id number] renal failure Status: Acute Assessment and plan: - Renal following - on dialysis - will monitor Current Visit: Yes (2) Congestive heart failure Status: Acute Assessment and plan: - oxygen - telemetry - Oral Diuresis - Monitoring I's and O's - On dialysis to assist with fluid status - will monitor - Family refusing LTAC currently Current Visit: Yes Qualifiers: Congestive heart failure type: diastolic Congestive heart failure chronicity: acute on chronic Qualified Code(s): I50.33 - Acute on chronic diastolic (congestive) heart failure (3) Hematuria Status: Acute Assessment and plan: - intermittently worse during admission - renal US ordered - will monitor Current Visit: Yes (4) Anemia Status: Acute Assessment and plan: - Likely multifactorial including CKD, blood in stool early during admission, hematuria - anemia panel ordered - will continue to monitor Current Visit: Yes Hospitalist: Subjective Interval history: Mr. Manriquez was admitted for acute on chronic CHF exacerbation and acute on chronic renal failure that is now receiving dialysis. Patient reports feeling ok today. Patient was very sleepy after dialysis yesterday. Patient reports coughing of sputum but unable to describe it. No new complaints. Exam - Constitutional Vitals: Period Temp Pulse Resp BP Sys/Stewart Pulse Ox Last 24 Hr 96.4 F-98.3 F 72-99 18-26 104-144/56-78 93-100 General appearance: normal weight, no acute distress, other Exam: ill appearing - Head Head exam: Present: normal inspection - Eye Eye exam: Present: EOMI - Neck Neck exam: Present: normal inspection, other (dialysis catheter in place) - Respiratory Respiratory exam: Present: other (coarse breath sound througout) - Cardiovascular Cardiovascular exam: Present: regular rate and rhythm - GI/Abdominal GI/Abdominal exam: Present: normal bowel sounds, soft. Absent: tenderness - Extremities Exam Extremities exam: Present: edema (+1 pitting edema; wounds unchanged) - Neurological Exam Neurological exam: Present: alert - Psychiatric Psychiatric exam: Present: normal affect, normal mood Results - Labs CBC & BMP: 04/23/17 04:43 04/23/17 04:43 Specialty Discharge - Follow Up or Referrals Follow up with: Pineda Collins MD [Physician] - 1 Month (follow-up one month after discharge with next available thyroid ultrasound with FNA)
--- NOTE | 2017-04-23 09:07 | Pulmonology Progress Note ---
Pulmonary - PN: Subj Interval history: This 67-year-old man had congestive heart failure. It is clearly improved after dialysis. Plans are for repeat dialysis today. I will recheck his x-ray tomorrow. 04/23/2017 patient is better following dialysis. Weight is down another 3-4 kg. Chest x-ray has been ordered but has not been done yet. Will review when available. Exam (Progress Note) - Constitutional Vitals: Period Temp Pulse Resp BP Sys/Stewart Pulse Ox Last 24 Hr 96.4 F-98.3 F 72-99 18-26 104-144/56-78 93-100 Exam: Patient is alert oriented vital signs normal. Pupils react to light. Throat is clear. Neck supple no bruits. Chest reveals clear lungs. Heart normal rate and rhythm no murmurs. Abdomen soft nontender no masses. Extremities no clubbing cyanosis. Trace of edema. Calves nontender. Results - Labs CBC & BMP: 04/23/17 04:43 04/23/17 04:43 Lab Results: I have reviewed the past 24 hour labs Assessment and Plan (1) Diabetes mellitus Status: Chronic Assessment and plan: Glucoses fairly well controlled with current regimen. glucoses well controlled. Current Visit: No Qualifiers: Diabetes mellitus type: type 2 Diabetes mellitus complication detail: with chronic kidney disease Chronic kidney disease stage: stage 4 (severe) (2) CHF (congestive heart failure), NYHA class III Status: Acute Assessment and plan: His dyspnea is much better after dialysis. Last chest x-ray showed improvement as well. Will recheck x-ray tomorrow after he was dialyzed today. 04/23/2017 based on physical exam his congestive heart failure is clearly improved. Chest x-ray pending. Current Visit: Yes Qualifiers: Congestive heart failure type: diastolic Congestive heart failure chronicity: acute on chronic Qualified Code(s): I50.33 - Acute on chronic diastolic (congestive) heart failure (3) Dbhyo-ed-hmkjoon renal failure Status: Acute Assessment and plan: Defer to nephrology as far as the long-term plans for dialysis. 04/23/17 symptoms improved post dialysis. Defer to nephrology for further plans there. Current Visit: Yes Specialty Discharge - Follow Up or Referrals Follow up with: Pineda Collins MD [Physician] - 1 Month (follow-up one month after discharge with next available thyroid ultrasound with FNA)
[2017-04-23] MEDS: INSULIN NPH/REGULAR 70/30 100 UNIT/ML SUBCUT SCH ×2 (09:12→16:30)
[2017-04-23] MEDS: CYPROHEPTADINE 4 MG TABLET PO SCH ×3 (09:14→22:08)
[2017-04-23] MEDS: metOLazone 5 MG TABLET PO SCH ×2 (09:16→22:07)
[2017-04-23] MEDS: FUROSEMIDE 80 MG TABLET PO SCH ×2 (09:16→16:49)
[2017-04-23] MEDS: MAGNESIUM CHLORIDE 64 MG TABLET PO SCH ×2 (09:17→22:11)
[2017-04-23] MEDS: CHOLECALCIFEROL 1,000 UNIT TABLET PO SCH (09:17)
[2017-04-23] MEDS: THEOPHYLLINE ER (24 HR) 300 MG CAPSULE PO SCH (09:18)
[2017-04-23] MEDS: MULTIVITAMIN (OCUVITE) TABLET PO SCH (09:18)
[2017-04-23] MEDS: CLOPIDOGREL 75 MG TABLET PO SCH (09:19)
[2017-04-23] MEDS: CARVEDILOL 12.5 MG TABLET PO SCH ×2 (09:19→22:08)
[2017-04-23] MEDS: PENTOXIFYLLINE 400 MG TABLET PO SCH (09:19)
[2017-04-23] MEDS: MONTELUKAST 10 MG TABLET PO SCH (09:20)
[2017-04-23] MEDS: CETIRIZINE 10 MG TABLET PO SCH (09:20)
[2017-04-23] MEDS: DOCUSATE SODIUM 100 MG CAPSULE PO PRN (09:21)
[2017-04-23] MEDS: PANTOPRAZOLE 40 MG TABLET PO SCH ×2 (09:21→22:08)
[2017-04-23] MEDS: BUDESONIDE/FORMOTEROL 160-4.5 INHALER 6 GM INH SCH ×2 (09:29→22:11)
[2017-04-23] MEDS: BRIMONIDINE 0.1% OPH SOLN 5 ML BOTTLE BOTH EYES SCH ×3 (09:29→22:09)
[2017-04-23] MEDS: DORZOLAMIDE/TIMOLOL OPH SOLN 10 ML BOTTLE BOTH EYES SCH ×2 (09:29→22:10)
--- NOTE | 2017-04-23 09:40 | XRay Report ---
Single view of the chest. Indication: Congestive heart failure. Comparison: April 20, 2017. The heart is borderline enlarged. There is calcific plaque present within the aortic knob. The pulmonary vasculature is prominent. The interstitial lung markings are prominent. There are bilateral basilar interstitial infiltrates and moderate bilateral pleural effusions. Impression: Findings of pulmonary edema, mildly improved. PROCEDURE INTERPRETED AT [facility] DEPARTMENT OF RADIOLOGY Final Report Signed by: Dr. Dipti Ruth
--- NOTE | 2017-04-23 10:18 | Nephrology Progress Note ---
Nephrology - PN: Subj Interval history: Patient complains of cough. Physical exam general the patient is chronically ill-appearing, heart is regular rate and rhythm, he has 1+ pretibial edema, lungs are clear to auscultation anteriorly, abdomen is soft with positive bowel sounds Assessment/plan 1. ESRD-new start on hemodialysis 2. Volume overload-patient's swelling has decreased greatly. The patient 3. Anemia-patient's hematocrits 22%, I will check to see if he is on EPO 4. Diabetes mellitus-patient sugars are currently running in the low normal range Exam (PN)-Nephrology - Vital Signs Vital signs: Period Temp Pulse Resp BP Sys/Stewart Pulse Ox Last 24 Hr 96.4 F-98.3 F 72-99 18-26 104-144/56-78 93-100 - Lab 04/23/17 04:43 04/23/17 04:43 Most recent lab results ABG pH 7.213 (7.35-7.45) L 04/14/17 16:57 ABG pCO2 58.9 MM HG (35-48) H 04/14/17 16:57 ABG pO2 56.8 MM HG (80-95) L 04/14/17 16:57 ABG HCO3 20.4 MMOL/L (20-26) 04/14/17 16:57 ABG O2 Saturation 85.2 % (95-100) L 04/14/17 16:57 Calcium 8.1 MG/DL (8.5-10.1) L 04/23/17 04:43 Magnesium 2.7 MG/DL (1.8-2.4) H 04/19/17 03:37 Specialty Discharge - Follow Up or Referrals Follow up with: Pineda Collins MD [Physician] - 1 Month (follow-up one month after discharge with next available thyroid ultrasound with FNA)
[2017-04-23] MEDS ORDERED: EPOETIN ALFA 10,000 UNIT/1 ML VIAL IV PRN (10:19)
[2017-04-23] MEDS: GEMFIBROZIL 600 MG TABLET PO SCH ×2 (10:42→22:08)
--- NOTE | 2017-04-23 11:25 | EKG Report ---
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
[2017-04-23] MEDS ORDERED: SODIUM CHLORIDE 0.9% 250 ML IV PRN (11:41)
[2017-04-23 12:14] LABS: Eosinophils # 0.4 10*3/uL (0.0-0.87); Hematocrit 19.4 VOL% (42.0-52.0); Hemoglobin 6.5 GM/DL (14.0-18.0); Immature Granulocytes % 0.2 %; Immature Granulocytes Absolute 0.01 #; Lymphocytes # 0.6 10*3/uL (1.4-4.0); Mean Corpuscular HGB Conc 33.5 GM/DL (32-36); Mean Corpuscular Hemoglobin 27 PG (27-34); Mean Corpuscular Volume 81.2 FL (87-102); Mean Platelet Volume 11.2 FL (9.6-12.0); Monocytes # 0.6 10*3/uL (0.11-0.8); Neutrophils # 2.5 10*3/uL (1.4-7.4); Neutrophils % 59.8 % (38.7-73.9); Platelet Count 145 T/CUMM (130-400); Red Blood Count 2.39 MC/CUMM (3.8-5.5); Red Cell Distribution Width 15.1 % (9.3-17.3); White Blood Count 4.2 T/CUMM (4-12)
[2017-04-23 13:18] LABS: Vitamin B12 553 PG/ML (211-911)
[2017-04-23 13:19] LABS: Sedimentation Rate-Westergren 111 MM/HR (0-20)
[2017-04-23] MEDS: ATORVASTATIN 40 MG TABLET PO SCH (22:08)
[2017-04-23] MEDS: DONEPEZIL 5 MG TABLET PO SCH (22:08)
[2017-04-23] MEDS: BIMATOPROST 0.01% OPH SOLN 2.5 ML BOTTLE BOTH EYES SCH (22:09)
[2017-04-24 05:25] LABS: Basophils % 0.4 % (0.0-0.8); Eosinophils # 0.4 10*3/uL (0.0-0.87); Hematocrit 24.5 VOL% (42.0-52.0); Immature Granulocytes % 0.6 %; Immature Granulocytes Absolute 0.03 #; Lymphocytes # 0.6 10*3/uL (1.4-4.0); Lymphocytes % 12.8 % (21.2-54.2); Mean Corpuscular HGB Conc 33.9 GM/DL (32-36); Mean Corpuscular Hemoglobin 28 PG (27-34); Mean Corpuscular Volume 81.9 FL (87-102); Mean Platelet Volume 11.7 FL (9.6-12.0); Monocytes # 0.7 10*3/uL (0.11-0.8); Monocytes % 13.7 % (1.7-12.7); Neutrophils % 63.5 % (38.7-73.9); Platelet Count 140 T/CUMM (130-400); Red Cell Distribution Width 15.2 % (9.3-17.3); White Blood Count 4.8 T/CUMM (4-12)
[2017-04-24 05:35] LABS: Hemoglobin 8.3 GM/DL (14.0-18.0); Red Blood Count 2.99 MC/CUMM (3.8-5.5)
[2017-04-24 05:56] LABS: Albumin 2.7 G/DL (3.4-5.0); Bilirubin,Total 0.4 MG/DL (0.2-1.0); Osmolality,Calculated 285.5 MOS/KG (273-304); Potassium 3.8 MMOL/L (3.5-5.1); Total Protein 6.5 G/DL (6.4-8.3)
[2017-04-24] MEDS ORDERED: HEPARIN 5,000 UNIT/1 ML VIAL ONE (06:46)
[2017-04-24] MEDS ORDERED: BUPIVACAINE 0.25% 50 ML VIAL ONE (06:46)
--- NOTE | 2017-04-24 07:04 | Hospitalist Progress Note ---
Assessment and Plan - Time spent with patient Time spent with patient: Less than 30 minutes (1) Chronic renal failure Status: Chronic Assessment and plan: 04/13/17: Patient has acute on chronic renal failure. His creatinine is 3.9. Nephrology continues to follow. He has Rivera catheter and urine output is improving. His diuretics have been increased. 04/14/17: Laboratory studies are pending for today. He has a Rivera catheter in place. There is a small amount of dark concentrated urine in the bag at this point. Nephrology continues to follow. 04/24/17: Patient had right IJ tunneled hemodialysis catheter placed today. We will continue chronic hemodialysis under the direction of nephrology. Continuing discussion with family in regards to placement. Current Visit: Yes Qualifiers: Chronic kidney disease stage: stage 4 (severe) Qualified Code(s): N18.4 - Chronic kidney disease, stage 4 (severe) (2) Anemia Status: Chronic Assessment and plan: 04/13/17: Patient had upper endoscopy which revealed no evidence of acute GI bleeding. There was suspicion of bleeding from his airways. Pulmonary is following as well. He has been transfused and H&H currently stable. 04/14/17: Patient is hemodynamically stable. There is been no further evidence of bleeding. We will follow-up H&H in the a.m. 04/24/17: Hematocrit approximately 24.5 today. He is asymptomatic otherwise hemodynamically stable. Current Visit: No Qualifiers: Other causes of anemia: chronic disease, kidney (3) Hypertension Status: Chronic Assessment and plan: Blood pressure currently stable. Continue current regimen. 04/24/17: Blood pressures remained stable. Continue current regimen. Current Visit: No Qualifiers: Hypertension type: essential hypertension Qualified Code(s): I10 - Essential (primary) hypertension (4) Diabetes mellitus Status: Chronic Assessment and plan: Blood sugars well controlled. Continuing to follow. Current Visit: No Qualifiers: Diabetes mellitus type: type 2 Diabetes mellitus complication detail: with chronic kidney disease Chronic kidney disease stage: stage 4 (severe) Hospitalist: Subjective Interval history: Chart has been reviewed. Patient had a right IJ tunneled hemodialysis catheter placed this morning by Dr. Collins. He is now in the room and having no complaints. He does have a mild cough but denies any chest pain or shortness of breath. Exam - Constitutional Vitals: Period Temp Pulse Resp BP Sys/Stewart Pulse Ox Last 24 Hr 96.9 F-98.3 F 50-122 18-24 97-153/59-80 97-100 General appearance: no acute distress - Head Head exam: Present: normocephalic, atraumatic - Eye Eye exam: Present: EOMI Pupils: Present: SLY - ENT ENT exam: Present: normal exam - Neck Neck exam: Present: normal inspection - Respiratory Respiratory exam: Present: rhonchi (Few scattered rhonchi bilaterally) - Cardiovascular Cardiovascular exam: Present: regular rate and rhythm - GI/Abdominal GI/Abdominal exam: Present: normal bowel sounds, soft. Absent: mass, tenderness , rebound - Extremities Exam Extremities exam: Absent: calf tenderness, edema - Back Exam Back exam: Present: normal inspection - Neurological Exam Neurological exam: Present: alert, oriented X3 - Psychiatric Psychiatric exam: Present: normal affect, normal mood. Absent: agitated, anxious - Skin Skin exam: Present: warm, dry. Absent: erythema Results - Labs CBC & BMP: 04/24/17 04:33 04/24/17 04:34 Lab Results: I have reviewed the past 24 hour labs Specialty Discharge - Follow Up or Referrals Follow up with: Pineda Collins MD [Physician] - 1 Month (follow-up one month after discharge with next available thyroid ultrasound with FNA)
[2017-04-24] MEDS: SODIUM CHLORIDE 0.9% 250 ML IV SCH ×2 (07:05→22:51)
[2017-04-24] MEDS ORDERED: fentaNYL 100 MCG/2 ML VIAL ONE (08:05)
[2017-04-24] MEDS ORDERED: MIDAZOLAM 2 MG/2 ML VIAL ONE (08:05)
--- NOTE | 2017-04-24 08:39 | Operative Note ---
Date of procedure: 04/24/17 Pre-op diagnosis: Renal failure Post-op diagnosis: same Procedure: Preoperative diagnosis Renal failure with need for hemodialysis access Postoperative diagnosis Same Procedures performed 1. Right internal jugular vein tunneled hemodialysis catheter placement 2. Ultrasound guidance and interpretation of images 3. Fluoroscopic guidance and interpretation of images Findings The right internal jugular vein is compressible and it was accessed for hemodialysis access. The tip of the catheter was place in the right atrium. Patient tolerated procedure well and both ports worked well. Complications none apparent Specimen None Indications Renal failure with need for access for hemodialysis Description of procedure The patient was taken to the operating room and transferred to the operating table in the supine position. Pressure points are padded and SCDs placed lower extremity. Monitored anesthesia was administered and the neck was prepped and draped sterile fashion using chloride same. Preoperative antibiotics were administered and a timeout was performed. Ultrasound was used to identify the internal jugular vein and local anesthetic was infiltrated around the vein. Local anesthetic was also administered around the planned tract site down to the anterior chest wall below the clavicle. The vein was accessed on first stick and nonpulsatile venous blood was obtained. A wire was placed using Seldinger technique. An incision was made alongside the wire using a long blade scalpel and a separate incision below the clavicle was made with an 11 blade scalpel. A 19 cm catheter was tunneled from the chest incision into the neck wound and a dilator peel-away sheath was placed over the wire. The wire and dilator was removed and the catheter was placed to the peel-away sheath. The catheter was secured in place in the right atrium on fluoroscopic images. Both returned blood easily and were flushed with heparin. The catheter was secured in place using 3-0 nylon sutures and the neck incision was closed with 3 -0 nylon suture. Sterile dressings were applied. The patient was awakened from anesthesia and transferred to recovery. Postoperative plan Begin hemodialysis and obtained chest x-ray postop Implants: 19 cm tunneled hemodialysis catheter Anesthesia: MAC, local Surgeon / Physician: Pineda Collins Estimated blood loss: minimal Specimens: none sent Condition: stable Disposition: PACU Results - Labs CBC & BMP: 04/24/17 04:33 04/24/17 04:34 Discharge Plan - Discharge Medications No Action Cholecalciferol (Vitamin D3) [Vitamin D3] 5,000 unit PO DAILY NIFEdipine [Nifedipine ER] 120 mg PO DAILY Cetirizine Tab [ZyrTEC Tab] 10 mg PO DAILY Aspirin [Ecotrin] 81 mg PO DAILY Pantoprazole Tab [Protonix Tab] 40 mg PO DAILY Pentoxifylline 400 mg PO TID W/MEALS Bimatoprost 0.01% Oph Soln [Lumigan] 1 drop BOTH EYES BEDTIME Brimonidine 0.1% Oph Soln [Alphagan P 0.1% Oph Soln] 1 drop BOTH EYES TID Dorzolamide/Timolol Oph Soln [Cosopt] 1 drop BOTH EYES BID #1 ophthalmic solution Theophylline ER Cap (24 Hr) [Hood-24] 300 mg PO DAILY Multivitamin (Ocuvite) [Ocuvite] 1 tablet PO DAILY Montelukast Tab [Singulair Tab] 10 mg PO DAILY Albuterol/Ipratropium Neb [Duoneb] 3 ml RESP TX QID Budesonide/Formoterol Fumarate [Symbicort 160-4.5 Mcg Inhaler] 2 puff INH BID Dorzolamide/Timolol Oph Soln [Cosopt] 1 drop BOTH EYES BID Insulin NPH Hum/Reg Insulin Hm [NovoLIN 70/30] See Protocol SUBCUT AC SUPPER Insulin NPH Hum/Reg Insulin Hm [NovoLIN 70/30] See Protocol SUBCUT AC BREAKFAST Furosemide Tab [Lasix Tab] 40 mg PO DAILY #30 tablet Carvedilol [Coreg] 6.25 mg PO BID Hydralazine HCl 50 mg PO TID Cyproheptadine Tab [Periactin Tab] 4 mg PO TID Atorvastatin [Lipitor] 40 mg PO BEDTIME cloNIDine TAB [Catapres Tab] 0.2 mg PO DAILY - Follow Up or Referral Follow Up: Pineda Collins MD [Physician] - 1 Month (follow-up one month after discharge with next available thyroid ultrasound with FNA) - Forms/Instructions
[2017-04-24] MEDS ORDERED: PROPOFOL 200 MG/20 ML VIAL IV ONE (09:00)
[2017-04-24] MEDS ORDERED: METOPROLOL TARTRATE 5 MG/5 ML VIAL IV ONE (09:00)
[2017-04-24] MEDS ORDERED: LIDOCAINE 1% 5 ML VIAL ONE (09:00)
[2017-04-24] MEDS: ALBUTEROL/IPRATROPIUM 3 ML NEB RESP TX SCH ×4 (09:12→19:10)
--- NOTE | 2017-04-24 09:22 | XRay Report ---
XR chest 1V portable Indication: Status post hemodialysis catheter placement. Comparison: Chest x-ray 04/23/2017 Technique: Portable AP chest was performed. Findings: Dual lumen hemodialysis catheter terminates within superior vena cava. No complication from line placement is suggested. The lung parenchyma continues to demonstrate bilateral airspace disease superimposed on linear interstitial markings. Cardiomegaly remains present. Small bilateral pleural effusions are present. Bones and soft tissues appear stable. Impression: 1. Interval placement of hemodialysis catheter. 2. The appearance of the lung parenchyma is most compatible with pulmonary edema/congestive heart failure. 3. Small bilateral pleural effusions are present. 04/24/2017 9:18 AM PROCEDURE INTERPRETED AT [facility] DEPARTMENT OF RADIOLOGY Final Report Signed by: Dr. Jase Spivey
--- NOTE | 2017-04-24 09:51 | Ultrasound Report ---
US renal Bilateral Indication: Hematuria. Renal failure. Renal ultrasound: Rodrigez scale and color Doppler images of the kidneys were obtained. Right kidney 113 x 49 x 62 mm. No mass, cyst, calcification or hydronephrosis. Left kidney 115 x 70 x 59 mm. 21 x 21 x 18 mm exophytic anechoic cyst at the lower pole. No mass, calcification or hydronephrosis. Normal color Doppler flow at both renal yamile. Impression: Left renal cyst. Otherwise negative ultrasound. PROCEDURE INTERPRETED AT [facility] DEPARTMENT OF RADIOLOGY Final Report Signed by: Emile Davis M.D.
[2017-04-24 10:07] LABS: Hemoglobin A1 (Alkaline) 97.2 % (96.5-98.5); Hemoglobin A2 (Alkaline) 2.8 % (1.5-3.5)
[2017-04-24] MEDS: GEMFIBROZIL 600 MG TABLET PO SCH ×2 (12:40→21:43)
[2017-04-24] MEDS: CYPROHEPTADINE 4 MG TABLET PO SCH ×3 (12:40→21:43)
[2017-04-24] MEDS: FUROSEMIDE 80 MG TABLET PO SCH ×2 (12:40→18:30)
[2017-04-24] MEDS: INSULIN NPH/REGULAR 70/30 100 UNIT/ML SUBCUT SCH ×2 (12:40→17:32)
[2017-04-24] MEDS: MULTIVITAMIN (OCUVITE) TABLET PO SCH (12:40)
[2017-04-24] MEDS: CARVEDILOL 12.5 MG TABLET PO SCH ×2 (12:40→21:43)
[2017-04-24] MEDS: BUDESONIDE/FORMOTEROL 160-4.5 INHALER 6 GM INH SCH ×2 (12:41→21:42)
[2017-04-24] MEDS: MONTELUKAST 10 MG TABLET PO SCH (12:41)
[2017-04-24] MEDS: PANTOPRAZOLE 40 MG TABLET PO SCH ×2 (12:41→22:05)
[2017-04-24] MEDS: MAGNESIUM CHLORIDE 64 MG TABLET PO SCH ×2 (12:41→21:43)
[2017-04-24] MEDS: metOLazone 5 MG TABLET PO SCH ×2 (12:41→21:43)
[2017-04-24] MEDS: PENTOXIFYLLINE 400 MG TABLET PO SCH (12:41)
[2017-04-24] MEDS: THEOPHYLLINE ER (24 HR) 300 MG CAPSULE PO SCH (12:41)
[2017-04-24] MEDS: CHOLECALCIFEROL 1,000 UNIT TABLET PO SCH (12:41)
[2017-04-24] MEDS: CLOPIDOGREL 75 MG TABLET PO SCH (12:41)
[2017-04-24] MEDS: CETIRIZINE 10 MG TABLET PO SCH (12:41)
[2017-04-24] MEDS: DORZOLAMIDE/TIMOLOL OPH SOLN 10 ML BOTTLE BOTH EYES SCH ×2 (12:42→21:42)
[2017-04-24] MEDS: BRIMONIDINE 0.1% OPH SOLN 5 ML BOTTLE BOTH EYES SCH ×4 (12:42→21:41)
--- NOTE | 2017-04-24 12:55 | Dialysis Note ---
Dialysis Note - Dialysis Note Mr. Em is seen during hemodialysis he has a new right chest dialysis catheter that is tunneled. Chest x-ray still shows volume overload. He has a lot of edema and will continue to remove fluid 45 kg each treatment. He still making fair amount of urine with diuretics and were taking advantage of that in order to help us get rid of this volume overload. We will plan to setting up as an outpatient in the [facility] but we can dialyze him at other areas should he go to swing bed or LTAC etc.
--- NOTE | 2017-04-24 14:03 | Pulmonology Progress Note ---
Pulmonary - PN: Subj Interval history: Patient is 67-year-old black man that has diabetes hypertension and chronic renal failure. He is basically bedridden. He has had a history of CVA and has some mental retardation. He can communicate but is very slow. He cannot walk or do any activity. He has worsening renal insufficiency and congestive heart failure. He is on a Lasix infusion and has some output. He continued to have problems with his breathing so dialysis was started over the weekend. He has tolerated this so far and his weight is down. His breathing is a little better although his chest x-ray still shows some heart failure. His anasarca and peripheral edema are better. He had a tunneled catheter placed in his right shoulder today. Overall he looks stable. Exam (Progress Note) - Constitutional Vitals: Period Temp Pulse Resp BP Sys/Stewart Pulse Ox Last 24 Hr 96.9 F-98.2 F 50-122 14-24 95-153/54-80 92-100 Exam: General appearance: normal weight, the patient is very ill but is comfortable lying in bed. He does look like he is breathing easier. - Head Head exam: Present: normal inspection, normocephalic - Eye Eye exam: Present: EOMI, other (Bilateral arcus). Absent: nystagmus Pupils: Present: SLY - ENT ENT exam: Present: normal exam - Neck Neck exam: Present: thyromegaly. Absent: lymphadenopathy - Respiratory Respiratory exam: Present: He has coarse breath sounds bilaterally but is moving air fairly well and his lungs do sound a little better. - Cardiovascular Cardiovascular exam: Present: regular rate and rhythm, systolic murmur (He has a soft systolic murmur). Absent: gallop, JVD - GI/Abdominal GI/Abdominal exam: Present: normal bowel sounds, soft. Absent: organomegaly, tenderness. His scrotal edema is better. - Extremities Exam Extremities exam: Present: edema (He has less tightness and swelling in his legs.) - Neurological Exam Neurological exam: Present: He responds okay but is not as alert. - Psychiatric Psychiatric exam: Present: normal affect - Skin Skin exam: Present: other (He does have some wounds on his feet and sacrum) Results - Labs CBC & BMP: 04/24/17 04:33 04/24/17 04:34 - Diagnostic Findings Procedure: Chest x-ray: image reviewed by me, report reviewed by me (Chest x- ray still show some CHF but looks better.) Assessment and Plan (1) Chronic renal failure Status: Chronic Assessment and plan: The patient's creatinine is down to 3.9 and he is getting dialysis. Current Visit: Yes Qualifiers: Chronic kidney disease stage: stage 4 (severe) Qualified Code(s): N18.4 - Chronic kidney disease, stage 4 (severe) (2) Hypertension Status: Chronic Assessment and plan: The patient will continue with blood pressure medicines and he is stable at present. His heart rate and blood pressure have been stable. He is still very debilitated however. Current Visit: No Qualifiers: Hypertension type: essential hypertension Qualified Code(s): I10 - Essential (primary) hypertension (3) Diabetes mellitus Status: Chronic Assessment and plan: His glucoses have been under good control so far. His glucose is 108 this morning. Current Visit: No Qualifiers: Diabetes mellitus type: type 2 Diabetes mellitus complication detail: with chronic kidney disease Chronic kidney disease stage: stage 4 (severe) (4) chronic lower extremity wounds Status: Chronic Assessment and plan: Patient is being seen by surgery for wounds. He will continue with wound care. His wounds are apparently stable Current Visit: No (5) Anemia in chronic kidney disease Status: Chronic Assessment and plan: The patient's hematocrit is 24.5 this morning and basically unchanged. Current Visit: No (6) Pleural effusion Status: Acute Assessment and plan: Patient has bilateral pleural effusions and he had a right thoracentesis Saturday. The pleural fluid is a transudate. He still has diffuse infiltrates and the chest x-ray is consistent with heart failure. He should do better now that he is on dialysis. Current Visit: Yes (7) CHF (congestive heart failure), NYHA class III Status: Acute Assessment and plan: Patient looks like he is in heart failure and is very hard to get rid of fluid in him. He is getting high-dose diuretics and seems to be responding a little today. He has been started on dialysis and looks like he is better. His breathing is okay and his weight is down. Current Visit: Yes Qualifiers: Congestive heart failure type: diastolic Congestive heart failure chronicity: acute on chronic Qualified Code(s): I50.33 - Acute on chronic diastolic (congestive) heart failure (8) Decubitus ulcer Status: Acute Assessment and plan: The patient's ulcers are being evaluated by surgery. Current Visit: Yes Qualifiers: Pressure ulcer location: sacral region Pressure ulcer stage: stage 2 Qualified Code(s): L89.152 - Pressure ulcer of sacral region, stage 2 Specialty Discharge - Follow Up or Referrals Follow up with: Pineda Collins MD [Physician] - 1 Month (follow-up one month after discharge with next available thyroid ultrasound with FNA)
[2017-04-24] MEDS ORDERED: HEPARIN 10,000 UNIT/10 ML VIAL IV PRN (15:47)
[2017-04-24] MEDS: BACITRACIN OINT 0.9 GM PACK TOP SCH (18:29)
[2017-04-24] MEDS: MENTHOL/ZINC OXIDE OINT 71 GM JAR TOP SCH ×2 (18:29→21:44)
[2017-04-24] MEDS: BIMATOPROST 0.01% OPH SOLN 2.5 ML BOTTLE BOTH EYES SCH (21:42)
[2017-04-24] MEDS: DONEPEZIL 5 MG TABLET PO SCH (21:43)
[2017-04-24] MEDS: ATORVASTATIN 40 MG TABLET PO SCH (21:44)
[2017-04-25] MEDS: ALBUTEROL/IPRATROPIUM 3 ML NEB RESP TX SCH ×4 (07:14→19:00)
--- NOTE | 2017-04-25 07:59 | Pulmonology Progress Note ---
Pulmonary - PN: Subj Interval history: Patient is 67-year-old black man that has diabetes hypertension and chronic renal failure. He is basically bedridden. He has had a history of CVA and has some mental retardation. He can communicate but is very slow. He cannot walk or do any activity. He has worsening renal insufficiency and congestive heart failure. He was started on dialysis and is doing fairly well. His weight is down and his anasarca and peripheral edema have improved. He looks like he is breathing better also. He still has some cough but it does not look short of breath now. Overall he looks like he is improving. Exam (Progress Note) - Constitutional Vitals: Period Temp Pulse Resp BP Sys/Stewart Pulse Ox Last 24 Hr 97.3 F-99.2 F 66-101 15-24 98-137/54-80 92-100 Exam: General appearance: normal weight, the patient is much more comfortable and does not look short of breath now. - Head Head exam: Present: normal inspection, normocephalic - Eye Eye exam: Present: EOMI, other (Bilateral arcus). Absent: nystagmus Pupils: Present: SLY - ENT ENT exam: Present: normal exam - Neck Neck exam: Present: thyromegaly. Absent: lymphadenopathy - Respiratory Respiratory exam: Present: He has good air movement and his lungs sound better with less rales and rhonchi. - Cardiovascular Cardiovascular exam: Present: regular rate and rhythm, systolic murmur (He has a soft systolic murmur). Absent: gallop, JVD - GI/Abdominal GI/Abdominal exam: Present: normal bowel sounds, soft. Absent: organomegaly, tenderness. His scrotal edema is better. - Extremities Exam Extremities exam: Present: edema (He has less tightness and swelling in his legs.) - Neurological Exam Neurological exam: Present: He is alert this morning and moving around a little better. - Psychiatric Psychiatric exam: Present: normal affect - Skin Skin exam: Present: other (He does have some wounds on his feet and sacrum) Results - Labs CBC & BMP: 04/24/17 04:33 04/24/17 04:34 Assessment and Plan (1) Chronic renal failure Status: Chronic Assessment and plan: The patient's creatinine is down to 3.9 and he is getting dialysis. Current Visit: Yes Qualifiers: Chronic kidney disease stage: stage 4 (severe) Qualified Code(s): N18.4 - Chronic kidney disease, stage 4 (severe) (2) Hypertension Status: Chronic Assessment and plan: The patient will continue with blood pressure medicines and he is stable at present. His heart rate and blood pressure have been stable. His O2 saturations are adequate. Overall he looks comfortable. Current Visit: No Qualifiers: Hypertension type: essential hypertension Qualified Code(s): I10 - Essential (primary) hypertension (3) Diabetes mellitus Status: Chronic Assessment and plan: His glucoses have been under good control so far. His glucose is 86 this morning. Current Visit: No Qualifiers: Diabetes mellitus type: type 2 Diabetes mellitus complication detail: with chronic kidney disease Chronic kidney disease stage: stage 4 (severe) (4) chronic lower extremity wounds Status: Chronic Assessment and plan: Patient is being seen by surgery for wounds. He will continue with wound care. His wounds are apparently stable Current Visit: No (5) Anemia in chronic kidney disease Status: Chronic Assessment and plan: The patient's hematocrit is 24.5 this morning and basically unchanged. Current Visit: No (6) CHF (congestive heart failure), NYHA class III Status: Acute Assessment and plan: Patient was in heart failure and is doing much better on dialysis now. His volume status looks a lot better. Current Visit: Yes Qualifiers: Congestive heart failure type: diastolic Congestive heart failure chronicity: acute on chronic Qualified Code(s): I50.33 - Acute on chronic diastolic (congestive) heart failure (7) Decubitus ulcer Status: Acute Assessment and plan: The patient's ulcers are being evaluated by surgery. Current Visit: Yes Qualifiers: Pressure ulcer location: sacral region Pressure ulcer stage: stage 2 Qualified Code(s): L89.152 - Pressure ulcer of sacral region, stage 2 Specialty Discharge - Follow Up or Referrals Follow up with: Pineda Collins MD [Physician] - 1 Month (follow-up one month after discharge with next available thyroid ultrasound with FNA)
--- NOTE | 2017-04-25 08:24 | Nephrology Progress Note ---
Nephrology - PN: Subj Interval history: Mr. Em is seen in follow-up of his end-stage renal disease. His volume status is much improved he has much less peripheral edema than before and is breathing comfortably. Recent chest x-rays showed ongoing changes of volume overload. We are going to continue to remove volume as tolerated with dialysis. We discussed the discharge plans with the family and they anticipate taking him home rather than to any swing bed or LTAC. We can dialyze him 3 days a week as an outpatient in the [facility]. social and human services assistant is working on setting that up. Once that is set up he could be discharged from our standpoint. Exam (PN)-Nephrology - Vital Signs Vital signs: Period Temp Pulse Resp BP Sys/Stewart Pulse Ox Last 24 Hr 97.3 F-99.2 F 66-104 15-24 99-137/60-80 92-100 - Lab 04/24/17 04:33 04/24/17 04:34 Most recent lab results ABG pH 7.213 (7.35-7.45) L 04/14/17 16:57 ABG pCO2 58.9 MM HG (35-48) H 04/14/17 16:57 ABG pO2 56.8 MM HG (80-95) L 04/14/17 16:57 ABG HCO3 20.4 MMOL/L (20-26) 04/14/17 16:57 ABG O2 Saturation 85.2 % (95-100) L 04/14/17 16:57 Calcium 8.0 MG/DL (8.5-10.1) L 04/24/17 04:34 Magnesium 2.7 MG/DL (1.8-2.4) H 04/19/17 03:37 Assessment and Plan (1) Bkjhx-ou-eppseys renal failure Status: Acute Current Visit: Yes (2) Edema Status: Chronic Current Visit: Yes Specialty Discharge - Follow Up or Referrals Follow up with: Pineda Collins MD [Physician] - 1 Month (follow-up one month after discharge with next available thyroid ultrasound with FNA)
--- NOTE | 2017-04-25 08:54 | General Surgery Progress Note ---
Assessment and Plan (1) Decubitus ulcer Status: Acute Assessment and plan: 04/19/2017. Stage II sacral decubitus ulcer is healing well. I see no new signs of breakdown, and the periwound skin appears to be in good shape. Nutritionally he is eating well, and medical issues seem to be improving slowly. Agree with current plan of phones and offloading as much as possible. This was discussed again with the patient and his . He is of course at increased risk of breakdown in this as well as his lower extremity areas and other pressure points, but at this point his skin issues look better than we have seen them in some time. We will continue to follow as long as he is hospitalized. 04/25/2017. Chronically ill end-stage renal patient with stage II sacral decubitus. This area seems to be improving with just local care, despite his overall apparent decline. He has recently had his dialysis catheters replaced, I am not sure what his current plan of care or discharge plans will be following this, but certainly his skin issues are stable to improving. We could easily transition his current wound care to home/hospice at any point. Current Visit: Yes Qualifiers: Pressure ulcer location: sacral region Pressure ulcer stage: stage 2 Qualified Code(s): L89.152 - Pressure ulcer of sacral region, stage 2 Subjective Patient reports: Present: other (Appetite is decreased. Denies pain or vomiting.) Exam - Constitutional Vitals: Period Temp Pulse Resp BP Sys/Stewart Pulse Ox Last 24 Hr 97.3 F-99.2 F 66-104 15-24 107-137/60-80 95-100 General appearance: no acute distress, under weight - Back Exam Back exam: Present: other (Sacral decubitus continues to improve, and is now approximately 2 x 1.5 cm, superficial. There is some early epithelialization from the superior portion, 12 o'clock position. I see no new pressure areas, no new excoriation.) Results - Labs CBC & BMP: 04/24/17 04:33 04/24/17 04:34 Lab Results: I have reviewed the past 24 hour labs Specialty Discharge - Follow Up or Referrals Follow up with: Pineda Collins MD [Physician] - 1 Month (follow-up one month after discharge with next available thyroid ultrasound with FNA)
[2017-04-25] MEDS: MONTELUKAST 10 MG TABLET PO SCH (10:12)
[2017-04-25] MEDS: MAGNESIUM CHLORIDE 64 MG TABLET PO SCH ×2 (10:12→20:58)
[2017-04-25] MEDS: CLOPIDOGREL 75 MG TABLET PO SCH (10:12)
[2017-04-25] MEDS: CHOLECALCIFEROL 1,000 UNIT TABLET PO SCH (10:12)
[2017-04-25] MEDS: FUROSEMIDE 80 MG TABLET PO SCH ×2 (10:13→16:36)
[2017-04-25] MEDS: CYPROHEPTADINE 4 MG TABLET PO SCH ×3 (10:13→21:11)
[2017-04-25] MEDS: CARVEDILOL 12.5 MG TABLET PO SCH ×2 (10:13→20:58)
[2017-04-25] MEDS: MULTIVITAMIN (OCUVITE) TABLET PO SCH (10:13)
[2017-04-25] MEDS: PANTOPRAZOLE 40 MG TABLET PO SCH ×2 (10:13→20:58)
[2017-04-25] MEDS: BUDESONIDE/FORMOTEROL 160-4.5 INHALER 6 GM INH SCH ×2 (10:14→21:41)
[2017-04-25] MEDS: THEOPHYLLINE ER (24 HR) 300 MG CAPSULE PO SCH (10:14)
[2017-04-25] MEDS: PENTOXIFYLLINE 400 MG TABLET PO SCH (10:14)
[2017-04-25] MEDS: CETIRIZINE 10 MG TABLET PO SCH (10:14)
[2017-04-25] MEDS: BIMATOPROST 0.01% OPH SOLN 2.5 ML BOTTLE BOTH EYES SCH ×2 (10:14→20:57)
[2017-04-25] MEDS: INSULIN NPH/REGULAR 70/30 100 UNIT/ML SUBCUT SCH ×2 (10:15→16:06)
[2017-04-25] MEDS: DORZOLAMIDE/TIMOLOL OPH SOLN 10 ML BOTTLE BOTH EYES SCH ×2 (10:15→20:57)
[2017-04-25] MEDS: GEMFIBROZIL 600 MG TABLET PO SCH ×2 (10:15→21:41)
[2017-04-25] MEDS: BRIMONIDINE 0.1% OPH SOLN 5 ML BOTTLE BOTH EYES SCH ×3 (10:15→20:57)
--- NOTE | 2017-04-25 11:20 | Hospitalist Progress Note ---
Assessment and Plan (1) Chronic renal failure Status: Chronic Assessment and plan: Now on HD via right IJ tunneled catheter, has been accepted for outpatient rehab Current Visit: Yes Qualifiers: Chronic kidney disease stage: stage 4 (severe) Qualified Code(s): N18.4 - Chronic kidney disease, stage 4 (severe) (2) Hypertension Status: Chronic Assessment and plan: Stable Current Visit: No Qualifiers: Hypertension type: essential hypertension Qualified Code(s): I10 - Essential (primary) hypertension (3) Diabetes mellitus Status: Chronic Assessment and plan: Controlled Current Visit: No Qualifiers: Diabetes mellitus type: type 2 Diabetes mellitus complication detail: with chronic kidney disease Chronic kidney disease stage: stage 4 (severe) (4) Anemia Status: Acute Assessment and plan: Stable Current Visit: Yes Hospitalist: Subjective Interval history: No acute events overnight. Patient feels better. Will prepare for discharge tomorrow. Exam - Constitutional Vitals: Period Temp Pulse Resp BP Sys/Stewart Pulse Ox Last 24 Hr 97.3 F-99.2 F 80-104 15-24 107-137/60-80 98-100 General appearance: normal weight - Head Head exam: Present: normocephalic, atraumatic - Eye Eye exam: Present: EOMI Pupils: Present: SLY - ENT ENT exam: Present: normal exam - Neck Neck exam: Present: normal inspection - Respiratory Respiratory exam: Present: clear to auscultation bilaterally. Absent: wheezes - Cardiovascular Cardiovascular exam: Present: regular rate and rhythm - GI/Abdominal GI/Abdominal exam: Present: normal bowel sounds, soft. Absent: tenderness - Extremities Exam Extremities exam: Present: normal inspection - Back Exam Back exam: Present: normal inspection - Neurological Exam Neurological exam: Present: alert - Psychiatric Psychiatric exam: Present: normal affect, normal mood - Skin Skin exam: Present: warm, intact Results - Labs CBC & BMP: 04/24/17 04:33 04/24/17 04:34 Specialty Discharge - Follow Up or Referrals Follow up with: iPneda Collins MD [Physician] - 1 Month (follow-up one month after discharge with next available thyroid ultrasound with FNA)
[2017-04-25] MEDS: MENTHOL/ZINC OXIDE OINT 71 GM JAR TOP SCH ×2 (11:25→20:59)
[2017-04-25] MEDS: BACITRACIN OINT 0.9 GM PACK TOP SCH (11:25)
--- NOTE | 2017-04-25 13:20 | Pathology Report from [facility] ---
[facility] ACCESSION # : [id number] PATIENT NAME : Tobias Em ORDERING DR : Pineda Collins MD CLINICAL HX: Chronic kidney disease POST-OP DX: Same SPECIMEN INFO: Heme dialysis catheter GROSS DESCRIPTION: Received fresh labeled with the patients name and consists of a heme dialysis catheter, gross only. DIAGNOSIS FOR TOBIAS EM: Dialysis catheter COLLECTED DATE: 04/24/2017 [facility] REPORT DATE: 04/25/2017 ELECTRONICALLY SIGNED BY: Yarely Arteaga M.D. 04/25/2017 - 8:35:58 [facility]TDD
[2017-04-25] MEDS: DONEPEZIL 5 MG TABLET PO SCH (20:58)
[2017-04-25] MEDS: ATORVASTATIN 40 MG TABLET PO SCH (20:58)
--- NOTE | 2017-04-26 03:24 | Pathology Report from [facility] ---
[facility] ACCESSION # : [id number] PATIENT NAME : Tobias Em ORDERING DR : Pineda Collins MD CLINICAL HX: Chronic kidney disease POST-OP DX: Same SPECIMEN INFO: Heme dialysis catheter GROSS DESCRIPTION: Received fresh labeled with the patients name and consists of a heme dialysis catheter, gross only. DIAGNOSIS FOR TOBIAS EM: Dialysis catheter COLLECTED DATE: 04/24/2017 [facility] REPORT DATE: 04/25/2017 ELECTRONICALLY SIGNED BY: Yarely Arteaga M.D. 04/25/2017 - 8:35:58 MTDD
[2017-04-26] MEDS: ALBUTEROL/IPRATROPIUM 3 ML NEB RESP TX SCH ×3 (06:42→14:02)
[2017-04-26] MEDS: BRIMONIDINE 0.1% OPH SOLN 5 ML BOTTLE BOTH EYES SCH (08:21)
[2017-04-26] MEDS: DORZOLAMIDE/TIMOLOL OPH SOLN 10 ML BOTTLE BOTH EYES SCH (08:21)
[2017-04-26] MEDS: BUDESONIDE/FORMOTEROL 160-4.5 INHALER 6 GM INH SCH (08:21)
[2017-04-26] MEDS: CYPROHEPTADINE 4 MG TABLET PO SCH (08:22)
[2017-04-26] MEDS: BACITRACIN OINT 0.9 GM PACK TOP SCH ×2 (08:23→12:59)
[2017-04-26] MEDS: MAGNESIUM CHLORIDE 64 MG TABLET PO SCH (08:24)
[2017-04-26] MEDS: PANTOPRAZOLE 40 MG TABLET PO SCH (08:24)
[2017-04-26] MEDS: MULTIVITAMIN (OCUVITE) TABLET PO SCH (08:24)
[2017-04-26] MEDS: MONTELUKAST 10 MG TABLET PO SCH (08:25)
[2017-04-26] MEDS: PENTOXIFYLLINE 400 MG TABLET PO SCH (08:25)
[2017-04-26] MEDS: CETIRIZINE 10 MG TABLET PO SCH (08:28)
[2017-04-26] MEDS: CARVEDILOL 12.5 MG TABLET PO SCH (08:29)
[2017-04-26] MEDS: FUROSEMIDE 80 MG TABLET PO SCH (08:29)
[2017-04-26] MEDS: CHOLECALCIFEROL 1,000 UNIT TABLET PO SCH (08:30)
--- NOTE | 2017-04-26 08:31 | Pulmonology Progress Note ---
Pulmonary - PN: Subj Interval history: Patient is 67-year-old black man that has diabetes hypertension and chronic renal failure. He is basically bedridden. He has had a history of CVA and has some mental retardation. He can communicate but is very slow. He cannot walk or do any activity. He has worsening renal insufficiency and congestive heart failure. He was started on dialysis and is doing fairly well. His weight is down and his anasarca and peripheral edema have improved. He said he had a good night and is breathing better. He is eating fairly well. He is tolerating dialysis nicely. His weight is down 24 kg. Overall he looks reasonably stable. He was dialyzed today and can probably go home. Exam (Progress Note) - Constitutional Vitals: Period Temp Pulse Resp BP Sys/Stewart Pulse Ox Last 24 Hr 97.2 F-98.9 F 59-105 18-20 102-136/61-70 96-100 Exam: General appearance: normal weight, the patient is much more comfortable and does not look short of breath now. He is talking and eating and looks comfortable. - Head Head exam: Present: normal inspection, normocephalic - Eye Eye exam: Present: EOMI, other (Bilateral arcus). Absent: nystagmus Pupils: Present: SLY - ENT ENT exam: Present: normal exam - Neck Neck exam: Present: thyromegaly. Absent: lymphadenopathy - Respiratory Respiratory exam: Present: He has good air movement and his lungs sound better with less rales and rhonchi. His lungs do sound much better. - Cardiovascular Cardiovascular exam: Present: regular rate and rhythm, systolic murmur (He has a soft systolic murmur). Absent: gallop, JVD - GI/Abdominal GI/Abdominal exam: Present: normal bowel sounds, soft. Absent: organomegaly, tenderness. His scrotal edema is better. - Extremities Exam Extremities exam: Present: His leg swelling is going down nicely. - Neurological Exam Neurological exam: Present: He is alert this morning and moving around a little better. - Psychiatric Psychiatric exam: Present: normal affect - Skin Skin exam: Present: other (He does have some wounds on his feet and sacrum) Results - Labs CBC & BMP: 04/24/17 04:33 04/24/17 04:34 Assessment and Plan (1) Chronic renal failure Status: Chronic Assessment and plan: The patient's creatinine is down to 3.9 and he is getting dialysis. He will go to dialysis today. Current Visit: Yes Qualifiers: Chronic kidney disease stage: stage 4 (severe) Qualified Code(s): N18.4 - Chronic kidney disease, stage 4 (severe) (2) Hypertension Status: Chronic Assessment and plan: The patient will continue with blood pressure medicines and he is stable at present. His heart rate and blood pressure have been stable. His O2 saturations are adequate. Overall he looks comfortable. Current Visit: No Qualifiers: Hypertension type: essential hypertension Qualified Code(s): I10 - Essential (primary) hypertension (3) Diabetes mellitus Status: Chronic Assessment and plan: His glucoses have been under good control so far. His glucose is 113this morning. Current Visit: No Qualifiers: Diabetes mellitus type: type 2 Diabetes mellitus complication detail: with chronic kidney disease Chronic kidney disease stage: stage 4 (severe) (4) chronic lower extremity wounds Status: Chronic Assessment and plan: Patient is being seen by surgery for wounds. He will continue with wound care. His wounds are apparently stable Current Visit: No (5) Anemia in chronic kidney disease Status: Chronic Assessment and plan: The patient's hematocrit is 24.5 this morning and basically unchanged. Current Visit: No (6) CHF (congestive heart failure), NYHA class III Status: Acute Assessment and plan: Patient was in heart failure and is doing much better on dialysis now. His volume status looks a lot better. His breathing is much improved. He will go to dialysis today and he can probably go home soon. His respiratory status is stable and please call pulmonary if needed over the weekend. Current Visit: Yes Qualifiers: Congestive heart failure type: diastolic Congestive heart failure chronicity: acute on chronic Qualified Code(s): I50.33 - Acute on chronic diastolic (congestive) heart failure (7) Decubitus ulcer Status: Acute Assessment and plan: The patient's ulcers are being evaluated by surgery. Current Visit: Yes Qualifiers: Pressure ulcer location: sacral region Pressure ulcer stage: stage 2 Qualified Code(s): L89.152 - Pressure ulcer of sacral region, stage 2 Specialty Discharge - Follow Up or Referrals Follow up with: Pineda Collins MD [Physician] - 1 Month (follow-up one month after discharge with next available thyroid ultrasound with FNA)
[2017-04-26] MEDS: THEOPHYLLINE ER (24 HR) 300 MG CAPSULE PO SCH (08:33)
[2017-04-26] MEDS: CLOPIDOGREL 75 MG TABLET PO SCH (08:33)
[2017-04-26] MEDS: INSULIN NPH/REGULAR 70/30 100 UNIT/ML SUBCUT SCH (08:36)
--- NOTE | 2017-04-26 08:46 | Dialysis Note ---
Dialysis Note - Dialysis Note Mr. Em is seen in hemodialysis. He will be dialyzed today and discharge thereafter. He appears to be near his dry weight with no significant edema. We are going to dialyze today for 4 hour and he will be followed up at the [facility] on a Saturday schedule. He is much improved overall and was able to eat and enjoys breakfast this morning.
--- NOTE | 2017-04-26 10:22 | Discharge Summary ---
<Samuel Kevin - Last Filed: 04/26/17 08:36> Hospital Course - Hospital Course Hospital Course: Mr. Em is a 67 year old male with multiple medical problems to include chronic kidney disease on dialysis, congestive hear failure, diabetes mellitus and pneumonia who presented to the [facility] on 04/04/2017 with complaints of spitting up blood with onset earlier that day. He was found to have acute on chronic systolic heart failure, bilateral pleural effusions and hemoptysis with pneumonia. Chest CT at the time of admission showed moderately large bilateral pleural effusions with associated atelectasis/consolidation in the lower lobes. There was residual groundglass opacities which could be seen with infiltration making it difficult to exclude underlying mass. He was also found to be pancytopenic on admission, and cardiology was consulted for adjustment of his medications. Wound care was consulted. Ultrasound of the lower extremities show no signs of DVT. Thyroid ultrasound revealed enlargement of the thyroid gland, especially the right lobe measuring 58 x 39 x 35 mm and appears to be replaced by an indeterminate complex abnormality. Left lobe measures 45 x 21 x 12 mm with 5 mm complex cystic nodule on the upper pole. The patient's hospital course was long and complicated lasting for several weeks and consisting of multiple consultations by several specialists and transfers from various floors including telemetry and general med/surg. On surgical consultation for his sacral and heel ulcers, patient was found to have diabetic ulcerations of the right heel which appears to be healed. Surgery recommended continuing moisturizing with protective cream as well as application of protective padding to prevent any further changes and breakdown. Patient was also found to have stage II sacral decubitus ulcer. Recommend continued Aquaphor and calmoseptine. Pulmonology was consulted to assist with pneumonia and pleural effusions. On the patient underwent a thoracentesis per Dr. Whipple. Approximately 1 L of serosanguineous fluid was removed from the right posterior chest indicative of transudative effusion likely secondary to heart failure. Patient reported breathing much better s/p thoracentesis. His CAP was treated with IV Levaquin and breathing treatments. Sputum cultures were negative for growth at 48 hours. On 04/15/17, the patient underwent a bronchoscopy which revealed bronchitis with some retained secretions and bilateral infiltrates with volume overload. Bronchial washings grew Nany tropicalis. Cardiology was consulted to assist with the patient's congestive heart failure. Echocardiogram performed on 04/04/2017 shows borderline left ventricular systolic function with ejection fraction estimated 50% without segmental wall motion abnormality, aortic sclerosis without stenosis, approximately 1+ mitral and tricuspid regurgitation with RVSP 40 mmHg plus RAP. Patient did undergo some mental status changes while hospitalized. Head CT on show no acute hemorrhage, mass or mass-effect. Follow-up MRI of the brain confirmed findings per CT. Neurology was consulted and concluded this episodic confusion is likely due to metabolic encephalopathy versus underlying vascular dementia. Dr. Pride recommended stopping the aspirin and starting Plavix while continue other treatment as previously prescribed. GI was consulted for anemia, hematemesis and guaiac positive stools. Hematocrit was noted to drop from 27-21% during hospitalization. There was no evidence of blood in stool on GI exam. Patient was transfused with 4 units of PRBCs for the anemia and responded appropriately. At discharge, H&H was stabilized at 8.3 and 24.5. Patient underwent an EGD on 04/12/17 to evaluate hematemesis versus hemoptysis and anemia. Findings included denny blood in the oropharynx from coughing and swallowing some scant amount of this from the lungs. No gross evidence of bleeding source seen in the stomach although there was some mild redness noted which was biopsied for H. pylori. Recommendations at that time included continuing PPI therapy and elevating the front posts of the bed 6 inches. Nephrology was consulted to assist with dialysis, diuresis and renal impairment. A mtz catheter was placed as the patient received Lasix and metolazone. Patient does dialyze on MWF and he continued dialysis while hospitalized one Dr Collins, general surgery, placed a RIJ tunneled hemodialyse catheter. Renal US revealed left renal cyst. Otherwise negative ultrasound. At this time, the patient has reached maximum benefit from hospitalization and is stable for discharge. He will be discharged home to self with appropriate follow up instructions per addendum from Dr. Azevedo. He is scheduled to follow- up with Dr. Collins in 1 month with next available thyroid ultrasound with FNA. He should follow up by phone for the results of his EGD biopsy at [phone]. - Time spent with patient Time with patient DS: Greater than 30 minutes Specialty Discharge - Follow Up or Referrals Follow up with: Pineda Collins MD [Physician] - 1 Month (follow-up one month after discharge with next available thyroid ultrasound with FNA) Discharge Plan - Discharge Data Disposition: Disch To Home/Self Care - Discharge Medications New RX: Clopidogrel [Plavix] 75 mg PO DAILY #30 tablet RX: Gemfibrozil [Lopid] 600 mg PO BID #60 tablet RX: Carvedilol [Coreg] 12.5 mg PO BID #60 tablet RX: Donepezil [Aricept] 5 mg PO BEDTIME #30 tablet Continue RX: Cholecalciferol (Vitamin D3) [Vitamin D3] 5,000 unit PO DAILY RX: NIFEdipine [Nifedipine ER] 120 mg PO DAILY RX: Cetirizine Tab [ZyrTEC Tab] 10 mg PO DAILY RX: Pantoprazole Tab [Protonix Tab] 40 mg PO DAILY RX: Pentoxifylline 400 mg PO TID W/MEALS RX: Bimatoprost 0.01% Oph Soln [Lumigan] 1 drop BOTH EYES BEDTIME RX: Brimonidine 0.1% Oph Soln [Alphagan P 0.1% Oph Soln] 1 drop BOTH EYES TID RX: Dorzolamide/Timolol Oph Soln [Cosopt] 1 drop BOTH EYES BID #1 ophthalmic solution RX: Theophylline ER Cap (24 Hr) [Hood-24] 300 mg PO DAILY RX: Multivitamin (Ocuvite) [Ocuvite] 1 tablet PO DAILY RX: Montelukast Tab [Singulair Tab] 10 mg PO DAILY RX: Albuterol/Ipratropium Neb [Duoneb] 3 ml RESP TX QID RX: Budesonide/Formoterol Fumarate [Symbicort 160-4.5 Mcg Inhaler] 2 puff INH BID RX: Dorzolamide/Timolol Oph Soln [Cosopt] 1 drop BOTH EYES BID RX: Insulin NPH Hum/Reg Insulin Hm [NovoLIN 70/30] See Protocol SUBCUT AC SUPPER RX: Insulin NPH Hum/Reg Insulin Hm [NovoLIN 70/30] See Protocol SUBCUT AC BREAKFAST RX: Hydralazine HCl 50 mg PO TID RX: Cyproheptadine Tab [Periactin Tab] 4 mg PO TID RX: Atorvastatin [Lipitor] 40 mg PO BEDTIME Discontinued RX: Aspirin [Ecotrin] 81 mg PO DAILY Carvedilol [Coreg] 6.25 mg PO BID cloNIDine TAB [Catapres Tab] 0.2 mg PO DAILY No Action Furosemide Tab [Lasix Tab] 40 mg PO DAILY #30 tablet - Follow Up or Referral Follow Up: Pineda Collins MD [Physician] - 1 Month (follow-up one month after discharge with next available thyroid ultrasound with FNA) - Forms/Instructions Exam - Constitutional Vitals: Period Temp Pulse Resp BP Sys/Stewart Pulse Ox Last 24 Hr 97.2 F-98.9 F 59-105 18-20 102-142/61-75 96-100 Discharge Results Procedures and tests throughout hospitalization: Pending Orders 04/05/17 14:22 Cytology Request Routine 04/06/17 16:00 Occult Blood, Stool Routine 04/15/17 AFB Culture/Smears Routine Fungal Culture w/ Prep Routine Labs on day of discharge: Labs from last 24 hours 04/26/17 04/26/17 04/25/17 07:27 05:58 20:25 POC Glucose 113 H 116 H 100 04/25/17 04/25/17 15:02 11:26 POC Glucose 124 H 101 Preliminary micro results at discharge 04/15/17 Unknown Fungal Culture - Preliminary Bronchial Washings Nany tropicalis 04/15/17 Unknown Mycobacterial Culture - Preliminary Bronchial Washings No AFB isolated at 1 week DS: Provider Date of admission: 04/04/17 04:06 Primary care physician: Farooq Ryan MD Attending physician on admission: Darshan Tariq MD Consults: 04/04/17 04:08 Consult to Case Mgmt/Social Srvs [CONS] Routine Reason for Case Mgmt/Social Srvs: Discharge Planning Swingbed/SNF/Prison Consult to Physician [CONS] Routine Comment: On-call physician/acute on chronic CHF Consulting Provider: Cardiology - [facility] Consult to Specialist Group: Cardiology When should Consulting Provider be notified: In am Person Notified: Jignesh Date Notified: 04/04/17 Time Notified: 07:30 04/04/17 06:55 Consult to Dietitian [CONS] Routine Reason for Dietitian: Dietary Consult 04/04/17 16:06 Consult to Physician [CONS] Routine Comment: R heel ulcer/previously seen by you Consulting Provider: Parker Linares Person Notified: Jannie Date Notified: 04/05/17 Time Notified: 08:35 04/04/17 17:18 Consult to Physician [CONS] Routine Comment: abnormal ct chest/pleural effusion Consulting Provider: Consult to Specialist Group: Pulmonology Person Notified: Kandice Date Notified: 04/05/17 Time Notified: 08:45 04/06/17 12:44 Consult to Physician [CONS] Routine Comment: MS change Consulting Provider: Иван Pride Person Notified: MD FERGUSON Date Notified: 04/10/17 Time Notified: 15:24 04/10/17 18:03 Consult to Case Mgmt/Social Srvs [CONS] Routine Reason for Case Mgmt/Social Srvs: Discharge Planning Home Health Swingbed/SNF/Prison 04/11/17 09:16 Consult to Occupational Therapy [CONS] Routine Reason for Occupational Therapy: Evaluate and Treat Consult to Physical Therapy [CONS] Routine Reason for Physical Therapy: Evaluate and Treat 04/11/17 09:36 Consult to Physician [CONS] Routine Comment: CKD Consulting Provider: Parker Cadena Person Notified: PATRICIA Date Notified: 04/11/17 Time Notified: 10:17 04/11/17 12:39 Consult to Anesthesiology [CONS] Routine Consulting Provider: Reason for Anesthesiology: Pre-op Clearance 04/12/17 09:08 Consult to Case Mgmt/Social Srvs [CONS] Routine Reason for Case Mgmt/Social Srvs: Home Health Consult Comment: with pt 04/15/17 15:16 Consult to Case Mgmt/Social Srvs [CONS] Routine Reason for Case Mgmt/Social Srvs: LTAC 04/16/17 11:11 Consult to Physician [CONS] Routine Comment: thyroid nodule Consulting Provider: Jose Beasley III. Person Notified: Iris Date Notified: 04/16/17 Time Notified: 11:16 04/16/17 11:16 Consult to Physician [CONS] Routine Comment: Consulting Provider: 04/22/17 10:11 Consult to Physician [CONS] Routine Comment: Tunnelled dialysis catheter Consulting Provider: Pineda Collins 04/22/17 11:09 Consult to Anesthesiology [CONS] Routine Consulting Provider: Reason for Anesthesiology: Pre-op Clearance 04/22/17 13:03 Consult to Case Mgmt/Social Srvs [CONS] Routine Reason for Case Mgmt/Social Srvs: Other Consult Comment: NEW DIALYSIS PATIENT Discharging clinician: Samuel KIRK Expected date of discharge: 04/26/17 <Vilma Azevedo - Last Filed: 04/26/17 11:20> Hospital Course - Time spent with patient Time with patient DS: Greater than 30 minutes (95) Diagnosis - Discharge Diagnosis (1) Chronic renal failure Status: Chronic (2) Hypertension Status: Chronic (3) Diabetes mellitus Status: Chronic (4) Anemia Status: Chronic Discharge Plan - Discharge Data Condition at Discharge: Stable Discharge Diet: low salt diet Activity: increase activity as tolerated Weight Bearing at Discharge: weight bear as tolerated Contact your physician if you experience:: fever over 101, Redness or swelling, Shortness of breath Exam - Constitutional General appearance: normal weight - Head Head exam: Present: normocephalic, atraumatic - Eye Eye exam: Present: EOMI Pupils: Present: SLY - ENT ENT exam: Present: normal exam - Neck Neck exam: Present: normal inspection - Respiratory Respiratory exam: Present: clear to auscultation bilaterally. Absent: wheezes - Cardiovascular Cardiovascular exam: Present: regular rate and rhythm - GI/Abdominal GI/Abdominal exam: Present: normal bowel sounds, soft. Absent: mass - Extremities Exam Extremities exam: Present: normal inspection - Back Exam Back exam: Present: normal inspection - Neurological Exam Neurological exam: Present: alert - Psychiatric Psychiatric exam: Present: normal affect, normal mood - Skin Skin exam: Present: warm, intact
[2017-04-26 10:38] VITALS: BP 142/75
[2017-04-26] MEDS: GEMFIBROZIL 600 MG TABLET PO SCH (12:58)
[2017-04-26] MEDS: MENTHOL/ZINC OXIDE OINT 71 GM JAR TOP SCH (13:00)
== END 2017-04-26 14:34 | disposition home or self-care (01) | DRG 291 ==
LOC: EDUNIT# → EDBD → N.ED 01:56 → SUATTDRO 04:06 → N.EDINP 04:06 → N.TELES 04:54 → N.5E 04-10 10:50 → N.CC 04-14 17:22 → N.2E 04-16 12:36
PROVIDERS: ADMIT Internal Medicine Infectious Disease; ATTEND Internal Medicine

== ENCOUNTER 2017-09-22 23:09 | Observation (INO) ==
[2017-09-23] MEDS ORDERED: levETIRAcetam 500 MG TABLET PO STA (00:07)
[2017-09-23] MEDS ORDERED: MIDAZOLAM 2 MG/2 ML VIAL IV STA ×3 (00:07→01:20)
[2017-09-23] MEDS ORDERED: MIDAZOLAM 2 MG/2 ML VIAL ONE ×3 (00:12→04:11)
[2017-09-23] MEDS ORDERED: levETIRAcetam 500 MG TABLET ONE (00:12)
[2017-09-23 00:46] LABS: Alanine Aminotransferase 16 U/L (16-61); Albumin 3.2 G/DL (3.4-5.0); Alkaline Phosphatase 96 U/L (45-117); Aspartate Amino Transferase 21 U/L (0-37); Bilirubin,Total < 0.39 MG/DL (0.2-1.0); Blood Urea Nitrogen 31 MG/DL (7-18); Calcium 8.7 MG/DL (8.5-10.1); Glucose 124 MG/DL (74-106); Potassium 3.3 MMOL/L (3.5-5.1); Sodium 136 MMOL/L (136-145); Total Protein 7.7 G/DL (6.4-8.3)
[2017-09-23 00:56] LABS: Basophils % 0.1 % (0.0-0.8); Eosinophils # 0.4 10*3/uL (0.0-0.87); Eosinophils % 4.9 % (0.00-10.9); Hematocrit 21.6 VOL% (42.0-52.0); Hemoglobin 7.3 GM/DL (14.0-18.0); Immature Granulocytes % 2.6 %; Immature Granulocytes Absolute 0.19 #; Lymphocytes # 1.9 10*3/uL (1.4-4.0); Mean Corpuscular HGB Conc 33.8 GM/DL (32-36); Mean Corpuscular Hemoglobin 29 PG (27-34); Mean Platelet Volume 10.9 FL (9.6-12.0); Monocytes # 0.8 10*3/uL (0.11-0.8); Monocytes % 11.2 % (1.7-12.7); Neutrophils # 4.1 10*3/uL (1.4-7.4); Neutrophils % 55.2 % (38.7-73.9); Platelet Count 187 T/CUMM (130-400); Red Blood Count 2.54 MC/CUMM (3.8-5.5); Red Cell Distribution Width 16.1 % (9.3-17.3); White Blood Count 7.4 T/CUMM (4-12)
[2017-09-23] MEDS ORDERED: GLUCAGON 1 MG VIAL IM PRN (03:22)
[2017-09-23] MEDS ORDERED: DEXTROSE 50% 25 GM/50 ML VIAL IV PRN (03:22)
[2017-09-23] MEDS ORDERED: CYPROHEPTADINE 4 MG TABLET PO SCH (09:00)
[2017-09-23] MEDS ORDERED: MEGESTROL 40 MG TABLET PO SCH (09:00)
[2017-09-23] MEDS ORDERED: ALBUTEROL/IPRATROPIUM 3 ML NEB RESP TX SCH (09:00)
[2017-09-23] MEDS: INSULIN LISPRO 100 UNIT/ML SUBCUT SCH ×4 (09:17→22:57)
[2017-09-23] MEDS: INSULIN NPH/REGULAR 70/30 100 UNIT/ML SUBCUT SCH (09:17)
[2017-09-23] MEDS: DRONABINOL 2.5 MG CAPSULE PO SCH ×2 (09:23→20:58)
[2017-09-23] MEDS: THEOPHYLLINE ER (24 HR) 300 MG CAPSULE PO SCH (09:23)
[2017-09-23] MEDS: BUDESONIDE/FORMOTEROL 160-4.5 INHALER 6 GM INH SCH ×2 (09:23→20:55)
[2017-09-23] MEDS: DORZOLAMIDE/TIMOLOL OPH SOLN 10 ML BOTTLE BOTH EYES SCH ×2 (09:23→20:55)
[2017-09-23] MEDS: BRIMONIDINE 0.1% OPH SOLN 5 ML BOTTLE BOTH EYES SCH ×3 (09:23→21:01)
[2017-09-23] MEDS: levETIRAcetam 500 MG TABLET PO SCH ×2 (09:23→20:58)
[2017-09-23] MEDS: MONTELUKAST 10 MG TABLET PO SCH (09:23)
[2017-09-23] MEDS: MULTIVITAMIN (BEROCCA) TABLET PO SCH (09:24)
[2017-09-23] MEDS: PENTOXIFYLLINE 400 MG TABLET PO SCH ×4 (09:24→20:58)
[2017-09-23] MEDS: CARVEDILOL 12.5 MG TABLET PO SCH ×2 (09:24→20:58)
[2017-09-23] MEDS: PANTOPRAZOLE 40 MG TABLET PO SCH (09:24)
[2017-09-23] MEDS: GEMFIBROZIL 600 MG TABLET PO SCH ×2 (09:24→20:58)
[2017-09-23] MEDS: ALBUTEROL/IPRATROPIUM 3 ML NEB RESP TX SCH ×3 (11:58→20:12)
[2017-09-23] MEDS ORDERED: SKIN HEALING OINT (AQUAPHOR) 50 GM TUBE TOP PRN (15:41)
[2017-09-23] MEDS ORDERED: SODIUM CHLORIDE 0.9% 1,000 ML IV PRN (15:56)
[2017-09-23] MEDS: BIMATOPROST 0.01% OPH SOLN 2.5 ML BOTTLE BOTH EYES SCH (20:55)
[2017-09-23] MEDS: ATORVASTATIN 40 MG TABLET PO SCH (21:01)
[2017-09-23] MEDS: DONEPEZIL 5 MG TABLET PO SCH (21:01)
[2017-09-24 06:42] LABS: Basophils % 0.2 % (0.0-0.8); Eosinophils # 0.3 10*3/uL (0.0-0.87); Hematocrit 30.2 VOL% (42.0-52.0); Hemoglobin 10.1 GM/DL (14.0-18.0); Immature Granulocytes % 2.3 %; Immature Granulocytes Absolute 0.13 #; Lymphocytes # 1.3 10*3/uL (1.4-4.0); Lymphocytes % 23.3 % (21.2-54.2); Mean Corpuscular HGB Conc 33.4 GM/DL (32-36); Mean Corpuscular Hemoglobin 28 PG (27-34); Mean Corpuscular Volume 83.2 FL (87-102); Mean Platelet Volume 10.8 FL (9.6-12.0); Monocytes # 0.5 10*3/uL (0.11-0.8); Monocytes % 9.3 % (1.7-12.7); Neutrophils # 3.4 10*3/uL (1.4-7.4); Neutrophils % 59.9 % (38.7-73.9); Platelet Count 160 T/CUMM (130-400); White Blood Count 5.6 T/CUMM (4-12)
[2017-09-24 07:12] LABS: Calcium 8.4 MG/DL (8.5-10.1); Osmolality,Calculated 287.5 MOS/KG (273-304); Potassium 3.6 MMOL/L (3.5-5.1)
[2017-09-24 07:15] LABS: Red Blood Count 3.63 MC/CUMM (3.8-5.5)
[2017-09-24] MEDS: INSULIN LISPRO 100 UNIT/ML SUBCUT SCH ×4 (07:31→21:36)
[2017-09-24] MEDS: INSULIN NPH/REGULAR 70/30 100 UNIT/ML SUBCUT SCH (07:32)
[2017-09-24] MEDS: ALBUTEROL/IPRATROPIUM 3 ML NEB RESP TX SCH ×5 (07:45→20:23)
[2017-09-24 09:15] LABS: Hematocrit 31.8 VOL% (42.0-52.0); Hemoglobin 10.5 GM/DL (14.0-18.0)
[2017-09-24] MEDS: BRIMONIDINE 0.1% OPH SOLN 5 ML BOTTLE BOTH EYES SCH ×3 (09:23→21:37)
[2017-09-24] MEDS: BUDESONIDE/FORMOTEROL 160-4.5 INHALER 6 GM INH SCH ×2 (09:23→21:36)
[2017-09-24] MEDS: DORZOLAMIDE/TIMOLOL OPH SOLN 10 ML BOTTLE BOTH EYES SCH ×2 (09:23→21:37)
[2017-09-24] MEDS: DRONABINOL 2.5 MG CAPSULE PO SCH ×2 (09:27→21:47)
[2017-09-24] MEDS: PENTOXIFYLLINE 400 MG TABLET PO SCH ×3 (09:27→21:47)
[2017-09-24] MEDS: PANTOPRAZOLE 40 MG TABLET PO SCH (09:27)
[2017-09-24] MEDS: THEOPHYLLINE ER (24 HR) 300 MG CAPSULE PO SCH (09:27)
[2017-09-24] MEDS: MULTIVITAMIN (BEROCCA) TABLET PO SCH (09:27)
[2017-09-24] MEDS: MONTELUKAST 10 MG TABLET PO SCH (09:27)
[2017-09-24] MEDS: GEMFIBROZIL 600 MG TABLET PO SCH ×2 (09:27→21:35)
[2017-09-24] MEDS: levETIRAcetam 500 MG TABLET PO SCH ×2 (09:27→21:35)
[2017-09-24] MEDS: CARVEDILOL 12.5 MG TABLET PO SCH ×2 (09:28→21:35)
[2017-09-24] MEDS ORDERED: HEPARIN 10,000 UNIT/10 ML VIAL IV PRN (15:19)
[2017-09-24] MEDS ORDERED: NYSTATIN POWDER 15 GM BOTTLE TOP PRN (18:24)
[2017-09-24] MEDS: DONEPEZIL 5 MG TABLET PO SCH (21:35)
[2017-09-24] MEDS: BIMATOPROST 0.01% OPH SOLN 2.5 ML BOTTLE BOTH EYES SCH (21:37)
[2017-09-24] MEDS: ATORVASTATIN 40 MG TABLET PO SCH (21:47)
[2017-09-25 04:54] VITALS: BP 126/70
[2017-09-25] MEDS: levETIRAcetam 500 MG TABLET PO SCH (05:50)
== END 2017-09-25 06:00 | disposition home or self-care (01) ==
LOC: EDBD → EDUNIT# → N.EDINP 23:09 → N.ED 23:09 → SUATTDRO 09-23 03:21 → N.5E 09-23 03:41
PROVIDERS: ADMIT Internal Medicine Nephrology; ATTEND Internal Medicine

== ENCOUNTER 2018-01-31 20:22 | Inpatient (IN) ==
[2018-01-31] MEDS ORDERED: CEFEPIME 1,000 MG in SODIUM CHLORIDE 0.9% 100 ML IV STA (21:15)
[2018-01-31] MEDS ORDERED: VANCOMYCIN INJ 500 MG in SODIUM CHLORIDE 0.9% 100 ML IV STA ×2 (21:15→22:42)
[2018-01-31] MEDS ORDERED: SODIUM CHLORIDE 0.9% 100 ML IV ONE (21:54)
[2018-01-31] MEDS ORDERED: CEFEPIME 1,000 MG VIAL ONE (21:54)
[2018-01-31 21:55] LABS: Hematocrit 25.1 VOL% (42.0-52.0); Hemoglobin 8.2 GM/DL (14.0-18.0); Immature Granulocytes % 0.3 %; Immature Granulocytes Absolute 0.01 #; Lymphocytes # 0.7 10*3/uL (1.4-4.0); Lymphocytes % 20.6 % (21.2-54.2); Mean Corpuscular HGB Conc 32.7 GM/DL (32-36); Mean Corpuscular Hemoglobin 27 PG (27-34); Mean Platelet Volume 11.5 FL (9.6-12.0); Monocytes # 0.1 10*3/uL (0.11-0.8); Monocytes % 3.4 % (1.7-12.7); Neutrophils # 2.7 10*3/uL (1.4-7.4); Neutrophils % 75.7 % (38.7-73.9); Platelet Count 68 T/CUMM (130-400); Red Cell Distribution Width 17.9 % (9.3-17.3); White Blood Count 3.5 T/CUMM (4-12)
[2018-01-31] MEDS ORDERED: VANCOMYCIN INJ 1,000 MG in SODIUM CHLORIDE 0.9% 250 ML IV ONE (22:00)
[2018-01-31 22:16] LABS: Alanine Aminotransferase 46 U/L (16-61); Albumin 1.8 G/DL (3.4-5.0); Alkaline Phosphatase 93 U/L (45-117); Aspartate Amino Transferase 36 U/L (0-37); Bilirubin,Total < 0.39 MG/DL (0.2-1.0); Blood Urea Nitrogen 280 MG/DL (7-18); Calcium 7.2 MG/DL (8.5-10.1); Glucose 82 MG/DL (74-106); Osmolality,Calculated 408.7 MOS/KG (273-304); Potassium 4.6 MMOL/L (3.5-5.1); Sodium 159 MMOL/L (136-145); Total Protein 5.7 G/DL (6.4-8.3); Troponin I Only 0.034 NG/ML (0.00-0.045)
[2018-01-31] MEDS ORDERED: SODIUM CHLORIDE 0.9% 1,000 ML IV STA (22:23)
[2018-01-31 23:07] LABS: VBG Base Excess -13.6 MEQ/L (0-4); VBG HCO3 13.9 MEQ/L (24-28); VBG PCO2 30.6 MMHG (41-51); VBG PH 7.234
[2018-01-31] MEDS ORDERED: LORazepam 2 MG/1 ML VIAL ONE (23:25)
[2018-01-31 23:30] LABS: Ammonia 40 UMOL/L (11-32)
[2018-01-31 23:40] LABS: ABG Base Excess -13.9 MMOL/L (-2.5-2.5); ABG HCO3 13.8 MMOL/L (20-26); ABG Oxygen Saturation 99.1 % (95-100); ABG PCO2 28.3 MM HG (35-48); ABG PH 7.248 (7.35-7.45); ABG TCO2 11.4 MMOL/L (23-27)
[2018-01-31] MEDS ORDERED: NOREPINEPHRINE 4 MG/4 ML VIAL IV ONE (23:58)
[2018-02-01] MEDS ORDERED: NOREPINEPHRINE 8 MG in SODIUM CHLORIDE 0.9% 242 ML IV PRN (00:02)
[2018-02-01] MEDS ORDERED: ONDANSETRON 4 MG/2 ML VIAL IV PRN (00:14)
[2018-02-01] MEDS ORDERED: SODIUM CHLORIDE 0.9% 1,000 ML IV SCH (00:30)
[2018-02-01] MEDS ORDERED: LORazepam 2 MG/1 ML VIAL IV PRN (00:35)
[2018-02-01] MEDS ORDERED: SODIUM CHLORIDE 23.4% CONC INJ 38.5 MEQ in STERILE WATER INJ 1,000 ML IV SCH (01:00)
[2018-02-01 02:18] LABS: Basophils % 0.2 % (0.0-0.8); Hematocrit 25.4 VOL% (42.0-52.0); Hemoglobin 8.5 GM/DL (14.0-18.0); Immature Granulocytes % 0.2 %; Immature Granulocytes Absolute 0.01 #; Lymphocytes # 0.9 10*3/uL (1.4-4.0); Lymphocytes % 18.2 % (21.2-54.2); Mean Corpuscular HGB Conc 33.5 GM/DL (32-36); Mean Corpuscular Hemoglobin 27 PG (27-34); Mean Corpuscular Volume 79.9 FL (87-102); Mean Platelet Volume 11.8 FL (9.6-12.0); Monocytes # 0.2 10*3/uL (0.11-0.8); Monocytes % 4.1 % (1.7-12.7); NRBC # 0.04 10*3/uL; Neutrophils # 3.7 10*3/uL (1.4-7.4); Neutrophils % 77.3 % (38.7-73.9); Platelet Count 81 T/CUMM (130-400); Red Blood Count 3.18 MC/CUMM (3.8-5.5); White Blood Count 4.8 T/CUMM (4-12)
[2018-02-01] MEDS ORDERED: ROCURONIUM 100 MG/10 ML VIAL IV ONE (02:40)
[2018-02-01] MEDS ORDERED: ETOMIDATE 20 MG/10 ML VIAL IV ONE (02:40)
[2018-02-01 02:41] LABS: Calcium 6.9 MG/DL (8.5-10.1); Osmolality,Calculated 399.9 MOS/KG (273-304); Potassium 4.5 MMOL/L (3.5-5.1)
[2018-02-01] MEDS ORDERED: DEXTROSE 50% 25 GM/50 ML VIAL IV PRN (04:30)
[2018-02-01] MEDS ORDERED: GLUCAGON 1 MG VIAL IM PRN (04:30)
[2018-02-01 04:49] LABS: ABG Base Excess -15.5 MMOL/L (-2.5-2.5); ABG HCO3 12.6 MMOL/L (20-26); ABG PCO2 32.9 MM HG (35-48); ABG TCO2 11.4 MMOL/L (23-27); Allen Test Positive; Pt O2 Delivery Device Ventilator
[2018-02-01 04:52] LABS: ABG PH 7.174 (7.35-7.45)
[2018-02-01] MEDS ORDERED: SODIUM BICARBONATE 50 MEQ/50 ML SYRINGE IV ONE ×3 (05:30→07:19)
[2018-02-01 05:47] LABS: Lymphocytes 14 % (20-55); Platelet Estimate Decreased; Segmented Neutrophils 82 % (50-85); Total Cells Counted 100
[2018-02-01 05:49] LABS: % Iron Saturation 108.4 % (18-50)
[2018-02-01] MEDS ORDERED: INSULIN LISPRO 100 UNIT/ML SUBCUT SCH (06:00)
[2018-02-01 07:11] LABS: ABG Base Excess -11.9 MMOL/L (-2.5-2.5); ABG HCO3 13.6 MMOL/L (20-26); ABG Oxygen Saturation 95.3 % (95-100); ABG PCO2 29.5 MM HG (35-48); ABG PH 7.282 (7.35-7.45); ABG PO2 101.2 MM HG (80-95); ABG TCO2 14.5 MMOL/L (23-27); Allen Test Positive; Pt O2 Delivery Device Ventilator
[2018-02-01] MEDS ORDERED: CLINDAMYCIN INJ 300 MG in PREMIX 1 EACH IV SCH (08:00)
[2018-02-01] MEDS: INSULIN LISPRO 100 UNIT/ML SUBCUT SCH ×2 (08:38→11:43)
[2018-02-01 09:06] LABS: Apearance,Urine Slightly Hazy (Clear); Bacteria,Urine Occasional /HPF (Few); Bilirubin,Urine Negative (Negative); Blood, Urine Large mg/dL (Negative); Glucose,Urine (UA) Negative (Negative); Ketones,Urine Negative (Negative); Mucus,Urine Occasional /LPF (Occasional); Nitrite,Urine Negative (Negative); Protein,Urine 100 MG/DL; RBC,Urine 22 /HPF (0-4); Squamous Epithelial Cell,Urine Occasional /HPF (0-10); Urine Color Yellow (Yellow); Urine Specific Gravity 1.013 (1.001-1.035); Urine Urobilinogen < 2.0 EU/DL (0.2-1.0); WBC,Urine 37 /HPF (0-6)
[2018-02-01] MEDS ORDERED: MORPHINE 2 MG/1 ML SYRINGE IV PRN (12:47)
[2018-02-01] MEDS ORDERED: VANCOMYCIN INJ 750 MG in SODIUM CHLORIDE 0.9% 250 ML IV PRN (13:00)
[2018-02-01] MEDS: MORPHINE 4 MG/1 ML VIAL IV PRN ×2 (13:19→15:23)
[2018-02-01 16:02] VITALS: BP 32/22
[2018-02-01] MEDS ORDERED: CEFEPIME IV SCH (22:00)
== END 2018-02-01 15:32 | disposition expired | DRG 871 ==
LOC: EDBD → EDUNIT# → N.ED 20:22 → SUATTDRO 23:18 → N.EDINP 23:18 → N.ICU 02-01 00:17
PROVIDERS: ADMIT Family Medicine; ATTEND Internal Medicine